=== PATIENT | male | born 1945 | race Caucasian/White ===

== ENCOUNTER 2020-12-15 06:30 | Outpatient (REF) | payer MEDICARE, SELFPAY ==
[2020-12-15 11:13] LABS: MANUAL DIFF FLAG NO
[2020-12-15 11:34] LABS: Basophils Percent Auto 0.4 % (0-2); Eosinophils Absolute Auto 0.4 X10*3/uL (0.0-0.4); Eosinophils Percent Auto 4.4 % (0-4); Hematocrit 41.6 % (42-52); Imm Gran Abs Auto 0.04 X10*3/uL (0.00-0.03); Imm Gran Pct Auto 0.5 % (0.0-0.4); Lymphocytes Absolute Auto 1.7 X10*3/uL (1.2-4.9); Lymphocytes Percent Auto 20.4 % (20-40); Mean Corpuscular HGB Conc 33.7 g/dl (31.0-36.0); Mean Platelet Volume 10.3 fL (9.4-12.4); Monocytes Absolute Auto 0.7 X10*3/uL (0.1-1.2); Monocytes Percent Auto 8.8 % (2-11); Neutrophils Absolute Auto 5.4 X10*3/uL (2.0-8.3); Neutrophils Percent Auto 65.5 % (45-73); Platelet Count 196 X10*3/uL (160-400); Red Blood Count 4.38 X10*6/uL (4.60-5.80); Red Cell Distribution Width 12.6 % (11.0-16.0); White Blood Count 8.2 X10*3/uL (4.8-10.8)
[2020-12-15 11:59] LABS: Estimated Average Glucose 137 mg/dL; Hemoglobin A1c % 6.4 %
[2020-12-15 12:19] LABS: Alanine Aminotransferase 17 U/L (0-40); Albumin Level 4.3 g/dL (3.5-5.0); Alkaline Phosphatase 100 U/L (39-117); Anion Gap 10 (12-20); Aspartate Amino Transferase 16 U/L (5-37); Bilirubin Direct 0.2 mg/dL (0.0-0.5); Bilirubin Total 0.6 mg/dL (0.0-1.0); Blood Urea Nitrogen 17 mg/dL (9-16); Calcium 8.6 mg/dL (8.4-10.2); Carbon Dioxide 29 mmol/L (22-29); Chloride 106 mmol/L (96-108); Cholesterol 173 mg/dL; Estimated Glomerular Filt Rate > 60; Glucose Fasting 114 mg/dL (60-99); HDL Cholesterol 38 mg/dL; LDL Cholesterol Calculated 97 mg/dl; Potassium 4.2 mmol/L (3.3-5.1); Sodium 141 mmol/L (135-145); Total Protein 7.2 g/dL (6.5-8.0); Triglycerides 193 mg/dL
[2020-12-15 12:21] LABS: Creatinine Urine 39.41 mg/dL; Microalbum/Creatinine Ratio Ur 20.2 ug/mg cr
== END 2020-12-15 06:31 | disposition home or self-care (01) ==
LOC: HO.HMGCLDS 06:30
PROVIDERS: PCP Internal Medicine; Visit Provider Internal Medicine
DX: F33.9 Major depressive disorder, recurrent, unspecified (principal); E11.9 Type 2 diabetes mellitus without complications; I10 Essential (primary) hypertension; E78.9 Disorder of lipoprotein metabolism, unspecified
CPT/HCPCS: 36415; 80048; 80061; 80076; 82043; 83036; 85025

== ENCOUNTER 2021-07-16 08:03 | Outpatient (REF) | payer MEDICARE, SELFPAY ==
[2021-07-16 13:16] LABS: Alanine Aminotransferase 22 U/L (0-40); Albumin Level 4.6 g/dL (3.5-5.0); Alkaline Phosphatase 119 U/L (39-117); Anion Gap 14 (12-20); Aspartate Amino Transferase 23 U/L (5-37); Bilirubin Total 0.7 mg/dL (0.0-1.0); Blood Urea Nitrogen 21 mg/dL (9-16); Calcium 9.8 mg/dL (8.4-10.2); Carbon Dioxide 26 mmol/L (22-29); Chloride 103 mmol/L (96-108); Estimated Glomerular Filt Rate > 60; Glucose Random 129 mg/dL (60-115); Potassium 5.1 mmol/L (3.3-5.1); Sodium 138 mmol/L (135-145); Total Protein 8.2 g/dL (6.5-8.0)
[2021-07-16 13:25] LABS: Microalbumin Urine < 5.0 mg/L
[2021-07-16 14:01] LABS: Estimated Average Glucose 154 mg/dL
== END 2021-07-16 08:04 | disposition home or self-care (01) ==
LOC: HO.HMGCLDS 08:03
PROVIDERS: PCP Internal Medicine; Visit Provider Internal Medicine
DX: I10 Essential (primary) hypertension (principal); E11.9 Type 2 diabetes mellitus without complications; E78.9 Disorder of lipoprotein metabolism, unspecified
CPT/HCPCS: 36415; 80053; 82043; 83036

== ENCOUNTER 2022-01-14 08:01 | Outpatient (REF) | payer MEDICARE, SELFPAY ==
[2022-01-14 11:53] LABS: Alanine Aminotransferase 22 U/L (0-40); Albumin Level 4.2 g/dL (3.5-5.0); Alkaline Phosphatase 111 U/L (39-117); Anion Gap 12 (12-20); Aspartate Amino Transferase 20 U/L (5-37); Bilirubin Total 0.5 mg/dL (0.0-1.0); Blood Urea Nitrogen 28 mg/dL (9-16); Calcium 9.4 mg/dL (8.4-10.2); Carbon Dioxide 27 mmol/L (22-29); Chloride 106 mmol/L (96-108); Estimated Glomerular Filt Rate > 60; Glucose Random 127 mg/dL (60-115); Potassium 4.7 mmol/L (3.3-5.1); Sodium 140 mmol/L (135-145); Total Protein 7.4 g/dL (6.5-8.0)
[2022-01-14 12:02] LABS: Estimated Average Glucose 163 mg/dL; Hemoglobin A1c % 7.3 %
[2022-01-14 12:16] LABS: Creatinine Urine 71.47 mg/dL; Microalbum/Creatinine Ratio Ur 9.7 ug/mg cr
[2022-01-15 09:41] LABS: LDL Cholesterol Direct 96 mg/dL (<100)
== END 2022-01-14 08:02 | disposition home or self-care (01) ==
LOC: HO.HMGCLDS 08:01
PROVIDERS: Visit Provider Internal Medicine
DX: E66.9 Obesity, unspecified (principal); E78.9 Disorder of lipoprotein metabolism, unspecified; F33.9 Major depressive disorder, recurrent, unspecified; H91.90 Unspecified hearing loss, unspecified ear; I10 Essential (primary) hypertension; E11.9 Type 2 diabetes mellitus without complications
CPT/HCPCS: 36415; 80053; 82043; 83036; 83721

== ENCOUNTER 2022-09-12 07:05 | Outpatient (REF) | payer MEDICARE, SELFPAY ==
[2022-09-12 11:14] LABS: MANUAL DIFF FLAG NO
[2022-09-12 11:52] LABS: Basophils Percent Auto 0.5 % (0-2); Eosinophils Absolute Auto 0.3 X10*3/uL (0.0-0.4); Eosinophils Percent Auto 3.4 % (0-4); Hematocrit 44.1 % (42.0-52.0); Hemoglobin 14.7 g/dl (14.0-18.0); Imm Gran Abs Auto 0.05 X10*3/uL (0.00-0.03); Imm Gran Pct Auto 0.6 % (0.0-0.4); Lymphocytes Absolute Auto 1.9 X10*3/uL (1.2-4.9); Lymphocytes Percent Auto 22.2 % (20-40); Mean Corpuscular HGB Conc 33.3 g/dl (31.0-36.0); Mean Corpuscular Hemoglobin 32.1 pg (27.0-33.0); Mean Corpuscular Volume 96.3 fL (80.0-98.0); Mean Platelet Volume 10.7 fL (9.4-12.4); Monocytes Absolute Auto 0.7 X10*3/uL (0.1-1.2); Monocytes Percent Auto 8.5 % (2-11); Neutrophils Absolute Auto 5.5 x10*3/uL (2.0-8.3); Neutrophils Percent Auto 64.8 % (45-73); Platelet Count 202 X10*3/uL (160-400); Red Blood Count 4.58 X10*6/uL (4.60-5.80); Red Cell Distribution Width 12.6 % (11.0-16.0); White Blood Count 8.5 X10*3/uL (4.8-10.8)
[2022-09-12 12:02] LABS: Estimated Average Glucose 163 mg/dL; Hemoglobin A1c % 7.3 %
[2022-09-12 12:13] LABS: Creatinine Urine 36.74 mg/dL; Microalbum/Creatinine Ratio Ur 24.4 ug/mg cr
[2022-09-12 12:29] LABS: Alanine Aminotransferase 20 U/L (0-40); Albumin Level 4.4 g/dL (3.5-5.0); Alkaline Phosphatase 114 U/L (39-117); Anion Gap 13 (12-20); Aspartate Amino Transferase 18 U/L (5-37); Bilirubin Direct 0.2 mg/dL (0.0-0.5); Bilirubin Total 0.5 mg/dL (0.0-1.0); Blood Urea Nitrogen 29 mg/dL (9-16); Calcium 9.9 mg/dL (8.4-10.2); Carbon Dioxide 29 mmol/L (22-29); Chloride 104 mmol/L (96-108); Estimated Glomerular Filt Rate > 60; Glucose Fasting 151 mg/dL (60-99); Potassium 5.3 mmol/L (3.3-5.1); Sodium 141 mmol/L (135-145); Total Protein 7.5 g/dL (6.5-8.0)
== END 2022-09-12 07:06 | disposition home or self-care (01) ==
LOC: HO.HMGCLDS 07:05
PROVIDERS: PCP Internal Medicine; Visit Provider Internal Medicine
DX: E66.9 Obesity, unspecified (principal); E78.9 Disorder of lipoprotein metabolism, unspecified; F33.9 Major depressive disorder, recurrent, unspecified; I10 Essential (primary) hypertension; R09.81 Nasal congestion; E11.9 Type 2 diabetes mellitus without complications
CPT/HCPCS: 36415; 80053; 80076; 82043; 83036; 85025

== ENCOUNTER 2022-09-16 09:18 | Outpatient (REF) | payer MEDICARE, SELFPAY ==
[2022-09-16 11:52] LABS: Anion Gap 14 (12-20); Blood Urea Nitrogen 24 mg/dL (9-16); Calcium 9.6 mg/dL (8.4-10.2); Carbon Dioxide 28 mmol/L (22-29); Chloride 103 mmol/L (96-108); Estimated Glomerular Filt Rate > 60; Glucose Random 132 mg/dL (60-115); Potassium 4.6 mmol/L (3.3-5.1)
[2022-09-16 11:59] LABS: Sodium 140 mmol/L (135-145)
== END 2022-09-16 09:19 | disposition home or self-care (01) ==
LOC: HO.HMGCLDS 09:18
PROVIDERS: PCP Internal Medicine; Visit Provider Internal Medicine
DX: E87.5 Hyperkalemia (principal)
CPT/HCPCS: 36415; 80048

== ENCOUNTER → 2022-11-14 08:05 | Outpatient (BNVA) | payer MEDICARE, SELFPAY | PROVIDERS: PCP Internal Medicine; Referring Provider Internal Medicine; Visit Provider Internal Medicine | DX: R94.31 Abnormal electrocardiogram [ECG] [EKG] (principal); I10 Essential (primary) hypertension; E11.9 Type 2 diabetes mellitus without complications; E78.9 Disorder of lipoprotein metabolism, unspecified; Z82.49 Family history of ischemic heart disease and other diseases of the circulatory system | CPT/HCPCS: 93005; 99202 ==

== ENCOUNTER → 2022-11-30 07:53 | Outpatient (REF) | payer MEDICARE, SELFPAY ==
--- NOTE | ~2022-11-30 | NM_ITS ---
Myocardial perfusion study Indication: Precordial chest pain to evaluate for myocardial ischemia Technique: The patient was brought in for a Lexiscan perfusion study on 11/30/2022. Patient performed low-level exercise and was injected 0.4 mg of Lexiscan intravenously. Within a minute of injection, 35 mCi of sestamibi was given intravenously. Images were obtained using the SPECT gamma camera interlaced with the gating device. Images were obtained in supine position. Resting perfusion study was performed on 12/01/2022. Patient was administered 35 mCi of sestamibi intravenously at rest. Images were then obtained in supine position. Images obtained with and without CT attenuation. Total DLP 107 mGy-cm. Images were processed with the software and compared side to side in short axis, horizontal long axis and vertical long axis views. Findings: Both stress and rest perfusion images suboptimal due to intense subdiaphragmatic uptake interfering with inferior and inferolateral wall uptake The stress perfusion study showed non attenuated images there is mildly to moderately reduced uptake in the inferior wall as well as moderately reduced uptake in the inferolateral wall of the LV myocardium. Attenuation corrected images show mildly reduced uptake in the inferior and lateral wall of the cardiac.. The gated study shows normal LV systolic function with calculated LVEF of 57%. LV cavity is mildly dilated size. The gated study shows reduced wall thickening and contraction of basal inferior and inferolateral segments. Resting study shows both non attenuated attenuated corrected images show uptake in the inferolateral wall of the LV myocardium. This persistently reduced uptake in the basal inferior with there appears to be improved uptake in the mid inferior wall. . Gating at rest reveals basal inferior and inferolateral wall motion abnormality with ejection fraction at 49%. The findings are consistent with fixed basal inferior wall defect may suggest nontransmural infarct with ischemia of the inferolateral and mid inferior wall. NM/NM cardiolite stress test Impression: 1. Myocardial perfusion imaging study shows ischemia of the inferolateral and mid inferior wall with nontransmural VT of the basal inferior wall 2. Gated LVEF is 57% with stress and 49% with rest 3. Transient ischemic dilatation not present but LV cavity is dilated EKG is nondiagnostic for ischemia
--- NOTE | 2022-11-30 07:58 | CA_ITS ---
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 Study Quality: Adequate w contrast ECG Rhythm: Sinus Conclusions: - 1. Low normal LV systolic function with LVEF of 50-55% with grade 2 diastolic dysfunction with underlying regional wall motion abnormality suggestive underlying coronary artery disease 2. Mild aortic stenosis is present 3. Normal RV systolic pressure 4. No gross pericardial effusion Findings Procedure Information Contrast agent, definity, is being given per protocol without apparent complications. The quality of the study was technically difficult. The study quality is limited by patients body habitus. Left Ventricle Normal left ventricular cavity size. There is normal left ventricular wall thickness. The left ventricular systolic function is low normal. The visually estimated ejection fraction is between 50-55%. Spectral Doppler is indicative of a pseudonormal filling pattern. E/E prime ratio is >15, consistent with elevated filling pressures. Evidence suggests grade II (moderate) diastolic dysfunction. There is mild septal asymmetric hypertrophy. Wall Motion Rest Echo Findings The inferolateral wall and mid inferior segment are hypokinetic. The basal inferior and basal inferoseptal segments are akinetic. All other scored wall segments showed normal motion. Right Ventricle Normal right ventricular cavity size and systolic function. Atria The left atrium is likely dilated. There is lipomatous hypertrophy of the interatrial septum. There is no evidence of interatrial shunt. Aortic Valve The aortic valve was not well visualized. There is mild calcification of the aortic valve. There is mild aortic valve stenosis. There is no aortic valve regurgitation. Mitral Valve There is mild anterior and posterior mitral leaflet thickening. There is mild mitral annular calcification. There is trace mitral valve regurgitation. There is no mitral valve stenosis. Pulmonic Valve The pulmonic valve was not well visualized. Tricuspid Valve Likely normal tricuspid valve structure and function. There is mild tricuspid valve regurgitation. The right ventricular systolic pressure is normal. The right ventricular systolic pressure is 30 mmHg. Normal right atrial pressure. Great Vessels All visible segments of the aorta are normal in size. The pulmonary artery was not well visualized. Venous The inferior vena cava is normal in size and collapses greater than 50% with inspiration. Pericardium/Pleural There is no evidence of pericardial effusion. Prior Study Comparison No prior study available for comparison. Measurements 2D Linear Measurements IVSd: 1.32 0.6-0.9/0.6-1.0 cm LVIDd: 5.04 3.9-5.3/4.2-5.9 cm LVIDd Index: 2.25 2.4-3.2/2.2-3.1 cm/m2 LVIDs: 4.26 2.0-3.6 cm LVPWd: 0.68 0.7-1.1 cm LA Diam: 4.40 2.7-3.8/3.0-4.0 cm LAIDs Index: 1.96 1.5-2.3 cm/m2 LV Mass: 229.42 67-162/88-224 g LV Mass Index: 102.42 43-95/49-115 g/m2 LVOT Diam: 2.30 3.0+(-)1.3 cm 2D Systolic Function EF 4C: 54.40 >55% EF 2C: 52.50 >55% EF BiP: 53.80 >55% Mitral Valve MV Pk E: 1.00 MV PK A: 0.97 MV Decel Time: 163.00 E/A: 1.00 E'Lateral: 7.07 E'Medial: 3.15 E/E' Med: 31.70 E/E' Lat: 14.10 PHT: 48.00 MVA PHT: 4.58 Decel Ashley: 6.11 Aortic Valve AoV Pk Stephen: 2.07 AoV Mn Stephen: 1.49 AoV VTI: 0.50 AoV Pk Grad: 17.00 Aov Mn Grad: 10.00 CECILIA Cont.VTI: 1.85 LVOT LVOT Pk Stephen: 0.93 LVOT Mn Stephen: 0.62 LVOT VTI: 0.22 LVOT Pk Grad: 3.00 LVOT Mn Grad: 2.00 LVOT Diam: 2.30 LVOT Area: 4.15 Diastolic Function MV Pk E: 1.00 MV Pk A: 0.97 E/A: 1.00 E'Medial: 3.15 E/E' Med: 31.70 E' Laterial: 7.07 E/E' Lat: 14.10 Right Ventricle TAPSE (mm): 25.40 TVS' Stephen: 14.80 Tricuspid Valve TR Pk Stephen: 2.62 TR Pk Grad: 27.00 RA Press: 3.00 RVSP: 30.00 Great Vessels Aorta Sinus of Valsalva: 3.10 2.0-3.5 cm Ao Asc: 3.50 2.1-3.4 cm Pulmonary Valve PV Pk Stephen: 1.19 Peak PV Grad: 6.00 Updated in Other Vendor System with Status of Final Long Delgado MD electronically signed on 11/30/2022 3:24:02 PM with status of Final
--- NOTE | 2022-11-30 07:58 | CA_ITS ---
Acquisition Time: 2022-11-30 09:48:34 Total Exercise Time: 00:02:00 Test Indications: Abnormal ECG Medications: Protocol: LEXISCAN Max HR: 098 BPM 69% of Pred: 142 BPM Max BP: 144/074 mmHG Max Work Load: 1.0 METS Pharmacological stress test with Lexiscan injection, while sitting and kicking his legs, without anginal symptoms, with isolated PVC, with normotensive response to injection, with nondiagnostic EKG for ischemia. Nuclear images pending. Test reviewed with Dr Rodriguez. Referred By: Boogie Hunter Overread By: SKYLAR GONZÁLES
== END ==
LOC: HO.CARD 07:53
PROVIDERS: PCP Internal Medicine; Visit Provider Internal Medicine
DX: R07.2 Precordial pain (principal); I25.119 Atherosclerotic heart disease of native coronary artery with unspecified angina pectoris; R94.31 Abnormal electrocardiogram [ECG] [EKG]
CPT/HCPCS: 78452; 93017; 93306; A9500; J2785; Q9957

== ENCOUNTER 2023-01-20 09:17 | Outpatient (REF) | payer MEDICARE, SELFPAY ==
[2023-01-20 12:09] LABS: Estimated Average Glucose 183 mg/dL
[2023-01-20 12:19] LABS: Alanine Aminotransferase 24 U/L (0-40); Albumin Level 4.3 g/dL (3.5-5.0); Alkaline Phosphatase 115 U/L (39-117); Anion Gap 12 (12-20); Aspartate Amino Transferase 23 U/L (5-37); Bilirubin Total 0.7 mg/dL (0.0-1.0); Blood Urea Nitrogen 21 mg/dL (9-16); Calcium 9.2 mg/dL (8.4-10.2); Carbon Dioxide 25 mmol/L (22-29); Chloride 107 mmol/L (96-108); Estimated Glomerular Filt Rate > 60; Glucose Random 143 mg/dL (60-115); Potassium 4.6 mmol/L (3.3-5.1); Sodium 139 mmol/L (135-145); Total Protein 7.2 g/dL (6.5-8.0)
[2023-01-21 17:13] LABS: LDL Cholesterol Direct 123 mg/dL (<100)
== END 2023-01-20 09:18 | disposition home or self-care (01) ==
LOC: HO.HMGCLDS 09:17
PROVIDERS: PCP Internal Medicine; Visit Provider Internal Medicine
DX: E11.9 Type 2 diabetes mellitus without complications (principal); E66.9 Obesity, unspecified; E78.9 Disorder of lipoprotein metabolism, unspecified; F33.9 Major depressive disorder, recurrent, unspecified; H91.90 Unspecified hearing loss, unspecified ear; I10 Essential (primary) hypertension; M15.9 Polyosteoarthritis, unspecified
CPT/HCPCS: 36415; 80053; 83036; 83721

== ENCOUNTER → 2023-02-07 08:11 | Outpatient (BNVA) | payer MEDICARE, SELFPAY | PROVIDERS: PCP Internal Medicine; Referring Provider Internal Medicine; Visit Provider Internal Medicine | DX: I25.10 Atherosclerotic heart disease of native coronary artery without angina pectoris (principal); I10 Essential (primary) hypertension; E11.9 Type 2 diabetes mellitus without complications; E78.9 Disorder of lipoprotein metabolism, unspecified; Z82.49 Family history of ischemic heart disease and other diseases of the circulatory system | CPT/HCPCS: 99212 ==

== ENCOUNTER 2023-03-24 07:04 | Outpatient (REF) | payer MEDICARE, SELFPAY ==
[2023-03-24 11:34] LABS: MANUAL DIFF FLAG NO
[2023-03-24 11:39] LABS: Basophils Percent Auto 0.3 % (0-2); Eosinophils Absolute Auto 0.3 X10*3/uL (0.0-0.4); Eosinophils Percent Auto 3.6 % (0-4); Hematocrit 47.3 % (42.0-52.0); Hemoglobin 15.4 g/dl (14.0-18.0); Imm Gran Abs Auto 0.04 X10*3/uL (0.00-0.03); Imm Gran Pct Auto 0.4 % (0.0-0.4); Lymphocytes Percent Auto 20.8 % (20-40); Mean Corpuscular HGB Conc 32.6 g/dl (31.0-36.0); Mean Corpuscular Hemoglobin 31.7 pg (27.0-33.0); Mean Corpuscular Volume 97.3 fL (80.0-98.0); Mean Platelet Volume 10.1 fL (9.4-12.4); Monocytes Absolute Auto 0.8 X10*3/uL (0.1-1.2); Monocytes Percent Auto 8.6 % (2-11); Neutrophils Absolute Auto 6.3 x10*3/uL (2.0-8.3); Neutrophils Percent Auto 66.3 % (45-73); Platelet Count 210 X10*3/uL (160-400); Red Blood Count 4.86 X10*6/uL (4.60-5.80); Red Cell Distribution Width 12.5 % (11.0-16.0); White Blood Count 9.5 X10*3/uL (4.8-10.8)
[2023-03-24 11:45] LABS: INTERNATIONAL NORM RATIO 0.9 (0.9-1.1); Prothrombin Time 10.4 SEC (10.0-13.1)
[2023-03-24 11:49] LABS: Anion Gap 12 (12-20); Blood Urea Nitrogen 25 mg/dL (9-16); Calcium 10.2 mg/dL (8.4-10.2); Carbon Dioxide 30 mmol/L (22-29); Chloride 104 mmol/L (96-108); Estimated Glomerular Filt Rate > 60; Glucose Random 154 mg/dL (60-115); Potassium 5.8 mmol/L (3.3-5.1); Sodium 140 mmol/L (135-145)
== END 2023-03-24 07:05 | disposition home or self-care (01) ==
LOC: HO.HMGCLDS 07:04
PROVIDERS: PCP Internal Medicine; Visit Provider Internal Medicine
DX: I25.10 Atherosclerotic heart disease of native coronary artery without angina pectoris (principal); E78.9 Disorder of lipoprotein metabolism, unspecified; R94.31 Abnormal electrocardiogram [ECG] [EKG]
CPT/HCPCS: 36415; 80048; 85025; 85610

== ENCOUNTER 2023-04-03 08:12 | Outpatient (REF) | payer MEDICARE, SELFPAY ==
[2023-04-03 09:24] LABS: Anion Gap 14 (12-20); Blood Urea Nitrogen 24 mg/dL (9-16); Calcium 10.2 mg/dL (8.4-10.2); Carbon Dioxide 26 mmol/L (22-29); Chloride 102 mmol/L (96-108); Estimated Glomerular Filt Rate > 60; Glucose Random 167 mg/dL (60-115); Sodium 137 mmol/L (135-145)
== END 2023-04-03 08:13 | disposition home or self-care (01) ==
LOC: HO.LAB 08:12
PROVIDERS: Visit Provider Internal Medicine
DX: E87.5 Hyperkalemia (principal); I25.10 Atherosclerotic heart disease of native coronary artery without angina pectoris
CPT/HCPCS: 36415; 80048

== ENCOUNTER 2023-04-13 10:32 | Emergency (ER) | payer MEDICARE, SELFPAY ==
--- NOTE | 2023-04-13 | ECG_ITS ---
Test Reason : CHEST PAIN Blood Pressure : / mmHG Vent. Rate : 085 BPM Atrial Rate : 085 BPM P-R Int : 186 ms QRS Dur : 110 ms QT Int : 360 ms P-R-T Axes : 000 016 071 degrees QTc Int : 428 ms Sinus rhythm with Premature atrial complexes Cannot rule out Anterior infarct , age undetermined Abnormal ECG When compared with ECG of 06-DEC-2010 08:04, No significant change was found Referred By: Generic ED Physician Electronically Signed By:Jarocho Rodriguez
[2023-04-13 10:36] VITALS: BP 151/74; PULSE 62; RESP 18; TEMP 36.6; O2SAT 96; BMI 29.8
[2023-04-13 11:01] LABS: Hematocrit 45.5 % (42.0-52.0); Hemoglobin 15.9 g/dl (14.0-18.0); Mean Corpuscular HGB Conc 34.9 g/dl (31.0-36.0); Mean Corpuscular Hemoglobin 31.9 pg (27.0-33.0); Mean Corpuscular Volume 91.4 fL (80.0-98.0); Mean Platelet Volume 9.1 fL (9.4-12.4); Platelet Count 196 X10*3/uL (160-400); Red Blood Count 4.98 X10*6/uL (4.60-5.80); Red Cell Distribution Width 12.1 % (11.0-16.0); White Blood Count 11.3 X10*3/uL (4.8-10.8)
[2023-04-13 11:22] LABS: Alanine Aminotransferase 31 U/L (0-40); Albumin Level 4.1 g/dL (3.5-5.0); Alkaline Phosphatase 115 U/L (39-117); Anion Gap 13 (12-20); Aspartate Amino Transferase 23 U/L (5-37); Blood Urea Nitrogen 25 mg/dL (9-16); Calcium 9.7 mg/dL (8.4-10.2); Carbon Dioxide 27 mmol/L (22-29); Chloride 98 mmol/L (96-108); Creatinine Clr Calc Pharmacy 89.7; Estimated Glomerular Filt Rate > 60; Glucose Random 150 mg/dL (60-115); Potassium 4.9 mmol/L (3.3-5.1); Sodium 133 mmol/L (135-145); Total Protein 7.9 g/dL (6.5-8.0); Troponin-I High Sensitivity < 2.7 ng/L (<3.5-35.0)
[2023-04-13 11:23] LABS: B Type Natriuretic Peptide 12 pg/mL (<100)
--- OUTSIDE RECORDS SUMMARY | 2023-04-13 11:44 | XMS_ITS | Continuity of Care Document ---
Author Name Unknown Organization [facility] ter Address [address] [place] [id number] Care Team Providers Care Echo Vasc Tech Name Role Phone Perfecto Daniels MD Primary Care Physician Encounter [facility] [place] Date(s): 04/04/23 - 04/04/[address] [id number] Discharge Disposition: A-D/C Home Attending Physician: Jarocho Rodriguez MD Admitting Physician: Jarocho Rodriguez MD Referring Physician: Boogie Hunter MD Allergies, Adverse Reactions, Alerts Substance Reaction Severity Status Other Environmental Allergy sneezing Blocked up Active Medications aspirin 81 mg oral tablet, chewable 81 mg, 1, tablet, By Mouth, Daily, # 90 tablet, Refills 3, Tot. Refills 3, Maintenance, 04/04/23 13:23:00 EDT, Route to Pharmacy Electronically, [facility], Partial fill upon patient request if the prescription is for a schedule II opioi... Start Date: 04/04/23 Status: Ordered Fentanyl 25 mcg/hr Patch See Instructions, 0, 0, 06/05/07 7:54:34, Print EKATERINA Number, Constant Indicator Start Date: 06/05/07 Status: Ordered Fexofenadine By Mouth, 0, 0, 06/05/07 7:52:13, Print EKATERINA Number, Constant Indicator Start Date: 06/05/07 Status: Ordered Ibuprofen 800 mg, By Mouth, 3 times a day, PRN, Refills 0, Tot. Refills 0, Maintenance, as needed for pain, 06/05/07 7:52:24 Start Date: 06/05/07 Status: Ordered Lisinopril 20, mg, By Mouth, Daily, 0, 0, 06/05/07 7:54:02, Print EKATERINA Number, [id number], Constant Indicator Start Date: 06/05/07 Status: Ordered Lopid Tablet 600, mg, By Mouth, 2 times a day, 0, 0, 06/05/07 7:53:47, Print EKATERINA Number, [id number], Constant Indicator Start Date: 06/05/07 Status: Ordered minocycline 50 mg oral capsule 1 capsule = 50 mg, By Mouth, Daily, 0 Refills, Maintenance Start Date: 07/20/10 Status: Ordered Paxil 10 mg oral tablet 10, mg, 1, tablet, By Mouth, Daily, Scheduled / PRN, 0, 0, 09/18/07 9:34:51, as needed, Print EKATERINA Number, [id number] Start Date: 09/18/07 Status: Ordered Vital Signs Most recent to oldest [Reference Range]: 1 2 3 Height 185 cm (04/04/23 9:52 AM) Weight 100.2 kg (04/04/23 9:52 AM) Oxygen Saturation [94-100 %] 94 % (04/04/23 5:30 PM) 95 % (04/04/23 5:00 PM) 96 % (04/04/23 4:30 PM) Pulse Rate [55-90 bpm] 79 bpm (04/04/23 9:52 AM) Body Mass Index [18.5-24.99 kg/m2] 29.28 kg/m2 *H* (04/04/23 9:52 AM) Blood Pressure [90-138/55-84 mm Hg] 158/80mm Hg *H* (04/04/23 5:30 PM) 142/80mm Hg *H* (04/04/23 5:00 PM) 150/77mm Hg *H* (04/04/23 4:30 PM) Respiratory Rate [16-30 br/min] 24 br/min (04/04/23 5:30 PM) 29 br/min (04/04/23 5:00 PM) 20 br/min (04/04/23 4:30 PM) Temperature [96.8-100.4 DegF] 98.7 DegF (04/04/23 9:52 AM) Mode of Delivery (Oxygen) Room air (04/04/23 5:30 PM) Room air (04/04/23 5:00 PM) Room air (04/04/23 4:30 PM) Blood pressure sites Arm, left (04/04/23 2:45 PM) Arm, left (04/04/23 2:30 PM) Arm, left (04/04/23 2:15 PM) Temperature Route Temporal (04/04/23 9:52 AM) Dry Weight 100.2 kg (04/04/23 9:52 AM) Weight Obtained Via Standing scale (04/04/23 9:52 AM) Dry Weight Obtained Via Standing scale (04/04/23 9:52 AM) Cardiac catheterization study * Event Display: [employer] Insurance Report Authored Date: * Event Display: [employer] Insurance Report Authored Date: Cardiac Diagnostic Report Demographics Patient Name HEVER JOHNSON Gender Male [employer] Room Number B210 Height 72.83 inches Date of 1945 Weight 220.9 pounds Age 77 year(s) BSA 2.24 m2 Accession Number [id number] BMI 29.28 kg/m2 Referring Physician Ryan GORDON Asma Date of Study 04/04/2023 Boogie Hunter MD Performing Physician Jarocho Rodriguez MD Fellow Fausto Khan Interventional Physician Procedure Procedure Type Diagnostic procedure:Coronary Angiography with [facility] ACC Diagnostic Catheterization Status:Elective Indications Indications: Abnormal ECG and Abnormal nuclear perfusion study. Clinical History Admission Medications + +------+--------+ + + +---------+ !Medication !Dosage!Times !Last !Last !Administered !Comments ! ! ! !Per Day !Delivery !Delivery ! ! ! ! ! ! !Date !Time ! ! ! + +------+--------+ + + +---------+ !Aspirin (any)! ! ! ! ! ! ! + +------+--------+ + + +---------+ !DULCE Inhibitor! ! ! ! ! ! ! !(any) ! ! ! ! ! ! ! + +------+--------+ + + +---------+ Clinical Evaluation Leading to Procedure - There were no CAD presentation symptoms. - There were no anginal symptoms. ACC Risk Factors The patient risk factors include:obesity, treated hypercholesterolemia, treated hypertension, family history of premature CAD, orally-treated diabetes mellitus, last creatinine: 0.9 mg/dl, creatinine clearance: 95.87 ml/min, dyslipidemia and former tobacco use. Additional Clinical History:77 y/o male with NIDDM, HTN, HLP, FH CAD, OA, obesity presented with abnormal EKG suggestive of anterior infarct. LVEF low normal 50% with WMA suggestive of CAD and MPI suggestive of inferior and inferolateral marco-infarct ischemia. Procedure Data Procedure Date Date: 04/04/2023Start: 12:35End: 13:13 The procedure was explained in detail to the patient. Risks, complications and alternative treatments were reviewed. Written consent was obtained. Entry Locations - Retrograde Percutaneous access was performed through the Right Radial artery (Primary location). A 6 Fr sheath was inserted. Hemostasis was successfully obtained using TR Band. Closure Comments: 13cc's. Procedure Medications - Versed (Midazolam) I.V. 1 mg. - Fentanyl I.V. 50 mcg. - Lidocaine 2% S.C. Right Wrist 3 ml. - Nitroglycerin I.A. 200 mcg. - Heparin I.V. 5000 units. - 0.9NS I.V. bolus 250 ml. Sedation: My intra-service moderate sedation time was: from 1252 to 1315. Refer to procedural log for detailed chronological information. Contrast Material - Omnipaque 35 ml Diagnostic Catheters - A5F JR 4.0 DxTERITY DIAGNOSTIC CATHETERwas used for: Left heart catheterization. - A5F JR 4.0 DxTERITY DIAGNOSTIC CATHETERwas used for: Right coronary angiography. - A5F JL 3.5 DXTERITY DIAGNOSTIC CATHETERwas used for: Left coronary angiography. Fluoroscopy Time: Diagnostic: 2:48 minutes. Total: 2:48 minutes. Fluoroscopy Dose: Diagnostic: 160 mGy. Total: 160 mGy. Dose Area Product:Diagnostic: 86088 mGy/cm2. Total: 00017 mGy/cm2. Dose Area Product:Diagnostic: 1550 ??Gy/m2. Total: 1550 ??Gy/m2. Angiographic Findings Cardiac Arteries and Lesion Findings LMCA: Normal. LAD: Lesion in Mid LAD: 70% stenosis . Lesion in Mid LAD: 80% stenosis . LCx: Lesion in Prox CX: Proximal subsection.40% stenosis . Lesion in 1st Ob Leticia: Ostial.80% stenosis . Lesion in 2nd Ob Leticia: Mid subsection.90% stenosis 18 mm length. RCA: Lesion in Prox RCA: Ostial.75% stenosis 20 mm length. Lesion in Dist RCA: Distal subsection.80% stenosis 20 mm length. Hemodynamics Condition: Rest O2 Consumption: Estimated: 271.51Heart Rate: 88 bpm Pressures (mmHg) +-----+ + !Site !Pressure ! +-----+ + !LV !133/1 ,7 ! +-----+ + !AO !110/73 (90)! +-----+ + !LV !130/4 ,7 ! +-----+ + Valve Gradients and Areas +------+----+----+----+-----+----+------+ !Valve !Peak!Mean!Area!Index!Flow!Source! +------+----+----+----+-----+----+------+ !Aortic!20 !13 ! ! ! ! ! +------+----+----+----+-----+----+------+ !Aortic!20 !13 ! ! ! ! ! +------+----+----+----+-----+----+------+ Shunts Oxygen Values O2 Consumption 271.51 Interventional Procedure Conclusions Diagnostic Summary 77-year-old gentleman who is here for diagnostic angiography for abnormal nuclear perfusion imaging. Hemodynamics: Normal systemic pressures. Normal LVEDP. There is mild gradient across AV 13 mm Hg. Coronary anatomy: Severe multivessel disease as described. Referring the patient to CT surgery for CABG. LVEF by echo 50-55%. Diagnostic Recommendations Continue aspirin 81 mg/day indefinitely. Aggressive secondary risk factor modification according to ATP III guidelines. CT surgery referral - BATEMAN to LAD. graft to diagonal, OM1, OM2 and PDA. ACC Diagnostic Recommendations: CABG. Complications:None. Signatures Note * Beth Gonzalez RN: PERFORM Event Display: Discharge/Transfer Note Hospital Authored Date: [id number] Nursing Discharge Note Entered On: 04/04/2023 18:55 EDT Performed On: 04/04/2023 18:54 EDT by Beth Gonzalez RN Nursing Discharge Note 2 Discharge Time : 04/04/2023 17:55 EDT Discharge Level of Care at Discharge : Home/Halfway/Foster Care Patient Left Unit Via : Wheelchair Patient Accompanied Off Unit with : Responsible adult DC Instructions Provided & Signed by Pt : Yes Patient Understands D/C Instructions : Yes Verbalized Understanding of D/C Plan By : Patient Patient Instructions Discharge Signed : Yes Discharge Comments : iv site d/c'ed catheter intact. d/c education completed. pt verbalize fullunderstanding and pt stable with all belongings at time of d/c home Did Pt have Specialty Bed or Wound Vac : No Beth Gonzalez RN - 04/04/2023 18:54 EDT * Beth Gonzalez RN: PERFORM Event Display: Patient Education/Instruction Authored Date: [id number] Inpatient Adult Discharge Instructions [address] [address] Name: ALEX KATHLEEN : 1945 Visit: 04/04/2023 08:22:00 Current Date: 04/04/2023 16:37 Account: [id number] Inpatient Adult Discharge Instructions We would like to thank you for allowing us to assist you with your healthcare needs. The following includes patient education materials and information regarding your injury/illness. Our entire staffstrives to provide an excellent experience for our patients and their families. PLEASE ENSURE YOU FOLLOW-UP PER THE INSTRUCTIONS BELOW! ?? YOUR OPINION IS IMPORTANT TO US! Please complete the survey you may receive by mail or email. Your feedback will be used to make improvements to the healthcare experiences of our patients and their families. Surveys are administered by [employer] ?? If further treatment with your primary care physician or another doctor is recommended, it is important for you to keep the appointment. Call your primary care physician or return to the Emergency Department immediately if your condition worsens, fails to improve, or new symptoms develop. If you need to find a doctor, you can call [email or web address] for a referral at [phone] or toll free at [phone] or log in to [email or web address].. ?? You can view and manage your care through the patient portal or by using a health care jasper of your choosing. [employer] is a website that allows you to securely view your medical information including your hospital discharge summary, office visit summaries, medications and follow-up visits. You can also request appointments, renew medications, and request access to your medical information using a health care jasper of your choosing, or just ask a question. You can enroll at [email or web address] or register during your next office visit. You have been discharged from [facility], Patient Care Unit: CARE. If you have any questions regarding these instructions after you leave, please call us and we will be happy to assist you. [facility] Your Care Team Attending Physician Michael GORDON, Jarocho Consulting Providers Daniel GORDON, Tamara Gonzalez Discharging Providers Fausto Khan DO Reason for Admission CAD ABN EKG [facility] HV2 [id number] Tests Performed Below is a partial list of the tests performed during your hospitalization. You may have had other tests and procedures not included in this list. Please discuss all test results with your provider. GLUCOSE POC Type and Screen Primary Care Provider Perfecto Daniels MD Advance Directive Health Care Proxy on File No Discharge Vitals Temperature: 98.7 DegF Height: 185 cm Pulse Rate: 79 bpm Weight: 100.2 kg Respiratory Rate: 23 br/min Body Mass Index:??29.28 kg/m2??High Systolic Blood Pressure: 125 mm Hg Body surface area: 2.27 Diastolic Blood Pressure:??101 mm Hg??High ?? Oxygen Saturation: 95 % ?? Studies Pending All tests and labs ordered during this hospital stay have been completed unless listed below. Please discuss all pending results with your provider listed above in these instructions. ?? No incomplete studies found What to do next Instructions From Your Doctor Discharge Orders You Need to Schedule the Following Appointments Follow Up with??Dale GORDON, Boogie Why: call with any questions or concerns. Where: [address] [place] [address] [address] [facility] [place] [address]- Discharge Medications ALEX KATHLEEN :1945 Visit Date:04/04/2023 Medications: Please continue your medications until treatment is completed or stopped by your provider. Medications not listed below should be discontinued. Discuss any questions related to medications with your provider. What How Much When Instructions Next Dose New Aspirin (aspirin 81 mg oral tablet, chewable) 1 tab(s) Oral Daily Refills: 3 Pickup at [facility] 3 Unchanged Fentanyl (Fentanyl 25 mcg/ hr Patch) See Instructions Unchanged Fexofenadine Oral Unchanged Gemfibrozil (Lopid Tablet) 600 Milligram Oral Twice a day Unchanged Ibuprofen 800 Milligram Oral 3 times a day as needed for as needed for pain Unchanged Lisinopril 20 Milligram Oral Daily Unchanged Minocycline (minocycline 50 mg oral capsule) 1 capsule Oral Daily Unchanged Paroxetine (Paxil 10 mg oral tablet) 1 tab(s) Oral Daily as needed for as needed Pharmacy Information [facility] 3: [address] [place], [place] [id number] [phone] Test Results Below is a partial list of the most recent Laboratory test results done prior to this discharge. You may have had other tests and procedures not included in this list. Please discuss all test resultswith your provider. GLUCOSE POC (04/04/2023) ???Glucose, POC - 150 mg/dL Type and Screen (04/04/2023) ???Blood Type - O Positive???Antibody Screen - Negative Allergies (NKA means No Known Allergies) Other Environmental Allergy??( sneezing , Blocked up ) Problems No qualifying data available Education Materials Below is the list of Educational Leaflet Providered with your Discharge Instructions. Surgery Radial Cath Approach Discharge Instructions?? Recovery After Procedural Sedation (Adult)?? Discharge Instructions for Cardiac Catheterization?? Bleeding or Hematoma After Cardiac Catheterization?? Valuables and Belongings I fully understand and agree that [facility] accepts no responsibility for all my personal property including clothing, toilet articles, radios, jewelry, dentures, hearing aids, rings, money, or any other property that is in my possession or is brought to me after admission. I understand certain valuables may be placed in a hospital safe for a short period of time. I understand that the hospital is not liable for loss or damage due to accident, fire, or other natural occurrence while said property is in the safe. I accept full responsibility for any personal property that I keep with me, and will not hold the hospital responsible in case of loss or disappearance. I acknowledge that i have been encouraged to send valuables and belongings home. ?? Review of Valuable and Belonging List: With patient Date for Pt to Sign Valuables/Belongings: 04/04/23 11:25:00 ?? Other Discharge Information ? Pulmonary Rehab Status?? Pulmonary Rehab Discharge Status?? Respiratory Rate: 23 br/min ? Common Emergency Awareness Tips IS IT A STROKE? Act FAST and Check for these signs: FACE Does the face look uneven? ARM Does one arm drift down? SPEECH Does their speech sound strange? TIME Call at any sign of stroke ?? Heart Attack Signs Chest discomfort: Most heart attacks involve discomfort in the center of the chest and lasts more than a few minutes, or goes away and comes back. It can feel like uncomfortable pressure, squeezing, fullness or pain. Discomfort in upper body: Symptoms can include pain or discomfort in one or both arms, back, neck, jaw or stomach. Shortness of breath: With or without discomfort. Other signs: Breaking out in a cold sweat, nausea, or lightheaded. Remember, MINUTES DO MATTER. If you experience any of these heart attack warning signs, call to get immediate medical attention! ?? Smoking can increase your chances of developing chronic health problems and can cause harmful effects to other family members in your house. If you smoke, you are strongly encouraged to quit. Please call [facility] [email or web address] Link at [phone] or [phone]) or log in to [email or web address] for referrals to smoking cessation programs. ?? 988 Suicide & Crisis Lifeline is available 08/05 if you or someone you know needs to find a reason to keep living. By calling 178 you'll be connected to a skilled, trained counselor at a crisis center in your area. INPATIENT DISCHARGE INSTRUCTIONS SIGNATURE PAGE HEVERALEX Location:[facility] Registration Date and Time:04/04/2023 08:22 EDT Primary Care Physician: Jeremiah GORDON , Perfecto, Attending Physician: Michael GORDON, Jarocho, I ALEX KATHLEEN, have received the above patient education materials/instructions and have verbalized understanding. If ambulance or transport services are being used I further acknowledge being given a choice of service. ?? If you need to contact me, please call me at this number: . Patient/Dietary Assistant Name: Patient/Dietary Assistant Signature: Relationship to Patient: Witness Name/Signature: Date: * Beth Gonzalez RN: PERFORM Event Display: Patient Education Leaflets Authored Date: [id number] Surgery Radial Cath Approach Discharge Instructions ?? 278 Radial Cath Approach Discharge Instructions ?? Activity Take it easy the rest of the day. Limit your activity on the affected side.?? Act as if your arm is broken for 24 hours. No lifting with affected arm for 24 hours. No pushing or pulling with the affected arm. Do not reach or lift with the affected arm. Do not place excessive pressure on the wrist. ?? Precautions Due to intravenous sedation: It is recommended that someone stay with you for the first night after your procedure. Do not drive or operate hazardous machinery for 24 hours. Do not make legal decisions for 24 hours. Avoid alcohol for 24 hours. Unless directed otherwise, keep yourself hydrated. ?? Dressing/Incision Care You may remove the dressing 24 hours after your procedure. Replace with band aid for an additional 24 hours. You may shower and cleanse the site with soap & water then pat dry. Avoid submersion of site in water x 5 days. Cover the with a clean band aid daily until site is healed. If the band aid becomes soiled, replacewith a clean new one. Do not apply any ointments, lotions, gels or powders to the puncture site. ?? When to contact your doctor If any of the following signs of infection occur: Fever greater than 100 degrees F Increased pain Drainage, redness or warmth at puncture site Tingling of the fingers and hand that last longer than 3 days Slight bubble of blood or bleeding from site: apply manual pressure and notify your doctor ?? Emergency situations: Bleeding from the site that will not stop: apply manual pressure and notify your doctor Profuse bleeding streaming from the puncture site: Apply manual pressure and notify your doctor immediately If your hand becomes bluish, cold to the touch, or painful, notify your doctor immediately or go toEmergency Department. For these emergent situations: If unable to contact your physician, call 911. ?? * Beth Gonzalez RN: PERFORM Event Display: Patient Education Leaflets Authored Date: [id number] Recovery After Procedural Sedation (Adult) ?? [id number] Recovery After Procedural Sedation (Adult) You have been given medicine by vein to make you sleep during your procedure. This may have included both a pain medicine and sleeping medicine. Most of the effects have worn off. But you may still have some drowsiness for the next 6 to 8 hours. Home care Follow these guidelines when you get home: ??? For the next 8 hours, you should be watched by a responsible adult. This person should make sure your condition is not getting worse. ??? Don't drink any alcohol??for the next 24 hours. ??? Don'tdrive, operate dangerous machinery, or make important business or personal decisions??during the next 24 hours. Note: Your healthcare provider may tell you not to take any medicine by mouth for pain or sleep in the next 4 hours. These medicines may react with the medicines you were given in the hospital. This could cause a much stronger response than usual. ?? Follow-up care Follow up with your healthcare provider as advised. Also follow up with your provider if you are not alert and back to your usual level of activity within 12 hours. ?? When to seek medical advice Have someone call your healthcare provider right away if any of these occur: ??? Drowsiness gets worse ??? Weakness or dizziness gets worse ??? Repeated vomiting ??? Severe or ongoing pain from the procedure that's not eased by the pain medicine (if prescribed) ??? Fever ??? New rash ?? Call 911 Have someone call 911 if you have any of these: ??? Shortness of breath ??? Chest pain ??? Loss of consciousness or you can't be awakened ?? Last Reviewed Date: 2021 ?? [id number] [employer]. All rights reserved. This information is not intended as a substitute for professional medical care. Always follow your healthcare professional's instructions. ?? * Beth Gonzalez RN: PERFORM Event Display: Patient Education Leaflets Authored Date: [id number] Discharge Instructions for Cardiac Catheterization ?? [address] Discharge Instructions for Cardiac Catheterization Cardiac catheterization??is an invasive??procedure??to look for certain heart problems. These problems may affect the heart's chambers, valves, and blood vessels. A thin, flexible tube (catheter) is put in a blood vessel in your groin or arm. The catheter is moved to the heart. The healthcare provider can look at the blood flow, blood pressure, and oxygen. They can inject contrast fluid??into your blood. This flows to your heart.??The provider can then take X-rays pictures?? of your heart. Coronary angiography is often done as part of a cardiac cath. This looks for blocked areas in the arteries that send blood to the heart. If a blockage is found, your provider may try to open up the artery. They may put a stent in place. Your provider will talk with you about the results of your procedure . Ask any questions you have before you leave. This sheet will help you take care of yourselfat home. Home care ??? Have a responsible adult drive you home after your procedure. ??? Don't drive or makeany important decisions for at least 24 hours after getting any type of sedation or anesthesia.? Drink?? 6 to 8??glasses of water over the next 24 hours. This is to help flush the contrast dye out of your body. Call your healthcare team if your urine has any change in color. ??? Take your tempe rature each day for 3 to 5 days. If you feel cold and clammy or start sweating, take your temperature right away. Call your healthcare team. ??? Do only light and easy activities for??the next?? 2 to3??days. Ask for help with chores and errands while you recover. Have someone drive you to your appointments. ??? Don't lift anything heavy??until your healthcare team says it's safe. ??? Ask your healthcare team when you can expect to return to work. Unless your job involves lifting, you may be able to return to your normal activities within 2 days. ??? Take your medicines as directed. Don't skip doses. ??? Check your incisions every day for signs of infection. These include redness, swelling,and fluid leaking. It's normal to have a small bruise or bump where the catheter was put in. A bruise that's getting larger is not normal. Tell your healthcare team about this. Call your healthcare team if you see blood forming in the incision. Go to the emergency room if you have uncontrolled bleeding from the artery site. This is even more important if you take medicines that make it hard for your blood to clot. These include aspirin, clopidogrel, warfarin, apixaban, and rivaroxaban. ??? Eat a healthy diet. Make sure it's low in fat, salt, and cholesterol. Ask your healthcare team for diet information. ??? Stop smoking. Sign up for a quit-smoking program. Or ask your healthcare team for help. ??? Exercise as your healthcare team tells you to. Your healthcare team??may advise you to start a cardiac rehab program. Cardiac rehab is an exercise program where trained healthcare staff watchyour progress and stress on your heart while you exercise. Ask your team how to enroll. ??? Don't swim or take baths until your healthcare team says it???s OK. You can shower the day after the procedure. Keep the site clean and dry. This keeps the incision from getting wet and infected until the skin and artery can heal. ??? Follow all other after-care instructions from your team.? Follow-up care ??? Make a follow-up appointment as advised. It's common to have a follow-up appointment 2 to 4 weeks after an angioplasty or coronary stent procedure. ??? Make a yearly appointment. This is??to make sure you're still doing well and not having any new symptoms. ??? Don't wait for a follow-up appointment if your medicines aren't working or you're having heart-related symptoms. Call your healthcare provider. ?? When to get medical care Call your healthcare provider right away if you have any of these: ??? Severe or increasing pain, numbness, coldness, or a bluish color in the leg or arm that held the catheter ??? Fever of 100.4?? F??( 38??C) or higher, or as advised by your healthcare provider ??? Signs of infection at the incision site. These include redness, swelling, drainage, or warmth. ??? Bleeding, bruising, or a lot of??swelling where the catheter was inserted ??? Blood in your urine ??? Black or tarry stools ??? Any unusual bleeding ??? Irregular, very slow, or fast heartbeat ??? Dizziness ?? Call 911 Call 911 if you have any of these: ??? Chest pain ??? Shortness of breath ??? Sudden numbness or weakness in arms, legs, or face, or trouble speaking ??? The puncture site swells up very fast ??? Bleeding from the puncture site that doesn't slow down with firm pressure ?? Last Reviewed Date: 2021 ?? [id number] [employer]. All rights reserved. This information is not intended as a substitute for professional medical care. Always follow your healthcare professional's instructions. ?? Patient Care team information Care Team Personnel Name: Perfecto Daniels MD Position: Reference Physician Member Role: PCP Address: Address: [address] [place] [address] [address] [place] [address]- Care Team Related Persons Name: HILARIO KATHLEEN Address: [address] [address]
--- NOTE | 2023-04-13 12:51 | ED_ITS ---
HPI - Chest Pain General Chief Complaint: Chest Pain Stated Complaint: chest pain Time Seen by Provider: 04/13/23 11:46 Source: patient Mode of arrival: ambulatory Limitations: no limitations History of Present Illness HPI narrative: 69-year-old male with known coronary artery disease due to have triple bypass presents with left axillary pain. Symptoms started at approximately 6:00 a.m./7:00 a.m. last night. They lasted for about 90 minutes. It was a very sharp vague axillary pain. It occurred at rest. Did not radiate. There is no associated symptoms such as shortness of breath, palpitations, lightheadedness, nausea, vomiting. The pain was worse with certain movements and better with other positions. Patient did not have any additional treatment home. He contacted his primary care provider who referred him for evaluation in the emergency department. Patient has been asymptomatic since at least 10:00 a.m. last night. Related Data Home Medications Medication Instructions Recorded Confirmed latanoprost 0.005 % eye drops, 1 drp ophthalmic (eye) QPM 07/17/20 02/07/23 emulsion brimonidine 0.2 % eye drops 1 drp ophthalmic-Right BID 11/06/20 02/07/23 aspirin 81 mg tablet,delayed 81 mg PO DAILY 02/25/22 02/07/23 release (Adult Low Dose Aspirin) loratadine 10 mg tablet 10 mg PO DAILY 11/14/22 02/07/23 minocycline 50 mg capsule 50 mg PO BID 11/14/22 02/07/23 netarsudil 0.02 % eye drops 1 drp ophthalmic-Right BEDTIME 11/14/22 02/07/23 (Rhopressa) timolol maleate 0.5 % eye drops 1 drp ophthalmic (eye) BID 11/14/22 02/07/23 Previous Rx's Medication Instructions Recorded fluticasone propionate 50 1 spray intranasal DAILY #9.9 mL 11/22/21 mcg/actuation nasal spray,suspension (Flonase Allergy Relief) amlodipine 10 mg tablet 10 mg PO DAILY 90 days #90 tabs 01/25/23 meloxicam 7.5 mg tablet 7.5 mg PO DAILY 90 days #90 tabs 01/25/23 glipizide 5 mg tablet 5 mg PO BID #90 tabs 01/30/23 atorvastatin 80 mg tablet 80 mg PO QPM #90 tabs 02/07/23 chlorthalidone 50 mg tablet 50 mg PO DAILY 90 days #90 tabs 03/22/23 paroxetine HCl 10 mg tablet 10 mg PO DAILY #90 tabs 03/27/23 lisinopril 20 mg tablet 20 mg PO DAILY 30 days #30 tabs 03/29/23 Allergies Allergy/AdvReac Type Severity Reaction Status Date / Time atenolol Allergy Unknown Bradycardia Verified 04/13/23 10:41 ENVIROMENTAL Allergy Unknown ITCHY Uncoded 04/13/23 10:41 EYES/RUNNY NOSE Review of Systems Review of Systems: CONSTITUTIONAL: Denies weight loss, fever and chills. HEENT: Denies changes in vision and hearing. RESPIRATORY: Denies SOB and cough. CV: Denies palpitations + CP. GI: Denies abdominal pain, nausea, vomiting and diarrhea. : Denies dysuria and urinary frequency. MSK: Denies myalgia and joint pain. SKIN: Denies rash and pruritus. NEUROLOGICAL: Denies headache and syncope. PSYCHIATRIC: Denies recent changes in mood. Denies anxiety and depression. All other ROS are negative unless in HPI PMFSH Past Medical History Medical History Atherosclerotic cardiovascular disease Cervical spondylosis Chronic nasal congestion Depression, major, recurrent Diabetes mellitus type II, non insulin dependent Hearing impaired Hypertension, essential Lipid disorder Obesity (BMI 30.0-34.9) Osteoarthritis of hand, left Vertebral artery stenosis Surgical History Hx of cholecystectomy Family History Family History Father HTN (hypertension) Mother No problems noted. Social History Social History Housing: House Alcohol intake: current Alcohol intake frequency: a few times a week Patient Tobacco Use Status: Former Tobacco user Quit Date: 1979 Years Smoked: 20 +/- e-Cigarette/Vaping Use: Never Used Advance Directives: No Advance Directives Information Provided: No service: No Current occupational status: retired Cognitive needs: No Hearing needs: No Vision needs: Yes Physical Exam Vital Signs: Vital Signs: Last Vital Signs Temp 97.8 F 04/13/23 10:36 Pulse 62 04/13/23 10:36 Resp 18 04/13/23 10:36 BP 151/74 H 04/13/23 10:36 Pulse Ox 96 04/13/23 10:36 O2 Del Method Room Air 04/13/23 10:36 BMI result Body Mass Index 29.8 GEN: Well developed, no acute distress, alert, oriented HEENT: Normocephalic, atraumatic, normal external ears, nose appears normal, no oropharyngeal edema or exudates Eyes: Normal to appearance Neck: Supple, no lymphadenopathy Respiratory: Talks in complete sentences, no respiratory distress, clear to auscultation bilaterally Cardiovascular: Regular rate and rhythm, no murmurs rubs or gallops Abdomen: Soft, nontender, nondistended, no guarding, no rebound Back: No CVA tenderness Extremities: No clubbing cyanosis or edema Neurologic: No focal neurologic deficits, cranial nerves 2-12 intact, strength is 5/5 bilaterally Skin: No rash Course Course Course Narrative: 77-year-old male who presents with an atypical type of axillary pain that was worse with certain positions and better with other positions. His examination was benign. EKG is nonischemic. Cardiac enzyme is negative. His last known chest pain/axillary pain was at approximately 10:00 a.m. last night. His troponin which is negative his therefore diagnostic of min not being acute tender coronary syndrome. The atypical story additionally supports a diagnosis of an alternative to coronary artery disease and unstable plaque. I am aware t he patient has triple bypass pending. However, at this point, I believe his workup is complete he may be discharged at this time. He was instructed at length that should the symptoms come back or any new or concerning symptoms, he should seek immediate attention the emergency department for re-evaluation. Medical Decision Making Medical Decision Making MDM Narrative: 77-year-old male presents with left axillary pain that is positional nature. He has been pain-free since 10:00 a.m. last night. It is nonexertional in nature. He does have a known history of coronary artery disease reports being due for triple bypass surgery at [facility]. On exam, there are no abnormal findings. His pain is not reproducible. Lungs clear to auscultation bilaterally. There is no lower extremity edema. Cardiac exam was also noted to be normal. An EKG done in triage showed normal sinus rhythm heart rate 85 with a sinus arrhythmia. There is evidence of an old anterior wall CA due to poor precordial progression but there are no acute ST elevations or depressions. Differential diagnosis includes atypical chest pain, angina, cardiac pain, radiculopathy, musculoskeletal pain, strain, sneeze drain, spasm. I will obtain a troponin. We will re-evaluate the patient. He has been instructed should he have recurrent symptoms while he is in the emergency department we would like to repeat an EKG. At this time, I am most likely going to diagnose the patient with an atypical pain. However, should there be any abnormalities noted on his evaluation, patient may warrant hospitalization. Differential Diagnosis Differential Diagnoses: The differential diagnosis associated with the presentation includes Lab Data MDM Lab Attestation statement: I reviewed the patient's lab results. (Troponin is negative. No evidence of cardiac ischemia on laboratory analysis.) 04/13/23 10:54 04/13/23 10:54 Labs: Lab Results 04/13/23 04/13/23 04/13/23 Range/Units 10:54 10:54 10:54 WBC 11.3 H (4.8-10.8) X10*3/uL RBC 4.98 (4.60-5.80) X10*6/uL Hgb 15.9 (14.0-18.0) g/dl Hct 45.5 (42.0-52.0) % MCV 91.4 (80.0-98.0) fL MCH 31.9 (27.0-33.0) pg MCHC 34.9 (31.0-36.0) g/dl RDW 12.1 (11.0-16.0) % Plt Count 196 (160-400) X10*3/uL MPV 9.1 L (9.4-12.4) fL Absolute Nucleated RBC 0.000 (0.0-0.012) X10*3/uL Nucleated RBC % (auto) 0.0 (0.0-0.2) /100WBC Sodium 133 L (135-145) mmol/L Potassium 4.9 (3.3-5.1) mmol/L Chloride 98 (96-108) mmol/L Carbon Dioxide 27 (22-29) mmol/L Anion Gap 13 (12-20) BUN 25 H (9-16) mg/dL Creatinine 0.83 (0.5-1.4) mg/dL Estim Creat Clear Calc 89.7 Estimated GFR > 60 Random Glucose 150 H (60-115) mg/dL Calcium 9.7 (8.4-10.2) mg/dL Total Bilirubin 1.0 (0.0-1.0) mg/dL AST 23 (5-37) U/L ALT 31 (0-40) U/L Alkaline Phosphatase 115 (39-117) U/L Troponin I High Sens < 2.7 (<3.5-35.0) ng/L B-Natriuretic Peptide (<100) pg/mL Total Protein 7.9 (6.5-8.0) g/dL Albumin 4.1 (3.5-5.0) g/dL 04/13/23 Range/Units 10:54 WBC (4.8-10.8) X10*3/uL RBC (4.60-5.80) X10*6/uL Hgb (14.0-18.0) g/dl Hct (42.0-52.0) % MCV (80.0-98.0) fL MCH (27.0-33.0) pg MCHC (31.0-36.0) g/dl RDW (11.0-16.0) % Plt Count (160-400) X10*3/uL MPV (9.4-12.4) fL Absolute Nucleated RBC (0.0-0.012) X10*3/uL Nucleated RBC % (auto) (0.0-0.2) /100WBC Sodium (135-145) mmol/L Potassium (3.3-5.1) mmol/L Chloride (96-108) mmol/L Carbon Dioxide (22-29) mmol/L Anion Gap (12-20) BUN (9-16) mg/dL Creatinine (0.5-1.4) mg/dL Estim Creat Clear Calc Estimated GFR Random Glucose (60-115) mg/dL Calcium (8.4-10.2) mg/dL Total Bilirubin (0.0-1.0) mg/dL AST (5-37) U/L ALT (0-40) U/L Alkaline Phosphatase (39-117) U/L Troponin I High Sens (<3.5-35.0) ng/L B-Natriuretic Peptide 12 (<100) pg/mL Total Protein (6.5-8.0) g/dL Albumin (3.5-5.0) g/dL Independent Interpretation I performed an independent interpretation of an: EKG (Normal sinus rhythm heart rate 85, sinus arrhythmia,, no acute ST elevations depressions, poor precordial progression suggestive of an old anterior wall CA) External Record Review External record reviewed: Office record (Cardiology) Tests considered The following testing was considered but not selected: Chest x-ray: Not indicated, lungs and cardiac exam were normal. His exam is atypical. Doubt x-ray would be helpful in the diagnosis of the patient's pain symptoms. Prescription Management I considered prescription management with: Pain Medication Chronic Conditions Patient?s care impacted by: Other (Coronary artery disease) Discharge Plan Discharge Clinical Impression: Atypical chest pain Patient Disposition: Home, Self-Care Instructions: Chest Pain (ED) Additional Instructions: You were evaluated today for chest pain. He will be discharged. Your cardiac enzymes are negative. Your EKG did not demonstrate any evidence of an acute heart attack. However, should he develop recurrent symptoms, please return for re-evaluation immediately. Prescriptions: No Action amlodipine 10 mg tablet 10 mg PO DAILY 90 Days Qty: 90 0RF meloxicam 7.5 mg tablet 7.5 mg PO DAILY 90 Days Qty: 90 0RF glipizide 5 mg tablet 5 mg PO BID Qty: 90 0RF chlorthalidone 50 mg tablet 50 mg PO DAILY 90 Days Qty: 90 0RF paroxetine HCl 10 mg tablet 10 mg PO DAILY Qty: 90 1RF lisinopril 20 mg tablet 20 mg PO DAILY 30 Days Qty: 30 1RF Rx Instructions: Replaces 30mg tabs. Start 04/02/23. Lab Work 04/03/23 in the morning. latanoprost 0.005 % drops, emulsion 1 drp ophthalmic (eye) QPM timolol maleate 0.5 % drops 1 drp ophthalmic (eye) BID brimonidine 0.2 % drops 1 drp ophthalmic-Right BID aspirin [Adult Low Dose Aspirin] 81 mg tablet,delayed release (DR/EC) 81 mg PO DAILY fluticasone propionate [Flonase Allergy Relief] 50 mcg/actuation sp ray,suspension 1 spray intranasal DAILY Qty: 9.9 1RF Rx Instructions: administer into each nostril Rhopressa 0.02 % drops 1 drp ophthalmic-Right BEDTIME loratadine 10 mg tablet 10 mg PO DAILY minocycline 50 mg capsule 50 mg PO BID atorvastatin 80 mg tablet 80 mg PO QPM Qty: 90 3RF Referrals: Boogie Hunter MD [Physician] - 1 day
[2023-04-13 12:59] VITALS: BP 146/76; PULSE 78; RESP 16; O2SAT 97
== END 2023-04-13 13:06 | disposition home or self-care (01) ==
PROVIDERS: Emergency Provider Emergency Medicine; PCP Internal Medicine
DX: R07.89 Other chest pain (principal); R06.02 Shortness of breath; Z79.899 Other long term (current) drug therapy
CPT/HCPCS: 36415; 80053; 83880; 84484; 85027; 93005; 99283; 99284

== ENCOUNTER 2023-04-19 12:29 | Outpatient (REF) | payer MEDICARE, SELFPAY ==
--- NOTE | ~2023-04-19 | US_ITS ---
EXAMINATION: US LOWER EXTREMITY VENOUS (REFLUX EXAM), BILATERAL CLINICAL INDICATION: Chronic venous insufficiency COMPARISON: None. TECHNIQUE: Color flow triplex imaging and compression Doppler was performed to evaluate both the deep and the superficial systems bilaterally. To evaluate the superficial system, the examination was performed in the upright position. Color-flow Doppler ultrasound and compression ultrasound were utilized. In addition, maneuvers were utilized to demonstrate reflux. FINDINGS: 1. DEEP VENOUS ULTRASOUND OF THE RIGHT LOWER EXTREMITY: Common Femoral Vein: Compressible, normal respiratory variation and augmented flow. Femoral Vein: Compressible, normal color flow and augmentation. Popliteal Vein: Compressible, normal augmentation. Deep Reflux: There is no evidence of reflux in the deep system in either the common femoral vein or the popliteal vein. There is no evidence of a Mojica's cyst. 2. SUPERFICIAL ULTRASOUND WITH DOPPLER OF RIGHT LOWER EXTREMITY: GREAT SAPHENOUS VEIN: Saphenofemoral Junction: 0.6 cm; Reflux: 0 ms Proximal Thigh: 0.5 cm; Reflux: 0 ms Mid Thigh: 0.3 cm; Reflux: 0 ms Above Knee: 0.2 cm; Reflux: 0 ms At Knee: 0.3 cm; Reflux: 0 ms Below Knee: 0.1 cm; Reflux: 0 ms Mid Calf: 0.2 cm; Reflux: 0 ms Ankle: 0.2 cm; Reflux: 0 ms DUPLICATED MEDIAL GREAT SAPHENOUS VEIN: Diameter: None imaged Reflux: NA DUPLICATED LATERAL GREAT SAPHENOUS VEIN: Diameter: None imaged Reflux: NA SMALL SAPHENOUS VEIN: Proximal: 0.2 cm; Reflux: 0 ms Distal: 0.2 cm; Reflux: 0 ms VEIN OF GIACOMINI: Size: NA Reflux: NA PERFORATORS: Location: Distal calf Size: 0.3 cm Reflux: None VARICOSITIES: Location: Proximal thigh Size: 0.3 cm Reflux: None 3. DEEP VENOUS ULTRASOUND OF THE LEFT LOWER EXTREMITY: Common Femoral Vein: Compressible, normal respiratory variation and augmented flow. Femoral Vein: Compressible, normal color flow and augmentation. Popliteal Vein: Compressible, normal augmentation. Deep Reflux: There is no evidence of reflux in the deep system in either the common femoral vein or the popliteal vein. There is no evidence of a Mojica's cyst. 4. SUPERFICIAL ULTRASOUND WITH DOPPLER OF LEFT LOWER EXTREMITY: GREAT SAPHENOUS VEIN: Saphenofemoral Junction: 0.6 cm; Reflux: 0 ms Proximal Thigh: 0.3 cm; Reflux: 0 ms Mid Thigh: 0.2 cm; Reflux: 0 ms Above Knee: 0.2 cm; Reflux: 0 ms At Knee: 0.1 cm; Reflux: 0 ms Below Knee: 0.1 cm; Reflux: 0 ms Mid Calf: 0.1 cm; Reflux: 0 ms Ankle: 0.2 cm; Reflux: 0 ms DUPLICATED MEDIAL GREAT SAPHENOUS VEIN: Diameter: None imaged Reflux: NA DUPLICATED LATERAL GREAT SAPHENOUS VEIN: Diameter: None imaged Reflux: NA SMALL SAPHENOUS VEIN: Proximal: 0.2 cm; Reflux: 2372 ms Distal: 0.2 cm; Reflux: 0 ms VEIN OF GIACOMINI: Size: NA Reflux: NA PERFORATORS: Location: Distal calf Size: 0.3 cm Reflux: None VARICOSITIES: Location: None significant Size: NA Reflux: NA US/US venous duplex LE BI IMPRESSION: Right: No significant reflux in great saphenous or small saphenous vein. Small varicosity in the proximal thigh without significant reflux Left: Reflux seen in the proximal small saphenous vein. No significant reflux in the great saphenous vein.
== END 2023-04-19 12:30 | disposition home or self-care (01) ==
LOC: HO.US 12:29
PROVIDERS: Visit Provider Thoracic Surgery (Cardiothoracic Vascular Surgery)
DX: I87.2 Venous insufficiency (chronic) (peripheral) (principal); R09.89 Other specified symptoms and signs involving the circulatory and respiratory systems
CPT/HCPCS: 93880; 93970

== ENCOUNTER → 2023-04-26 13:45 | Outpatient (REF) | payer MEDICARE, SELFPAY ==
--- NOTE | ~2023-04-26 | XR_ITS ---
EXAMINATION: XR CHEST CLINICAL INFORMATION: Preoperative evaluation. COMPARISON: None available. TECHNIQUE: 2 views of the chest were obtained. FINDINGS: There is mild elevation and eventration of the right hemidiaphragm. The lungs are clear. The heart and mediastinal structures are unremarkable. XR/XR chest 2V IMPRESSION: No acute cardiopulmonary process.
--- NOTE | 2023-04-26 14:04 | CA_ITS ---
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 Low normal LV ejection fraction with LVEF of 50-55% with mild LVH with impaired relaxation filling pattern with underlying regional wall motion abnormality suggestive of coronary artery disease 2. Calcific aortic valve changes noted without significant evidence of aortic stenosis on this study 3. Normal RV systolic pressure 4. No gross pericardial effusion Findings Left Ventricle Normal left ventricular cavity size. There is mildly increased left ventricular wall thickness. The left ventricular systolic function is low normal. The visually estimated ejection fraction is between 50-55%. Spectral Doppler is indicative of an impaired relaxation filling pattern. E/E prime ratio is between 8 and 15 consistent with indeterminate filling pressures. Wall Motion Rest Echo Findings The inferoseptal wall is hypokinetic. The basal inferior and basal inferolateral segments are akinetic. All other scored wall segments showed normal motion. Right Ventricle Normal right ventricular cavity size and systolic function. Atria The left atrium is normal in size. There is lipomatous hypertrophy of the interatrial septum. There is no evidence of interatrial shunt. The right atrium is normal in size. Aortic Valve There is mild calcification of the aortic valve. There is mild thickening of the aortic valve. There is no aortic valve stenosis. There is no aortic valve regurgitation. Mitral Valve Normal mitral valve structure and function. There is trace mitral valve regurgitation. There is no mitral valve stenosis. Pulmonic Valve The pulmonic valve was not well visualized. Tricuspid Valve Likely normal tricuspid valve structure and function. There is trace tricuspid valve regurgitation. The right ventricular systolic pressure is normal. The right ventricular systolic pressure is 24 mmHg. Normal right atrial pressure. There is no evidence of pulmonary hypertension. Great Vessels All visible segments of the aorta are normal in size. The pulmonary artery was not well visualized. Venous The inferior vena cava is normal in size and collapses greater than 50% with inspiration. Pericardium/Pleural There is no evidence of pericardial effusion. Prior Study Comparison Changes noted compared to prior study dated: 11/30/2022. Aortic stenosis not appreciated on this study, could be underestimated although there is no more than mild aortic stenosis Measurements 2D Linear Measurements IVSd: 1.26 0.6-0.9/0.6-1.0 cm LVIDd: 4.45 3.9-5.3/4.2-5.9 cm LVIDd Index: 2.02 2.4-3.2/2.2-3.1 cm/m2 LVIDs: 3.25 2.0-3.6 cm LVPWd: 1.25 0.7-1.1 cm Ao Root: 3.10 2.1-3.5 cm LA Diam: 3.80 2.7-3.8/3.0-4.0 cm LAIDs Index: 1.73 1.5-2.3 cm/m2 LV Mass: 258.99 67-162/88-224 g LV Mass Index: 117.72 43-95/49-115 g/m2 LVOT Diam: 2.10 3.0+(-)1.3 cm 2D Systolic Function EF 4C: 55.50 >55% EF 2C: 49.80 >55% EF BiP: 51.80 >55% Mitral Valve MV Pk E: 0.71 MV PK A: 0.98 MV Decel Time: 202.00 E/A: 0.70 E'Lateral: 5.44 E'Medial: 4.03 E/E' Med: 17.50 E/E' Lat: 13.00 PHT: 59.00 MVA PHT: 3.73 Decel [place]: 3.50 Aortic Valve AoV Pk Stephen: 1.72 AoV Mn Stephen: 1.16 AoV VTI: 0.35 AoV Pk Grad: 12.00 Aov Mn Grad: 7.00 CECILIA Cont.VTI: 2.22 LVOT LVOT Pk Stephen: 0.81 LVOT Mn Stephen: 0.54 LVOT VTI: 0.22 LVOT Pk Grad: 3.00 LVOT Mn Grad: 2.00 LVOT Diam: 2.10 LVOT Area: 3.46 Diastolic Function MV Pk E: 0.71 MV Pk A: 0.98 E/A: 0.70 E'Medial: 4.03 E/E' Med: 17.50 E' Laterial: 5.44 E/E' Lat: 13.00 Right Ventricle TAPSE (mm): 26.00 TVS' Stephen: 14.00 Tricuspid Valve TR Pk Stephen: 2.27 TR Pk Grad: 21.00 RA Press: 3.00 RVSP: 24.00 Great Vessels Aorta Ao Root-2D: 3.10 2.0-3.7 cm Ao Asc: 2.90 2.1-3.4 cm Pulmonary Valve PV Pk Stephen: 1.29 Peak PV Grad: 7.00 Updated in Other Vendor System with Status of Final Long Delgado MD electronically signed on 04/27/2023 4:09:21 PM with status of Final
[2023-04-26 14:51] LABS: Estimated Average Glucose 166 mg/dL; Hemoglobin A1c % 7.4 %
[2023-04-26 16:10] LABS: Alanine Aminotransferase 25 U/L (0-40); Albumin Level 4.2 g/dL (3.5-5.0); Alkaline Phosphatase 122 U/L (39-117); Anion Gap 14 (12-20); Aspartate Amino Transferase 19 U/L (5-37); Bilirubin Total 0.7 mg/dL (0.0-1.0); Blood Urea Nitrogen 23 mg/dL (9-16); Carbon Dioxide 24 mmol/L (22-29); Chloride 102 mmol/L (96-108); Estimated Glomerular Filt Rate > 60; Glucose Random 173 mg/dL (60-115); Potassium 4.4 mmol/L (3.3-5.1); Sodium 136 mmol/L (135-145); Total Protein 7.4 g/dL (6.5-8.0)
== END ==
LOC: HO.CARD 13:45
PROVIDERS: PCP Internal Medicine; Visit Provider Thoracic Surgery (Cardiothoracic Vascular Surgery)
DX: Z01.818 Encounter for other preprocedural examination (principal); I25.10 Atherosclerotic heart disease of native coronary artery without angina pectoris; I10 Essential (primary) hypertension; E66.9 Obesity, unspecified; E11.9 Type 2 diabetes mellitus without complications
CPT/HCPCS: 36415; 71046; 80053; 83036; 93306

== ENCOUNTER → 2023-04-26 14:04 | Outpatient (BNV) | payer MEDICARE, SELFPAY | PROVIDERS: PCP Internal Medicine; Visit Provider Internal Medicine Cardiovascular Disease | DX: I35.8 Other nonrheumatic aortic valve disorders (principal) | CPT/HCPCS: 93306 ==

== ENCOUNTER 2023-06-05 12:58 | Outpatient (AMB) | payer MEDICARE, SELFPAY ==
[2023-06-05 13:46] VITALS: BP 148/78; PULSE 68; O2SAT 98; BMI 26.8
--- NOTE | 2023-06-05 13:46 | MHC.OFFVIS ---
Intake Vital Signs 06/05/23 13:46 Height 6 ft Weight 197 lb 15.602 oz BMI 26.8 BP 148/78 H Blood Pressure Location Lt brachial Position Sitting Pulse 68 Pulse Source Pulse Oximeter Pulse Oximetry (%) 98 Oxygen Delivery Method Room Air Intake Visit Reasons: Follow up post cardiac cath Allergies atenolol Allergy (Unknown, Verified 06/05/23 13:48) Bradycardia ENVIROMENTAL Allergy (Unknown, Uncoded 06/05/23 13:48) ITCHY EYES/RUNNY NOSE Medication List - Last Reconciled 06/05/23 by Nichole Abraham NP-C amiodarone 200 mg PO BID amlodipine 10 mg PO DAILY 90 days apixaban (Eliquis) 5 mg PO BID aspirin (Adult Low Dose Aspirin) 81 mg PO DAILY atorvastatin 80 mg PO QPM brimonidine 0.2% 1 drp ophthalmic-Right BID chlorthalidone 50 mg PO DAILY 90 days fluticasone propionate 50 mcg/actuation (Flonase Allergy Relief) 1 spray intranasal DAILY glipizide 5 mg PO BID latanoprost 0.005% 1 drp ophthalmic (eye) QPM lisinopril 30 mg (1.5 x 20 mg) PO DAILY loratadine 10 mg PO DAILY lorazepam 0.5 mg PO BEDTIME PRN meloxicam 7.5 mg PO DAILY 90 days metoprolol tartrate 25 mg PO DAILY minocycline 50 mg PO BID netarsudil 0.02% (Rhopressa) 1 drp ophthalmic-Right BEDTIME paroxetine HCl 10 mg PO DAILY timolol maleate 0.5% 1 drp ophthalmic (eye) BID HPI Follow up post cardiac cath HPI Details Sergio is a 77-year-old male with past medical history of hypertension, hyperlipidemia, diabetes who was referred to Cardiology for abnormal EKG leading to abnormal stress test followed by cardiac catheterization and recent coronary artery bypass grafting. He now presents for office follow-up. Today he reports he has been doing well since his hospital discharge. His primary complaint is of fatigue. He denies having chest wall discomfort. He reports his breathing as being normal. No heart palpitations, dizziness, presyncope, syncope, falls. No PND, orthopnea or edema. He has a visiting nurse coming twice a week to do dressings on his legs. He described a small open area from 1 graft site, right lower leg and an abrasion which occurred prior to his admission on the left lower leg. He has not yet started cardiac rehab. He tells me he had been doing allergy shots but plans to stop them. He brought his medications for our review. [facility] Medical History (Updated 06/05/23 @ 16:08 by Nichole Abraham NP-C) Atherosclerotic cardiovascular disease Cervical spondylosis Chronic nasal congestion Depression, major, recurrent Diabetes mellitus type II, non insulin dependent Hearing impaired Hypertension, essential Lipid disorder Obesity (BMI 30.0-34.9) Osteoarthritis of hand, left Vertebral artery stenosis Surgical History (Updated 06/05/23 @ 16:14 by Nichole Abraham NP-C) Hx of cholecystectomy S/P CABG x 3 Family History Father HTN (hypertension) Mother No problems noted. Social History Housing: House Alcohol intake: current Alcohol intake frequency: a few times a week Patient Tobacco Use Status: Former Tobacco user Quit Date: 1979 Smoked: 20 +/- e-Cigarette/Vaping Use: Never Used service: No Current occupational status: retired Cognitive needs: No Hearing needs: No Vision needs: Yes Review of Systems Const All systems reviewed & are unremarkable except as noted in HPI and below Musc Details: Dressings to wounds on each lower leg being cared for by visiting nurse Physical Exam Vital Signs: Last Vital Signs Pulse 68 06/05/23 13:46 BP 148/78 H 06/05/23 13:46 Pulse Ox 98 06/05/23 13:46 Oxygen Delivery Method Room Air 06/05/23 13:46 BMI result Body Mass Index 26.8 Const General: cooperative, comfortable and no acute distress Orientation/consciousness: patient oriented x3 Neck Neck: Yes normal visual inspection Chest Other: Sternal incision and drain sites fully intact and healing well without any signs of infection. He does have dressings on each lower extremity without drainage noted. Resp Effort & Inspection: normal respiratory effort Auscultation: clear to auscultation bilaterally, no crackles, no rales, no rhonchi and no wheezes Cardio Jugular venous distension: no JVD Rate: regular rate Rhythm: regular rhythm Heart sounds: S1 normal heart sound present, S2 normal heart sound present, no murmurs and no rubs Neuro General: patient oriented x3 Extrem General: Yes normal to inspection, No no pedal edema and No calf tenderness Psych Appearance: grossly normal Mental Status: mental status grossly normal Speech and movement: Normal speech and movement present Office Procedures EKG Details: Today, read by me, sinus rhythm with first-degree AV block, old anterior infarct, unchanged from prior EKG, rate 60, QTC 450 millisecond [id number], Complete Assessment & Plan Assessment & Plan (1) Atherosclerotic cardiovascular disease: Code(s): I25.10 - Atherosclerotic heart disease of [place] coronary artery without angina pectoris Plan: Prior EKG showed findings of possible anterior infarct. He underwent cardiac evaluation including echocardiogram on 11/30/2022 showing EF 50-55%, mild aortic stenosis, inferior wall motion abnormality. A nuclear stress test done on 11/21/2022 showed ischemia of the inferior lateral and mid inferior wall with nontransmural MO of the basal inferior wall, EF 57% with stress and 49% with rest. He then underwent a cardiac catheterization on 04/04/2023 showing significant obstructive coronary artery disease. He underwent a 3 vessel coronary artery bypass grafting mid April 2023 with BATEMAN to LAD, left radial graft to OM and SVG to right PDA. Notes indicate atrial fibrillation in his postoperative period. Today he reports he has been doing well since since his hospital discharge. He has some fatigue but no discomfort. No shortness of breath or heart palpitations. EKG done today showing sinus rhythm, first-degree AV block, old anterior infarct, rate 60. He is scheduled to start cardiac rehab on 06/26/2023. Will check an echocardiogram to assess EF and wall motion. Will check Holter monitor to assess for any atrial fibrillation. Continue aspirin and Eliquis. Continue high-dose atorvastatin. LDL goal will be less than 70. He may stop amiodarone once his bottle is completed. Continue metoprolol. [facility] notes indicate his lisinopril had been held at discharge due to blood pressures on the lower side. Will have him restart lisinopril at 20 mg daily. Had been at 30 mg daily prior to surgery. Blood pressure today 148/78. Cardiology follow-up in 6-8 weeks, sooner if needed, plan to go over test results and assess for any symptoms and any recurrent AFib. (2) S/P cardiac catheterization: Comment: 04/04/2023 80% mid LAD stenosis, 40% left circumflex stenosis, 80% OM1, 90% OM 2 stenosis, 80% distal RCA stenosis Code(s): Z98.890 - Other specified postprocedural states (3) S/P CABG x 3: Comment: 04/2023. Bateman to LAD, left radial graft to OM, SVG graft to PDA Code(s): Z95.1 - Presence of aortocoronary bypass graft (4) Paroxysmal A-fib: Code(s): I48.0 - Paroxysmal atrial fibrillation Plan: Postoperative. Has been on amiodarone for over 1 month now. He will stop once his bottle is empty. He continues on Eliquis for anticoagulation. EKG today shows sinus rhythm. Holter pending as above (5) Lipid disorder: Code(s): E78.9 - Disorder of lipoprotein metabolism, unspecified Plan: [place] LDL goal less than 70. Will have him update labs prior to next visit including CMP and lipids. Continue atorvastatin. (6) Hypertension, essential: Code(s): I10 - Essential (primary) hypertension Plan: As above. Restarting lisinopril. Orders: Orders CA echo transthoracic complete Today Z95.1 - Presence of aortocoronary bypass graft ECG 3 day holter monitor Today I48.0 - Paroxysmal atrial fibrillation Medications: New apixaban (Eliquis) 5 mg PO BID 90 days 180 tabs 1RF aspirin (Adult Low Dose Aspirin) 81 mg PO DAILY 90 tabs 1RF metoprolol tartrate 25 mg PO BID 90 days 180 tabs 1RF Changed From lisinopril 30 mg (1.5 x 20 mg) PO DAILY 90 tabs 3RF To lisinopril 20 mg PO DAILY 90 tabs 1RF Refilled atorvastatin 80 mg PO QPM 90 tabs 3RF Coding Level of Care Code Est Pt Level 4 (73866) Diagnoses Atherosclerotic cardiovascular disease I25.10 S/P cardiac catheterization Z98.890 S/P CABG x 3 Z95.1 Paroxysmal A-fib I48.0 Lipid disorder E78.9 Hypertension, essential I10 CPT Codes EKG - CPT: [id number], Complete ([id number]) Time Spent (min) 28 Comment Chart review, documentation, interview, assessment
== END 2023-06-05 14:27 | disposition home or self-care (01) ==
PROVIDERS: PCP Internal Medicine; Referring Provider Internal Medicine; Visit Provider Nurse Practitioner Family
DX: I25.10 Atherosclerotic heart disease of native coronary artery without angina pectoris (principal); Z98.890 Other specified postprocedural states; Z95.1 Presence of aortocoronary bypass graft; I48.0 Paroxysmal atrial fibrillation; E78.9 Disorder of lipoprotein metabolism, unspecified; I10 Essential (primary) hypertension
CPT/HCPCS: 93010; 99214

== ENCOUNTER → 2023-06-05 12:58 | Outpatient (BNVA) | payer MEDICARE, SELFPAY | PROVIDERS: PCP Internal Medicine; Referring Provider Internal Medicine; Visit Provider Nurse Practitioner Family | DX: I48.0 Paroxysmal atrial fibrillation (principal); I44.0 Atrioventricular block, first degree; I25.10 Atherosclerotic heart disease of native coronary artery without angina pectoris; I10 Essential (primary) hypertension; E78.9 Disorder of lipoprotein metabolism, unspecified; Z95.1 Presence of aortocoronary bypass graft; Z98.890 Other specified postprocedural states | CPT/HCPCS: 93005; 99212 ==

== ENCOUNTER 2023-06-06 14:04 | Outpatient (AMB) | payer MEDICARE, SELFPAY ==
[2023-06-06 14:15] VITALS: BP 130/82; PULSE 63; O2SAT 96; BMI 27.4
--- NOTE | 2023-06-06 14:15 | MHC.PC.OV ---
Vital Signs 06/06/23 14:15 Height 6 ft Weight 202 lb 2 oz BMI 27.4 BP 130/82 Blood Pressure Location Lt brachial Position Sitting Pulse 63 Pulse Source Pulse Oximeter Pulse Oximetry (%) 96 Oxygen Delivery Method Room Air Intake Visit Reasons: HDF ~ Post hospital discharge FU Allergies atenolol Allergy (Unknown, Verified 06/06/23 14:17) Bradycardia ENVIROMENTAL Allergy (Unknown, Uncoded 06/05/23 13:48) ITCHY EYES/RUNNY NOSE Medication List - Last Reconciled 06/06/23 by Shirin Davis MD amlodipine 10 mg PO DAILY 90 days apixaban (Eliquis) 5 mg PO BID 90 days aspirin (Adult Low Dose Aspirin) 81 mg PO DAILY atorvastatin 80 mg PO QPM brimonidine 0.2% 1 drp ophthalmic-Right BID chlorthalidone 50 mg PO DAILY 90 days fluticasone propionate 50 mcg/actuation (Flonase Allergy Relief) 1 spray intranasal DAILY glipizide 5 mg PO BID latanoprost 0.005% 1 drp ophthalmic (eye) QPM lisinopril 20 mg PO DAILY loratadine 10 mg PO DAILY lorazepam 0.5 mg PO BEDTIME PRN meloxicam 7.5 mg PO DAILY 90 days metoprolol tartrate 25 mg PO BID 90 days minocycline 50 mg PO BID netarsudil 0.02% (Rhopressa) 1 drp ophthalmic-Right BEDTIME paroxetine HCl 10 mg PO DAILY timolol maleate 0.5% 1 drp ophthalmic (eye) BID Tobacco use date assessed: 06/06/23 Fall risk assessment: No Falls in past year Last assessed Fall Risk: 06/06/23 Dental Screening Dental Screen Date: 06/06/23 Did you have a dental visit in the last 12 months?: No Did you have a dental problem in the last 6 months where you did not have access to dental care?: No Was dental information given to patient?: No HPI HDF ~ Post hospital discharge FU HPI Details Patient is 77-year-old gentleman came in today for hospital discharge follow-up dated 05/02/2023 [facility]. 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 Patient underwent cardiac workup which showed 80% stenosis of LAD and 40% left circ compresses, 80% OM I, 90% OM2 and 80% distal RCA stenosis Patient was referred for CABG Patient has already seen customer sales representative on 05 of June that was yesterday. Note reviewed Patient have visiting nurse come in twice a week to change dressings on his legs He will be starting cardiac rehab soon, date is 06/26/2023 Patient did develop atrial fibrillation in his postoperative. EKG done in cardiology office showed is sinus rhythm, first-degree AV block, old anterior infarct Patient is to continue high-dose atorvastatin LDL goal is less than 70 His amiodarone was stopped he is to continue metoprolol He lisinopril 20 mg was restarted Patient will have another cardiology follow-up in 6-8 weeks On exam today his wounds are healing well no signs of infection or inflammation in legs He is complaining of constipation for that I have sent senna S tablet he may take 1 at night as needed PFSH Medical History Atherosclerotic cardiovascular disease Cervical spondylosis Chronic nasal congestion Depression, major, recurrent Diabetes mellitus type II, non insulin dependent Hearing impaired Hypertension, essential Lipid disorder Obesity (BMI 30.0-34.9) Osteoarthritis of hand, left Vertebral artery stenosis Surgical History Hx of cholecystectomy S/P CABG x 3 Family History Father HTN (hypertension) Mother No problems noted. Social History Housing: House Alcohol intake: current Alcohol intake frequency: a few times a week Patient Tobacco Use Status: Former Tobacco user Quit Date: 1979 Smoked: 20 +/- e-Cigarette/Vaping Use: Never Used service: No Current occupational status: retired Cognitive needs: No Hearing needs: No Vision needs: Yes Questionnaire PHQ-9 Over the last 2 weeks, how often have you been bothered by any of the following problems? 1. Little interest or pleasure in doing things: not at all 2. Feeling down, depressed, or hopeless: not at all 3. Trouble falling or staying asleep, or sleeping too much: several days 4. Feeling tired or having little energy: not at all 5. Poor appetite or overeating: not at all 6. Feeling bad about yourself - or that you are a failure or have let yourself or your family down: not at all 7. Trouble concentrating on things, such as reading the newspaper or watching television: not at all 8. Moving or speaking so slowly that other people could have noticed. Or the opposite - being so fidgety or restless that you have been moving around a lot more than usual: not at all 9. Thoughts that you would be better off or of hurting yourself in some way: not at all Total score: 1 Depression Screening Interpretation: Negative 32433 - PHQ-9 Billing: Yes Source: Developed by Drs. Manolo Ma, Angle Chen, Loco Estrella and colleagues, with an educational donovan from [employer]. AUDIT C Alcohol Use Questionnaire (AUDIT-C) 1. How often do you have a drink containing alcohol?: Never 3. How often do you have six or more drinks on one occasion?: Never Total Score: 0 Score Reviewed/Action Taken: Yes Review of Systems Const Denies chills and Denies fever(s) ENT Denies epistaxis and Denies nasal discharge Card Denies chest pain Resp Denies chest congestion, Denies cough and Denies hemoptysis GI Denies diarrhea and Denies nausea Skin/Breast Denies rash Neuro Reports no additional complaints Psych Reports no additional complaints Endo Reports no additional complaints Physical exam (Primary Care) Vital Signs: Last Vital Signs Pulse 63 06/06/23 14:15 BP 130/82 06/06/23 14:15 Pulse Ox 96 06/06/23 14:15 Oxygen Delivery Method Room Air 06/06/23 14:15 BMI result Body Mass Index 27.4 Tobacco/Smoking Status: Tobacco use Status Tobacco use date assessed 06/06/23 06/06/23 14:20 Patient Tobacco Use Status Former Tobacco user 06/06/23 14:20 e-Cigarette/Vaping Use Never Used 06/06/23 14:20 Depression Screening Interpretation: Negative Const General: cooperative, comfortable and no acute distress Orientation/consciousness: patient oriented x3 HENMT Head: Yes normocephalic Eyes General: appearance normal, both eyes and all related structures Neck Neck: Yes supple Resp Effort & Inspection: normal respiratory effort, no cough and no stridor Cardio Rhythm: regular rhythm Heart sounds: S1 normal heart sound present and S2 normal heart sound present Skin General skin exam: turgor normal Neuro General: patient oriented x3, tone normal and moves all extremities Extrem Other: All leg wound healing well no signs of infection or inflammation Right lower extremity: no edema Left lower extremity: no edema Assessment and Plan Assessment & Plan (1) Hospital discharge follow-up: Code(s): Z09 - Encounter for follow-up examination after completed treatment for conditions other than malignant neoplasm (2) S/P CABG x 3: Comment: 04/2023. Contreras to LAD, left radial graft to OM, SVG graft to PDA Code(s): Z95.1 - Presence of aortocoronary bypass graft (3) Hypertension, essential: Code(s): I10 - Essential (primary) hypertension (4) Diabetes mellitus type II, non insulin dependent: Code(s): E11.9 - Type 2 diabetes mellitus without complications (5) Depression, major, recurrent: Code(s): F33.9 - Major depressive disorder, recurrent, unspecified (6) Osteoarthritis of multiple joints: Code(s): M15.9 - Polyosteoarthritis, unspecified (7) Lipid disorder: Code(s): E78.9 - Disorder of lipoprotein metabolism, unspecified (8) Rosacea: Code(s): L71.9 - Rosacea, unspecified (9) Hearing impaired: Code(s): H91.90 - Unspecified hearing loss, unspecified ear Plan Patient is 77-year-old gentleman came in today for hospital discharge follow-up dated 05/02/2023 [facility]. 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 Patient underwent cardiac workup which showed 80% stenosis of LAD and 40% left circ compresses, 80% OM I, 90% OM2 and 80% distal RCA stenosis Patient was referred for CABG Patient has already seen customer sales representative on 05 of June that was yesterday. Note reviewed Patient have visiting nurse come in twice a week to change dressings on his legs He will be starting cardiac rehab soon, date is 06/26/2023 Patient did develop atrial fibrillation in his postoperative. EKG done in cardiology office showed is sinus rhythm, first-degree AV block, old anterior infarct Patient is to continue high-dose atorvastatin LDL goal is less than 70 His amiodarone was stopped he is to continue metoprolol He lisinopril 20 mg was restarted Patient will have another cardiology follow-up in 6-8 weeks On exam today his wounds are healing well no signs of infection or inflammation in legs He is complaining of constipation for that I have sent senna S tablet he may take 1 at night as needed Sugar is well controlled and so is his blood pressure Patient is hard of hearing but able to communicate Depression is stable Patient have a follow-up appointment in October Medications: New sennosides-docusate sodium 8.6-50 mg (Senna with Docusate Sodium) 1 tab-cap PO BEDTIME 90 tabs 0RF Constipation Coding Level of Care Code Est Pt Level 4 (27356) Diagnoses Hospital discharge follow-up Z09 S/P CABG x 3 Z95.1 Hypertension, essential I10 Diabetes mellitus type II, non insulin dependent E11.9 Depression, major, recurrent F33.9 Osteoarthritis of multiple joints M15.9 Lipid disorder E78.9 Rosacea L71.9 Hearing impaired H91.90
== END 2023-06-06 16:01 | disposition home or self-care (01) ==
PROVIDERS: PCP Internal Medicine; Visit Provider Internal Medicine
DX: I10 Essential (primary) hypertension (principal); Z95.1 Presence of aortocoronary bypass graft; F33.9 Major depressive disorder, recurrent, unspecified; E11.9 Type 2 diabetes mellitus without complications; Z09 Encounter for follow-up examination after completed treatment for conditions other than malignant neoplasm; M15.9 Polyosteoarthritis, unspecified; E78.9 Disorder of lipoprotein metabolism, unspecified; L71.9 Rosacea, unspecified
CPT/HCPCS: 99214

== ENCOUNTER → 2023-07-03 09:20 | Outpatient (REF) | payer MEDICARE, SELFPAY ==
--- NOTE | 2023-07-03 09:28 | CA_ITS ---
Transthoracic Echocardiogram Patient (Last, First, Middle): Sergio Wu M Gender: Male Date of : 1945 Age: 77 Procedure Date: 07/03/2023 Procedure Type: Transthoracic Echocardiogram Location: OP Height: 185.42 cm Weight: 94.35 kg BSA: 2.19 m2 Heart Rate: 65 bpm BP: 135 / 75 mmHg Flake Drier: NAVYA Referring MD: Nichole Abraham PLANER OFFBEARER-Anna Symptoms: Z95.1 - Presence of aortocoronary bypass graft Study Quality: Fair ECG Rhythm: Sinus Conclusions: - The left ventricular systolic function is low normal. The visually estimated ejection fraction is between 50-55%. - The basal inferior and basal inferolateral segments are akinetic. - Aortic valve sclerosis without any significant stenosis. Findings Left Ventricle Normal left ventricular cavity size. There is mildly increased left ventricular wall thickness. The left ventricular systolic function is low normal. The visually estimated ejection fraction is between 50-55%. There is paradoxical septal motion consistent with post-operative status. Evidence suggests grade I (mild) diastolic dysfunction. Wall Motion Rest Echo Findings The basal inferior and basal inferolateral segments are akinetic. Right Ventricle Mildly increased right ventricular cavity size. There is mildly decreased right ventricular systolic function. Atria Both atria are normal in size. Aortic Valve There is moderate calcification of the aortic valve. There is no aortic valve regurgitation. No significant stenosis. Mitral Valve The mitral valve appears normal. There is trace mitral valve regurgitation. There is no mitral valve stenosis. Pulmonic Valve The pulmonic valve is likely normal. Tricuspid Valve Normal tricuspid valve structure. There is trace tricuspid valve regurgitation. There is no evidence of pulmonary hypertension. Great Vessels The asc aorta is normal in size. Venous The inferior vena cava is normal in size and collapses greater than 50% with inspiration. Pericardium/Pleural There is no evidence of pericardial effusion. Prior Study Comparison No significant change compared to prior study dated: 04/26/2023. Measurements 2D Linear Measurements IVSd: 1.31 0.6-0.9/0.6-1.0 cm LVIDd: 4.90 3.9-5.3/4.2-5.9 cm LVIDd Index: 2.24 2.4-3.2/2.2-3.1 cm/m2 LVIDs: 3.81 2.0-3.6 cm LVPWd: 1.15 0.7-1.1 cm LA Diam: 4.50 2.7-3.8/3.0-4.0 cm LAIDs Index: 2.05 1.5-2.3 cm/m2 LV Mass: 292.28 67-162/88-224 g LV Mass Index: 133.46 43-95/49-115 g/m2 LVOT Diam: 2.00 3.0+(-)1.3 cm 2D Systolic Function EF 4C: 51.60 >55% EF 2C: 56.70 >55% EF BiP: 54.50 >55% Mitral Valve MV Pk E: 0.74 MV PK A: 0.90 MV Decel Time: 228.00 E/A: 0.80 E'Lateral: 7.29 E'Medial: 4.90 E/E' Med: 15.00 E/E' Lat: 10.10 PHT: 67.00 MVA PHT: 3.28 Decel Griggs: 3.24 Aortic Valve AoV Pk Stephen: 1.62 AoV Mn Stephen: 1.18 AoV VTI: 0.36 AoV Pk Grad: 10.00 Aov Mn Grad: 6.00 CECILIA Cont.VTI: 1.82 LVOT LVOT Pk Stephen: 0.92 LVOT Mn Stephen: 0.65 LVOT VTI: 0.21 LVOT Pk Grad: 3.00 LVOT Mn Grad: 2.00 LVOT Diam: 2.00 LVOT Area: 3.14 Diastolic Function MV Pk E: 0.74 MV Pk A: 0.90 E/A: 0.80 E'Medial: 4.90 E/E' Med: 15.00 E' Laterial: 7.29 E/E' Lat: 10.10 Right Ventricle TAPSE (mm): 16.60 TVS' Stephen: 8.16 Tricuspid Valve TR Pk Stephen: 1.64 TR Pk Grad: 11.00 RA Press: 3.00 RVSP: 14.00 Great Vessels Aorta Sinus of Valsalva: 3.20 2.0-3.5 cm Ao Asc: 3.50 2.1-3.4 cm Pulmonary Valve PV Pk Stephen: 0.91 Peak PV Grad: 3.00 Updated in Other Vendor System with Status of Final Boogie Hunter MD electronically signed on 07/03/2023 12:29:18 PM with status of Final
--- NOTE | 2023-07-03 09:28 | HM_ITS ---
Conclusion: 1. Patient was monitored for total period of 2 days and 22 hours 2. Baseline was normal sinus with average heart of 71 beats per minute 3. No significant pauses noted 4. Occasional PACs and PVCs noted 5. No patient reported events MTDD
== END ==
LOC: HO.CARD 09:20
PROVIDERS: PCP Internal Medicine; Visit Provider Nurse Practitioner Family
DX: I48.0 Paroxysmal atrial fibrillation (principal); Z95.1 Presence of aortocoronary bypass graft
CPT/HCPCS: 93242; 93306

== ENCOUNTER → 2023-07-03 09:28 | Outpatient (BNV) | payer MEDICARE, SELFPAY ==
[2023-06-28 09:56] VITALS: BP 142/54; BP 152/84; BMI 27.6
== END ==
PROVIDERS: PCP Internal Medicine; Visit Provider Internal Medicine
DX: I49.1 Atrial premature depolarization (principal)
CPT/HCPCS: 93244; 93306

== ENCOUNTER 2023-07-18 08:17 | Outpatient (AMB) | payer MEDICARE, SELFPAY ==
[2023-06-28 09:56] VITALS: BP 142/54; BP 152/84; BMI 27.6
[2023-07-18 08:27] VITALS: BP 140/82; PULSE 62; BMI 28.3
--- NOTE | 2023-07-18 08:27 | A.OFFVIS_ITS ---
Intake Vital Signs 07/18/23 08:27 07/18/23 08:54 Height 6 ft Weight 208 lb 8.917 oz BMI 28.3 BP 140/82 H 130/68 Blood Pressure Location Lt brachial Lt brachial Position Sitting Pulse 62 Pulse Source Pulse Oximeter Intake Visit Reasons: 8 week f/u s/b cabg Intake Note: 8 week f/u s/b cabg Car Customizer Required: No Allergies atenolol Allergy (Unknown, Verified 07/18/23 08:34) Bradycardia ENVIROMENTAL Allergy (Unknown, Uncoded 06/05/23 13:48) ITCHY EYES/RUNNY NOSE Medication List - Last Reconciled 07/18/23 by Nichole Abraham NP-C amlodipine 10 mg PO DAILY 90 days apixaban (Eliquis) 5 mg PO BID 90 days aspirin (Adult Low Dose Aspirin) 81 mg PO DAILY atorvastatin 80 mg PO QPM brimonidine 0.2% 1 drp ophthalmic-Right BID chlorthalidone 50 mg PO DAILY 90 days fluticasone propionate 50 mcg/actuation (Flonase Allergy Relief) 1 spray intranasal DAILY glipizide 5 mg PO BID latanoprost 0.005% 1 drp ophthalmic (eye) QPM lisinopril 20 mg PO DAILY loratadine 10 mg PO DAILY lorazepam 0.5 mg PO BEDTIME PRN meloxicam 7.5 mg PO DAILY 90 days metoprolol tartrate 25 mg PO BID 90 days minocycline 50 mg PO BID netarsudil 0.02% (Rhopressa) 1 drp ophthalmic-Right BEDTIME paroxetine HCl 10 mg PO DAILY sennosides-docusate sodium 8.6-50 mg (Senna with Docusate Sodium) 1 tab-cap PO BEDTIME timolol maleate 0.5% 1 drp ophthalmic (eye) BID HPI 8 week f/u s/b cabg HPI Details Sergio is a 77-year-old male with past medical history of hypertension, hyperlipidemia, diabetes who was referred to Cardiology for abnormal EKG. He had an abnormal stress test followed by cardiac catheterization and recent coronary artery bypass grafting, 04/2023. On last visit Holter monitor and limited echocardiogram were ordered. Today he reports he has been doing very well since his last visit. He is attending cardiac rehab in tells me that he feels himself getting stronger. He has some minor chest wall discomfort if he lays on his left side. No exertional chest discomfort. No shortness of breath, palpitations, presyncope, syncope, falls. No PND, orthopnea or edema. He is taking his meds as directed. He uses a cane for steady ambulation. [facility] Medical History Atherosclerotic cardiovascular disease Depression, major, recurrent Chronic nasal congestion Diabetes mellitus type II, non insulin dependent Osteoarthritis of hand, left Obesity (BMI 30.0-34.9) Vertebral artery stenosis Cervical spondylosis Hypertension, essential Lipid disorder Hearing impaired Surgical History S/P CABG x 3 Hx of cholecystectomy Family History Father HTN (hypertension) Mother No problems noted. Social History Housing: House Alcohol intake: current Alcohol intake frequency: a few times a week Patient Tobacco Use Status: Former Tobacco user Quit Date: 1979 Smoked: 20 +/- e-Cigarette/Vaping Use: Never Used service: No Current occupational status: retired Cognitive needs: No Hearing needs: No Vision needs: Yes Review of Systems Const All systems reviewed & are unremarkable except as noted in HPI and below ENT Denies dizziness Card Denies chest pain, Denies chest pain at rest, Denies chest pain with activity, Denies rapid heart rate, Denies pedal edema, Denies edema, Denies leg edema, Denies lightheadedness, Denies palpitations, Denies dyspnea, Denies dyspnea on exertion and Denies orthopnea Resp Denies cough, Denies dyspnea and Denies dyspnea on exertion GI Denies hematochezia and Denies change in stool character Musc Denies abnormal gait, Denies limited range of motion, Denies muscle cramps, Denies muscle weakness, Denies numbness, Denies radiating pain into limb, Denies stiffness and Denies tingling Neuro Denies abnormal gait, Denies dizziness, Denies numbness and Denies tingling Endo Denies palpitations Physical Exam Vital Signs: Last Vital Signs Pulse 62 07/18/23 08:27 BP 140/82 H 07/18/23 08:27 BMI result Body Mass Index 28.3 Const General: cooperative, healthy appearing, comfortable and no acute distress Orientation/consciousness: patient oriented x3 Neck Neck: Yes normal visual inspection Chest Other: sternal incision well healed Chest palpation & inspection: normal inspection of the chest Resp Effort & Inspection: normal respiratory effort Auscultation: clear to auscultation bilaterally, no crackles, no rales, no rhonchi and no wheezes Cardio Jugular venous distension: no JVD Rate: regular rate Rhythm: regular rhythm Heart sounds: S1 normal heart sound present, S2 normal heart sound present, no murmurs and no rubs Neuro General: patient oriented x3 Extrem General: Yes normal to inspection Psych Appearance: grossly normal Mental Status: mental status grossly normal Speech and movement: Normal speech and movement present Assessment & Plan Assessment & Plan (1) Atherosclerotic cardiovascular disease: Code(s): I25.10 - Atherosclerotic heart disease of [place] coronary artery without angina pectoris Plan: Prior EKG showed findings of possible anterior infarct. He underwent cardiac evaluation including echocardiogram on 11/30/2022 showing EF 50-55%, mild aortic stenosis, inferior wall motion abnormality. A nuclear stress test done on 11/21/2022 showed ischemia of the inferior lateral and mid inferior wall with nontransmural MN of the basal inferior wall, EF 57% with stress and 49% with rest. He then underwent a cardiac catheterization on 04/04/2023 showing significant obstructive coronary artery disease. He underwent a 3 vessel cor onary artery bypass grafting mid April 2023 with BATEMAN to LAD, left radial graft to OM and SVG to right PDA. Notes indicate atrial fibrillation in his postoperative period. He was on amiodarone for 1 month. He has been attending cardiac rehab and reports he is tolerating it well. Echocardiogram done 07/03/2023 showed EF 50-55%, basal inferior and basal inferior lateral akinetic, no significant change from prior echo. Holter monitor done 07/03/2023 for 3 days showed sinus rhythm with average heart rate 71, occasional PACs and PVCs. Test results reviewed with him. Today he reports feeling well with no anginal symptoms. Continue aspirin and Eliquis. Continue high-dose atorvastatin. LDL goal will be less than 70. Plan to check fasting lipids at next visit. Continue metoprolol and lisinopril. Continue cardiac rehab Cardiology follow-up in 3 months, sooner if needed. (2) S/P cardiac catheterization: Comment: 04/04/2023 80% mid LAD stenosis, 40% left circumflex stenosis, 80% OM1, 90% OM 2 stenosis, 80% distal RCA stenosis Code(s): Z98.890 - Other specified postprocedural states (3) S/P CABG x 3: Comment: 04/2023. Bateman to LAD, left radial graft to OM, SVG graft to PDA Code(s): Z95.1 - Presence of aortocoronary bypass graft (4) Paroxysmal A-fib: Code(s): I48.0 - Paroxysmal atrial fibrillation Plan: Postoperative. He was on amiodarone for 1 month post discharge. Holter shows no recurrent AFib. Pulse regular on examination today. He continues on Eliquis for anticoagulation. No bleeding issues reported. (5) Lipid disorder: Code(s): E78.9 - Disorder of lipoprotein metabolism, unspecified Plan: [place] LDL goal less than 70. Will have him update labs prior to next visit including CMP and lipids. Continue atorvastatin. (6) Hypertension, essential: Code(s): I10 - Essential (primary) hypertension Plan: Mild elevation initially this visit however normal range on recheck. No med changes made Coding Level of Care Code Est Pt Level 4 (31812) Diagnoses Atherosclerotic cardiovascular disease I25.10 S/P cardiac catheterization Z98.890 S/P CABG x 3 Z95.1 Paroxysmal A-fib I48.0 Lipid disorder E78.9 Hypertension, essential I10 Time Spent (min) 28
[2023-07-18 08:54] VITALS: BP 130/68
== END 2023-07-18 08:57 | disposition home or self-care (01) ==
PROVIDERS: PCP Internal Medicine; Visit Provider Nurse Practitioner Family
DX: I25.10 Atherosclerotic heart disease of native coronary artery without angina pectoris (principal); Z98.890 Other specified postprocedural states; Z95.1 Presence of aortocoronary bypass graft; I48.0 Paroxysmal atrial fibrillation; E78.9 Disorder of lipoprotein metabolism, unspecified; I10 Essential (primary) hypertension
CPT/HCPCS: 99214

== ENCOUNTER → 2023-07-18 08:17 | Outpatient (BNVA) | payer MEDICARE, SELFPAY ==
[2023-06-28 09:56] VITALS: BP 142/54; BP 152/84; BMI 27.6
== END ==
PROVIDERS: PCP Internal Medicine; Visit Provider Nurse Practitioner Family
DX: I25.10 Atherosclerotic heart disease of native coronary artery without angina pectoris (principal); I48.0 Paroxysmal atrial fibrillation; I10 Essential (primary) hypertension; E78.9 Disorder of lipoprotein metabolism, unspecified; I25.2 Old myocardial infarction; Z79.01 Long term (current) use of anticoagulants; Z79.899 Other long term (current) drug therapy; Z95.1 Presence of aortocoronary bypass graft
CPT/HCPCS: 99212

== ENCOUNTER 2023-07-26 09:53 | Outpatient (AMB) | payer MEDICARE, SELFPAY ==
[2023-06-28 09:56] VITALS: BP 142/54; BP 152/84; BMI 27.6
[2023-07-26 09:54] VITALS: BP 130/76; PULSE 74; O2SAT 100; BMI 28.5
--- NOTE | 2023-07-26 09:54 | MHC.PC.OV ---
Vital Signs 07/26/23 09:54 Height 6 ft Weight 210 lb 4 oz BMI 28.5 BP 130/76 Blood Pressure Location Lt brachial Position Sitting Pulse 74 Pulse Source Pulse Oximeter Pulse Oximetry (%) 100 Oxygen Delivery Method Room Air Intake Visit Reasons: Wound check Allergies atenolol Allergy (Unknown, Verified 07/26/23 09:56) Bradycardia ENVIROMENTAL Allergy (Unknown, Uncoded 06/05/23 13:48) ITCHY EYES/RUNNY NOSE Medication List - Last Reconciled 07/26/23 by Shirin Davis MD amlodipine 10 mg PO DAILY 90 days apixaban (Eliquis) 5 mg PO BID 90 days aspirin (Adult Low Dose Aspirin) 81 mg PO DAILY atorvastatin 80 mg PO QPM brimonidine 0.2% 1 drp ophthalmic-Right BID chlorthalidone 50 mg PO DAILY 90 days fluticasone propionate 50 mcg/actuation (Flonase Allergy Relief) 1 spray intranasal DAILY glipizide 5 mg PO BID latanoprost 0.005% 1 drp ophthalmic (eye) QPM lisinopril 20 mg PO DAILY loratadine 10 mg PO DAILY lorazepam 0.5 mg PO BEDTIME PRN meloxicam 7.5 mg PO DAILY 90 days metoprolol tartrate 25 mg PO BID 90 days minocycline 50 mg PO BID netarsudil 0.02% (Rhopressa) 1 drp ophthalmic-Right BEDTIME paroxetine HCl 10 mg PO DAILY sennosides-docusate sodium 8.6-50 mg (Senna with Docusate Sodium) 1 tab-cap PO BEDTIME timolol maleate 0.5% 1 drp ophthalmic (eye) BID Tobacco use date assessed: 07/26/23 Fall risk assessment: No Falls in past year Last assessed Fall Risk: 07/26/23 Dental Screening Dental Screen Date: 07/26/23 Did you have a dental visit in the last 12 months?: No Did you have a dental problem in the last 6 months where you did not have access to dental care?: No Was dental information given to patient?: No HPI Wound check HPI Details Patient is a 77-year-old gentleman keep bumping into different stuff and having superficial skin injuries Currently he has about 2 in x 3 in superficial skin wound left lower leg. Patient has been doing his own dressings with Xeroform dressing and is requesting a script for it. Script sent Me he change the dressing in the clinic with the patient as well. Patient says that he has no problem keeping an eye on the wound and changing dressing by himself. Currently he is going through cardiac rehab after have coronary artery grafting in April of this year The vein was taken from his left leg where he keep having skin problem. [facility] Medical History Atherosclerotic cardiovascular disease Depression, major, recurrent Chronic nasal congestion Diabetes mellitus type II, non insulin dependent Osteoarthritis of hand, left Obesity (BMI 30.0-34.9) Vertebral artery stenosis Cervical spondylosis Hypertension, essential Lipid disorder Hearing impaired Surgical History S/P CABG x 3 Hx of cholecystectomy Family History Father HTN (hypertension) Mother No problems noted. Social History Housing: House Alcohol intake: current Alcohol intake frequency: a few times a week Patient Tobacco Use Status: Former Tobacco user Quit Date: 1979 Smoked: 20 +/- e-Cigarette/Vaping Use: Never Used service: No Current occupational status: retired Cognitive needs: No Hearing needs: No Vision needs: Yes Questionnaire AUDIT C Alcohol Use Questionnaire (AUDIT-C) 1. How often do you have a drink containing alcohol?: Never 3. How often do you have six or more drinks on one occasion?: Never Total Score: 0 Score Reviewed/Action Taken: Yes Review of Systems Const Denies chills and Denies fever(s) ENT Denies epistaxis and Denies nasal discharge Card Denies chest pain Resp Denies chest congestion, Denies cough and Denies hemoptysis GI Denies diarrhea and Denies nausea Skin/Breast Denies rash Neuro Reports no additional complaints Psych Reports no additional complaints Endo Reports no additional complaints Physical exam (Primary Care) Vital Signs: Last Vital Signs Pulse 74 07/26/23 09:54 BP 130/76 07/26/23 09:54 Pulse Ox 100 07/26/23 09:54 Oxygen Delivery Method Room Air 07/26/23 09:54 BMI result Body Mass Index 28.5 Tobacco/Smoking Status: Tobacco use Status Tobacco use date assessed 07/26/23 07/26/23 09:57 Patient Tobacco Use Status Former Tobacco user 07/26/23 09:57 e-Cigarette/Vaping Use Never Used 07/26/23 09:57 Const General: cooperative, comfortable and no acute distress Orientation/consciousness: patient oriented x3 HENMT Head: Yes normocephalic Eyes General: appearance normal, both eyes and all related structures Neck Neck: Yes supple Resp Effort & Inspection: normal respiratory effort, no cough and no stridor Cardio Rhythm: regular rhythm Heart sounds: S1 normal heart sound present and S2 normal heart sound present Skin General skin exam: turgor normal Full body images: 1. Left leg superficial wound without any signs of inflammation and infection Neuro General: patient oriented x3, tone normal and moves all extremities Extrem Right lower extremity: no edema Left lower extremity: no edema Assessment and Plan Assessment & Plan (1) Leg wound, left: Code(s): S81.802A - Unspecified open wound, left lower leg, initial encounter Qualifiers: Encounter type: initial encounter Qualified Code(s): S81.802A - Unspecified open wound, left lower leg, initial encounter Plan Patient is a 77-year-old gentleman keep bumping into different stuff and having superficial skin injuries Currently he has about 2 in x 3 in superficial skin wound left lower leg. Patient has been doing his own dressings with Xeroform dressing and is requesting a script for it. Script sent Me he change the dressing in the clinic with the patient as well. Patient says that he has no problem keeping an eye on the wound and changing dressing by himself. Currently he is going through cardiac rehab after have coronary artery grafting in April of this year The vein was taken from his left leg where he keep having skin problem. Medications: New [Xeroform gauze dressing 3 % bismuth] As directed 5 ea 5RF S81.802A - Unspecified open wound, left lower leg, initial encounter [Xeroform gauze dressing 3 % bismuth] As directed 5 ea 5RF S81.802A - Unspecified open wound, left lower leg, initial encounter [Xeroform gauze dressing 3 % bismuth] As directed 5 ea 5RF S81.802A - Unspecified open wound, left lower leg, initial encounter [Xeroform gauze dressing 3 % bismuth] As directed 5 ea 5RF S81.802A - Unspecified open wound, left lower leg, initial encounter Coding Level of Care Code Est Pt Level 3 (87643) Diagnoses Wound of left lower extremity, initial encounter S81.501V Encounter type: initial encounter
== END 2023-07-26 10:45 | disposition home or self-care (01) ==
PROVIDERS: PCP Internal Medicine; Visit Provider Internal Medicine
DX: S81.802A Unspecified open wound, left lower leg, initial encounter (principal)
CPT/HCPCS: 99213

== ENCOUNTER 2023-09-04 09:29 | Outpatient (REF) | payer MEDICARE, SELFPAY ==
[2023-06-28 09:56] VITALS: BP 142/54; BP 152/84; BMI 27.6
[2023-09-04 11:51] LABS: Estimated Average Glucose 169 mg/dL; Hemoglobin A1c % 7.5 % (<6.0)
== END 2023-09-04 09:30 | disposition home or self-care (01) ==
LOC: HO.HMGCLDS 09:29
PROVIDERS: PCP Internal Medicine; Visit Provider Internal Medicine
DX: E11.9 Type 2 diabetes mellitus without complications (principal)
CPT/HCPCS: 36415; 83036

== ENCOUNTER 2023-09-14 11:08 | Outpatient (AMB) | payer MEDICARE, SELFPAY ==
[2023-06-28 09:56] VITALS: BP 142/54; BP 152/84; BMI 27.6
--- NOTE | 2023-09-14 11:09 | MHC.OFFWIV ---
Intake Vital Signs 09/14/23 11:10 Height 6 ft Weight 210 lb BMI 28.5 BP 146/80 H Blood Pressure Location Rt brachial Position Sitting Pulse 76 Pulse Source Pulse Oximeter Temp 97.7 F Temp Source Temporal Artery Scan Pulse Oximetry (%) 97 Intake Visit Reasons: EST leg issues (per raphael) Intake Note: pt is here for c/o leg wound Patient Tobacco Use Status: Former Tobacco user Quit Date: 1979 Allergies atenolol Allergy (Unknown, Verified 09/14/23 11:10) Bradycardia ENVIROMENTAL Allergy (Unknown, Uncoded 06/05/23 13:48) ITCHY EYES/RUNNY NOSE Do you need a note to return to daycare/school/sports/work: Yes HPI HPI Comments History of Present Illness Details This is a 78-year-old male with a past medical history depression, hypertension, hyperlipidemia, diabetes and coronary artery disease currently anticoagulated on Eliquis presenting for evaluation of a wound on his right lower extremity. Patient states the was placed on Eliquis in April 2003 after open-heart surgery and has had recurrent wounds on his legs. Patient states that he hits his leg with his cane and a garbage bag scraped the bottom of his right leg last week. The patient states that he has kept the lesion covered with gauze but now notices increased pain and redness. He denies having any fevers or chills. [facility] Medical History Atherosclerotic cardiovascular disease Depression, major, recurrent Chronic nasal congestion Diabetes mellitus type II, non insulin dependent Osteoarthritis of hand, left Obesity (BMI 30.0-34.9) Vertebral artery stenosis Cervical spondylosis Hypertension, essential Lipid disorder Hearing impaired Surgical History S/P CABG x 3 Hx of cholecystectomy Family History Father HTN (hypertension) Mother No problems noted. Social History Housing: House Alcohol intake: current Alcohol intake frequency: a few times a week Patient Tobacco Use Status: Former Tobacco user Quit Date: 1979 Years Smoked: 20 +/- e-Cigarette/Vaping Use: Never Used service: No Current occupational status: retired Cognitive needs: No Hearing needs: No Vision needs: Yes Review of Systems Const All systems reviewed & are unremarkable except as noted in HPI and below Denies chills and Denies fever(s) Skin/Breast Reports system reviewed and no additional complaints, except as documented, Reports non-healing lesions (right lower leg), Reports skin swelling and Reports wounds Psych Reports no additional complaints Physical Exam Vital Signs: Last Vital Signs Temp 97.7 F 09/14/23 11:10 Pulse 76 09/14/23 11:10 BP 146/80 H 09/14/23 11:10 Pulse Ox 97 09/14/23 11:10 BMI result Body Mass Index 28.5 Const General: cooperative, healthy appearing, comfortable and no acute distress Nutritional Appearance: average body habitus Orientation/consciousness: patient oriented x3 Limitations: no limitations Skin Other: Surface abrasion right lateral distal lower leg with surrounding erythema, tenderness and warmth to touch. Wounds: wounds noted (distal right lateral lower leg; surface abrasions 9cm x 8cm ) Neuro General: patient oriented x3 Extrem Other: Patient ambulating independently with a cane. Psych Appearance: grossly normal Mental Status: mental status grossly normal Insight: Good insight present (Psych) Judgement: Good judgement present (Psych) Assessment & Plan Assessment & Plan (1) Cellulitis of right leg without foot: Code(s): L03.115 - Cellulitis of right lower limb Plan: Doxycycline 100mg BID x 7 days; patient to keep clean with soap and water twice daily and elevate right leg when at rest. Medications: New doxycycline hyclate 100 mg PO BID 14 tabs 0RF Coding Level of Care Code Est Pt Level 3 (86412) Diagnoses Cellulitis of right leg without foot L03.115 Time Spent (min) 20
[2023-09-14 11:10] VITALS: BP 146/80; PULSE 76; TEMP 36.5; O2SAT 97; BMI 28.5
--- OUTSIDE RECORDS SUMMARY | 2023-09-14 11:10 | XMS_ITS | Continuity of Care Document ---
Author Name Unknown Organization [facility] Leodan jaclyn Address [address] [place], [place] [address]jace [place] [address]- Care Team Providers Care Smt Technician Name Role Phone Ryan GORDON, Asma Primary Care Physician [phone] [place] [facility] [place] 05/22/23 - 06/21/23 [facility] [address] [place] [address]- Allergies, Adverse Reactions, Alerts Substance Reaction Severity Status Other Environmental Allergy sneezing Blocked up Active Medications acetaminophen 325 mg oral tablet 975 mg, By Mouth, Every 6 hours, Refills 0, Maintenance, 05/07/23 13:18:00 EDT, Partial fill upon patient request if the prescription is for a schedule II opioid drug. Start Date: 05/07/23 Status: Ordered amiodarone 200 mg oral tablet See Instructions, Take 2 tablets twice a day for 4 days then 1 tablet twice a day for 30 days, # 76tablet, Refills 0, Tot. Refills 0, Maintenance, 05/07/23 13:19:00 EDT, Instructions Replace Required Details, Route to Pharmacy Electronically, [facility] Start Date: 05/07/23 Status: Ordered apixaban 5 mg oral tablet 1 tablet = 5 mg, By Mouth, 2 times a day, # 60 tablet, 0 Refills, Maintenance, 05/17/23 15:17:00 EDT, Tablet, [facility]/pharmacy #[id number], Partial fill upon patient request if the prescription is for a schedule II opioid drug., 183, cm, 05/17/23 13:45:00 EDT,... Start Date: 05/17/23 Status: Ordered aspirin 81 mg oral tablet, chewable 81 mg, 1, tablet, By Mouth, Daily, # 90 tablet, Refills 3, Tot. Refills 3, Maintenance, 04/04/23 13:23:00 EDT, Route to Pharmacy Electronically, [facility], Partial fill upon patient request if the prescription is for a schedule II opioi... Start Date: 04/04/23 Status: Ordered atorvastatin 80 mg oral tablet 1 tablet = 80 mg, By Mouth, Daily at bedtime, # 30 tablet, 5 Refills, Maintenance, 04/26/23 10:42:00 EDT, Tablet, Partial fill upon patient request if the prescription is for a schedule II opioid drug. Start Date: 04/26/23 Status: Ordered brimonidine 0.2% ophthalmic solution 1 drops, Eye, Right, 2 times a day, 0 Refills, Maintenance, 04/26/23 10:43:00 EDT, Partial fill upon patient request if the prescription is for a schedule II opioid drug. Start Date: 04/26/23 Stop Date: 05/26/23 Status: Ordered chlorthalidone 50 mg oral tablet 1 tablet = 50 mg, By Mouth, Daily, # 90 tablet, 0 Refills, Maintenance, 04/26/23 10:42:00 EDT, Tablet, Partial fill upon patient request if the prescription is for a schedule II opioid drug. Start Date: 04/26/23 Status: Ordered Eliquis 5 mg oral tablet 1 tablet = 5 mg, By Mouth, 2 times a day, # 60 tablet, 5 Refills, Maintenance, 05/18/23 7:47:00 EDT, Tablet, [facility]/pharmacy #[id number], Partial fill upon patient request if the prescription is for a schedule II opioid drug., 183, cm, 05/17/23 13:45:00 EDT, H... Start Date: 05/18/23 Status: Ordered glipiZIDE 5 mg oral tablet 5 mg, 1, tablet, By Mouth, Daily, # 30 tablet, Refills 0, Maintenance, 04/26/23 10:41:00 EDT, Partial fill upon patient request if the prescription is for a schedule II opioid drug. Start Date: 04/26/23 Status: Ordered latanoprost 0.005% ophthalmic solution 2 drops, Eyes, Both, Daily at bedtime, # 2.5 mL, 0 Refills, Maintenance, 04/26/23 10:42:00 EDT, Partial fill upon patient request if the prescription is for a schedule II opioid drug. Start Date: 04/26/23 Stop Date: 05/26/23 Status: Ordered metoprolol 25 mg oral tablet 25 mg, 1, tablet, By Mouth, 2 times a day, # 60 tablet, Refills 0, Tot. Refills 0, Maintenance, 05/18/23 7:47:00 EDT, Route to Pharmacy Electronically, [facility]/pharmacy #[id number], Partial fill upon patient request if the prescription is for a schedule II opio... Start Date: 05/18/23 Status: Ordered metoprolol 25 mg oral tablet 25 mg, 1, tablet, By Mouth, 2 times a day, # 60 tablet, Refills 0, Tot. Refills 0, Maintenance, 05/17/23 15:16:00 EDT, Route to Pharmacy Electronically, [facility]/pharmacy #[id number], Partial fill upon patient request if the prescription is for a schedule II opi... Start Date: 05/17/23 Status: Ordered Paxil 10 mg oral tablet 10, mg, 1, tablet, By Mouth, Daily, Scheduled / PRN, 0, 0, 09/18/07 9:34:51, as needed, Print EKATERINA Number, [id number] Start Date: 09/18/07 Status: Ordered Rhopressa 0.02% ophthalmic solution 1 drops, Eye, Right, Daily at bedtime, # 2.5 mL, 0 Refills, Maintenance, 04/26/23 10:43:00 EDT, Partial fill upon patient request if the prescription is for a schedule II opioid drug. Start Date: 04/26/23 Stop Date: 05/26/23 Status: Ordered timolol maleate 0.5% ophthalmic solution 2 drops, Eyes, Both, 2 times a day, # 2.5 mL, 0 Refills, Maintenance, 04/26/23 10:43:00 EDT, Partial fill upon patient request if the prescription is for a schedule II opioid drug. Start Date: 04/26/23 Stop Date: 05/26/23 Status: Ordered Vashe Topical Solution 475 mL, Topically, Every 12 hours, 0 Refills, Maintenance, Solution Start Date: 05/07/23 Status: Ordered Patient Care team information Care Team Personnel Name: Maria Del Carmen Bennett RN Position: [facility] RN Supv Member Role: Primary Care Nurse Name: Ryan GORDON, Asma Position: [facility] Physician - Primary Care Member Role: PCP Address: Address: [address] [place] [address]- Name: Angela Torres Position: [facility] RN Member Role: Primary Care Nurse Name: Dai Proctor RN Position: [facility] RN Member Role: Primary Care Nurse Care Team Related Persons Name: OSMANY KATHLEEN Name: HILARIO KATHLEEN Address: [address] [address]
--- OUTSIDE RECORDS SUMMARY | 2023-09-14 11:10 | XMS_ITS | Continuity of Care Document ---
Author Name Unknown Organization [facility] Leodan jaclyn Address [address] [place] [address]- Care Team Providers Care Platform Man Name Role Phone Perfecto Daniels MD Primary Care Physician Encounter [facility] Date(s): 04/05/23 - 05/05/23 [facility] Surgery [address] [place] [address]- Allergies, Adverse Reactions, Alerts Substance Reaction Severity Status Other Environmental Allergy sneezing Blocked up Active Medications amLODIPine 10 mg oral tablet 1 tablet = 10 mg, By Mouth, Daily, # 30 tablet, 0 Refills, Maintenance, 04/26/23 10:41:00 EDT, Tablet, Partial fill upon patient request if the prescription is for a schedule II opioid drug. Start Date: 04/26/23 Status: Ordered aspirin 81 mg oral tablet, chewable 81 mg, 1, tablet, By Mouth, Daily, # 90 tablet, Refills 3, Tot. Refills 3, Maintenance, 04/04/23 13:23:00 EDT, Route to Pharmacy Electronically, [facility], Partial fill upon [...] opioid drug. Start Date: 04/26/23 Status: Ordered glipiZIDE 5 mg oral tablet [...] Date: 04/26/23 Stop Date: 05/26/23 Status: Ordered Lisinopril 20, mg, By Mouth, Daily, 0, 0, 06/05/07 7:54:02, Print EKATERINA Number, [id number], Constant Indicator Start Date: 06/05/07 Status: Ordered minocycline 50 mg oral capsule 1 capsule = 50 mg, By Mouth, Daily, 0 Refills, Maintenance Start Date: 07/20/10 Status: Ordered Paxil 10 mg oral tablet 10, mg, 1, tablet, By Mouth, Daily, Scheduled / PRN, 0, 0, 09/18/07 9:34:51, as needed, Print EKATERINA Number, [id number] Start Date: 09/18/07 Status: Ordered Rhopressa 0.02% [...] Date: 04/26/23 Stop Date: 05/26/23 Status: Ordered Vital Signs Most recent to oldest [Reference Range]: 1 Height 185 cm (04/27/23 1:03 PM) Weight 100.2 kg (04/27/23 1:03 PM) Patient Care team information Care Team Personnel Name: Maria Del Carmen Bennett RN Position: S RN Supv Member Role: Primary Care Nurse Name: Perfecto Daniels MD Position: Reference Physician Member Role: PCP Address: Address: [address] [place] [address] [address] [place] [address]- Name: Angela Torres Position: S RN Member Role: Primary Care Nurse Care Team Related Persons Name: HILARIO KATHLEEN Address: [address] [address]
--- OUTSIDE RECORDS SUMMARY | 2023-09-14 11:10 | XMS_ITS | Continuity of Care Document ---
Author Name Unknown Organization [facility] Leodan jaclyn Address [address] [place] [address]- Care Team Providers Care Rag Baler Name Role Phone Perfecto Daniels MD Primary Care Physician [phone] [place] [facility] [place]23 [place] 05/13/23 [facility]iac Surgery [address] [place] [id number] Allergies, Adverse Reactions, Alerts Substance Reaction Severity [...] Replace Required Details, Route to Pharmacy Electronically, [facility]... Start Date: 05/07/23 Status: Ordered apixaban 5 mg oral tablet 1 tablet = 5 mg, By Mouth, 2 times a day, # 60 tablet, 0 Refills, Maintenance, 05/07/23 13:41:00 EDT, Tablet, [facility], Partial fill upon patient request if the prescription is for a schedule II opioid drug., 183, cm, 05/07/23 7:36:00... Start Date: 05/07/23 Status: Ordered aspirin 81 mg oral tablet, chewable 81 mg, 1, tablet, By Mouth, Daily, # 90 tablet, Refills 3, Tot. Refills 3, Maintenance, 04/04/23 13:23:00 EDT, Route to Pharmacy Electronically, [facility], Partial fill upon patient [...] opioid drug. Start Date: 04/26/23 Status: Ordered Lasix 20 mg oral tablet 20 mg, 1, tablet, By Mouth, Daily, # 7 tablet, Refills 0, Tot. Refills 0, Maintenance, 05/07/23 13:20:00 EDT, Route to Pharmacy Electronically, [facility], Partial fill upon patient request if the prescription is for a schedule II opioid... Start Date: 05/07/23 Stop Date: 05/14/23 Status: Ordered latanoprost 0.005% ophthalmic solution 2 [...] tablet, Refills 0, Tot. Refills 0, Maintenance, 05/07/23 13:21:00 EDT, Route to Pharmacy Electronically, [facility], Partial fill upon patient request if the prescription is for a schedule... Start Date: 05/07/23 Status: Ordered Paxil 10 mg oral tablet 10, mg, 1, tablet, By Mouth, Daily, Scheduled / PRN, 0, 0, 09/18/07 9:34:51, as needed, Print EKATERINA Number, [id number] Start Date: 09/18/07 Status: Ordered Potassium Chloride (Eqv-K-Tab) 10 mEq oral tablet, extended release 1 tablet = 10 mEq, By Mouth, Daily, Only take when on lasix, # 7 tablet, 0 Refills, Maintenance, 05/07/23 13:22:00 EDT, [facility] 3, Partial fill upon patient request if the prescriptionis for a schedule II opioid drug., 183, cm, ... Start Date: 05/07/23 Stop Date: 05/14/23 Status: Ordered Rhopressa 0.02% ophthalmic solution 1 [...] Care team information Care Team Personnel Name: Sabrina BEAL, Maria Del Carmen Position: [facility] RN Supv Member Role: Primary Care Nurse Name: Perfecto Daniels MD Position: Reference Physician Member Role: PCP Address: Address: [address] [place] [address] [address] [place] [address]- Name: Angela Torres Position: S RN Member Role: Primary Care Nurse Name: Dai Proctor RN Position: S RN Member Role: Primary Care Nurse Care Team Related Persons Name: HILARIO KATHLEEN Address: [address] [address]
--- OUTSIDE RECORDS SUMMARY | 2023-09-14 11:10 | XMS_ITS | Continuity of Care Document ---
Author Name Unknown Organization [facility] Leodan jaclyn Address [address] [place] [address]- Care Team Providers Care Housekeeper Caregiver Name Role Phone Ryan GORDON, [facility] [place] Date(s): 05/08/23 - 06/07/23 [facility] Cardiac Surgery [address] [place] [id number] Allergies, Adverse Reactions, Alerts Substance Reaction Severity [...] Replace Required Details, Route to Pharmacy Electronically, [facility]... Start Date: 05/07/23 Status: Ordered apixaban 5 mg oral tablet 1 tablet = 5 mg, By Mouth, 2 times a day, # 60 tablet, 0 Refills, Maintenance, 05/17/23 15:17:00 EDT, Tablet, [facility]/pharmacy #[id number], Partial fill upon patient request if the prescription is for a schedule II opioid drug., 183, cm, 05/17/23 13:45:00 EDT,... Start Date: 05/17/23 Status: Ordered aspirin 81 mg oral tablet, chewable 81 mg, 1, tablet, By Mouth, Daily, # 90 tablet, Refills 3, Tot. Refills 3, Maintenance, 04/04/23 13:23:00 EDT, Route to Pharmacy Electronically, [facility], Partial fill upon patient request [...] 5 Refills, Maintenance, 05/18/23 7:47:00 EDT, Tablet, [facility]/pharmacy #[id number], Partial fill upon patient request if [...] 05/18/23 7:47:00 EDT, Route to Pharmacy Electronically, [facility]/pharmacy #[id number], Partial fill upon patient request if the prescription is for a schedule II opio... Start Date: 05/18/23 Status: Ordered metoprolol 25 mg oral tablet 25 mg, 1, tablet, By Mouth, 2 times a day, # 60 tablet, Refills 0, Tot. Refills 0, Maintenance, 05/17/23 15:16:00 EDT, Route to Pharmacy Electronically, [facility]/pharmacy #[id number], Partial fill upon patient request if the prescription is for a schedule II opi... Start Date: 05/17/23 Status: Ordered Paxil 10 mg oral tablet 10, mg, 1, tablet, By Mouth, Daily, Scheduled / PRN, 0, 0, 09/18/07 9:34:51, as needed, Print EKATERINA Number, [id number] Start Date: 09/18/07 Status: Ordered Rhopressa 0.02% [...] Name: Maria Del Carmen Bennett RN Position: [facility] RN Supv Member Role: Primary Care Nurse Name: Ryan GORDON, Asma Position: [facility] Physician - Primary Care Member Role: PCP Address: Address: [address] [place] [address]- Name: Angela Torres Position: [facility] RN Member Role: Primary Care Nurse Name: Dai Proctor RN Position: [facility] RN Member Role: Primary Care Nurse Care Team Related Persons Name: OSMANY KATHLEEN Name: HILARIO KATHLEEN Address: [address] [address]
--- OUTSIDE RECORDS SUMMARY | 2023-09-14 11:10 | XMS_ITS | Continuity of Care Document ---
Author Name Unknown Organization [facility] Card[facility] Leodan jaclyn Address [address] [place] [id number]- Care Team Providers Care Pet Handler Name Role Phone Perfecto Daniels MD Primary Care Physician [phone] Encounter [facility] [place] Date(s): 04/14/23 - 05/14/23 [facility] Cardiac Surgery [address] [place] [id number] Allergies, Adverse Reactions, Alerts Substance Reaction [...] Replace Required Details, Route to Pharmacy Electronically, [facility]... Start Date: 05/07/23 Status: Ordered apixaban 5 mg oral tablet 1 tablet = 5 mg, By Mouth, 2 times a day, # 60 tablet, 0 Refills, Maintenance, 05/07/23 13:41:00 EDT, Tablet, [facility], Partial fill upon patient request if the prescription is for a schedule II opioid drug., 183, cm, 05/07/23 7:36:00... Start Date: 05/07/23 Status: Ordered aspirin 81 mg oral tablet, chewable 81 mg, 1, tablet, By Mouth, Daily, # 90 tablet, Refills 3, Tot. Refills 3, Maintenance, 04/04/23 13:23:00 EDT, Route to Pharmacy Electronically, [facility], Partial fill upon patient [...] 05/07/23 13:20:00 EDT, Route to Pharmacy Electronically, [facility], Partial fill upon patient [...] 05/07/23 13:21:00 EDT, Route to Pharmacy Electronically, [facility], Partial fill upon patient request if the prescription is for a schedule... Start Date: 05/07/23 Status: Ordered Paxil 10 mg oral tablet 10, mg, 1, tablet, By Mouth, Daily, Scheduled / PRN, 0, 0, 09/18/07 9:34:51, as needed, Print EKATERINA Number, [id number] Start Date: 09/18/07 Status: Ordered Potassium Chloride (Eqv-K-Tab) 10 mEq oral tablet, extended release 1 tablet = 10 mEq, By Mouth, Daily, Only take when on lasix, # 7 tablet, 0 Refills, Maintenance, 05/07/23 13:22:00 EDT, [facility] 3, Partial fill upon patient request if [...] Reference Physician Member Role: PCP Address: Address: [address] [place] [address] [address] [place] [address]- Name: Angela Torres Position: S RN Member Role: Primary Care Nurse Name: Dai Proctor RN Position: S RN Member Role: Primary Care Nurse Care Team Related Persons Name: HILARIO KATHLEEN Address: [address] [address]
--- OUTSIDE RECORDS SUMMARY | 2023-09-14 11:10 | XMS_ITS | Continuity of Care Document ---
Author Name Unknown Organization [facility] Cardiac Leodan jaclyn Address [address] [place] [id number]- Care Team Providers Care Barrel Tester And Drainer Name Role Phone [facility] En[facility] [place] Date(s): 05/17/23 - 05/24/23 [facility] Cardiac Surgery [address] [place] [id number] Attending Physician: Daniel GORDON, Tamara Gonzalez Referring Physician: Janette Hunter MD Allergies, Adverse Reactions, Alerts Substance [...] Replace Required Details, Route to Pharmacy Electronically, [facility]... Start Date: 05/07/23 Status: Ordered apixaban 5 mg oral tablet 1 tablet = 5 mg, By Mouth, 2 times a day, # 60 tablet, 0 Refills, Maintenance, 05/17/23 15:17:00 EDT, Tablet, [facility]/pharmacy #[id number], Partial fill upon patient request if the prescription is for a schedule II opioid drug., 183, cm, 05/17/23 13:45:00 EDT,... Start Date: 05/17/23 Status: Ordered aspirin 81 mg oral tablet, chewable 81 mg, 1, tablet, By Mouth, Daily, # 90 tablet, Refills 3, Tot. Refills 3, Maintenance, 04/04/23 13:23:00 EDT, Route to Pharmacy Electronically, [facility], Partial fill upon patient request [...] 5 Refills, Maintenance, 05/18/23 7:47:00 EDT, Tablet, [facility]/pharmacy #[id number], Partial fill upon patient request if [...] 05/18/23 7:47:00 EDT, Route to Pharmacy Electronically, [facility]/pharmacy #[id number], Partial fill upon patient request if the prescription is for a schedule II opio... Start Date: 05/18/23 Status: Ordered metoprolol 25 mg oral tablet 25 mg, 1, tablet, By Mouth, 2 times a day, # 60 tablet, Refills 0, Tot. Refills 0, Maintenance, 05/17/23 15:16:00 EDT, Route to Pharmacy Electronically, [facility]/pharmacy #[id number], Partial fill upon patient request if the prescription is for a schedule II opi... Start Date: 05/17/23 Status: Ordered Paxil 10 mg oral tablet 10, mg, 1, tablet, By Mouth, Daily, Scheduled / PRN, 0, 0, 09/18/07 9:34:51, as needed, Print EKATERINA Number, [id number] Start Date: 09/18/07 Status: Ordered Rhopressa 0.02% [...] Maintenance, Solution Start Date: 05/07/23 Status: Ordered Vital Signs Most recent to oldest [Reference Range]: 1 Height 183.0 cm (05/17/23 1:45 PM) Weight 100.2 kg (05/17/23 1:45 PM) Oxygen Saturation [94-100 %] 97 % (05/17/23 1:45 PM) Pulse Rate [55-90 bpm] 86 bpm (05/17/23 1:45 PM) Body Mass Index [18.5-24.99 kg/m2] 29.92 kg/m2 *H* (05/17/23 1:45 PM) Blood Pressure [90-138/55-84 mm Hg] 120/ 70mm Hg (05/17/23 1:45 PM) Respiratory Rate [16-30 br/min] 20 br/mi n (05/17/23 1:45 PM) Temperature [96.8-100.4 DegF] 98.1 DegF (05/17/23 1:45 PM) Mode of Delivery (Oxygen) Room air (05/17/23 1:45 PM) Blood pressure sites Arm, right (05/17/23 1:45 PM) Temperature Route Oral (05/17/23 1:45 PM) Weight Obtained Via Patient/family state d (05/17/23 1:45 PM) Cardiac surgery Outpatient Note * Daniel GORDON, Tamara Gonzalez: PERFORM Event Display: Cardiac Surgery Note Office Authored Date: Patient: ??ALEX WU ? Age:??77 Years?Sex:??Male?:??1945?? Indication for Consult CABGx3 05/02/2023 ?? PCP: Shirin Davis MD PCC: Dale ?? Pre-operative Diagnosis:?1. CAD ?2. 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 DM ?5. HTN ?6. HLD ?7. Bilateral venous stasis ?? History of Present Illness/Interval History Mr. Wu is a 77 year old man who had CABG x 3 ??(BATEMAN-mid LAD, Left radial artery-OM, SVG-PDA) onJuly 2022.?? He did well and was discharged POD 5. ?? Here with right thigh swelling and pain with ecchymosis.?? No open wounds. ?? Walks with a cane. ?? 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 Review of Systems Cardiac: Symptoms of congestion: No Symptomatic hypotension: No Symptoms of ischemia: no Constitutional:?? Recent infection: No; no fever, no chills Unintentional weight loss/cachexia: No Respiratory: Symptomatic primary lung disease: No; No cough, No shortness of breath? All other systems are negative unless noted above. Physical Exam Vitals & Measurements T:??98.1?F?? HR:??86??(Peripheral)?? RR:??20?? BP:??120/70?? SpO2:??97%?? HT:??183.0??cm?? WT:??100.2??kg?? BMI:??29.92?? Weight lb/oz: 220 lb 14 oz sternum stable with wires and plates Incision clean and dry right thigh with ecchymosis, no open wounds left thumb numbness, incision clean and dry Assessment/Plan Doing well postop CABG ?? The following salient points were discussed during our visit: They understand that after open chest surgery, it is common to start new medications and stop or adjust the doses of previous medications. Lipid therapies are recommended even for patients who have values that are in the normal range.?? Wound care?They understand that the sternum is reapproximated with stainless steel wires and can still shift until fully healed. ??After discharge from the hospital, the patient is usually given instructions about how to care for their chest and/or leg wounds. Specifically, we discussed: Avoid heavy lifting and extremes of shoulder movement (eg, as in tennis, baseball, and golf) for six to eight weeks after surgery to allow for complete healing of the sternum. ??Prefer not to have patientlaying completely on the side for 2 months. ?? Keep dermabond skin glue on for 14 days.?? I have removed this. ?? It is not unusual to have a poor appetite after undergoing surgery. They understand proper nutrition is important in promoting healing and getting strength back. Follow up with cardiology and PCP as planned ?? For CABG patients: we recommend DAPT for 1 year, BB and statin; we start amiodarone postop as atrial fibrillation prophylaxis. ?? 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 ?? PLAN: start cardiac rehab refill Eliquis and BB today (future refills??by PCP or PCC) f/u with cardiology f/u PCPRyan ?Tamara Sanchez MD ?[facility] Cardiac Surgery?[address], [address] ?[place] [address] ?Pager: [phone] ?Office: [phone] ? Allergies Other Environmental Allergy??( sneezing , Blocked up ) Home Medications acetaminophen 325 mg oral tablet, 975 mg, By Mouth, Every 6 hours amiodarone 200 mg oral tablet, See Instructions apixaban 5 mg oral tablet, 5 mg= 1 tablet, By Mouth, 2 times a day aspirin 81 mg oral tablet, chewable, 81 mg= 1 tablet, By Mouth, Daily, 3 refills atorvastatin 80 mg oral tablet, 80 mg= 1 tablet, By Mouth, Daily at bedtime brimonidine 0.2% ophthalmic solution, 1 drops, Eye, Right, 2 times a day chlorthalidone 50 mg oral tablet, 50 mg= 1 tablet, By Mouth, Daily glipiZIDE 5 mg oral tablet, 5 mg= 1 tablet, By Mouth, Daily latanoprost 0.005% ophthalmic solution, 2 drops, Eyes, Both, Daily at bedtime metoprolol 25 mg oral tablet, 25 mg= 1 tablet, By Mouth, 2 times a day Paxil 10 mg oral tablet, 10 mg= 1 tablet, By Mouth, Daily, PRN Rhopressa 0.02% ophthalmic solution, 1 drops, Eye, Right, Daily at bedtime timolol maleate 0.5% ophthalmic solution, 2 drops, Eyes, Both, 2 times a day Vashe Topical Solution, 475 mL, Topically, Every 12 hours Lab Results Cardiology Labs WBC:??14.3 k/mm3??High (05/07/23) RBC:??3.53 m/mm3??Low (05/07/23) Hgb:??11.1 Gm/dL??Low (05/07/23) Hct:??32.2 %??Low (05/07/23) MCV: 91.2 femtoliters (05/07/23) MCH: 31.4 pg (05/07/23) MCHC: 34.5 g/dL (05/07/23) Platelet Count: 195 k/mm3 (05/07/23) RDW-SD: 39.8 femtoliters (05/07/23) Nucleated RBC (Automated): 0 #/100 WBC'S (05/07/23) Abs. Neut:??12.2 k/mm3??High (05/04/23) Abs. Lymph: 1.5 k/mm3 (05/04/23) Abs. Flathead:??2.2 k/mm3??High (05/04/23) Abs. Eo: 0 k/mm3 (05/04/23) Abs. Baso: 0 k/mm3 (05/04/23) Neut %:??76.2 %??High (05/04/23) Flathead %:??13.5 %??High (05/04/23) Eos %: 0 % (05/04/23) Baso %: 0.1 % (05/04/23) Imm Gran: 1.1 % (05/04/23) Abs. Imm Gran: 0.2 k/mm3 (05/04/23) INR:??1.2??High (05/02/23) Protime (PT):??12.4 seconds??High (05/02/23) APTT: 27.1 seconds (05/02/23) Sodium:??130 mmol/L??Low (05/07/23) Potassium:??3.5 mmol/L??Low (05/07/23) Chloride:??88 mmol/L??Low (05/07/23) Bicarbonate Level: 27 mmol/L (05/07/23) Glucose Level:??118 mg/dL??High (05/04/23) Hemoglobin A1C (Monitoring):??7.8 %??High (05/02/23) BUN:??34 mg/dL??High (05/07/23) Creatinine-Blood: 1 mg/dL (05/07/23) Calcium:??7.8 mg/dL??Low (05/02/23) Protein, Total:??4.8 Gm/dL??Low (05/02/23) Albumin:??3.1 Gm/dL??Low (05/02/23) Alkaline Phosphatase: 85 units/L (05/02/23) AST (SGOT):??82 units/L??High (05/02/23) ALT (SGPT):??57 units/L??High (05/02/23) Bilirubin, Total: 0.6 mg/dL (05/02/23) Diagnostic Impression ECG ECG 12-Lead ?? 12:01:07 Please click on pdf link to open report ?? Signed By: Faheem Wise MD ?? ECG 12-Lead ?? 12:01:07 Ventricular Rate: 65 BPM Atrial Rate: 65 BPM P-R Interval: 194 ms QRS Duration: 100 ms Q-T Interval: 406 ms QTC Calculation(Bazett): 422 ms P Dawson: 71 degrees R Dawson: -1 degrees T Dawson: -5 degrees Sinus rhythm with Premature supraventricular complexes and with occasional Premature ventricular complexes Otherwise normal ECG When compared with ECG of 03-MAY-2023 07:12, Premature ventricular complexes are now Present Premature supraventricular complexes are now Present Nonspecific T wave abnormality, improved in Lateral leads Confirmed by FAHEEM WISE ([id number]) on 05/08/2023 11:36:12 AM ?? Mcbrides: FAHEEM WISE ?? Signed By: Faheem Wise MD Problem List/Past Medical History Ongoing No qualifying data Procedure/Surgical History No qualifying data available. Family History No family history recorded. Patient Care team information Care Team Personnel Name: Maria Del Carmen Bennett RN Position: [facility] RN Supv Member Role: Primary Care Nurse Name: Ryan GORDON, Shirin Position: [facility] Physician - Primary Care Member Role: PCP Address: Address: [address] [place] [address]- Name: Angela Torres Position: S RN Member Role: Primary Care Nurse Name: Dai Proctor RN Position: S RN Member Role: Primary Care Nurse Care Team Related Persons Name: OSMANY WU Name: HILARIO WU Address: [address] [address]
--- OUTSIDE RECORDS SUMMARY | 2023-09-14 11:10 | XMS_ITS | Continuity of Care Document ---
Author Name Unknown Organization [facility] Address [address] [place] [address]- Care Team Providers Care Twist Packer Name Role Phone Ryan GORDON, Asma Primary Care Physician Encounter 05/08/23 - 06/21/23 [facility] [address] [place] [address]- Discharge Disposition: [facility] Allergies, Adverse Reactions, Alerts Substance Reaction Severity [...] 0 Refills, Maintenance, 05/17/23 15:17:00 EDT, Tablet, [facility]/pharmacy #[id number], Partial fill upon patient request if the prescription is for a schedule II opioid drug., 183, cm, 05/17/23 13:45:00 EDT,... Start Date: 05/17/23 Status: Ordered aspirin 81 mg oral tablet, chewable 81 mg, 1, tablet, By Mouth, Daily, # 90 tablet, Refills 3, Tot. Refills 3, Maintenance, 04/04/23 13:23:00 EDT, Route to Pharmacy Electronically, [facility], Partial fill upon patient request [...] 5 Refills, Maintenance, 05/18/23 7:47:00 EDT, Tablet, [facility]/pharmacy #[id number], Partial fill upon patient request if [...] 05/18/23 7:47:00 EDT, [id number] Partial fill upon patient request if the prescription is for a schedule II opio... Start Date: 05/18/23 Status: Ordered metoprolol 25 mg oral tablet 25 mg, 1, tablet, By Mouth, 2 times a day, # 60 tablet, Refills 0, Tot. Refills 0, Maintenance, 05/17/23 15:16:00 EDT, Route to Pharmacy Electronically, [facility]/pharmacy #[id number], Partial fill upon patient request if the prescription is for a schedule II opi... Start Date: 05/17/23 Status: Ordered Paxil 10 mg oral tablet 10, mg, 1, tablet, By Mouth, Daily, Scheduled / PRN, 0, 0, 09/18/07 9:34:51, as needed, Print EKATERINA Number, [id number] Start Date: 09/18/07 Status: Ordered Rhopressa 0.02% [...] Name: Maria Del Carmen Bennett RN Position: [facility] RN Supv Member Role: Primary Care Nurse Name: Shirin Davis MD Position: [facility] Physician - Primary Care Member Role: PCP Address: Address: [address] [place] [address]- Name: Angela Torres Position: S RN Member Role: Primary Care Nurse Name: Dai Proctor RN Position: [facility] RN Member Role: Primary Care Nurse Care Team Related Persons Name: OSMANY KATHLEEN Name: HILARIO KATHLEEN Address: [address] [address]
--- OUTSIDE RECORDS SUMMARY | 2023-09-14 11:10 | XMS_ITS | Continuity of Care Document ---
Author Name Unknown Organization [facility] Address [address] [place] [id number]- Care Team Providers Care Furniture Installer Name Role Phone Ryan [facility], [facility] [place] Date(s): 05/07/23 - 06/06/[address] [address] Attending Physician: Not on Staff, Attending MD Admitting Physician: Not on Staff, Admitting MD Referring Physician: Not on Staff, Referring MD Allergies, Adverse Reactions, Alerts Substance Reaction [...] Replace Required Details, Route to Pharmacy Electronically, [facility]... Start Date: 05/07/23 Status: Ordered apixaban 5 mg oral tablet 1 tablet = 5 mg, By Mouth, 2 times a day, # 60 tablet, 0 Refills, Maintenance, 05/17/23 15:17:00 EDT, Tablet, [facility]/pharmacy #[id number], Partial fill upon patient request if the prescription is for a schedule II opioid drug., 183, cm, 05/17/23 13:45:00 EDT,... Start Date: 05/17/23 Status: Ordered aspirin 81 mg oral tablet, chewable 81 mg, 1, tablet, By Mouth, Daily, # 90 tablet, Refills 3, Tot. Refills 3, Maintenance, 04/04/23 13:23:00 EDT, Route to Pharmacy Electronically, [facility], Partial fill upon patient [...] Maintenance, 05/18/23 7:47:00 EDT, Tablet, [facility]/pharmacy #[id number], Partial fill upon patient request [...] EDT, Route to Pharmacy Electronically, [facility]/pharmacy #[id number], Partial fill upon patient request if the prescription is for a schedule II opio... Start Date: 05/18/23 Status: Ordered metoprolol 25 mg oral tablet 25 mg, 1, tablet, By Mouth, 2 times a day, # 60 tablet, Refills 0, Tot. Refills 0, Maintenance, 05/17/23 15:16:00 EDT, Route to Pharmacy Electronically, [facility]/pharmacy #[id number], Partial fill upon patient request if the prescription is for a schedule II opi... Start Date: 05/17/23 Status: Ordered Paxil 10 mg oral tablet 10, mg, 1, tablet, By Mouth, Daily, Scheduled / PRN, 0, 0, 09/18/07 9:34:51, as needed, Print EKATERINA Number, [id number] Start Date: 09/18/07 Status: Ordered Rhopressa 0.02% [...] Name: Sabrina BEAL, Maria Del Carmen Position: [facility] RN Supv Member Role: Primary Care Nurse Name: Shirin Davis MD Position: S Physician - Primary Care Member Role: PCP Address: Address: [address] [place] [address]- Name: Angela Torres Position: S RN Member Role: Primary Care Nurse Name: Dai Proctor RN Position: [facility] RN Member Role: Primary Care Nurse Care Team Related Persons Name: OSMANY KATHLEEN Name: HILARIO KATHLEEN Address: [address] [address]
--- OUTSIDE RECORDS SUMMARY | 2023-09-14 11:10 | XMS_ITS | Continuity of Care Document ---
Author Name Unknown Organization [facility] Leodan jaclyn Address [address] [place] [address] [place] [address]- Care Team Providers Care Professional Volleyball Player Name Role Phone Ryan GORDON, Asma Primary Care Physician Encounter [facility] [place] Date(s): 07/24/23 - 08/23/23 [facility] Cardiac Surgery [address] [place] [address]- Allergies, Adverse Reactions, Alerts Substance Reaction Severity [...] Replace Required Details, Route to Pharmacy Electronically, [facility]... Start Date: 05/07/23 Status: Ordered apixaban 5 mg oral tablet 1 tablet = 5 mg, By Mouth, 2 times a day, # 60 tablet, 0 Refills, Maintenance, 05/17/23 15:17:00 EDT, Tablet, [facility]/pharmacy #[id number], Partial fill upon patient request if the prescription is for a schedule II opioid drug., 183, cm, 05/17/23 13:45:00 EDT,... Start Date: 05/17/23 Status: Ordered aspirin 81 mg oral tablet, chewable 81 mg, 1, tablet, By Mouth, Daily, # 90 tablet, Refills 3, Tot. Refills 3, Maintenance, 04/04/23 13:23:00 EDT, Route to Pharmacy Electronically, [facility], Partial fill upon patient request [...] 5 Refills, Maintenance, 05/18/23 7:47:00 EDT, Tablet, [facility]/pharmacy #[id number], Partial fill upon patient request [...] 05/18/23 7:47:00 EDT, Route to Pharmacy Electronically, [facility]/pharmacy #[id number], Partial fill upon patient request if the prescription is for a schedule II opio... Start Date: 05/18/23 Status: Ordered metoprolol 25 mg oral tablet 25 mg, 1, tablet, By Mouth, 2 times a day, # 60 tablet, Refills 0, Tot. Refills 0, Maintenance, 05/17/23 15:16:00 EDT, Route to Pharmacy Electronically, [facility]/pharmacy #[id number], Partial fill upon patient request if the prescription is for a schedule II opi... Start Date: 05/17/23 Status: Ordered Paxil 10 mg oral tablet 10, mg, 1, tablet, By Mouth, Daily, Scheduled / PRN, 0, 0, 09/18/07 9:34:51, as needed, Print EKATERINA Number, [id number] Start Date: 09/18/07 Status: Ordered Rhopressa 0.02% [...] Name: Maria Del Carmen Bennett RN Position: [facility] RN Supv Member Role: Primary Care Nurse Name: Ryan GORDON, Asma Position: [facility] Physician - Primary Care Member Role: PCP Address: Address: [address] [place] [address]- Name: Angela Torres Position: [facility] RN Member Role: Primary Care Nurse Name: Dai Proctor RN Position: [facility] RN Member Role: Primary Care Nurse Care Team Related Persons Name: OSMANY KATHLEEN Name: HILARIO KATHLEEN Address: [address] [address]
--- OUTSIDE RECORDS SUMMARY | 2023-09-14 11:10 | XMS_ITS | Continuity of Care Document ---
Author Name Unknown Organization [facility] Cardiac Leodan jaclyn Address [address] [place], [place] [address]jace [place] [address]- Care Team Providers Care Patternmaker Hand Name Role Phone Ryan GORDON, [facility] [place] [facility] [place]): [place]/23 [facility] Cardiac Surgery [address] [place] [id number] Attending Physician: Reina Bella Admitting Physician: AdmReina pryor Referring Physician: Admtr [id number] Allergies, Adverse Reactions, Alerts Substance Reaction Severity [...] Replace Required Details, Route to Pharmacy Electronically, [facility]... Start Date: 05/07/23 Status: Ordered apixaban 5 mg oral tablet 1 tablet = 5 mg, By Mouth, 2 times a day, # 60 tablet, 0 Refills, Maintenance, 05/17/23 15:17:00 EDT, Tablet, [facility]/pharmacy #[id number], Partial fill upon patient request if the prescription is for a schedule II opioid drug., 183, cm, 05/17/23 13:45:00 EDT,... Start Date: 05/17/23 Status: Ordered aspirin 81 mg oral tablet, chewable 81 mg, 1, tablet, By Mouth, Daily, # 90 tablet, Refills 3, Tot. Refills 3, Maintenance, 04/04/23 13:23:00 EDT, Route to Pharmacy Electronically, [facility], Partial fill upon patient request [...] 5 Refills, Maintenance, 05/18/23 7:47:00 EDT, Tablet, [facility]/pharmacy #[id number], Partial fill upon patient request [...] 05/18/23 7:47:00 EDT, Route to Pharmacy Electronically, [facility]/pharmacy #[id number], Partial fill upon patient request if the prescription is for a schedule II opio... Start Date: 05/18/23 Status: Ordered metoprolol 25 mg oral tablet 25 mg, 1, tablet, By Mouth, 2 times a day, # 60 tablet, Refills 0, Tot. Refills 0, Maintenance, 05/17/23 15:16:00 EDT, Route to Pharmacy Electronically, [facility]/pharmacy #[id number], Partial fill upon patient request if the prescription is for a schedule II opi... Start Date: 05/17/23 Status: Ordered Paxil 10 mg oral tablet 10, mg, 1, tablet, By Mouth, Daily, Scheduled / PRN, 0, 0, 09/18/07 9:34:51, as needed, Print EKATERINA Number, [id number] Start Date: 09/18/07 Status: Ordered Rhopressa 0.02% [...] Name: Maria Del Carmen Bennett RN Position: [facility] RN Supv Member Role: Primary Care Nurse Name: Shirin aDvis MD Position: [facility] Physician - Primary Care Member Role: PCP Address: Address: [address] [place] [address]- Name: Angela Torres Position: [facility] RN Member Role: Primary Care Nurse Name: Dai Proctor RN Position: [facility] RN Member Role: Primary Care Nurse Care Team Related Persons Name: OSMANY KATHLEEN Name: HILARIO KATHLEEN Address: [address] [place] [address]
--- OUTSIDE RECORDS SUMMARY | 2023-09-14 11:10 | XMS_ITS | Continuity of Care Document ---
Author Name Unknown Organization [facility] Cardiac Leodan jaclyn Address [address] [place] [id number]- Care Team Providers Care Sack Filler Name Role Phone Perfecto Daniels MD Primary Care Physician Encounter [facility] [place] Date(s): 04/10/23 - 05/10/23 [facility] Cardiac Surgery [address] [place] [id number] Allergies, Adverse Reactions, Alerts Substance Reaction Severity [...] Replace Required Details, Route to Pharmacy Electronically, [facility]... Start Date: 05/07/23 Status: Ordered apixaban 5 mg oral tablet 1 tablet = 5 mg, By Mouth, 2 times a day, # 60 tablet, 0 Refills, Maintenance, 05/07/23 13:41:00 EDT, Tablet, [facility], Partial fill upon patient request if the prescription is for a schedule II opioid drug., 183, cm, 05/07/23 7:36:00... Start Date: 05/07/23 Status: Ordered aspirin 81 mg oral tablet, chewable 81 mg, 1, tablet, By Mouth, Daily, # 90 tablet, Refills 3, Tot. Refills 3, Maintenance, 04/04/23 13:23:00 EDT, Route to Pharmacy Electronically, [facility], Partial fill upon patient request [...] 05/07/23 13:20:00 EDT, Route to Pharmacy Electronically, [facility], Partial fill upon patient request [...] 05/07/23 13:21:00 EDT, Route to Pharmacy Electronically, [facility], Partial fill upon patient request if the prescription is for a schedule... Start Date: 05/07/23 Status: Ordered Paxil 10 mg oral tablet 10, mg, 1, tablet, By Mouth, Daily, Scheduled / PRN, 0, 0, 09/18/07 9:34:51, as needed, Print EKATERINA Number, [id number] Start Date: 09/18/07 Status: Ordered Potassium Chloride (Eqv-K-Tab) 10 mEq oral tablet, extended release 1 tablet = 10 mEq, By Mouth, Daily, Only take when on lasix, # 7 tablet, 0 Refills, Maintenance, 05/07/23 13:22:00 EDT, [facility] 3, Partial fill upon patient request [...] Reference Physician Member Role: PCP Address: Address: [address] [place] [address] [address] [place] [address]- Name: Angela Torres Position: S RN Member Role: Primary Care Nurse Name: Dai Proctor RN Position: S RN Member Role: Primary Care Nurse Care Team Related Persons Name: HILARIO KATHLEEN Address: [address] [address]
--- OUTSIDE RECORDS SUMMARY | 2023-09-14 11:10 | XMS_ITS | Continuity of Care Document ---
Author Name Unknown Organization [facility] ter Address [address] [place] [id number]- Care Team Providers Care Appliance Mechanic Name Role Phone Jeremiah GORDON, Perfecto Primary Care Physician [place] [facility] [place]02[place]23 - 05/07/[address] [address] Discharge Disposition: A-D/C Home Attending Physician: Tamara Sanchez MD Admitting Physician: Tamara Sanchez MD Referring Physician: Boogie Hunter MD Allergies, Adverse Reactions, Alerts Substance Reaction Severity Status Other Environmental Allergy sneezing Blocked up Active Medications acetaminophen 325 mg oral tablet 975 mg, By Mouth, Every 6 hours, Refills 0, Maintenance, 05/07/23 13:18:00 EDT, Partial fill upon patient request if the prescription is for a schedule II opioid drug. Start Date: 05/07/23 Status: Ordered Acetaminophen Tablet 975 mg, Tablet, By Mouth, (scheduled) for mild pain, (May give via NG tube), 05/07/23 8:00:00 EDT Start Date: 05/07/23 Stop Date: 05/07/23 Status: Completed amiodarone 200 mg oral tablet See Instructions, Take 2 tablets twice a day for 4 days then 1 tablet twice a day for 30 days, # 76tablet, Refills 0, Tot. Refills 0, Maintenance, 05/07/23 13:19:00 EDT, Instructions Replace Required Details, Route to Pharmacy Electronically, [facility]... Start Date: 05/07/23 Status: Ordered apixaban 5 mg oral tablet 1 tablet = 5 mg, By Mouth, 2 times a day, # 60 tablet, 0 Refills, Maintenance, 05/07/23 13:41:00 EDT, Tablet, [facility], Partial fill upon patient request if the prescription is for a schedule II opioid drug., 183, cm, 05/07/23 7:36:00... Start Date: 05/07/23 Status: Ordered aspirin 81 mg oral tablet, chewable 81 mg, 1, tablet, By Mouth, Daily, # 90 tablet, Refills 3, Tot. Refills 3, Maintenance, 04/04/23 13:23:00 EDT, Route to Pharmacy Electronically, [facility], Partial fill upon patient request [...] opioid drug. Start Date: 04/26/23 Status: Ordered gabapentin 100 mg oral capsule 100 mg, Capsule, By Mouth, 05/07/23 9:00:00 EDT Start Date: 05/07/23 Stop Date: 05/07/23 Status: Completed glipiZIDE 5 mg oral tablet 5 mg, [...] 05/07/23 13:20:00 EDT, Route to Pharmacy Electronically, [facility], Partial fill upon patient [...] 05/07/23 13:21:00 EDT, Route to Pharmacy Electronically, [facility], Partial fill upon patient request if the prescription is for a schedule... Start Date: 05/07/23 Status: Ordered Metoprolol IR Tablet 25 mg, Tablet, By Mouth, When extubated, HOLD for HR less than 60 or SBP less than 100 or if on Vasopressors or Inotropes (May give via NG tube), 05/07/23 9:00:00 EDT Start Date: 05/07/23 Stop Date: 05/07/23 Status: Completed Paxil 10 mg oral tablet 10, mg, 1, tablet, By Mouth, Daily, Scheduled / PRN, 0, 0, 09/18/07 9:34:51, as needed, Print EKATERINA Number, [id number] Start Date: 09/18/07 Status: Ordered Potassium Chloride (Eqv-K-Tab) 10 mEq oral tablet, extended release 1 tablet = 10 mEq, By Mouth, Daily, Only take when on lasix, # 7 tablet, 0 Refills, Maintenance, 05/07/23 13:22:00 EDT, [facility], Partial fill upon patient [...] Maintenance, Solution Start Date: 05/07/23 Status: Ordered Results Radiology Reports * Exam Date Time Procedure Performing Provider Status 05/06/23 8:36 AM Chest Portable Jackie Napier; Auth ( Verified) Notes: (Chest Portable) Reason For Exam: Follow-Up Pleural Effusion RESULT: Chest Portable Chest Portable Reason: Follow-Up Pleural Effusion; Clinical Question(s): Pleural Effusion COMPARISON: 05/05/2023. FINDINGS: The patient is rotated toward the left. LINES AND TUBES: None. LUNGS AND PLEURA: Moderate basilar opacity and bilateral lateral costophrenic angle blunting probably due to small pleural effusions and atelectasis. The pulmonary vascularity appears normal and there is no evidence of edema. No pneumothorax. HEART, MEDIASTINUM AND ZAHIRA: Heart is normal in size. Anterior chest surgery. Normal mediastinal and hilar contour. BONES AND SOFT TISSUES: No acute abnormality. Median sternotomy. IMPRESSION: Mild bibasilar opacity probably due to atelectasis and minimal pleural effusions. No evidence of pulmonary edema. WSN: [id number] Ordering Physician: Stew Forrester Dictated By: Ga Napier MD Dictated Date/Time: 05/06/23 9:15 am Reviewed By: Ga Napier MD Signed By: Ga Napier MD Signed Date/Time: 05/06/23 9:15 am Transcribed By: JIMENA Transcribed Date/Time: 05/06/23 9:13 am * Exam Date Time Procedure Performing Provider Status 05/05/23 8:48 AM Chest Portable Isaac Cheung; Jhonny (V erified) Notes: (Chest Portable) Reason For Exam: persistent O2 requirement, ? effusion;Other: RESULT: Chest Portable Chest Portable Reason: Other:; persistent O2 requirement, ? effusion; Clinical Question(s): Pleural Effusion COMPARISON: 05/03/2023 FINDINGS: LINES AND TUBES: Right IJ vascular sheath has been removed. Removal of mediastinal drains and left chest tube. LUNGS AND PLEURA: Low lung volumes. Mild scattered atelectasis. Unchanged small left pleural effusion. No pneumothorax. HEART, MEDIASTINUM AND ZAHIRA: Heart is normal in size. Normal mediastinal and hilar contour. BONES AND SOFT TISSUES: No acute abnormality. Median sternotomy. IMPRESSION: Status post removal of mediastinal drains and left chest tube. Removal of right IJ catheter. Scattered atelectasis. Small left pleural effusion. WSN: [id number] Ordering Physician: Stew Forrester Dictated By: Ga Arevalo MD Dictated Date/Time: 05/05/23 9:15 am Reviewed By: Ga Arevalo MD Signed By: Ga Arevalo MD Signed Date/Time: 05/05/23 9:15 am Transcribed By: JIMENA Transcribed Date/Time: 05/05/23 9:13 am * Exam Date Time Procedure Performing Provider Status 05/03/23 5:43 AM Chest Portable Emely Kebede; Jhonny (Verified) Notes: (Chest Portable) Reason For Exam: S/P Cardiac Surgery RESULT: Chest Portable Chest Portable Reason: S P Cardiac Surgery; Clinical Question(s): Other:; Cardiac Tamponade; Special Instructions:Post Op Day 1 COMPARISON: 05/02/2023 at 1:40 PM. FINDINGS: LINES AND TUBES: Right IJ central venous catheter and vascular sheath in place unchanged. 2 mediastinal drains and alarge bore left chest tube unchanged. LUNGS AND PLEURA: Low lung volumes with persistent bibasilar atelectasis. Decreasing pulmonary vascular congestion. Decreasing haziness. The lobe. Probable small bilateral pleural effusions. No pneumothorax. HEART, MEDIASTINUM AND ZAHIRA: Decreasing cardiomediastinal silhouette with improvement of the mediastinal widening. Normal mediastinal and hilar contour. BONES AND SOFT TISSUES: No acute abnormality. Mild degenerative change both shoulders. IMPRESSION: Decreasing pulmonary vascular congestion. Decreasing haziness left upper lobe. Decreasing prominence cardiomediastinal silhouette. WSN: [id number] Ordering Physician: Gunner Rainey Dictated By: Julian Loya MD, V Dictated Date/Time: 05/03/23 8:50 am Reviewed By: Julian Loya MD, V Signed By: Julian Loya MD, V Signed Date/Time: 05/03/23 8:50 am Transcribed By: JIMENA Transcribed Date/Time: 05/03/23 8:47 am * Exam Date Time Procedure Performing Provider Status 05/02/23 2:19 PM Chest Portable Fely Carlos; Aut h (Verified) Notes: (Chest Portable) Reason For Exam: S/P Cardiac Surgery RESULT: Chest Portable Chest Portable Reason: S P Cardiac Surgery; Clinical Question(s): Cardiac Tamponade; Special Instructions: On Admission to [facility] COMPARISON: None. FINDINGS: LINES AND TUBES: Right IJ central venous sheath end catheter terminates in the upper SVC. Mediastinal drains and left thoracostomy tube in place. LUNGS AND PLEURA: Low lung volumes. Hazy opacity in the left upper lobe, most likely atelectasis. Central vascular congestion. No pleural effusion. No pneumothorax. HEART, MEDIASTINUM AND ZAHIRA: Heart is normal in size. Widened mediastinum most likely due to prominent central vasculature. BONES AND SOFT TISSUES: No acute abnormality. Status post median sternotomy. IMPRESSION: Central vascular congestion, as expected in the early postoperative change setting. Focal density left upper lobe laterally. Atelectasis versus focal infiltrate. I have personally reviewed the images and I agree with this report. WSN: [id number] Ordering Physician: Gunner Rainey Dictated By: Matthew Hawkins MD Dictated Date/Time: 05/02/23 2:39 pm Reviewed By: Julian Loya MD, V Signed By: Julian Loya MD, V Signed Date/Time: 05/02/23 2:44 pm Transcribed By: JIMENA Transcribed Date/Time: 05/02/23 2:32 pm Vital Signs Most recent to oldest [Reference Range]: 1 2 3 Height 183.0 cm (05/07/23 7:36 AM) 183.0 cm (05/07/23 3:35 AM) 183.0 cm (05/06/23 11:03 PM) Weight 99.8 kg (05/05/23 4:55 AM) 99.8 kg (05/05/23 4:00 AM) 102 kg (05/04/23 5:00 AM) Oxygen Saturation [94-100 %] 95 % (05/07/23 7:36 AM) 94 % (05/07/23 3:35 AM) 96 % (05/06/23 11:03 PM) Pulse Rate [55-90 bpm] 75 bpm (05/07/23 9:18 AM) 75 bpm (05/07/23 7:36 AM) 73 bpm (05/07/23 3:35 AM) Body Mass Index [18.5-24.99 kg/m2] 28.52 kg/m2 *H* (05/02/23 6:44 AM) Blood Pressure [90-138/55-84 mm Hg] 142/80mm Hg *H* (05/07/23 9:18 AM) 142/80mm Hg *H* (05/07/23 7:36 AM) 118/71mm Hg (05/07/23 3:35 AM) Respiratory Rate [16-30 br/min] 18 br/min (05/07/23 10:17 AM) 18 br/min (05/07/23 10:17 AM) 18 br/min (05/07/23 9:17 AM) Temperature [96.8-100.4 DegF] 97.2 DegF (05/07/23 7:36 AM) 97.1 DegF (05/07/23 3:35 AM) 97.5 DegF (05/06/23 11:03 PM) Liters per Minute 3 L/min (05/05/23 7:00 AM) 3 L/min (05/05/23 4:00 AM) 3 L/min (05/04/23 11:00 PM) Mode of Delivery (Oxygen) Room air (05/07/23 7:36 AM) Room air (05/07/23 3:35 AM) Room air (05/06/23 11:03 PM) Blood pressure sites Arm, left (05/07/23 7:36 AM) Arm, left (05/07/23 3:35 AM) Arm, left (05/06/23 11:03 PM) Temperature Route Oral (05/07/23 7:36 AM) Oral (05/07/23 3:35 AM) Oral (05/06/23 11:03 PM) Dry Weight 99.0 kg (04/27/23 9:30 AM) Weight Obtained Via Bed scale (05/05/23 4:55 AM) Bed scale (05/05/23 4:00 AM) Bed scale (05/03/23 6:46 AM) History and physical note * Event Display: History and Physical Hospital Authored Date: * Daniel GORDON, Tamara Gonzalez: PERFORM Event Display: History and Physical Hospital Authored Date: [id number] Patient: ??ALEX KATHLEEN ? Age:??77 Years?Sex:??Male?:??1945? SURGICAL HISTORY AND PHYSICAL ?? DATE:?? 05/02/2023 ? Reason for Consultation Consult Requesting Practitioner: MD Michael Primary Platform Inspector: Dale Hyman MD Consult Reason: fatigue, CAD IC: Michael GORDON, [facility] on April 04, 2023 History of Present Illness Mr. 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 He's had symptoms of fatigue and asked for work up.?? Coronary angiogram showed multivessel CAD and he was referred for CABG. ?? Granddaughter, Heather who is a nurse was on his flip phone during the consultation, although he is an excellent historian. Review of Systems Cardiac: Symptoms of congestion: No Symptomatic hypotension: No Symptoms of ischemia: no Constitutional:?? Recent infection: No; no fever, no chills Unintentional weight loss/cachexia: No Respiratory: Symptomatic primary lung disease: No; No cough, No shortness of breath? All other systems are negative unless noted above. Physical Exam ?Vitals & Measurements ?T:??98.7?F?? HR:??88??(Monitored)?? RR:??23?? BP:??125/101?? SpO2:??95%?? WT:??100.2??kg? BSA: 2.24 Cardiac: No jugular venous distension No peripheral edema?? Regular heart rhythm He??has equal carotid pulses with no carotid bruits.??He has no varicose veins or leg edema. General Appearance:??Normal body habitus Eyes:??Non-icteric Pulmonary:??Normal respiratory effort. Clear to auscultation. 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 CABG CONSULT ?? I personally interviewed, examined, Mr. Kathleen. I have reviewed the recent and past medical history,physical exam, social/family history, review of systems, assessment, and plan as documented.?I have also reviewed relevant lab data, ECG's, and coronary angiogram.? As a team, we formulated a comprehensive plan and communicated that plan to the patient or patient's family.? I reviewed??his most recent cardiac catheterization that shows an 80% stenosis of the??mid LAD, a??40% left circumflex, 80% OM1, 90% OM2,??and a 80% distal RCA stenosis.??He does??not have an echocardiogram at this time. ?? I think??Mr. Kathleen??would benefit from a??coronary bypass (potential targets to the LAD-- although??looks diffusely diseased and??small, OM??and the right coronary systems). This would be done through a midline sternotomy approach with the use of cardiopulmonary bypass. The operative mortality and morbidity should be under 2% each. The STS risk algorithm was used to calculate this and advised thepatient.? We will arrange for the required preoperative testing leading up to surgery that we will organize.? -Would continue ASA, BB, statin as tolerated. -Avoid hydralazine for lowering blood pressure as it will decrease coronary perfusion more than lowering oxygen demand. -Avoid ACEI as these can contribute to postoperative vasoplegia syndrome. -preop studies needed: TTE, CXR, carotid duplex (prior stroke at [place]), venous studies (legs of venous stasis; would want to avoid below the knee harvest if possible: wound healing concerns there) -conduit plan: BATEMAN, SVG, L radial artery for OM1 (OM2 is too small to bypass)? I have spent more than 50% of the visit devoted to discussion, counseling and coordination of care.? Tamara Sanchez M.D. Problem List/Past Medical History ?? DM HTN HLD STROKE walks with a cane for long distances Procedure/Surgical History ?? cholecystectomy 2015: Pars plana vitrectomy, pars plana lensectomy, and laser retinopexy right eye. ?? Medications Inpatient ?Acetaminophen Tablet, 650 mg, By Mouth, Every 4 hours, PRN ?NaCL 0.9% 1,000 mL, 1000 mL, IV Infusion ?NaCL 0.9% 500 mL, 500 mL, IV Infusion Home ?aspirin 81 mg oral tablet, chewable, 81 mg= 1 tablet, By Mouth, Daily, 3 refills ?Fentanyl 25 mcg/hr Patch, See Instructions ?Fexofenadine, By Mouth ?Ibuprofen, 800 mg, By Mouth, 3 times a day, PRN ?Lisinopril, 20 mg, By Mouth, Daily ?Lopid Tablet, 600 mg, By Mouth, 2 times a day ?minocycline 50 mg oral capsule, 50 mg= 1 capsule, By Mouth, Daily ?Paxil 10 mg oral tablet, 10 mg= 1 tablet, By Mouth, Daily, PRN Allergies Other Environmental Allergy??( sneezing , Blocked up ) Social History ?? retired 2 children lives with daughter who has MS likes flora moseley's on occasion no smoking Family History ?? MOTHER father- age 47, [place] brother had CABG Note * Lindsay Ross RN: PERFORM Event Display: Discharge/Transfer Note Hospital Authored Date: [id number] Nursing Discharge Note Entered On: 05/07/2023 15:47 EDT Performed On: 05/07/2023 15:45 EDT by Lindsay Ross RN Nursing Discharge Note 2 Discharge Time : 05/07/2023 15:45 EDT Discharge Level of Care at Discharge : Homehealth/VNA Discharge VNA/Hospice/Home Care(v001) : [facility] [phone] Patient Left Unit Via : Wheelchair Patient Accompanied Off Unit with : Responsible adult DC Instructions Provided & Signed by Pt : Yes Patient Understands D/C Instructions : Yes Verbalized Understanding of D/C Plan By : Patient Patient Instructions Discharge Signed : Yes Did Pt have Specialty Bed or Wound Vac : No Lindsay Ross RN - 05/07/2023 15:47 EDT * Nixon HUIZAR, Gabriella Aldana: MODIFY, PERFORM Event Display: Discharge/Transfer Note Hospital Authored Date: [id number] Patient: ??ALEX KATHLEEN ? Age:??77 Years?Sex:??Male?:??1945?? Patient Information Discharge Location: Primary Care Physician: Perfecto Daniels MD Admit Date/Time: 05/02/23 05:11 Discharge Disposition Discharge Disposition: Home with Home Health Discharge Diagnosis Coronary artery disease (I25.10) ?? _ Discharge Medications Acetaminophen (acetaminophen 325 mg oral tablet)?975?Milligram?By Mouth?Every 6 hours amiODARONE (amiodarone 200 mg oral tablet)?See Instructions?Take 2 tablets twice a day for 4 days then 1 tablet twice a day for 30 days Apixaban (apixaban 5 mg oral tablet) Take 1 tablet twice a day Aspirin (aspirin 81 mg oral tablet, chewable)?81?Milligram?1?tablet?By Mouth?Daily Atorvastatin (atorvastatin 80 mg oral tablet)?1?tab(s)?80?Milligram?By Mouth?Daily at bedtime Brimonidine Ophthalmic (brimonidine 0.2% ophthalmic solution)?1?Drops?Eye, Right?2 times a day?for 30?Days Chlorthalidone (chlorthalidone 50 mg oral tablet)?1?tab(s)?50?Milligram?By Mouth?Daily Emollients, Topical (Vashe Topical Solution)?475?Milliliter?Topically?Every 12 hours Furosemide (Lasix 20 mg oral tablet)?20?Milligram?1?tablet?By Mouth?Daily?for 7?Days GlipiZIDE (glipiZIDE 5 mg oral tablet)?5?Milligram?1?tablet?By Mouth?Daily Latanoprost Ophthalmic (latanoprost 0.005% ophthalmic solution)?2?Drops?Eyes, Both?Daily at bedtime?for 30?Days Metoprolol (metoprolol 25 mg oral tablet)?25?Milligram?1?tablet?By Mouth?2 times a day netarsudil ophthalmic (Rhopressa 0.02% ophthalmic solution)?1?Drops?Eye, Right?Daily atbedtime?for 30?Days Paroxetine (Paxil 10 mg oral tablet)?10?Milligram?1?tab(s)?By Mouth?Daily?as needed?as needed Potassium Chloride (Potassium Chloride (Eqv-K-Tab) 10 mEq oral tablet, extended release)?1?tab(s)?10?Milliequivalent?By Mouth?Daily?for 7?Days?Only take when on lasix Timolol Ophthalmic (timolol maleate 0.5% ophthalmic solution)?2?Drops?Eyes, Both?2 times a day?for 30?Days ? Allergies Allergies ?(Active and Proposed Allergies Only) Other Environmental Allergy? (Severity: Unknown severity, Onset: Unknown) ?Reactions: Blocked up , sneezing ? 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 Cardiac catheterization showed an 80% stenosis ofthe mid LAD, a 40% left circumflex, 80% OM1, 90% OM2, and a 80% distal RCA stenosis. Coronary angiogram showed multivessel CAD and he was referred for CABG. ? SURGEON: Dr. Sanchez ?MASTER RIGGER: Dr. Reyes ?? POD??5 ? EF 50-55 % ? 05/02/2023- 1. CABG x 3 (BATEMAN-mid LAD, Left radial artery-OM, SVG-PDA) 2. Right Endovein and left endoradial artery [place] ? Issues addressed during hospitalization: ? NEUROLOGIC: ?-- Pain management PRN per protocol ?-- Restarted home Paroxetine ?CARDIOVASCULAR: ?-- Core Measures ?- ASA 81 mg ?- Beta-beata Metoprolol 25mg BID ?- Statin: >75 years old 40 mg Atorvastatin at bedtime. . ?-- NSTEMI/CABG- Plavix 75 mg PO ?-- Holding home Lisinopril for controlled blood pressures, restart as appropriate ?-- AF/Aflutter rate controlled beginning 05/05 but NSR since 05/06 am ?-- Amio bolus IV given, PO increased to 400mg BID ?-- Epicardial wires removed 05/05 with patient supine in bed, vitals signs stable pre and post --Holding amlodipine d/t controlled blood pressures ?RESPIRATORY: ?-- Tolerating room air well ?-- Encourage pulm hygiene ?-- Small left pleural effusion on CXR- asymptomatic ? GI: ?--Cardiac Diet ?-- GI Prophylaxis: PPI- Protonix 40 mg Po daily- will d/c at discharge ? RENAL ?-- Cr 0.8 today ?-- Nephrocheck 0.17 ?-- Lasix 40mg IV BID-Home with 20 PO Lasix for 7 days and KCL ?-- Home chlorthalidone ?-- Nearing dry weight, consider reduction in diuretics 05/06 ? INFECTIOUS DISEASE: ?-- SCIP prophylactic abx ?-- Monitor for leukocytosis ? HEMATOLOGY ?-- Acute blood loss anemia secondary to cardiothoracic surgery- resolved ?-- Accept H/H > 05/05: Trend CBC ? ENDOCRINE: ?-- As per post operative cardiac surgery insulin protocol ?-- Stress hyperglycemia; DM 2 ?-- Hgb A1C 7.8 ?--Bids following-??Rec: to restart home Glipizide ? DVT Prophylaxis: ?--??Continue teds until resumes previous level of activity ? SKIN ?-- Graft harvest sites HARRIS ?-- Radial graft harvest site SUPERVISOR LOCOMOTIVE ?--Left preston abrasion pt reports he had pre-op. Will put xeroform on it with dsd and reassess atdischarge. Will send home with xeroform dsg ? DISPOSITION:??Discharge home with VNA services ?Plan discussed with dr Gillette ?? Objective Assessment and Plan Discharge Planning:? Vital Signs?? Temperature: 97.2 DegF (05/07/23 07:36:00) Temperature Route: Oral (05/07/23 07:36:00) Pulse Rate: 75 bpm (05/07/23 09:18:00) Respiratory Rate: 18 br/min (05/07/23 10:17:00) Respiratory Rate: 18 br/min (05/07/23 10:17:00) Systolic Blood Pressure:??142 mm Hg??High (05/07/23 09:18:00) Diastolic Blood Pressure: 80 mm Hg (05/07/23 09:18:00) Blood pressure sites: Arm, left (05/07/23 07:36:00) Mean Arterial Pressure: 101 mm Hg (05/07/23 07:36:00) Pulse Pressure: 62 mm Hg (05/07/23 07:36:00) Oxygen Saturation: 95 % (05/07/23 07:36:00) Mode of Delivery (Oxygen): Room air (05/07/23 07:36:00) Early Warning Score: 4 (05/07/23 13:28:01) ? . Physical Exam Physical Exam General:??Alert, in no acute cardiopulmonary distress. Mental Status:??Oriented to person, place and time. Normal affect. Respiratory:??Clear to auscultation. No wheezing, rales or rhonchi. Cardiovascular:?NSR ??S1, S2 ??Regular rate and rhythm, no murmurs, rubs or gallops. Gastrointestinal:??Abdomen soft, non-tender, non-distended. Normal bowel sounds.?BM yesterday Genitourinary:??No polk cath??--voiding without issue Neurologic:?. Moves all extremities spontaneously. Sensation intact bilaterally. Skin:??incision lines clean and dry-well approximated?? Surgical Procedures CABG [place] Endovein and Endoradial 05/02/2023 08:26 Pending Results BUN ordered on 05/05/2023 CBC ordered on 05/05/2023 COVID-19 (2019 Novel Coronavirus) PCR ordered on 05/02/2023 Creatinine ordered on 05/05/2023 Electrolytes ordered on 05/05/2023 Magnesium Level ordered on 05/05/2023 Type and Screen ordered on 05/03/2023 Patient Education Titles Surgery ??Cardiac Surgery Discharge Instructions?? Follow-Up Appointments Added Follow Up ?Time Frame ?Comments Perfecto Daniels MD?2 to 5 weeks?call for an appointment Boogie Hunter MD?2 to 3 weeks?Call your doctor fora f/u appointment Tamara Sanchez MD?1 to 2 weeks?The office will call youwith an appointment Nichole Abraham?06/05/2023 13:45?Josephine,This is a postoperative follow up with your mechanical repair worker. If you have any questions or need to reschedule this appointment, please contact their office.Thank you Perfecto Daniels MD Home Health Face to Face *Denotes mandatory benson ?? *I certify that this patient is under my care and that I or an allowed non- physician working with me had a face to face encounter with the patient on this date:??05/07/2023 13:34 ?? *The encounter with the patient was in whole, or in part, for the following medical condition, which is the primary diagnosis(es) for home health care:??Coronary artery disease (I25.10) ? *Select the indications for the discipline/s that are being arranged for this patient. Nursing (select all that apply): [_] None [X_] Medication management (reconciliation, teaching)?? [X_] Chronic disease management?? [X_] Wound care and treatment?? [X_] Home safety evaluation [_] Administer SQ/IM/IV medications?? [_] Cath care?? [_] Drain care?? [_] Trach or GT care?? Other _ Occupation Therapy (select all that apply): [_X] None [_] ADL Management [_] Fall prevention training [_] Energy conservation [_] Cognitive training Other _ Physical Therapy (select all that apply): [_XX] None [_] Functional mobility training [_] Home exercise program to strengthen [_] Increase ROM?? [_] Falls prevention training [_] Home maintenance program for chronic disease Other _ Speech Therapy (select all that apply): [X_] None [_] Swallow evaluation and training [_] Speech and language training [_] Cognitive training to process, organize, and/or recall information Other _ ? *Homebound due to (select all that apply): [_X] Inability to leave home without assistance/supervision [_] Inability to ambulate without assistance [_] Pain [_] Decreased strength and endurance [_] Unsteady gait [_] Severe SOB and fatigue [_] Impaired transfers [_] Inability to negotiate stairs [_] Limited weight bearing [_] Mental status change? *Physician Signature: _Dr. Sanchez ?? *By signing this, I certify that I have personally evaluated the patient and agree with the findings and recommendations as documented above. ? Results Discharge Labs BLOOD BANK Blood Type O Positive ()?? 05/05/2023 19:10 Antibody Screen Negative ()?? 05/05/2023 19:10 RBC Unit ID [id number] ()?? 05/02/2023 07:59 RBC Available RE ()?? 05/02/2023 07:59 ?? BLOOD COUNT & DIFF WBC 14.3 k/mm3 (High)?? 05/07/2023 00:18 RBC 3.53 m/mm3 (Low)?? 05/07/2023 00:18 Hgb 11.1 Gm/dL (Low)?? 05/07/2023 00:18 Hct 32.2 % (Low)?? 05/07/2023 00:18 MCV 91.2 femtoliters ()?? 05/07/2023 00:18 MCH 31.4 pg ()?? 05/07/2023 00:18 MCHC 34.5 g/dL ()?? 05/07/2023 00:18 Platelet Count 195 k/mm3 ()?? 05/07/2023 00:18 RDW-SD 39.8 femtoliters ()?? 05/07/2023 00:18 MPV 9.4 femtoliters ()?? 05/07/2023 00:18 Nucleated RBC (Automated) 0.0 #/100 WBC'S ()?? 05/07/2023 00:18 Abs. NRBC 0.0 k/mm3 ()?? 05/07/2023 00:18 Abs. Neut 12.2 k/mm3 (High)?? 05/04/2023 02:21 Abs. Lymph 1.5 k/mm3 ()?? 05/04/2023 02:21 Abs. Lamb 2.2 k/mm3 (High)?? 05/04/2023 02:21 Abs. Eo 0.0 k/mm3 ()?? 05/04/2023 02:21 Abs. Baso 0.0 k/mm3 ()?? 05/04/2023 02:21 Neut % 76.2 % (High)?? 05/04/2023 02:21 Lymph % 9.1 % (Low)?? 05/04/2023 02:21 Lamb % 13.5 % (High)?? 05/04/2023 02:21 Eos % 0.0 % ()?? 05/04/2023 02:21 Baso % 0.1 % ()?? 05/04/2023 02:21 Hemoglobin (POC) POC Cartridge 11.9 Gm/dL (Low)?? 05/02/2023 17:14 Hematocrit (POC) POC Cartridge 35 % (Low)?? 05/02/2023 17:14 Imm Gran 1.1 % ()?? 05/04/2023 02:21 Abs. Imm Gran 0.2 k/mm3 ()?? 05/04/2023 02:21 ?? BLOOD GAS pH (POC) POC Cartridge 7.34 (Low)?? 05/02/2023 17:14 pCO2 (POC) POC Cartridge 45.7 mm Hg ()?? 05/02/2023 17:14 pO2 (POC) POC Cartridge 74 mm Hg ()?? 05/02/2023 17:14 Estimated Bicarbonate (POC) POC Cart 24.4 mmol/L ()?? 05/02/2023 17:14 % O2 Sat Arterial (POC) POC Cartridge 94 % (Low)?? 05/02/2023 17:14 Base Excess (POC) POC Cartridge NEGATIVE 1 ()?? 05/02/2023 17:14 Specimen Type - Blood Gas ARTERIAL ()?? 05/02/2023 17:14 ? CHEM GENERAL Sodium 130 mmol/L (Low)?? 05/07/2023 00:18 Potassium 3.5 mmol/L (Low)?? 05/07/2023 00:18 Chloride 88 mmol/L (Low)?? 05/07/2023 00:18 Bicarbonate Level 27 mmol/L ()?? 05/07/2023 00:18 Anion Gap 15 ()?? 05/07/2023 00:18 Sodium (POC) POC Cartridge 136 mmol/L ()?? 05/02/2023 17:14 Potassium (POC) POC Cartridge 3.7 mmol/L ()?? 05/02/2023 17:14 Glucose Level 118 mg/dL (High)?? 05/04/2023 02:21 Glucose (POC) POC Cartridge 109 (High)?? 05/02/2023 17:14 Glucose, POC 240 mg/dL (High)?? 05/07/2023 07:40 Hemoglobin A1C (Monitoring) 7.8 % (High)?? 05/02/2023 15:10 BUN 34 mg/dL (High)?? 05/07/2023 00:18 Creatinine-Blood 1.0 mg/dL ()?? 05/07/2023 00:18 Estimated GFR Creatinine 78 ML/MIN/1.73 M2 ()?? 05/07/2023 00:18 Calcium 7.8 mg/dL (Low)?? 05/02/2023 17:13 Calcium, Ionized pH Corrected 1.15 mmol/L ()?? 05/02/2023 13:01 Ionized Calcium (POC) POC Cartridge 1.21 mmol/L ()?? 05/02/2023 17:14 Magnesium 1.9 mg/dL ()?? 05/07/2023 00:18 Protein, Total 4.8 Gm/dL (Low)?? 05/02/2023 17:13 Albumin 3.1 Gm/dL (Low)?? 05/02/2023 17:13 AG Ratio 1.8 ()?? 05/02/2023 17:13 Alkaline Phosphatase 85 units/L ()?? 05/02/2023 17:13 AST (SGOT) 82 units/L (High)?? 05/02/2023 17:13 ALT (SGPT) 57 units/L (High)?? 05/02/2023 17:13 Bilirubin, Total 0.6 mg/dL ()?? 05/02/2023 17:13 ? COAG INR 1.2 (High)?? 05/02/2023 13:01 Protime (PT) 12.4 seconds (High)?? 05/02/2023 13:01 APTT 27.1 seconds ()?? 05/02/2023 13:01 POC ACT-Plus 90.0 seconds ()?? 05/02/2023 11:49 ?? MISC. CHEMISTRY Acute Kidney Injury Risk Score 0.17 ()?? 05/03/2023 02:00 ? URINE OTHER Est Creatinine Clearance 66.92 mL/min ()?? 05/07/2023 02:05 ? 30_ minutes spent on discharge * Lindsay Ross RN: PERFORM Event Display: Patient Education/Instruction Authored Date: [id number] Inpatient Adult Discharge Instructions [address] [id number] Name: ALEX KATHLEEN : 1945 Visit: 05/02/2023 05:11:00 Current Date: 05/07/2023 13:53 Account: [id number] Inpatient Adult Discharge Instructions We would like [...] and their families. Surveys are administered by [employer] ?? If further treatment with your primary care physician or another doctor is recommended, it is important for you to keep the appointment. Call your primary care physician or return to the Emergency Department immediately if your condition worsens, fails to improve, or new symptoms develop. If you need to find a doctor, you can call [facility] for a referral at [phone] or toll free at [phone] or log in to [email or web address].. ?? You can view and manage your care through the patient portal or by using a health care jasper of your choosing. [employer] is a website that allows you to securely view your medical information including your hospital discharge summary, office visit summaries, medications and follow-up visits. You can also request appointments, renew medications, and request access to your medical information using a health care jasper of your choosing, or just ask a question. You can enroll at [email or web address] or register during your next office visit. You have been discharged from [facility], Patient Care Unit: M6. If you have any questions regarding these instructions after you leave, please call us and we will be happy to assist you. 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 You may have had other tests and procedures not included in this list. Please discuss all test results with your provider. ABG POC CARTRIDGE BASE EXCESS POC CARTRIDGE BUN CALCIUM IONIZED POC CART CBC CBC w/ Differential Comprehensive Metabolic Panel Creatinine Electrolytes Glucose Level GLUCOSE POC GLUCOSE POC CARTRIDGE HEMATOCRIT POC CARTRIDGE HEMOCHRON ACT-PLUS Hemoglobin A1C (Monitoring) HEMOGLOBIN POC CARTRIDGE Hgb + Hct INR Ionized Calcium Magnesium Level Nephro Check Platelet Count Potassium Level POTASSIUM POC CARTRIDGE PTT SODIUM POC CARTRIDGE Type and Screen CXR Portable XR Chest Portable Primary Care Provider Jeremiah GORDON , Perfecto Advance Directive Health Care Proxy on File Yes - Health Care Proxy Discharge Vitals Temperature: 97.2 DegF Height: 183 cm Pulse Rate: 75 bpm Weight: 99.8 kg Respiratory Rate: 18 br/min Body Mass Index:??28.52 kg/m2??High Respiratory Rate: 18 br/min Body surface area: 2.2 Systolic Blood Pressure:??142 mm Hg??High ?? Diastolic Blood Pressure: 80 mm Hg ?? Oxygen Saturation: 95 % ?? Studies Pending All tests and labs ordered during this hospital stay have been completed unless listed below. Please discuss all pending results with your provider listed above in these instructions. ?? BUN CBC COVID-19 (2019 Novel Coronavirus) PCR Creatinine Electrolytes Magnesium Level Type and Screen What to do next Instructions From Your Doctor Discharge Orders You Need to Schedule the Following Appointments Follow Up with??Nichole Abraham When:??06/05/2023 01:45 PM EDT Why: Josephine, This is a postoperative follow up with your mechanical repair worker. If you have any questions or need to reschedule this appointment, please contact their office. Thank you Where: [address] [place] [id number]- [facility] (1) Follow Up with??Perfecto Daniels MD When:??Within 2 to 5 weeks Why: call for an appointment Where: ?? Follow Up with??Boogie Hunter MD When:??Within 2 to 3 weeks Why: Call your doctor for a f/u appointment Follow Up with??Tamara Sanchez MD When:??Within 1 to 2 weeks Why: The office will call you with an appointment Follow Up with??Perfecto Daniels MD When:??In 0 days Discharge Medications ALEX KATHLEEN :1945 Visit Date:05/02/2023 Medications: Please continue your medications until treatment is completed or stopped by your provider. Medications not listed below should be discontinued. Discuss any questions related to medications with your provider. What How Much When Instructions Next Dose New Acetaminophen (acetaminophen 325 mg oral tablet) 975 Milligram Oral Every 6 hours as needed do not exceed 28416 mg in 24 hrs.Last dose at 0917 today. New amiODARONE (amiodarone 200 mg oral tablet) See instructions Take 2 tablets twice a day for 4 days then 1 tablet twice a day for 30 days ?? Pickup at [place] [address] Tonight 8pm New apixaban (apixaban 5 mg oral tablet) 1 tab(s) Oral Twice a day Pickup at [place] [address] Tonight 8pm New Emollients, Topical (Vashe Topical Solution) 475 Milliliter Topically Every 12 hours Tonight 8pm New Furosemide (Lasix 20 mg oral tablet) 1 tab(s) Oral Daily Duration: 7 Days Pickup at [place] [address] Tomorrow 8am New Metoprolol (metoprolol 25 mg oral tablet) 1 tab(s) Oral Twice a day Pickup at [place] [address] Tonight 8pm New Potassium Chloride (Potassium Chloride (Eqv-K-Tab) 10 mEq oral tablet, extended release) 1 tab(s) Oral Daily Duration: 7 Days Only take when on lasix ?? Pickup at [facility] Tomorrow 8am Unchanged Aspirin (aspirin 81 mg oral tablet, chewable) 1 tab(s) Oral Daily Tomorrow 8am Unchanged Atorvastatin (atorvastatin 80 mg oral tablet) 1 tab(s) Oral Daily at Bedtime Tonight 8pm Unchanged Brimonidine Ophthalmic (brimonidine 0.2% ophthalmic solution) 1 Drops Right eye Twice a day Duration: 30 Days Tonight 8pm Unchanged Chlorthalidone (chlorthalidone 50 mg oral tablet) 1 tab(s) Oral Daily Tomorrow 8am Unchanged GlipiZIDE (glipiZIDE 5 mg oral tablet) 1 tab(s) Oral Daily Tomorrow 8am Unchanged Latanoprost Ophthalmic (latanoprost 0.005% ophthalmic solution) 2 Drops Both eyes Daily at Bedtime Duration: 30 Days Tonight 8pm Unchanged netarsudil ophthalmic (Rhopressa 0.02% ophthalmic solution) 1 Drops Right eye Daily at Bedtime Duration: 30 Days Tonight 8pm Unchanged Paroxetine (Paxil 10 mg oral tablet) 1 tab(s) Oral Daily as needed for as needed Tomorrow 8am Unchanged Timolol Ophthalmic (timolol maleate 0.5% ophthalmic solution) 2 Drops Both eyes Twice a day Duration: 30 Days Tonight 8pm Pharmacy Information [facility]: [address], [place] [id number] [phone] ?? What How Much When Comments Stop Taking Amlodipine (amLODIPine 10 mg oral tablet) 1 tab(s) Oral Daily Stop Taking Lisinopril 20 Milligram Oral Daily Stop Taking Minocycline (minocycline 50 mg oral capsule) 1 capsule Oral Daily Test Results Below is a partial list of the most recent Laboratory test results done prior to this discharge. You may have had other tests and procedures not included in this list. Please discuss all test resultswith your provider. Est Creatinine Clearance - 66.92 mL/min (05/07/2023) RBC Available - RE (05/02/2023) RBC Unit ID - [id number] (05/02/2023) ABG POC CARTRIDGE (05/02/2023) ???pH (POC) POC Cartridge - 7.34???pCO2 (POC) POC Cartridge - 45.7 mm Hg???pO2 (POC) POC Cartridge - 74 mm Hg???Estimated Bicarbonate (POC) POC Cart - 24.4 mmol/L???% O2 Sat Arterial (POC) POC Cartridge - 94 %???Specimen Type - Blood Gas - ARTERIAL BASE EXCESS POC CARTRIDGE (05/02/2023) ???Base Excess (POC) POC Cartridge - NEGATIVE 1 BUN (05/07/2023) ???BUN - 34 mg/dL CALCIUM IONIZED POC CART (05/02/2023) ???Ionized Calcium (POC) POC Cartridge - 1.21 mmol/L CBC (05/07/2023) ???WBC - 14.3 k/mm3???RBC - 3.53 m/mm3???Hgb - 11.1 Gm/dL???Hct - 32.2 %???MCV - 91.2 femtoliters???MCH - 31.4 pg???MCHC - 34.5 g/dL???Platelet Count - 195 k/mm3???RDW-SD - 39.8 femtoliters???MPV - 9.4 femtoliters???Nucleated RBC (Automated) - 0.0 #/100 WBC'S???Abs. NRBC - 0.0 k/mm3 CBC w/ Differential (05/04/2023) ???WBC - 16.0 k/mm3???RBC - 3.55 m/mm3???Hgb - 11.5 Gm/dL???Hct - 32.5 %???MCV - 91.5 femtoliters???MCH - 32.4 pg???MCHC - 35.4 g/dL???Platelet Count - 141 k/mm3???RDW-SD - 40.5 femtoliters???MPV - 9.4 femtoliters???Nucleated RBC (Automated) - 0.0 #/100 WBC'S???Abs. NRBC - 0.0 k/mm3???Abs. Neut - 12.2 k/mm3???Abs. Lymph - 1.5 k/mm3???Abs. Lamb - 2.2 k/mm3???Abs. Eo - 0.0 k/mm3???Abs. Baso - 0.0 k/mm3???Neut % - 76.2 %???Lymph % - 9.1 %???Lamb % - 13.5 %???Eos % - 0.0 %???Baso % - 0.1 %???Imm Gran - 1.1 %???Abs. Imm Gran - 0.2 k/mm3 Comprehensive Metabolic Panel (05/02/2023) ???Sodium - 137 mmol/L???Potassium - 3.8 mmol/L???Chloride - 103 mmol/L???Bicarbonate Level - 24 mmol/L???Anion Gap - 10???Glucose Level - 107 mg/dL???BUN - 15 mg/dL???Creatinine-Blood - 0.6 mg/dL???Estimated GFR Creatinine - 101 ML/MIN/1.73 M2???Calcium - 7.8 mg/dL???Protein, Total - 4.8 Gm/dL???Al bumin - 3.1 Gm/dL???AG Ratio - 1.8???Alkaline Phosphatase - 85 units/L???AST (SGOT) - 82 units/L???ALT (SGPT) - 57 units/L???Bilirubin, Total - 0.6 mg/dL Creatinine (05/07/2023) ???Creatinine-Blood - 1.0 mg/dL???Estimated GFR Creatinine - 78 ML/MIN/1.73 M2 Electrolytes (05/07/2023) ???Sodium - 130 mmol/L???Potassium - 3.5 mmol/L???Chloride - 88 mmol/L???Bicarbonate Level - 27 mmol/L???Anion Gap - 15 Glucose Level (05/04/2023) ???Glucose Level - 118 mg/dL GLUCOSE POC (05/07/2023) ???Glucose, POC - 240 mg/dL GLUCOSE POC CARTRIDGE (05/02/2023) ???Glucose (POC) POC Cartridge - 109 HEMATOCRIT POC CARTRIDGE (05/02/2023) ???Hematocrit (POC) POC Cartridge - 35 % HEMOCHRON ACT-PLUS (05/02/2023) ???POC ACT-Plus - 90.0 seconds Hemoglobin A1C (Monitoring) (05/02/2023) ???Hemoglobin A1C (Monitoring) - 7.8 % HEMOGLOBIN POC CARTRIDGE (05/02/2023) ???Hemoglobin (POC) POC Cartridge - 11.9 Gm/dL Hgb + Hct (05/02/2023) ???Hgb - 12.9 Gm/dL???Hct - 36.9 % INR (05/02/2023) ???INR - 1.2???Protime (PT) - 12.4 seconds Ionized Calcium (05/02/2023) ???Calcium, Ionized pH Corrected - 1.15 mmol/L Magnesium Level (05/07/2023) ???Magnesium - 1.9 mg/dL Nephro Check (05/03/2023) ???Acute Kidney Injury Risk Score - 0.17 Platelet Count (05/02/2023) ???Platelet Count - 157 k/mm3 Potassium Level (05/03/2023) ???Potassium - 4.1 mmol/L POTASSIUM POC CARTRIDGE (05/02/2023) ???Potassium (POC) POC Cartridge - 3.7 mmol/L PTT (05/02/2023) ???APTT - 27.1 seconds SODIUM POC CARTRIDGE (05/02/2023) ???Sodium (POC) POC Cartridge - 136 mmol/L Type and Screen (05/05/2023) ???Blood Type - O Positive???Antibody Screen - Negative Allergies (NKA means No Known Allergies) Other Environmental Allergy??( sneezing , Blocked up ) Problems No qualifying data available Education Materials Below is the list of Educational Leaflet Providered with your Discharge Instructions. Surgery ??Cardiac Surgery Discharge Instructions?? Valuables and Belongings I fully understand and agree that [facility] accepts no responsibility for all my personal [...] Review of Valuable and Belonging List: With patient, With family Date for Pt to Sign Valuables/Belongings: 05/04/23 17:01:00 ?? Other Discharge Information ?? Wound Assessment?? Wound Assessment?? Wound Location I: Leg, left lower Wound Type I: Other: abrasion Surgical Incision Type I: Surgical Surgical Incision Location I: Sternum Surgical Incision Assessment I: Clean, dry, intact Surgical Incision I, Drainage Color: Sanguinous Surgical Incision I, Surrounding Skin: Intact, Dry, Ecchymotic Surgical Incision I, Odor: No Surgical Incision Type II: Surgical Surgical Incision Location II: Forearm, left Surgical Incision Assessment II: Clean, dry, intact Surgical Incision II, Surrounding Skin: Intact, Dry Surgical Incision Type III: Surgical Surgical Incision Location III: Leg, left lower Surgical Incision Assessment III: Clean, dry, intact Surgical Incision III, Surrounding Skin: Intact, Dry ? Case Management Discharge Plan?? Discharge Plan?? Discharge Agency Information?? Discharge Rx Program: Discharge Prescription Program Name of Agency #1: [facility] ?? Service Categories #1: Halfway ?? Pulmonary Rehab Status?? Pulmonary Rehab Discharge Status?? Respiratory Rate: 18 br/min Respiratory Rate: 18 br/min ? Cardiac Rehab Assessment?? Cardiac Rehab Inpatient Assessment?? Comments-Education: Risk modification, post op recovery education and home guidelines, move in the tube Comments-Exercise Activity: home exercise, post op home activity Comments-Nutrition: follow a heart healthy diet Comments-Stress Management: healthy coping mechanisms Comments-Lipids: medication and diet compliance Comments-Other plan of care: ref to phase 2 in [place] Common Emergency Awareness Tips IS IT A [...] are strongly encouraged to quit. Please call [facility] [employer] Link at [phone] or [phone] or log in to [email or web address] for referrals to smoking cessation programs. ?? 749 Suicide & Crisis Lifeline is available 08/05 if you or someone you know needs to find a reason to keep living. By calling 423 you'll be connected to a skilled, trained counselor at a crisis center in your area. INPATIENT DISCHARGE INSTRUCTIONS SIGNATURE PAGE ALEX KATHLEEN Location:[facility] Registration Date and Time:05/02/2023 05:11 EDT Primary Care Physician: Perfecto Daniels MD, Attending Physician: Daniel GORDON, Tamara Gonzalez, I ALEX KATHLEEN, have received the above patient education materials/instructions and have verbalized understanding. If ambulance or transport services are being used I further acknowledge being given a choice of service. ?? If you need to contact me, please call me at this number: . Patient/Aids Nurse Name: Patient/Aids Nurse Signature: Relationship to Patient: Witness Name/Signature: Date: * Nixon HUIZAR, Gabriella Aldana: PERFORM Event Display: Patient Education Leaflets Authored Date: [id number] Surgery Cardiac Surgery Discharge Instructions ?? 272 Cardiac Surgery Discharge Instructions ?? Here is information related to your condition to help you when you get home. ?? Call the Cardiac Surgery office if you experience any of the following: ??? Temperature of 101?? or above, chills, and or sweating. ??? Low grade fever of 99?? - 100?? lasting for a week. ??? Changes in breathing, chest pain, abnormal pain, dizziness, change in pulse, pulse rate or palpitations. ??? Worsening shortness of breath. ??? New onset nausea, vomiting or diarrhea. ??? If you experience any new rash, cough, dizziness, leg cramps, or blurred vision. ??? Any bleeding or swelling at the incision site or if a hard lump forms. ??? Any drainage, redness, tenderness or edges pulling apart at your surgical incision site. ??? A weight gain of more than 2-3 pounds in one day or 5 pounds in 1 week. ??? Worsening ankle swelling or leg pain ??? Pain in calf that beco mes worse when pointing toe up to head ??? Sharp pain when taking a deep breath ??? Urinary tract infection: frequent urination, burning with urination, or urgency to urinate. ??? Extreme Fatigue ?? Call 911 if: ??? You develop a new onset of weakness, numbness, loss of vision, slurred speech or any concern for a stroke or mini-stroke. ??? If you develop numbness, tingling, loss of sensation, and or coolnessto your arms or legs. ??? Fainting, confusion or disorientation. ??? Sudden, severe headache. ??? If you develop chest pain or discomfort that is not relieved with rest ??? If profuse bleeding (does not stop in 30 minutes) occurs, hold pressure to the site and call 911, [address] yourself to [facility]. ??? Bright red color in your stool. ??? Coughing or vomiting up bright red blood.??? Heart rate faster than 150 beasts/minute with shortness of breath or new palpitations. ??? Severe abdominal pain ? ? Extreme weakness and/or chills often associated with fever >101??. ?? Follow Up: A follow up appointment should be made with your doctor. If you do not have an appointment scheduled already, make an appointment when you get home. Follow up care is important; it is strongly encouraged for you to keep your appointment. You may have more than one appointment, one with your mechanical repair worker and one with your primary care doctor and one with the cardiac surgeon. 1. Follow up with your Cardiac Surgeon ???s Nurse Practitioner in 7 to 14 days or as directed. 2. Follow up with your Primary Care Provider in 2-5 weeks or as directed. 3. Follow up with your PrimaryCardiologist in 2-5 weeks or as directed. 4. Cardiac Rehabilitation: You will be assisted in makingarrangements at your 1-2 week follow-up appointment with a nurse practitioner in your surgeon???s office if an appointment has not been made for you prior to discharge. If you have any questions, please call the Cardiac Surgery office at [phone]. ?? Bathing: You can take a shower after you are discharged from the hospital. If you are unsteady on your feet use a shower chair. Do not soak in a tub until all scabs are gone from your incisions. You may need assistance with showering the first few days. ?? Incision Care: Look at your incision site (groin and/or chest wall) every day until it is completely healed. You may see bruising, which is common after the procedure. Check your incision daily for drainage, redness, increased tenderness or edges pulling apart. Keep your incision clean and dry. Use only soap and water to cleanse the area around the incision. Once the incision is healed you may wash over the incision with a soft wash cloth and soap and water. Avoid using perfumed soaps or body washes, lotions,creams, oils, or ointments on your incision. This may irritate your incision and put you at risk for infection. ?? Activity ??? Review the written materials given to you by the Cardiac Rehabilitation staff for your specificexercise program. ??? No heavy lifting over 10 pounds (gallon of milk) for 10 weeks following your surgery. ??? Gradually increase your activity. This will promote wound healing. Remember to alternate periods of activity with periods of rest. ??? It is important to continue to do the coughing and deep breathing exercises to help prevent breathing complications. ??? Use incentive spirometer 8 to 10 times hourly while awake for the first two weeks you are home. ??? Take your temperature every day. ??? Weigh yourself at the same time every morning. ??? Wear elastic stockings for four weeks afteryou return home. Put the stocking on in the morning and remove them at bedtime. ??? Female patientsshould wear a soft supportive bra without under wires to prevent breast from pulling on incision. ?? Driving ? You shouldn???t drive for at least 4 weeks from the date of discharge or if you are taking prescription pain medication. ? Always wear a seat belt. ?Diet ??? Use healthy cooking methods: Bake, Boil, Steam, Broil. ??? Eat mostly plant based diet; fruits and vegetables, whole grains and legumes (beans, peas and lentils). Include nuts and seeds in moderation. ??? Choose lean meats: skinless chicken/turkey breast, red meats with minimal marbling, greater than 90% lean ground meats. ??? Enjoy fish and seafood prepared healthfully twice a week or more. ??? Choose low fat dairy products. ??? Enjoy sweets in moderation. ??? Reduce sodium and salt intake. Use herbs and spices to flavor your food. Daily sodium intake should be less than 3000mg. ??? Avoid processed foods, fried foods and foods that contain trans-fat. ??? Daily protein intake goal is 80-110 grams. ?? Smoking If you smoke, you are strongly encouraged to quit. Smoking can increase blood pressure, decrease exercise tolerance and increase the tendency for blood to clot, decrease HDL (good) cholesterol and creates a higher risk for having a heart attack, stroke or other vascular events. If you smoke and areready to quit, please let us know; referrals to smoking cessation programs are available. ?? Lowering your cholesterol Diet and exercise may not lower your cholesterol enough. Cholesterol medicines may help prevent further cholesterol build up in the arteries. Talk to your doctor about taking medicine for high cholesterol. ?? High blood pressure and diabetes If you have high blood pressure or diabetes, continue with your prescribed treatments. These health problems, if not controlled can put you at risk for having a heart attack, stroke, or other vascular events. ?? Stress Learn to manage stress with ways that fit your needs. Some stress relieving activities include meditation, deep breathing techniques and exercise. Stress that isn???t managed can prolong healing and cause other health problems. Talk to your caregiver if you need additional resources to manage stress. ?? Feelings You may also be impatient to return to your regular activities, and may feel frustrated with your recovery. Remember that your body needs time to heal. In fact, healing takes energy and depletes yourstrength. You will have good days and bad days, and you may feel depressed and angry about how longyour recovery seems to take. Talk to your family or friends about your feelings, and try to remember that you will get better. As you get stronger and more rested, you will feel more positive about your progress. One way to avoid feeling depressed is to maintain as normal a routine as possible. Getup at your usual time and bathe or shower. Get dressed; don ???t stay in your nightclothes all day.Take a rest in the morning and afternoon, and when you feel tired. Get a good night???s sleep. If your depression doesn???t improve, talk to your doctor. ?? Valve Surgery Instructions You will receive a booklet and card specific to the valve you received. This card should be carriedwith you at all times. Your doctor may prescribe an anticoagulant medication to prevent blood clotsthat could lead to a stroke. Your doctor may prescribe an antibiotic.?? This helps prevent infection that could scar and destroy your heart valve. Your will be instructed when to take this medication, such as before dental work, surgery, or medical procedures. ?? Please refer to the Understanding & Preparing for Heart Surgery booklet. ?? If you are being discharged on Coumadin ??/warfarin, please refer to the H&V Anticoagulation Patient Education booklet. ? * Annabel Arreola: PERFORM, SIGN, VERIFY Event Display: Cardiac Rehab Note Authored Date: Patient: ALEX KATHLEEN Age: 77 years Sex: Male : 1945 Associated Diagnoses: None Author: Annabel Arreola Diagnosis Cardiac Rehab Diagnosis: S/P CABG x 3. Pre-exercise Vitals Vital Signs: 80 HR, 101/76 BP Sitting, 98% RA SaO2. Vital Signs Comment: Reviewed in CIS. Pre-exercise Physical Examination Neurologic: alert & oriented. Cardiovascular: heart rate regular. Lungs: Normal I:E. Activity Symptoms with Cardiac Rehab Symptoms: No exertional symptoms. Activity Activity tolerance: Change in activity tolerance increased. Transfers: independent. Ambulate: with assist, assist x 1 , assistive device, 100 ft. Activity comment: AROM. Assistive Devices Assistive Device: Wheeled walker. Incentive Spirometry Incentive Spirometry: Good technique - effort. Compliance problems: Compliance problems. . Post-exercise Vitals Vital Signs: 86 HR, 134/72 BP Sitting, 98% RA SaO2. Post-exercise Physical Examination Neurologic: alert & oriented. Cardiovascular: heart rate regular. Lungs: Normal I:E. Patient Education Education: Patient alone, Cardiac surgery booklet reviewed (Move in Tube and Vasche wash reviewed). Education topic Teachback comprehension 75% Topic: Pathophysiology, Medication education, Role of exercise, Home activity guidelines/limits, Post operative recovery guidelines. Reinforcement needed: Role of exercise, Home activity guidelines/limits, Post operative recovery guidelines. Recommendation and Plan Ambulate: 4-6 times/day, with assist of 1 , with assistive device. Encourage: Incentive spirometer, ADLs, Appetite, AROM. Patient may benefit from: Incentive spirometer, ADLs, Appetite, AROM. Outpatient follow up recommended: [facility], Discussed cardiac rehab with patient. Patient reports that he does not like to go in [place] and would preferr to do his cardiac rehab elsewhere. I will email [place] [facility]. . Cardiac Rehab: Will see on 05/08/2023 . * Nhung Mena RN: PERFORM, SIGN, VERIFY Event Display: Cardiac Rehab Note Authored Date: [id number] Patient: ALEX KATHLEEN Age: 77 years Sex: Male : 1945 Associated Diagnoses: None Author: Nhung Mena RN Diagnosis Cardiac Rehab Diagnosis: CABG X3 05/02. Pre-exercise Vitals Vital Signs Comment: Reviewed in CIS. Pre-exercise Physical Examination Neurologic: alert & oriented. Cardiovascular: heart rate (irregular, regular, in and out of afib). Lungs: Normal I:E. Activity Symptoms with Cardiac Rehab Symptoms: Dyspnea on exertion, Mild dizziness. Activity Activity tolerance: Change in activity tolerance decreased. Transfers: with assist, assist x 1 , assistive device. Ambulate: with assist, assist x 1 , assistive device, distance ambulated 75 feet. Stairs: three steps into house. Assistive Devices Assistive Device: Walker. Incentive Spirometry Incentive Spirometry: Proper technique reinforced. Compliance problems: Compliance problems: diet, exercise. . Patient Education Education: Patient alone, Written material included, Cardiac surgery booklet reviewed, move in the tube. Education topic Teachback comprehension 25% Topic: Pathophysiology, Lipid management, Diabetes management, Medication education, Role of exercise, Stress management, Home activity guidelines/limits, Post operative recovery guidelines. Recommendation and Plan Ambulate: 3-5 times/day, with assist of 1 , with assistive device. Encourage: Incentive spirometer. Cardiac Rehab: Daily, page [phone] with questions. * Nhung Mena RN: PERFORM, SIGN, VERIFY Event Display: Cardiac Rehab Note Authored Date: [id number] Patient: ALEX KATHLEEN Age: 77 years Sex: Male : 1945 Associated Diagnoses: None Author: Nhung Mena RN Participated in multidisciplinary cardiac surgery rounds. See CIS for full assessment and plan of care. Please page [phone] with any questions or changes in plan of care. * Event Display: Adult Preadmission Health Questionnaire Authored Date: * Clare Solomone: PERFORM, SIGN, VERIFY Event Display: Patient Education Handout Authored Date: EKG study * Event Display: EKG Authored Date: * Event Display: ECG 12-Lead Authored Date: Please click on pdf link to open report * Event Display: ECG 12-Lead Authored Date: Ventricular Rate: 79 BPM Atrial Rate: 79 BPM P-R Interval: 192 ms QRS Duration: 102 ms Q-T Interval: 378 ms QTC Calculation(Bazett): 433 ms P [place]: 37 degrees R Bisbee: -13 degrees T [place]bee: 21 degrees Normal sinus rhythm Possible Anterior infarct , age undetermined Abnormal ECG When compared with ECG of 02-MAY-2023 13:50, No significant change Confirmed by BHAVIN POOLE ([id number]) on 05/07/2023 4:55:05 PM [place]: BHAVIN POOLE * Event Display: ECG 12-Lead Authored Date: Please click on pdf link to open report * Event Display: ECG 12-Lead Authored Date: Ventricular Rate: 66 BPM QRS Duration: 116 ms Q-T Interval: 426 ms QTC Calculation(Bazett): 446 ms R [place]bee: -18 degrees T [place]bee: 69 degrees Probable Sinus rhythm with 1st degree A-V block Possible Anterior infarct , age undetermined Abnormal ECG Confirmed by BHAVIN POOLE ([id number]) on 05/07/2023 4:39:23 PM [place]: BHAVIN POOLE Cardiology * Event Display: Cardiac Rhythm Strips Authored Date: * Event Display: Cardiac Rhythm Strips Authored Date: Hospital Progress note * Crystal Meyers NP: PERFORM Event Display: Progress Note Hospital Authored Date: Patient: ??HEVER, ALEX ? Age:??77 Years?Sex:??Male?:??1945?? 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 fatigue to his mechanical repair worker and underwent a cardiac work up.?Cardiac catheterization showed an 80% stenosis of the??mid LAD, a??40% left circumflex, 80% OM1, 90% OM2,??and a 80% distal RCA stenosis.??Coronary angiogram showed multivessel CAD and he was referred for CABG. Patient is s/p CABG x3 on 05/02/2023. ? BG review: Over the past 24 hours patient's blood glucose has??trended between 91-240.?? Fasting BGthis a.m. was 240. ?? Home DM regimen: HbA1c on admission 7.8% Patient reports he was diagnosed with type 2 diabetes 15 to 16 years ago, managed by his primary care. Glipizide??5 mg??2 tablet every day. ?? Hospital DM regimen: ?Lantus??28??units daily at bedtime ?Lispro fixed dose??5 units, 3 times daily with meals, hold if n.p.o.?Lispro correctional sliding scale 2 units per 150 mg/dL increasing by 2 units per 50 mg/dL,3 times daily with meals, still give if n.p.o. ?-- Hypoglycemic emergency measures in place? Patient's blood sugars variable, he is requiring??use of the lispro correctional scale??before eachmeal in addition to his fixed dose. ??At this time I will increase his lispro fixed dose to 7 units, 3 times a day before meals. ?? Discharge recommendations: Resume home glipizide dosing.?? Consider addition of??SGLT2??inhibitor such as Farxiga 10 mg daily * Jasso Dyllan BEAL: PERFORM, SIGN, SIGN, VERIFY, MODIFY Event Display: Progress Note Hospital Authored Date: Patient: ALEX KATHLEEN Age: 77 years Sex: Male : 1945 Associated Diagnoses: None Author: Dyllan Jasso RN Findings Narrative/Incidental Pt continues in and out SR / aflutter. Labs. K - 3.5. Ezequiel APPLICATION INTEGRATION SPECIALIST notified. KCL tabs ordered. cont to monitor.. Discharge Information Case Management Discharge Plan : Case Management Discharge Plan Data 05/03/2023 12:10 EDT Name of Agency #1 [facility] Categories #1 [place] * Willy HUIZAR, Julita Lynch: PERFORM, MODIFY Event Display: Progress Note Hospital Authored Date: Patient: ??ALEX KATHLEEN ? Age:??77 Years?Sex:??Male?:??1945?? Subjective POD??3 CABGx3 (BATEMAN-LAD, GSVG-PDA, Left Radial Artery-OM1), endoscopic vessel harvest, sternal plating EF 50-55% ?? Current Events AF/AFlutter rate controlled in the 80s Amio bolus x1 given, PO amio increased to 400 BID x7d Now NSR Lasix 40mg IV BID DW 99kg/99.8 kg yesterday (awaiting morning wt) Na 131, monitor with continued diuresis Review of Systems Constitutional: Denies fevers, chills, weight loss. Not feeling like himself today and he knows his body and doesn't feel ready to leave Eyes: No vision problems or changes CV: No CP, palpitations, dyspnea on exertion or when sleeping/lying flat. Does report surgical sitediscomfort but hasn't been taking tylenol or baclofen when offered Respiratory: No SOB, cough GI: No N/V, abdominal pain, diarrhea : Difficulty with urination, pain or burning MSK: No weakness Neurological: No numbness, tingling in the extremities Integ: tells me he had a right leg wound prior to surgery that was fixed in the OR Allergies Allergies ?(Active and Proposed Allergies Only) Other Environmental Allergy? (Severity: Unknown severity, Onset: Unknown) ?Reactions: Blocked up , sneezing ? Past Medical History No problems documented. ? Past Surgical History No surgery history documented. ? Social History No social history documented. ? Objective Measurements?? Height: 183 cm (05/06/23) Weight: 99.8 kg (05/05/23) Dry Weight: 99 kg (04/27/23) Body Mass Index:??28.52 kg/m2??High (05/02/23) ? Vital Signs?? Temperature: 97.5 DegF (05/06/23 12:05:00) Temperature Route: Oral (05/06/23 12:05:00) Pulse Rate: 77 bpm (05/06/23 12:05:00) Respiratory Rate: 18 br/min (05/06/23 12:05:00) Systolic Blood Pressure:??146 mm Hg??High (05/06/23 12:05:00) Diastolic Blood Pressure: 78 mm Hg (05/06/23 12:05:00) Blood pressure sites: Arm, left (05/06/23 12:05:00) Mean Arterial Pressure: 101 mm Hg (05/06/23 12:05:00) Pulse Pressure: 68 mm Hg (05/06/23 12:05:00) Oxygen Saturation: 100 % (05/06/23 12:05:00) Mode of Delivery (Oxygen): Room air (05/06/23 12:05:00) Early Warning Score: 3 (05/06/23 13:00:03) ? Intake/Output? 05/02 05:11 05/06 07:00 05/05 07:00 05/04 07:00 05/03 07:00 ?? 05/06 13:22 05/06 13:22 05/06 06:59 05/05 06:59 05/04 06:59 Intake ? 7426.2 ?340 ?700 ?532 ? 2100.8 Output ?09955 ?350 ? 2075 ? 2535 ? 2655 Net Total ?-3153.8 ?-10 ?-1375 ?-2003 ? -554.2 ? Physical Exam General Appearance: Alert, no acute distress Neurologic: AAOx3 HEENT: PERRLA Cardiac: Rate and rhythm regular. ??S1, S2 heard.? Extremities: 1+ pitting BLE edema Vascular: Palpable Right??radial faiintly palpable L unlar, pedal pulses bilaterally. ?? Respiratory: Lung sounds clear with diminished bases bilaterally. No crackles, wheezing. Respiratory effort is unlabored. On room air Gastrointestinal: Abdomen is soft, nontender, nondistended. ??+Bowel sounds in all 4 quadrants. LBM7/20 Genitourinary: voiding in urinal, urine output adequate. Integumentary: Chest dry and intact/sternum incision stable, original OR dressing CDI, Aquacell?? Musculoskeletal: ??ONEAL independently _ Home Medications Amlodipine (amLODIPine 10 mg oral tablet)?1?tab(s)?10?Milligram?By Mouth?Daily Aspirin (aspirin 81 mg oral tablet, chewable)?81?Milligram?1?tablet?By Mouth?Daily Atorvastatin (atorvastatin 80 mg oral tablet)?1?tab(s)?80?Milligram?By Mouth?Daily at bedtime Brimonidine Ophthalmic (brimonidine 0.2% ophthalmic solution)?1?Drops?Eye, Right?2 times a day?for 30?Days Chlorthalidone (chlorthalidone 50 mg oral tablet)?1?tab(s)?50?Milligram?By Mouth?Daily GlipiZIDE (glipiZIDE 5 mg oral tablet)?5?Milligram?1?tablet?By Mouth?Daily Latanoprost Ophthalmic (latanoprost 0.005% ophthalmic solution)?2?Drops?Eyes, Both?Daily at bedtime?for 30?Days Lisinopril?20?Milligram?By Mouth?Daily Minocycline (minocycline 50 mg oral capsule)?1?capsule?50?Milligram?By Mouth?Daily netarsudil ophthalmic (Rhopressa 0.02% ophthalmic solution)?1?Drops?Eye, Right?Daily atbedtime?for 30?Days Paroxetine (Paxil 10 mg oral tablet)?10?Milligram?1?tab(s)?By Mouth?Daily?as needed?as needed Timolol Ophthalmic (timolol maleate 0.5% ophthalmic solution)?2?Drops?Eyes, Both?2 times a day?for 30?Days ? Inpatient Medications Medications (37) Active SCHEDULED: (30) Acetaminophen 325 mg Tablet (Acetaminophen Tablet) ??975 mg, By Mouth, Every 6 hours Amiodarone 200 mg Tablet (amiODARONE Tablet) ??400 mg, By Mouth, Every 12 hours Amiodarone 200 mg Tablet (amiODARONE Tablet) ??200 mg, By Mouth, Daily Aspirin 81 mg EC Tablet (Aspirin Tablet) ??81 mg, By Mouth, Daily Atorvastatin 40 mg Tablet (atorvastatin 40 mg oral tablet) ??40 mg, By Mouth, Daily at bedtime Baclofen 10 mg Tablet (baclofen 10 mg oral tablet) ??5 mg, By Mouth, 3 times a day Brimonidine 0.2% Ophthalmic Solution (brimonidine 0.2% ophthalmic solution) ??0.2 % 1 drops, Eye, Right, 2 times a day Chlorthalidone 25 mg Tablet (chlorthalidone 25 mg oral tablet) ??50 mg, By Mouth, Daily Clopidogrel 75 mg Tablet (Clopidogrel Tablet) ??75 mg, By Mouth, Daily Enoxaparin 40 mg Inj (Enoxaparin Inj) ??40 mg 0.4 mL, Subcutaneous Injection, Daily Furosemide Inj (Lasix ??Inj) ??40 mg 4 mL, IV Push Slowly, 2 times a day Gabapentin 100 mg Capsule (gabapentin 100 mg oral capsule) ??100 mg, By Mouth, 3 times a day Insulin Glargine 100 units/mL Inj (Lantus Inj) ??28 units 0.28 mL, Subcutaneous Injection, Daily atbedtime Insulin Lispro 100 units/mL Inj (3mL) (Insulin LISPRO Sliding Scale) ??2-10 units, Subcutaneous Injection, 3 times a day before meals Insulin Lispro 100 units/mL Inj (3mL) (Insulin LISPRO Inj) ??5 units 0.05 mL, Subcutaneous Injection, 3 times a day before meals Lactulose 20 Gm/30mL Syrup (Lactulose Syrup) ??20 Gm 30 mL, By Mouth, Daily Latanoprost 0.005% Ophthalmic Solution (latanoprost 0.005% ophthalmic solution) ??1 drops, Eyes, Both, Daily at bedtime Lidocaine 5% Topical Patch (Lidocaine 5% Patch) ??1 each, Topically, Daily Lidocaine 5% Topical Patch (Lidocaine 5% Patch) ??2 each, Topically, Daily Metoprolol 25mg Tablet (Metoprolol IR Tablet) ??25 mg, By Mouth, 2 times a day NaCl 0.9% Flush 3ml (Flush NaCl 0.9%) ??3 mL, IV Push, Every 8 hours Pantoprazole 40 mg EC Tablet (Pantoprazole Tablet) ??40 mg, By Mouth, Daily Paroxetine 10 mg Tablet (PARoxetine 10 mg oral tablet) ??10 mg, By Mouth, Daily Polyethylene Glycol 17 Gm Powder (MiraLax Powder) ??17 Gm 1 pack/packet, By Mouth, Daily Remove Patch (Remove Lidocaine Patch) ??1 each, Topically, Daily at bedtime Remove Patch (Remove Lidocaine Patch) ??2 each, Topically, Daily at bedtime Senna 8.6 mg / Docusate 50 mg tablet (Docusate/Senna Tablet) ??2 tablet, By Mouth, Daily Simethicone 80 mg Chewable Tablet (simethicone 80 mg oral tablet, chewable) ??160 mg, Chew, 3 timesa day Timolol 0.5% Ophthalmic Solution (Timolol 0.5% Ophth) ??1 drops, Eyes, Both, 2 times a day Vashe Wound Care Emollient/Cleanser (Vashe Topical Solution) ??475 mL, Topically, Every 12 hours CONTINUOUS: (0) PRN: (7) Bisacodyl 10 mg Suppository (Bisacodyl Supp) ??10 mg 1 supp, Rectally, Daily Bisacodyl 5 mg EC Tablet (Bisacodyl Tablet) ??10 mg, By Mouth, Daily Magnesium Sulfate 2 Gm /50 mL (Magnesium Sulfate IVPB) ??2 Gm 50 mL, IVPB, Every 4 hours NaCl 0.9% Flush 3ml (Flush NaCl 0.9%) ??3 mL, IV Push, Every 8 hours Ondansetron 2mg/mL Inj (2mL Vial) (Ondansetron Inj) ??4 mg, IV Push, Every 6 hours OxyCODONE 5 mg IR Tablet (OxyCODONE IR Tablet) ??2.5 mg, By Mouth, Every 4 hours Vashe Wound Care Emollient/Cleanser (Vashe Topical Solution) ??475 mL, Topically, Every 6 hours ? Results Recent Labs BLOOD BANK Blood Type O Positive ()?? 05/05/2023 19:10 Antibody Screen Negative ()?? 05/05/2023 19:10 ?? BLOOD COUNT & DIFF WBC 13.8 k/mm3 (High)?? 05/06/2023 03:35 RBC 3.67 m/mm3 (Low)?? 05/06/2023 03:35 Hgb 11.8 Gm/dL (Low)?? 05/06/2023 03:35 Hct 34.0 % (Low)?? 05/06/2023 03:35 MCV 92.6 femtoliters ()?? 05/06/2023 03:35 MCH 32.2 pg ()?? 05/06/2023 03:35 MCHC 34.7 g/dL ()?? 05/06/2023 03:35 Platelet Count 180 k/mm3 ()?? 05/06/2023 03:35 RDW-SD 41.8 femtoliters ()?? 05/06/2023 03:35 MPV 9.9 femtoliters ()?? 05/06/2023 03:35 Nucleated RBC (Automated) 0.0 #/100 WBC'S ()?? 05/06/2023 03:35 Abs. NRBC 0.0 k/mm3 ()?? 05/06/2023 03:35 ?? CHEM GENERAL Sodium 131 mmol/L (Low)?? 05/06/2023 03:35 Potassium 3.6 mmol/L ()?? 05/06/2023 03:35 Chloride 88 mmol/L (Low)?? 05/06/2023 03:35 Bicarbonate Level 30 mmol/L (High)?? 05/06/2023 03:35 Anion Gap 13 ()?? 05/06/2023 03:35 Glucose, POC 233 mg/dL (High)?? 05/06/2023 12:08 BUN 27 mg/dL (High)?? 05/06/2023 03:35 Creatinine-Blood 0.8 mg/dL ()?? 05/06/2023 03:35 Estimated GFR Creatinine 91 ML/MIN/1.73 M2 ()?? 05/06/2023 03:35 Magnesium 2.0 mg/dL ()?? 05/06/2023 03:35 ? 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 He presented with chief complaint of fatigue to his mechanical repair worker and underwent a cardiac work up. Cardiac catheterization showed an 80% stenosis of the mid LAD, a 40% left circumflex, 80% OM1, 90% OM2, and a 80% distal RCA stenosis.Coronary angiogram showed multivessel CAD and he was referred for CABG. ? SURGEON: Dr. Sanchez ??MASTER RIGGER: Dr. Reyes ?? POD 4 ? EF 50-55 % ?? 05/02/2023-??1. CABG x 3 (BATEMAN-mid LAD, Left radial artery-OM, SVG-PDA) 2. Right Endovein and left endoradial artery [place] ? Impression and Plan ? NEUROLOGIC: ?-- Pain management PRN per protocol ?-- Restarted home Paroxetine ?-- Multimodal pain regimen initiated ---------pt is declining pain meds at this time ? CARDIOVASCULAR: ?-- Core Measures ?- ASA ?- Beta-beata ?- Statin: >75 years old 40 mg Atorvastatin at bedtime. . ?-- NSTEMI/CABG- Plavix 75 mg PO ?-- Holding home Lisinopril for controlled blood pressures, restart as appropriate ??-- AF/Aflutter rate controlled beginning??05/05 but NSR since 05/06 am ??--??Amio bolus IV given, PO increased to 400mg BID ??-- Epicardial wires removed 05/05 with patient supine in bed,??vitals signs stable??pre and post ?RESPIRATORY: ?--??Tolerating room air??well ?-- Encourage pulm hygiene ??-- Small left pleural effusion on??CXR- asymptomatic ? GI: ?--Cardiac Diet ?-- GI Prophylaxis: PPI- Protonix 40 mg Po daily- will d/c at discharge ? RENAL ?--??Cr 0.8 today ?-- Nephrocheck 0.17 ?-- Lasix 40mg IV BID ?-- Home chlorthalidone ??--??Nearing dry weight, consider reduction in diuretics 05/06 ? INFECTIOUS DISEASE: ?-- SCIP prophylactic abx ?-- Monitor for leukocytosis ? HEMATOLOGY ?-- Acute blood loss anemia secondary to cardiothoracic surgery- resolved ?-- Accept H/H > 05/05: Trend CBC ? ENDOCRINE: ?-- As per post operative cardiac surgery insulin protocol ?-- Stress hyperglycemia; DM 2 ?-- Hgb A1C 7.8 ??--Bids following- discharge recs in their note ? DVT Prophylaxis: ?-- SCD's, ?-- Lovenox 40 mg daily platelet count is > 100 K ? SKIN ?-- Graft harvest sites??HARRIS ?-- Radial graft harvest site??HARRIS ??--Left preston abrasion pt reports he had pre-op. Will put xeroform on it with dsd and reassess at discharge. ? DISPOSITION: Case management assisting with discharge. Plan for home tomorrow. He was told to have his ride available tomorrow by 12p and that they will need to be here for a few hours prior to discharge ?? Plan discussed with dr Gillette ?? Consult note * Jt HUIZAR, Antoinette Copeland: MODIFY, PERFORM, MODIFY, MODIFY Event Display: Consultation Note Authored Date: [id number] Patient: ??ALEX KATHLEEN ? Age:??77 Years?Sex:??Male?:??1945?? 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 fatigue to his mechanical repair worker andunderwent a cardiac work up.?Cardiac catheterization showed an 80% stenosis of the??mid LAD, a??4 0% left circumflex, 80% OM1, 90% OM2,??and a 80% distal RCA stenosis.??Coronary angiogram showed multivessel CAD and he was referred for CABG. Patient is s/p CABG x3 on 05/02/2023. BIDS consulted for assistance with glycemic control. ?? HbA1c Since admission 7.8%.?? Patient reports he was diagnosed with type 2 diabetes 15 to 16 years ago, managed by his primary care. ?? BG review: BGs over the last 24 hours trending between 79-1 49. ?? DM Hospital regimen: Patient is currently on insulin drip per cardiac surgery??protocol??currently running at 1 unit/h. ?? DM Home medications: Glipizide??5 mg??1 tablet every day. ?? DM family history:??Patient denies??any family history. ?? DM complications: Eyes:??Patient reports history of cataract repair on both eyes about 4 years ago. Renal:??Denies Neuropathy:??Fingers occasionally. Review of Systems ?Review of Systems: Constitutional: denies fatigue, denies fever, denies weight gain/loss Eyes: denies visual complaints Ears, Nose, Mouth, Throat: denies sore throat, denies dysphagia Cardiovascular: denies chest pain, denies palpitation, denies history of heart disease Respiratory: denies cough, denies shortness of breath Gastrointestinal: denies nausea, denies vomiting, denies diarrhea, denies constipation Genitourinary: denies frequent urination Musculoskeletal: denies myalgia, denies arthralgia Integumentary: denies rash Neurological: denies tremors In addition, a detailed review of system was done from patient intake form and was reviewed.? Physical Exam Vitals & Measurements T:??98.2?F?? TMIN:??97.5?F?? TMAX:??98.4?F?? HR:??65??(Monitored)?? RR:??21?? BP:??130/57?? BP:??117/51(Line)?? SpO2:??92%?? WT:??100.2??kg?? General appearance: No apparent distress Neuro: A&Ox3, answers questions appropriately and moving all extremities HEENT: Head normocephalic, atraumatic, mucous membranes pink and moist, nares patent, neck supple, trachea midline Cardiac: RRR Respiratory: Normal I:E GI: Abd soft Integ: [place], warm, dry and intact Vascular: Bilateral DPs 2+, ??no edema Psych: calm and cooperative Assessment/Plan BGs over the last 24 hours trending between 79-1 49. Per cardiac surgery protocol, patient to remain on the insulin drip postop 48 hours. ??As long as he remains extubated, hemodynamically stable offvasopressors and tolerating oral intake he will be??due for transition??05/04 at 1315 hrs. patient currently denies nausea vomiting diarrhea, and states that he had??2 Jell-O this morning and tolerated well. ?? Plan: Continue on insulin drip. ?? Discharge Recs: Will determine based on insulin requirements closer to time of discharge. Problem List/Past Medical History Ongoing No qualifying data Medications Inpatient Acetaminophen IVPB, 1000 mg= 100 mL, IVPB, Every 6 hours Acetaminophen Tablet, 975 mg, By Mouth, Every 6 hours amiODARONE Tablet, 200 mg, By Mouth, 2 times a day Aspirin Tablet, 81 mg, By Mouth, Daily atorvastatin 40 mg oral tablet, 40 mg, By Mouth, Daily at bedtime baclofen 10 mg oral tablet, 5 mg, By Mouth, 3 times a day Bisacodyl Supp, 10 mg= 1 supp, Rectally, Daily, PRN Bisacodyl Tablet, 10 mg, By Mouth, Daily, PRN brimonidine 0.2% ophthalmic solution, 0.2 %= 1 drops, Eye, Right, 2 times a day Calcium Gluconate 9.2mEq/100mLNaCL (2Gm), 9.2 mEq= 100 mL, IVPB, Every hour, PRN Calcium Gluconate 9.2mEq/100mLNaCL (2Gm), 9.2 mEq= 100 mL, IVPB, Every 2 hours, PRN ceFAZolin Inj, 2 Gm, IV Push, Once ceFAZolin Inj, 2 Gm, IV Push, Every 8 hours chlorthalidone 25 mg oral tablet, 50 mg, By Mouth, Daily Clopidogrel Tablet, 75 mg, By Mouth, Daily Dextrose 50% Inj Syringe (25Gm), 12.5 Gm, IV Push Slowly, Every hour, PRN Dextrose 50% Inj Syringe (25Gm), 25 Gm, IV Push Slowly, Every hour, PRN Docusate/Senna Tablet, 2 tablet, By Mouth, Daily Enoxaparin Inj, 40 mg= 0.4 mL, Subcutaneous Injection, Daily EPINEPHrine 2 mg / D5W 250 mL 2 mg, 2 mg= 250 mL, IV Infusion FENTanyl Inj, 50 mcg= 1 mL, IV Push Slowly, Every 5 minutes, PRN Flush NaCl 0.9%, 3 mL, IV Push, Every 8 hours, PRN Flush NaCl 0.9%, 3 mL, IV Push, Every 8 hours, PRN gabapentin 100 mg oral capsule, 100 mg, By Mouth, 3 times a day HYDROmorphone Inj, 0.5 mg= 0.5 mL, IV Push Slowly, Every hour, PRN Insulin R 100 units in 100 mL Premix 100 units [1 units/hr] + NaCL 0.9% Premixed IV 100 mL Insulin REGULAR Human Sliding Scale, 2-8 units, IV Push, Every hour, PRN Insulin REGULAR Inj, 10 units= 0.1 mL, IV Push Slowly, Every hour, PRN Insulin REGULAR Inj, 20 units= 0.2 mL, IV Push Slowly, Every hour, PRN Lactated Ringers 1000 mL, 1000 mL, IV Infusion Lactulose Syrup, 20 Gm= 30 mL, By Mouth, Daily Lasix Inj, 20 mg= 2 mL, IV Push Slowly, Once Levophed 4 mg / D5W 250 mL 4 mg, 4 mg= 250 mL, IV Infusion Lidocaine 5% Patch, 2 each, Topically, Daily Lidocaine 5% Patch, 1 each, Topically, Daily LR Bolus 500 mL, 500 mL, IV Infusion, Every 15 minutes LR Bolus 500 mL, 500 mL, IV Infusion, Every 15 minutes LR Bolus 500 mL, 500 mL, IV Infusion, Every 15 minutes Magnesium Sulfate IVPB, 2 Gm= 50 mL, IVPB, Every 4 hours, PRN Metoprolol IR Tablet, 25 mg, By Mouth, 2 times a day MiraLax Powder, 17 Gm= 1 pack/packet, By Mouth, Daily NaCL 0.45% 1,000 mL, 1000 mL, IV Infusion NaCL 0.45% 1,000 mL, 1000 mL, IV Infusion NaCL 0.45% 500 mL, 500 mL, IV Infusion NaCL 0.45% 500 mL, 500 mL, IV Infusion NaCL 0.9% 500 mL, 500 mL, Intra-arterial NaCL 0.9% 500 mL, 500 mL, IV Infusion NiCARDipine Cont IV 25 mg + NaCL 0.9% for Titration 250 mL Ondansetron Inj, 4 mg, IV Push, Every 6 hours, PRN OxyCODONE IR Tablet, 2.5 mg, By Mouth, Every 4 hours, PRN Pantoprazole Tablet, 40 mg, By Mouth, Daily PARoxetine 10 mg oral tablet, 10 mg, By Mouth, Daily PHENYLephrine Syringe, 100 mcg= 1.25 mL, IV Push, Once, PRN Potassium Chloride 40 mEq/100 mL IVPB, 40 mEq= 100 mL, IVPB, Every 4 hours, PRN Potassium Chloride Packet, 40 mEq, By Mouth, Every 4 hours, PRN Potassium Chloride Tablet, 40 mEq, By Mouth, Every 4 hours, PRN Precedex 400 mcg / 100 mL NaCl (Titrate) 400 mcg, 400 mcg= 100 mL, IV Infusion Remove Lidocaine Patch, 2 each, Topically, Daily at bedtime Remove Lidocaine Patch, 1 each, Topically, Daily at bedtime Sodium Bicarb 8.4% Syringe 50 mL, 50 mEq= 50 mL, IV Push, Every 15 minutes, PRN Sodium Bicarb 8.4% Syringe 50 mL, 50 mEq= 50 mL, IV Push, Every hour, PRN Sodium Polystyrene Sulfonate Powder, 30 Gm, By Mouth, Every hour, PRN Timolol 0.5% Ophth, 1 drops, Eyes, Both, 2 times a day Vashe Topical Solution, 475 mL, Topically, Every 12 hours Vashe Topical Solution, 475 mL, Topically, Every 6 hours, PRN Vasopressin 20 units / NaCL 100 mL 20 units, 20 units= 100 mL, IV Infusion Home amLODIPine 10 mg oral tablet, 10 mg= 1 tablet, By Mouth, Daily aspirin 81 mg oral tablet, chewable, 81 [...] 2 drops, Eyes, Both, Daily at bedtime Lisinopril, 20 mg, By Mouth, Daily minocycline 50 mg oral capsule, 50 mg= 1 capsule, By Mouth, Daily Paxil 10 mg oral tablet, 10 mg= 1 tablet, By Mouth, Daily, PRN Rhopressa 0.02% ophthalmic solution, 1 drops, Eye, Right, Daily at bedtime timolol maleate 0.5% ophthalmic solution, 2 drops, Eyes, Both, 2 times a day Allergies Other Environmental Allergy??( sneezing , Blocked up ) Patient Care team information Care Team Personnel Name: Maria Del Carmen Bennett RN Position: S RN Supv Member Role: Primary Care Nurse Name: Perfecto Daniels MD Position: Reference Physician Member Role: PCP Address: Address: [address] [place] [address] [address] [place] [address]- Name: Angela Torres Position: [facility] RN Member Role: Primary Care Nurse Name: Dai Proctor RN Position: S RN Member Role: Primary Care Nurse Care Team Related Persons Name: HILARIO KATHLEEN Address: [address] [place] [address]
== END 2023-09-14 12:15 | disposition home or self-care (01) ==
PROVIDERS: PCP Internal Medicine; Visit Provider Physician Assistant
DX: L03.115 Cellulitis of right lower limb (principal)
CPT/HCPCS: 99213

== ENCOUNTER 2023-09-19 08:01 | Outpatient (AMB) | payer MEDICARE, SELFPAY ==
[2023-06-28 09:56] VITALS: BP 142/54; BP 152/84; BMI 27.6
[2023-09-19 08:06] VITALS: BP 140/80; PULSE 75; TEMP 36.6; O2SAT 97; BMI 29.2
--- NOTE | 2023-09-19 08:06 | AM.OFFWIN_ITS ---
Intake Vital Signs 3 09/19/23 08:06 Height 6 ft Weight 97.522 kg BMI 29.2 BP 140/80 H Blood Pressure Location Rt brachial Position Sitting Pulse 75 Pulse Source Pulse Oximeter Temp 97.9 F Temp Source Oral Pulse Oximetry (%) 97 Oxygen Delivery Method Room Air Intake Visit Reasons: EP RT leg infection Intake Note: pt is here for right leg infection Patient Tobacco Use Status: Former Tobacco user Quit Date: 1979 Allergies atenolol Allergy (Unknown, Verified 09/19/23 08:12) Bradycardia ENVIROMENTAL Allergy (Unknown, Uncoded 09/19/23 08:12) ITCHY EYES/RUNNY NOSE Do you need a note to return to daycare/school/sports/work: Yes HPI HPI Comments 2 History of Present Illness0 Details 0842 This is a 78-year-old male history of coronary artery disease status post CABG currently anticoagulated on apixaban, hypertension, hyperlipidemia, diabetes presenting to the clinic for evaluation of 2 weeks worsening skin tear to the right anterior preston patient reports he ran into a cabinet or piece of furniture at home multiple times, it started bleeding, initially it appeared as though it was infected, he reports about a week ago he came in to be evaluated he was prescribed doxycycline for skin infection he has 2 doses left, tells me he returned today because symptoms appear to not be improving. He reports some purulence discharge from the site. Denies fevers, chills, numbness, tingling, chest pain, shortness of breath, headache, vision changes physical exam with evident skin tear large to the right anterior preston with surrounding erythem Likely cellulitis. Unlikely threat to [place], neurovascular compromise, arterial or venous occlusion. Unlikely osteomyelitis Plan antibiotics, wound care. I did speak to patient's primary care provider in explained to her I would be putting in an order for wound care if she felt it was necessary/appropriate she agrees with this plan. She will also follow-up with patient. Educated patient on diagnosis and treatment plan, answered all question, patient verbalizes understanding. At this time patient will be discharged home, advised to return with new or worsening symptoms. Educated on worrisome signs and symptoms and when to return. At this time I feel comfortable discharge home. [facility] Medical History Atherosclerotic cardiovascular disease Depression, major, recurrent Chronic nasal congestion Diabetes mellitus type II, non insulin dependent Osteoarthritis of hand, left Obesity (BMI 30.0-34.9) Vertebral artery stenosis Cervical spondylosis Hypertension, essential Lipid disorder Hearing impaired Surgical History S/P CABG x 3 Hx of cholecystectomy Family History Father HTN (hypertension) Mother No problems noted. Social History Housing: House Alcohol intake: current Alcohol intake frequency: a few times a week Patient Tobacco Use Status: Former Tobacco user Quit Date: 1979 Years Smoked: 20 +/- e-Cigarette/Vaping Use: Never Used service: No Current occupational status: retired Cognitive needs: No Hearing needs: No Vision needs: Yes Review of Systems Const Details: Constitutional : No Weight loss, No Fever, No Chills, No Fatigue, No Malaise ENT/Mouth : No sore throat, No Rhinorrhea Eyes: No Eye Pain, No Swelling, No Redness Cardiovascular : No Chest Pain, No SOB, No Dyspnea on Exertion, No Orthopnea, No Edema, No Palpitations Respiratory : No Cough, No Sputum, No Wheezing Gastrointestinal : No Nausea, No Vomiting, No Diarrhea, No Constipation, No abdominal Pain, No Hematochezia, No Melena Genitourinary : No Dysuria, No Urinary Frequency, No Hematuria, Musculoskeletal : No joint pain, No Myalgias, No Joint Swelling Skin : No Skin Lesions, No rash, + skin tear Neuro : No Weakness, No Numbness, No Dizziness, No Headache Psych : No Anxiety/Panic, No Depression All other systems reviewed and are negative All systems reviewed & are unremarkable except as noted in HPI and below Physical Exam Vital Signs: Last Vital Signs Temp 97.9 F 09/19/23 08:06 Pulse 75 09/19/23 08:06 BP 140/80 H 09/19/23 08:06 Pulse Ox 97 09/19/23 08:06 Oxygen Delivery Method Room Air 09/19/23 08:06 BMI result Body Mass Index 29.2 vss Appearance: Alert.? Oriented X3.? No acute distress.? Head: Normocephalic, atraumatic, no step-offs or deformities Eyes: Pupils equal, round and reactive to light.? Neck: Normal inspection.? Neck supple.? CVS: Normal heart rate and rhythm.? Pulses normal.? Respiratory: No respiratory distress.? Breath sounds normal.? Abdomen: Soft and nontender.? Skin: Skin warm and dry.? Normal skin color.? Normal skin turgor.?+infected skin tear Extremities: No lower extremity edema.? No calf ttp. 5/5 strength to bilateral upper and lower extremities Neuro: Oriented X 3.? No motor deficit.? No sensory deficit. CN 2-12 intact Assessment & Plan Assessment & Plan (1) Infected skin tear: Code(s): T14.8XXA - Other injury of unspecified body region, initial encounter; L08.9 - Local infection of the skin and subcutaneous tissue, unspecified Plan Take your medications as prescribed. If you were prescribed antibiotics today, it is important that you take your medication to their entirety, do not skip any doses, do not finish them early. Follow-up with your primary care provider this week. Return to the emergency department with new or worsening symptoms. In case of emergency call 911 Orders: Referrals 2 Wound Care Referral L08.9 - Local infection of the skin and subcutaneous tissue, unspecified, T14.8XXA - Other injury of unspecified body region, initial encounter Medications: New 2 cephalexin 500 mg PO QID 7 days 28 caps 0RF Coding Level of Care Code Est Pt Level 3 (77643) Diagnoses Infected skin tear T14.8XXA; L08.9
== END 2023-09-19 09:17 | disposition home or self-care (01) ==
PROVIDERS: PCP Internal Medicine; Visit Provider Physician Assistant
DX: T14.8XXA Other injury of unspecified body region, initial encounter (principal); L08.9 Local infection of the skin and subcutaneous tissue, unspecified
CPT/HCPCS: 99213

== ENCOUNTER 2023-09-22 10:14 | Outpatient (AMB) | payer MEDICARE, SELFPAY ==
[2023-06-28 09:56] VITALS: BP 142/54; BP 152/84; BMI 27.6
[2023-09-22 10:16] VITALS: BP 140/72; PULSE 71; O2SAT 96; BMI 29.3
--- NOTE | 2023-09-22 10:16 | MHC.PC.OV ---
Vital Signs 09/22/23 10:16 Height 6 ft Weight 216 lb BMI 29.3 BP 140/72 H Blood Pressure Location Rt brachial Position Sitting Pulse 71 Pulse Source Pulse Oximeter Pulse Oximetry (%) 96 Oxygen Delivery Method Room Air Intake Visit Reasons: Follow Up~ Allergies atenolol Allergy (Unknown, Verified 09/22/23 10:17) Bradycardia ENVIROMENTAL Allergy (Unknown, Uncoded 09/22/23 10:17) ITCHY EYES/RUNNY NOSE Medication List - Last Reconciled 09/22/23 by Shirin Davis MD adhesive tape Use for daily dressing change amlodipine 10 mg PO DAILY 90 days apixaban (Eliquis) 5 mg PO BID 90 days aspirin 81 mg PO DAILY atorvastatin 80 mg PO QPM blood sugar diagnostic (FreeStyle Lite Strips) test blood sugar once a day blood-glucose meter (FreeStyle Lite Meter kit) As directed brimonidine 0.2% 1 drp ophthalmic-Right BID cephalexin 500 mg PO QID 7 days chlorthalidone 50 mg PO DAILY 90 days fluticasone propionate 50 mcg/actuation (Flonase Allergy Relief) 1 spray intranasal DAILY gauze bandage Change dressing daily glipizide 5 mg PO BID lancets (FreeStyle Lancets) test blood sugar once a day latanoprost 0.005% 1 drp ophthalmic (eye) QPM lisinopril 20 mg PO DAILY loratadine 10 mg PO DAILY lorazepam 0.5 mg PO BEDTIME PRN meloxicam 7.5 mg PO DAILY 90 days metoprolol tartrate 25 mg PO BID 90 days minocycline 50 mg PO BID netarsudil 0.02% (Rhopressa) 1 drp ophthalmic-Right BEDTIME paroxetine HCl 10 mg PO DAILY sennosides-docusate sodium 8.6-50 mg (Senna with Docusate Sodium) 1 tab-cap PO BEDTIME timolol maleate 0.5% 1 drp ophthalmic (eye) BID [Xeroform gauze dressing 3 % bismuth As directed] Tobacco use date assessed: 07/26/23 HPI Follow Up~ HPI Details He had skin laceration right leg after hitting it to a door Patient was given antibiotic in walk-in clinic, this is a follow-up appointment for that Patient is doing well he has formed scab over the wound and it is healing from the edges He has another follow-up appointment on 15 of this month for his regular medications He will return then [facility] Medical History Atherosclerotic cardiovascular disease Depression, major, recurrent Chronic nasal congestion Diabetes mellitus type II, non insulin dependent Osteoarthritis of hand, left Obesity (BMI 30.0-34.9) Vertebral artery stenosis Cervical spondylosis Hypertension, essential Lipid disorder Hearing impaired Surgical History S/P CABG x 3 Hx of cholecystectomy Family History Father HTN (hypertension) Mother No problems noted. Social History Housing: House Alcohol intake: current Alcohol intake frequency: a few times a week Patient Tobacco Use Status: Former Tobacco user Quit Date: 1979 Years Smoked: 20 +/- e-Cigarette/Vaping Use: Never Used service: No Current occupational status: retired Cognitive needs: No Hearing needs: No Vision needs: Yes Review of Systems Const All systems reviewed & are unremarkable except as noted in HPI and below Physical exam (Primary Care) Vital Signs: Last Vital Signs Pulse 71 09/22/23 10:16 BP 140/72 H 09/22/23 10:16 Pulse Ox 96 09/22/23 10:16 Oxygen Delivery Method Room Air 09/22/23 10:16 BMI result Body Mass Index 29.3 Tobacco/Smoking Status: Tobacco use Status Tobacco use date assessed 07/26/23 09/22/23 10:21 Patient Tobacco Use Status Former Tobacco user 09/22/23 10:21 e-Cigarette/Vaping Use Never Used 09/22/23 10:21 Const General: no acute distress Orientation/consciousness: patient oriented x3 Eyes General: appearance normal, both eyes and all related structures Resp Effort & Inspection: normal respiratory effort and able to speak in complete sentences Auscultation: clear to auscultation bilaterally Skin Other: Neuro General: patient oriented x3 Psych Mental Status: mental status grossly normal Assessment and Plan Assessment & Plan (1) Leg wound, left: Code(s): S81.802A - Unspecified open wound, left lower leg, initial encounter Qualifiers: Encounter type: initial encounter Qualified Code(s): S81.802A - Unspecified open wound, left lower leg, initial encounter Plan He had skin laceration right leg after hitting it to a door Patient was given antibiotic in walk-in clinic, this is a follow-up appointment for that Patient is doing well he has formed scab over the wound and it is healing from the edges He has another follow-up appointment on 15th of this month for his regular medications He will return then Coding Level of Care Code Est Pt Level 3 (63480) Diagnoses Wound of left lower extremity, initial encounter S81.802A Encounter type: initial encounter
== END 2023-09-22 10:44 | disposition home or self-care (01) ==
LOC: HO.HMGC 10:14
PROVIDERS: PCP Internal Medicine; Visit Provider Internal Medicine
DX: S81.802A Unspecified open wound, left lower leg, initial encounter (principal)
CPT/HCPCS: 99213

== ENCOUNTER 2023-09-29 11:53 | Outpatient (AMB) | payer MEDICARE, SELFPAY ==
[2023-06-28 09:56] VITALS: BP 142/54; BP 152/84; BMI 27.6
--- NOTE | 2023-09-29 11:58 | A.OFFPC_ITS ---
Vital Signs 3 09/29/23 11:59 Height 6 ft Weight 218 lb 2 oz BMI 29.6 BP 138/84 Blood Pressure Location Lt brachial Position Sitting Pulse 77 Pulse Source Pulse Oximeter Pulse Oximetry (%) 97 Oxygen Delivery Method Room Air Intake Visit Reasons: walk-in follow up rt leg Allergies atenolol Allergy (Unknown, Verified 09/29/23 12:03) Bradycardia ENVIROMENTAL Allergy (Unknown, Uncoded 09/22/23 10:17) ITCHY EYES/RUNNY NOSE Medication List - Last Reconciled 09/29/23 by Shirin Davis MD adhesive tape Use for daily dressing change amlodipine 10 mg PO DAILY 90 days apixaban (Eliquis) 5 mg PO BID 90 days aspirin 81 mg PO DAILY atorvastatin 80 mg PO QPM blood sugar diagnostic (FreeStyle Lite Strips) test blood sugar once a day blood-glucose meter (FreeStyle Lite Meter kit) As directed brimonidine 0.2% 1 drp ophthalmic-Right BID cephalexin 500 mg PO QID 7 days chlorthalidone 50 mg PO DAILY 90 days fluticasone propionate 50 mcg/actuation (Flonase Allergy Relief) 1 spray intranasal DAILY gauze bandage Change dressing daily glipizide 5 mg PO BID lancets (FreeStyle Lancets) test blood sugar once a day latanoprost 0.005% 1 drp ophthalmic (eye) QPM lisinopril 20 mg PO DAILY loratadine 10 mg PO DAILY lorazepam 0.5 mg PO BEDTIME PRN meloxicam 7.5 mg PO DAILY 90 days metoprolol tartrate 25 mg PO BID 90 days minocycline 50 mg PO BID netarsudil 0.02% (Rhopressa) 1 drp ophthalmic-Right BEDTIME paroxetine HCl 10 mg PO DAILY sennosides-docusate sodium 8.6-50 mg (Senna with Docusate Sodium) 1 tab-cap PO BEDTIME timolol maleate 0.5% 1 drp ophthalmic (eye) BID [Xeroform gauze dressing 3 % bismuth As directed] Tobacco use date assessed: 09/29/23 Fall risk assessment: No Falls in past year Last assessed Fall Risk: 09/29/23 Dental Screening Dental Screen Date: 09/29/23 Did you have a dental visit in the last 12 months?: No Did you have a dental problem in the last 6 months where you did not have access to dental care?: No Was dental information given to patient?: No HPI walk-in follow up rt leg 2 HPI0 Details Patient is 78-year-old gentleman came in today to have his right leg wound evaluated On examination it is healing well no signs of infection he has a large scab over the wound which will eventually heal and follow-up He is currently having nasal congestion and nasal discharge Patient have chronic nasal problem usually he is seen by ENT Dr. Bentley. But since he is having nasal discharge I have sent antibiotic for the patient. He has appointment 25 of October for his regular follow-up [facility] Medical History Atherosclerotic cardiovascular disease Depression, major, recurrent Chronic nasal congestion Diabetes mellitus type II, non insulin dependent Osteoarthritis of hand, left Obesity (BMI 30.0-34.9) Vertebral artery stenosis Cervical spondylosis Hypertension, essential Lipid disorder Hearing impaired Surgical History S/P CABG x 3 Hx of cholecystectomy Family History Father HTN (hypertension) Mother No problems noted. Social History Housing: House Alcohol intake: current Alcohol intake frequency: a few times a week Patient Tobacco Use Status: Former Tobacco user Quit Date: 1979 Smoked: 20 +/- e-Cigarette/Vaping Use: Never Used service: No Current occupational status: retired Cognitive needs: No Hearing needs: No Vision needs: Yes Questionnaire AUDIT C Alcohol Use Questionnaire (AUDIT-C) 1. How often do you have a drink containing alcohol?: Never 3. How often do you have six or more drinks on one occasion?: Never Total Score: 0 Score Reviewed/Action Taken: Yes Review of Systems Const Denies chills and Denies fever(s) ENT Denies epistaxis Card Denies chest pain Resp Denies chest congestion, Denies cough and Denies hemoptysis GI Denies diarrhea and Denies nausea Skin/Breast Denies rash Neuro Reports no additional complaints Psych Reports no additional complaints Endo Reports no additional complaints Physical exam (Primary Care) Vital Signs: Last Vital Signs Pulse 77 09/29/23 11:59 BP 138/84 09/29/23 11:59 Pulse Ox 97 09/29/23 11:59 Oxygen Delivery Method Room Air 09/29/23 11:59 BMI result Body Mass Index 29.6 Tobacco/Smoking Status: Tobacco use Status Tobacco use date assessed 09/29/23 09/29/23 12:03 Patient Tobacco Use Status Former Tobacco user 09/29/23 12:03 e-Cigarette/Vaping Use Never Used 09/29/23 12:03 Const General: cooperative, comfortable and no acute distress Orientation/consciousness: patient oriented x3 HENMT Head: Yes normocephalic Eyes General: appearance normal, both eyes and all related structures Neck Neck: Yes supple Resp Effort & Inspection: normal respiratory effort, no cough and no stridor Skin General skin exam: turgor normal Neuro General: patient oriented x3, tone normal and moves all extremities Extrem Right lower extremity: no edema Left lower extremity: no edema Ankle/foot/toe images: 2 1. Food right leg healing well no signs of infection Assessment and Plan Assessment & Plan (1) Leg wound, left: Code(s): S81.802A - Unspecified open wound, left lower leg, initial encounter Qualifiers: Encounter type: initial encounter Qualified Code(s): S81.802A - Unspecified open wound, left lower leg, initial encounter (2) Acute rhinitis: Code(s): J00 - Acute nasopharyngitis [common cold] Plan Patient is 78-year-old gentleman came in today to have his right leg wound evaluated On examination it is healing well no signs of infection he has a large scab over the wound which will eventually heal and follow-up He is currently having nasal congestion and nasal discharge Patient have chronic nasal problem usually he is seen by ENT Dr. Bentley. But since he is having nasal discharge I have sent antibiotic for the patient. He has appointment 25 of October for his regular follow-up Medications: Refilled 2 cephalexin 500 mg PO QID 7 days 28 caps 0RF Coding Level of Care Code Est Pt Level 3 (80574) Diagnoses Wound of left lower extremity, initial encounter S81.802A Encounter type: initial encounter Acute rhinitis J00
[2023-09-29 11:59] VITALS: BP 138/84; PULSE 77; O2SAT 97; BMI 29.6
== END 2023-09-29 15:32 | disposition home or self-care (01) ==
LOC: HO.HMGC 11:53
PROVIDERS: PCP Internal Medicine; Visit Provider Internal Medicine
DX: S81.802A Unspecified open wound, left lower leg, initial encounter (principal); J00 Acute nasopharyngitis [common cold]
CPT/HCPCS: 99213

== ENCOUNTER 2023-10-23 08:06 | Outpatient (AMB) | payer MEDICARE, SELFPAY ==
[2023-06-28 09:56] VITALS: BP 142/54; BP 152/84; BMI 27.6
--- NOTE | 2023-10-23 08:13 | MHC.OFFVIS ---
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 Allergies atenolol Allergy (Unknown, Verified 10/23/23 08:16) Bradycardia ENVIROMENTAL Allergy (Unknown, Uncoded 09/22/23 10:17) ITCHY EYES/RUNNY NOSE Medication List - Last Reconciled 10/23/23 by Boogie Hunter MD adhesive tape Use for daily dressing change amlodipine 10 mg PO DAILY 90 days apixaban (Eliquis) 5 mg PO BID 90 days aspirin 81 mg PO DAILY atorvastatin 80 mg PO QPM blood sugar diagnostic (FreeStyle Lite Strips) test blood sugar once a day blood-glucose meter (FreeStyle Lite Meter kit) As directed brimonidine 0.2% 1 drp ophthalmic-Right BID cephalexin 500 mg PO QID 7 days chlorthalidone 50 mg PO DAILY 90 days fluticasone propionate 50 mcg/actuation (Flonase Allergy Relief) 1 spray intranasal DAILY gauze bandage Change dressing daily glipizide 5 mg PO BID lancets (FreeStyle Lancets) test blood sugar once a day latanoprost 0.005% 1 drp ophthalmic (eye) QPM loratadine 10 mg PO DAILY lorazepam 0.5 mg PO BEDTIME PRN meloxicam 7.5 mg PO DAILY 90 days metoprolol tartrate 25 mg PO BID 90 days minocycline 50 mg PO BID netarsudil 0.02% (Rhopressa) 1 drp ophthalmic-Right BEDTIME paroxetine HCl 10 mg PO DAILY sennosides-docusate sodium 8.6-50 mg (Senna with Docusate Sodium) 1 tab-cap PO BEDTIME timolol maleate 0.5% 1 drp ophthalmic (eye) BID [Xeroform gauze dressing 3 % bismuth As directed] HPI HPI Comments History of Present Illness Details Sergio returns for follow-up regarding coronary disease and bypass surgery. In the past, he was seen regarding an abnormal EKG showing a prior infarct and that led to further workup. He was describing some heartburn type symptoms but otherwise not much of activity at baseline. Started noninvasive workup, that led to diagnostic catheterization showing multivessel disease. Then went for bypass surgery. Otherwise, generally doing well. No clear-cut angina. His brother is about 5 years younger and he had to also have bypass surgery per history. Father had myocardial infarction tightness 40s. Sister also has some unclear cardiac issues. Hence overall strong family history. [facility] Medical History Atherosclerotic cardiovascular disease Depression, major, recurrent Chronic nasal congestion Diabetes mellitus type II, non insulin dependent Osteoarthritis of hand, left Obesity (BMI 30.0-34.9) Vertebral artery stenosis Cervical spondylosis Hypertension, essential Lipid disorder Hearing impaired Surgical History S/P CABG x 3 Hx of cholecystectomy Family History Father HTN (hypertension) Mother No problems noted. Social History Housing: House Alcohol intake: current Alcohol intake frequency: a few times a week Patient Tobacco Use Status: Former Tobacco user Quit Date: 1979 Smoked: 20 +/- e-Cigarette/Vaping Use: Never Used service: No Current occupational status: retired Cognitive needs: No Hearing needs: No Vision needs: Yes Review of Systems ENT Reports dizziness Card Denies chest pain, Denies chest pain at rest, Denies chest pain with activity, Denies rapid heart rate, Denies pedal edema, Denies edema, Denies leg edema, Denies lightheadedness, Denies palpitations, Denies dyspnea, Denies dyspnea on exertion and Denies orthopnea Resp Denies cough, Denies dyspnea and Denies dyspnea on exertion GI Denies hematochezia and Denies change in stool character Musc Denies abnormal gait, Reports limited range of motion, Reports muscle cramps, Denies muscle weakness, Denies numbness, Denies radiating pain into limb, Denies stiffness and Denies tingling Neuro Denies abnormal gait, Reports dizziness, Denies numbness and Denies tingling Endo Denies palpitations Physical Exam Vital Signs: Last Vital Signs Pulse 67 10/23/23 08:14 BP 134/72 10/23/23 08:14 BMI result Body Mass Index 29.6 Const General: comfortable and no acute distress Orientation/consciousness: patient oriented x3 HEENT Other: Unremarkable Head: Yes normal to inspection Neck Neck: Yes normal visual inspection Chest Chest palpation & inspection: normal inspection of the chest Resp Auscultation: clear to auscultation bilaterally Cardio Palpation: normal PMI Heart sounds: S1 normal heart sound present, S2 normal heart sound present, no gallops, no murmurs and no rubs GI Palpation (GI): Soft to palpation Back/Spine/Pelvis Other: unremarkable Skin General skin exam: no rashes or lesions noted Neuro General: patient oriented x3 Extrem General: Yes normal to inspection Psych Mental Status: mental status grossly normal Assessment & Plan Assessment & Plan (1) Atherosclerotic cardiovascular disease: Code(s): I25.10 - Atherosclerotic heart disease of [place] coronary artery without angina pectoris Plan: Status post bypass. Overall, doing well. No angina. Continue aspirin for the foreseeable future. Continue beta-blockers and statins. Check lipids. Request given. Cardiac rehabilitation. He wants to continue. (2) S/P CABG x 3: Comment: 04/2023. Contreras to LAD, left radial graft to OM, SVG graft to PDA Code(s): Z95.1 - Presence of aortocoronary bypass graft Plan: Mostly recovered apart from some possible sternotomy pains. (3) Paroxysmal A-fib: Code(s): I48.0 - Paroxysmal atrial fibrillation Plan: Postoperative atrial fibrillation. He does have a significant thromboembolic risk profile and hence continue Eliquis. No recurrent issues. (4) Hypertension, essential: Code(s): I10 - Essential (primary) hypertension Plan: Stable. Listed to be on amlodipine. Orders: Orders Lipid Panel Today E78.5 - Hyperlipidemia, unspecified Liver Panel Today I25.10 - Atherosclerotic heart disease of [place] coronary artery without angina pectoris Cardiac Rehab Today Z95.1 - Presence of aortocoronary bypass graft LDL Cholesterol Direct Today E78.2 - Mixed hyperlipidemia Coding Level of Care Code Est Pt Level 4 (22137) Diagnoses Atherosclerotic cardiovascular disease I25.10 S/P CABG x 3 Z95.1 Paroxysmal A-fib I48.0 Hypertension, essential I10
[2023-10-23 08:14] VITALS: BP 134/72; PULSE 67; BMI 29.6
== END 2023-10-23 08:43 | disposition home or self-care (01) ==
PROVIDERS: PCP Internal Medicine; Visit Provider Internal Medicine
DX: I25.10 Atherosclerotic heart disease of native coronary artery without angina pectoris (principal); Z95.1 Presence of aortocoronary bypass graft; I48.0 Paroxysmal atrial fibrillation; I10 Essential (primary) hypertension
CPT/HCPCS: 99214

== ENCOUNTER 2023-10-23 08:06 | Outpatient (REF) | payer MEDICARE, SELFPAY ==
[2023-06-28 09:56] VITALS: BP 142/54; BP 152/84; BMI 27.6
[2023-10-25 13:03] LABS: LDL Cholesterol Direct 85 mg/dL (<100)
== END 2023-10-23 08:07 | disposition home or self-care (01) ==
LOC: HO.LAB 08:06
PROVIDERS: PCP Internal Medicine; Visit Provider Internal Medicine
DX: E78.2 Mixed hyperlipidemia (principal); E78.5 Hyperlipidemia, unspecified; I25.10 Atherosclerotic heart disease of native coronary artery without angina pectoris; I10 Essential (primary) hypertension; I48.0 Paroxysmal atrial fibrillation; Z95.1 Presence of aortocoronary bypass graft
CPT/HCPCS: 36415; 80061; 80076; 83721; 99212

== ENCOUNTER 2023-10-25 12:58 | Outpatient (AMB) | payer MEDICARE, SELFPAY ==
[2023-06-28 09:56] VITALS: BP 142/54; BP 152/84; BMI 27.6
[2023-10-25 13:05] VITALS: BP 138/72; PULSE 81; O2SAT 95; BMI 29.9
--- NOTE | 2023-10-25 13:05 | MHC.PC.OV ---
Vital Signs 10/25/23 13:05 Height 6 ft Weight 220 lb 2 oz BMI 29.9 BP 138/72 Blood Pressure Location Lt brachial Position Sitting Pulse 81 Pulse Source Pulse Oximeter Pulse Oximetry (%) 95 Oxygen Delivery Method Room Air Intake Visit Reasons: 1 month f/u Allergies atenolol Allergy (Unknown, Verified 10/25/23 13:06) Bradycardia ENVIROMENTAL Allergy (Unknown, Uncoded 09/22/23 10:17) ITCHY EYES/RUNNY NOSE Medication List - Last Reconciled 10/25/23 by Shirin Davis MD adhesive tape Use for daily dressing change amlodipine 10 mg PO DAILY 90 days apixaban (Eliquis) 5 mg PO BID 90 days aspirin 81 mg PO DAILY atorvastatin 80 mg PO QPM blood sugar diagnostic (FreeStyle Lite Strips) test blood sugar once a day blood-glucose meter (FreeStyle Lite Meter kit) As directed brimonidine 0.2% 1 drp ophthalmic-Right BID cephalexin 500 mg PO QID 7 days chlorthalidone 50 mg PO DAILY 90 days ezetimibe (Zetia) 10 mg PO DAILY fluticasone propionate 50 mcg/actuation (Flonase Allergy Relief) 1 spray intranasal DAILY gauze bandage Change dressing daily glipizide 5 mg PO BID lancets (FreeStyle Lancets) test blood sugar once a day latanoprost 0.005% 1 drp ophthalmic (eye) QPM loratadine 10 mg PO DAILY lorazepam 0.5 mg PO BEDTIME PRN meloxicam 7.5 mg PO DAILY 90 days metoprolol tartrate 25 mg PO BID 90 days netarsudil 0.02% (Rhopressa) 1 drp ophthalmic-Right BEDTIME paroxetine HCl 10 mg PO DAILY sennosides-docusate sodium 8.6-50 mg (Senna with Docusate Sodium) 1 tab-cap PO BEDTIME timolol maleate 0.5% 1 drp ophthalmic (eye) BID [Xeroform gauze dressing 3 % bismuth As directed] Tobacco use date assessed: 10/25/23 Fall risk assessment: No Falls in past year Last assessed Fall Risk: 10/25/23 Dental Screening Dental Screen Date: 10/25/23 HPI 1 month f/u HPI Details Patient is 78-year-old male came in today for his regular follow-up appointment Patient had bypass surgery he is doing very well there is no shortness a breath no chest pain no swelling of ankles He is seeing Dr. Hunter [facility] at is on high-dose atorvastatin 10 mg His right leg want is healing well. Scab is almost fell off he has severe osteoarthritis in his hands, he has been taking meloxicam 7.5 mg however since he is on blood thinners I am stopping that He may continue with Tylenol only Diabetes mellitus: patient is on glipizide 5 mg, tolerating medication he is to continue that, hemoglobin A1c is stable Hypertension: patient is on amlodipine 10 mg chlorthalidone 50 mg and metoprolol 25 mg b.i.d., blood pressure is well controlled. His moods are stable as well patient is on paroxetine 10 mg for depression. BMI is elevated patient is trying to lose weight Allergies are stable with loratadine Follow-up 3 months PFS Medical History Atherosclerotic cardiovascular disease Depression, major, recurrent Chronic nasal congestion Diabetes mellitus type II, non insulin dependent Osteoarthritis of hand, left Obesity (BMI 30.0-34.9) Vertebral artery stenosis Cervical spondylosis Hypertension, essential Lipid disorder Hearing impaired Surgical History S/P CABG x 3 Hx of cholecystectomy Family History Father HTN (hypertension) Mother No problems noted. Social History Housing: House Alcohol intake: current Alcohol intake frequency: a few times a week Patient Tobacco Use Status: Former Tobacco user Quit Date: 1979 Smoked: 20 +/- e-Cigarette/Vaping Use: Never Used service: No Current occupational status: retired Cognitive needs: No Hearing needs: No Vision needs: Yes Review of Systems Const Denies chills and Denies fever(s) ENT Denies epistaxis and Denies nasal discharge Card Denies chest pain Resp Denies chest congestion, Denies cough and Denies hemoptysis GI Denies diarrhea and Denies nausea Skin/Breast Denies rash Neuro Reports no additional complaints Psych Reports no additional complaints Endo Reports no additional complaints Physical exam (Primary Care) Vital Signs: Last Vital Signs Pulse 81 10/25/23 13:05 BP 138/72 10/25/23 13:05 Pulse Ox 95 10/25/23 13:05 Oxygen Delivery Method Room Air 10/25/23 13:05 BMI result Body Mass Index 29.9 Tobacco/Smoking Status: Tobacco use Status Tobacco use date assessed 10/25/23 10/25/23 13:08 Patient Tobacco Use Status Former Tobacco user 10/25/23 13:08 e-Cigarette/Vaping Use Never Used 10/25/23 13:08 Const General: cooperative, comfortable and no acute distress Orientation/consciousness: patient oriented x3 HENMT Head: Yes normocephalic Eyes General: appearance normal, both eyes and all related structures Neck Neck: Yes supple Resp Effort & Inspection: normal respiratory effort, no cough and no stridor Cardio Rhythm: regular rhythm Heart sounds: S1 normal heart sound present and S2 normal heart sound present Skin General skin exam: turgor normal Neuro General: patient oriented x3, tone normal and moves all extremities Extrem Right lower extremity: no edema Left lower extremity: no edema Assessment and Plan Assessment & Plan (1) Paroxysmal A-fib: Code(s): I48.0 - Paroxysmal atrial fibrillation (2) Depression, major, recurrent: Code(s): F33.9 - Major depressive disorder, recurrent, unspecified Qualifiers: Active/Remission status: in partial remission Qualified Code(s): F33.41 - Major depressive disorder, recurrent, in partial remission (3) Diabetes mellitus type II, non insulin dependent: Code(s): E11.9 - Type 2 diabetes mellitus without complications (4) Hypertension, essential: Code(s): I10 - Essential (primary) hypertension (5) Lipid disorder: Code(s): E78.9 - Disorder of lipoprotein metabolism, unspecified (6) Rosacea: Code(s): L71.9 - Rosacea, unspecified (7) S/P CABG x 3: Comment: 04/2023. Contreras to LAD, left radial graft to OM, SVG graft to PDA Code(s): Z95.1 - Presence of aortocoronary bypass graft (8) Osteoarthritis of multiple joints: Code(s): M15.9 - Polyosteoarthritis, unspecified Qualifiers: Osteoarthritis type: primary Qualified Code(s): M15.9 - Polyosteoarthritis, unspecified (9) Hearing impaired: Code(s): H91.90 - Unspecified hearing loss, unspecified ear Qualifiers: Hearing loss type: unspecified Laterality: bilateral Qualified Code(s): H91.93 - Unspecified hearing loss, bilateral (10) Atherosclerotic cardiovascular disease: Code(s): I25.10 - Atherosclerotic heart disease of [place] coronary artery without angina pectoris Plan Patient is 78-year-old male came in today for his regular follow-up appointment Patient had bypass surgery he is doing very well there is no shortness a breath no chest pain no swelling of ankles He is seeing Dr. Hunter [facility] at is on high-dose atorvastatin 10 mg His right leg want is healing well. Scab is almost fell off he has severe osteoarthritis in his hands, he has been taking meloxicam 7.5 mg however since he is on blood thinners I am stopping that He may continue with Tylenol only Diabetes mellitus: patient is on glipizide 5 mg, tolerating medication he is to continue that, hemoglobin A1c is stable Hypertension: patient is on amlodipine 10 mg chlorthalidone 50 mg and metoprolol 25 mg b.i.d., blood pressure is well controlled. His moods are stable as well patient is on paroxetine 10 mg for depression. BMI is elevated patient is trying to lose weight Allergies are stable with loratadine Follow-up 3 months Orders: Orders Complete Blood Count Auto Diff Today E11.9 - Type 2 diabetes mellitus without complications, E78.9 - Disorder of lipoprotein metabolism, unspecified, F33.9 - Major depressive disorder, recurrent, unspecified, I10 - Essential (primary) hypertension, I48.0 - Paroxysmal atrial fibrillation, L71.9 - Rosacea, unspecified Lipid Panel 3 Months E11.9 - Type 2 diabetes mellitus without complications, E78.9 - Disorder of lipoprotein metabolism, unspecified, F33.9 - Major depressive disorder, recurrent, unspecified, I10 - Essential (primary) hypertension, I48.0 - Paroxysmal atrial fibrillation, L71.9 - Rosacea, unspecified Hemoglobin A1c Today E11.9 - Type 2 diabetes mellitus without complications, E78.9 - Disorder of lipoprotein metabolism, unspecified, F33.9 - Major depressive disorder, recurrent, unspecified, I10 - Essential (primary) hypertension, I48.0 - Paroxysmal atrial fibrillation, L71.9 - Rosacea, unspecified Comprehensive [place]. Panel Fast Today E11.9 - Type 2 diabetes mellitus without complications, E78.9 - Disorder of lipoprotein metabolism, unspecified, F33.9 - Major depressive disorder, recurrent, unspecified, I10 - Essential (primary) hypertension, I48.0 - Paroxysmal atrial fibrillation, L71.9 - Rosacea, unspecified Medications: Discontinued meloxicam Discontinued Reason: Doctor's Order 7.5 mg PO DAILY 90 tabs 0RF 90 days lorazepam Discontinued Reason: Patient Completed Course 0.5 mg PO BEDTIME PRN 7 tabs 0RF anxiety cephalexin Discontinued Reason: Patient Completed Course 500 mg PO QID 28 caps 0RF 7 days Coding Level of Care Code Est Pt Level 4 (31399) Diagnoses Paroxysmal A-fib I48.0 Recurrent major depressive disorder, in partial remission F33.41 Active/Remission status: in partial remission Diabetes mellitus type II, non insulin dependent E11.9 Hypertension, essential I10 Lipid disorder E78.9 Rosacea L71.9 S/P CABG x 3 Z95.1 Primary osteoarthritis involving multiple joints M15.9 Osteoarthritis type: primary Bilateral hearing loss, unspecified hearing loss type H91.93 Hearing loss type: unspecified Laterality: bilateral Atherosclerotic cardiovascular disease I25.10
== END 2023-10-25 13:37 | disposition home or self-care (01) ==
LOC: HO.HMGC 12:58
PROVIDERS: PCP Internal Medicine; Visit Provider Internal Medicine
DX: I48.0 Paroxysmal atrial fibrillation (principal); F33.41 Major depressive disorder, recurrent, in partial remission; E11.9 Type 2 diabetes mellitus without complications; I10 Essential (primary) hypertension; E78.9 Disorder of lipoprotein metabolism, unspecified; L71.9 Rosacea, unspecified; Z95.1 Presence of aortocoronary bypass graft; M15.9 Polyosteoarthritis, unspecified; H91.93 Unspecified hearing loss, bilateral; I25.10 Atherosclerotic heart disease of native coronary artery without angina pectoris
CPT/HCPCS: 99214

== ENCOUNTER 2023-11-06 07:00 | Outpatient (RCR) | payer MEDICARE, SELFPAY ==
[2023-06-28 09:56] VITALS: BP 142/54; BP 152/84; BMI 27.6
--- NOTE | 2023-06-28 10:59 | MHC.CR.ITI ---
[address] [phone] F: [phone] Please see additional notes from [facility] Initial Assessment/ITP Cardiac Rehab Initial Assessment/ITP Start: 06/23/23 07:45 Freq: Status: Active Protocol: Activity Type Activity Date Activity User E-sign Co-sign Detail Recorded Client Recorded Date Recorded By Document 06/28/23 09:56 RIAAnna Desktop 06/23/23 08:02 INDIANAFELA 06/28/23 09:56 Cardiac Rehab ITP Initial [Excercise] -Sand Hauler Required No -Preferred Language Spanish -Number of sessions approved 36 -Diagnosis CABG Z95.1 -Other Diagnosis HTN,HLD, DM. 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 Has bandage on RLL. States a rug hit his RLL and reopened area. He is using VASHE Solution. He will look at area again and contact PCP if he feels it is needed. RN looked at area as requested by patient Area is open without drainage, redness or swelling. Opening is approximately 1 /4 x 1 in. He has Xeroform covered by gauze. S/S to report discussed. Lungs clear, no peripheral edema. Sternal incision c/d. [Functional Assessment] -6 Min Walk (distance in ft) 1,025 -METS Achieved 2.49 -Resting HR 73 -Resting BP 142/54 -Resting SpO2 97 -Exercise HR 95 -Exercise BP 152/84 -Exercise SpO2 98 -RPE 13 -Dyspnea No -ECG Summary SR -Comments Tel. SR with occasional PVC. [Pre Rehab] -Pre Rehab Home Exercise No -Comments He is not exercising at this time. He walks short distances with a cane. He states he is deconditioned due to SOB and fatigue prior to surgery. -Risk Stratification: Low Risk Uncomplicated Participants HI; CABG; angioplasty; atherectomy,No significant left ventricular dysfunction (EF > = 30%) -Assistive Devices Cane -Comments States he feels weak. No recent falls. He uses a cane due to leg weakness(no change) [Exercise Plan] [Intervention] -Exercise Prescription NuStep, Recumbent Bike, Recumbent Elliptical, Treadmill,UBE, Upright Bike, Weights -Duration Intensity 36 Sessions -Frequency 2-3x/week -Angina with Exercise No [Exercise Education] -Exercise Education Exercise orientation, Exercise safety ,Home exercise, RPE,Self pulse checking,Signs and symptoms, Warmup/cooldown -Date Completed 06/27/23 -Initials CD -Education Summary 06/27/23- Orientation to gym; safe exercise guidelines, s/s , rpe, warm up/ cool down reviewed [Exercise Goals] -Exercise Most Days of the Week Yes -Exercise 30-45 mins/day Yes -Target HR Range +20 - +30 beats above resting -Target RPE range 11-13 -Increase METS next 30 days 0.5-1.0 METS Every two weeks -METs goal by Discharge 4 METS -Comments Library Paraprofessional will set up initial exercise program based on 6MW. Walked 1025 feet [Nutrition] [Hyperlipidemia] -Hyperlipidemia Yes -Are lab results available No [Diabetes] -Diabetes Yes -HbA1C 7.80 -Monitors Glucose No [Weight Management] -Height 6 ft -Weight 92.5 kg -BMI 27.65 -Recommended Diet Low Fat, Salt -Comments He gets MOW. States he eats bland foods . He has started to gain weight ; his appetite has now improved. [Drug/Alchohol Use] -Drug/Alcohol Use No -Type Beer/Vodka -Amount 1 -Comment He likes a beer (1) once in awhile if he goes to the [facility] [Nutritional Screen (Rate Your Plate)] -Comments He does not have glasses. He will bring Rate A Plate at next session. [Nutrition Plan] [Intervention] -Referral(s) Nutrition Brochures [Nutrition Education] -Nutrition Education Diabetes and excercise, Hydration, Nutrition, Reading food labels,Signs and symptoms of Hypo/Hyper- glycemia -Date Completed 06/27/23 -Initials CD -Education Summary 06/27/23-Above discussed [Nutrition Goals] -Goals BMI < 25, Fasting BG 80- 120 mg/dL,HDL > 40,LDL < 70, Total CHOL < 200 -Weight goal 185 -Comments States he is starting to eat again. [Psycho/Social] -Stage of Change Action -Learning Barriers None -Occupation Retired -Plan of Action/Follow-up PHQ9 will be returned at next session. He does not have glasses. -Comments Retired for 16- 17 years -Patient Self-Reports Depression Yes -Family Support Lives with spouse/others -Comments Daughter has MS . He takes Paxil for anxiety. Daughter's spouse has . Patient does not have spouse or partner at this time. He does not want assistance at home. He has Meals on Wheels . Daughter walks with cane ; states daughter can be forgetful(50 yrs. old). CM is involved for daughter. [Psycho/Social Plan] [Intervention] -Referral(s) Patient refused consults [Psycho/Social Education] -Psycho/Social Education Advanced directives, Coping techniques, Depression and CAD,Positive support system, Relaxation Techniques, Reviewed PHQ9 Score w/pt, Signs and symptoms of CAD ,Stress management -Date Completed 06/27/23 -Initials CD -Education Summary 06/27/23-CM have given him phone numbers if he needs assistance with Anxiety/ Depression. He does not want counseling at this time. He will return PHQ 9 next session ; he does not have glasses. He will get transportation for Cardiac Rehab. He watches TV and reads sports for relaxation. He will reach out to staff if he would like counseling. [Psycho/Social Goals] -Goals Manage/reduce stress [Other Core Comp] [Risk Factors] -Risk Factors Diabetes, Dyslipidemia, Hypertension, Physical Inactivity -Comments: Follows A1C every 3 months with PCP. He does not check BS. Would like to gain strength and endurance in cardiac rehab. He is unsure of Lipid Profile results. [Hypertension] -Hypertention Yes -Resting BP: 142/54 [Tobacco Use] -Patient Tobacco Use Status Former Tobacco user -Years smoked 20 +/- -Smoking Quit Date 1979 -Exposure to secondhand smoke No [Heart Failure] -Heart Failure No [Other Core Comp Plan] [Intervention] -Referral(s) Self Monitoring BP [Other Core Comp Education] -Other Core Comp Education Medication compliance,Risk factor modifications, RPD Scale/SOB management, Understanding hypertension -Date Completed 06/27/23 -Initials CD -Education Summary Takes medications as prescribed. States name and reason for medications. He will discuss BP Cuff with PCP(get order if approved). He is comfortable with BP being checked at Cardiac Rehab. [Other Core Comp Goals] -Goals Manage risk factors, Medication compliance, Resting BP < 130/80 -Comments 06/27/23-He has BP Cuff at home . He will check if it is working. Discussed having PCP order cuff if needed. Plan to increase exercise and continue modifying diet. Classes per CR education schedule. [Medication Plan] [Intervention] -Medications Acetaminophen 975MG every 6 HRS. PRN Apixiban 5MG BID ASA 81 MG Daily Atorvastatin 80MG at HS Brimonidine 0.2 % 1 drop right eye BID Chlorthalidone 50MG Daily Vashe Topical Solution every 12 HRS-Sternum Glipizide 5MG Daily Latanoprost OPTH Phylicia, .oo5% %, 2 gtts both eyes at HS Metoprolol 25MG 1 tab BID Rhopressa 0.02% 1 drop right eye at HS Paxil 10 MG Daily Timolol 0.5% OPTH Phylicia. 2 drops both eyes BID -Compliance Patient reports compliance w/ prescribed meds [Medication Education] -Education Importance of medication compliance, Medication purpose, Medication schedule, Medication side effects -Date Completed 06/27/23 -Initials CD -Education Summary Expresses he had difficulty filling medications after surgery. No issues at this time. [Medication Goals] -Goals Adherence to medication compliance -Comments No isue at this time. [Treatment Times] -Rehab Services with ECG Monitor -Time 10 -End Time 11 -Visit Duration 60
[2023-11-21 07:49] VITALS: BP 142/54; BP 152/84; BMI 27.6
--- NOTE | 2023-11-21 08:35 | MHC.CR.ITD ---
[address] [phone] F: [phone] Please see additional notes from [address] [phone] F: [phone] Please see additional notes from [address] [phone] F: [phone] Please see additional notes from [facility] Cardiac Rehab Discharge/ITP Cardiac Rehab Discharge/ITP Start: 06/23/23 07:45 Freq: Status: Active Protocol: Activity Type Activity Date Activity User E-sign Co-sign Detail Recorded Client Recorded Date Recorded By Document 11/21/23 07:49 BRANDIE [id number] 11/21/23 08:22 BRANDIE 11/21/23 07:49 Cardiac Rehab Discharge/ITP [Exercise] -[employer] Worker Required No -Preferred Language Bulgarian -Total Sessions Attended 36 -Comments Also Bilateral Venous Stasis. Has bandage on RLL. States a rug hit his RLL and reopened area. He is using VASHE Solution. He will look at area again and contact PCP if he feels it is needed. RN looked at area as requested by patient Area is open without drainage, redness or swelling. Opening is approximately 1 /4 x 1 in. He has Xeroform covered by gauze. S/S to report discussed. Lungs clear, no peripheral edema. Sternal incision c/d. Discharge- Sharon completed 36 sessions of CR. He is increased his exercise time and intensity without CV complaints. His 6MW at discharge was 950 feet vs 1025 at entrance. Sharon was having back discomfort and leg weakness at time of discharge. He takes Tylenol BID; states there is nothing else zainab can be done . He does not wish to have injections or follow up with MD further for pain management . He did not return his PHQ9 or Rate a Plate at this time. He will be joining the phase three program. He attained 3 METS, VSS. Tel. SR during CR. Sharon follows up with MD's as recommended. He does have an area on lower right leg that opens intermittently. He was encouraged to follow with MD. It was agin scabbed over at discharge. He had been treated with AB during CR. [Functional Assessment] -6 Min Walk (distance in ft) 1,025 -METS Achieved 2.49 -Resting HR 73 -Resting BP 142/54 -Resting SpO2 97 -Exercise HR 95 -Exercise BP 152/84 -RPE 13 -ECG Summary Tel. SR. Mets 2 .38 at discharge. RPE 11. O2 Sat 97%. Completed 950 feet. [Exercise Plan] [Intervention] -Exercise Prescription NuStep, Recumbent Bike, Recumbent Elliptical, Treadmill,UBE, Upright Bike, Weights -Duration Intensity 36 Sessions -Angina with Exercise No [Home Exercise] -Comments Sharon will be joining the phase 3 program . He has been atending phase 2 CR 2-3 times a week. He mainly does ADL 's, walks in stores at home. He also assists daughter at home. [Exercise Education] -Exercise Education Exercise orientation, Exercise safety ,Home exercise, RPE,Self pulse checking,Signs and symptoms, Warmup/cooldown -Date Completed 06/27/23 -Initials CD -Education Summary 06/27/23- Orientation to gym; safe exercise guidelines, s/s , rpe, warm up/ cool down reviewed Discharge- Exercise guidelines discussed at. Sharon will be joining the phase 3 program . RPE reinforced. Sharon does report when he feels he is working beyond RPE of 13. [Exercise Goals] -Exercise Most Days of the Week Yes -Exercise 30-45 mins/day Yes -Target HR Range +20 - +30 beats above resting -Target RPE range 11-13 -Increase METS next 30 days 0.5-1.0 METS Every two weeks -METs goal by Discharge 4 METS -Comments Moth Proofer will set up initial exercise program based on 6MW. Walked 1025 feet.time Discharge- Increased exercise time to 20 min. on each piece of equipment vs increasing intensity due to arthritic discomfort. 3 METS was attained. [Nutrition] [Hyperlipidemia] -Are lab results available No -Hyperlipidemia Yes [Diabetes] -Diabetes Yes -HbA1C 7.50 -Date 09/04/23 -Medication Changes No -Comments On Glipizide 5MG BID. He now has a Glucometer to check BS. It can be difficult for Sharon to express understanding of information given, or relay information. S /P CVA. He does like to cook. Heart healthy, lower carbohydrate information was given. AiC slightly decreased from 7.7 to 7.5. Average Glucose in Nov. was 169. [Weight Management] -Weight 92.5 kg -BMI 27.65 -Comments He gets MOW. States he eats bland foods . He has started to gain weight ; his appetite has now improved. Discharge - Weight 96.9 KG. BMI 28.97. Sharon likes to cook. Some of his meals would not be consideed heart healthy. [Drug/Alchohol Use] -Drug/Alcohol Use No -Change in Use No -Comment He likes a beer (1) once in awhile if he goes to the [facility] [Nutrition Plan] [Intervention] -Attended Nutrition Brochures [Nutrition Education] -Nutrition Education Diabetes and excercise, Hydration, Nutrition, Reading food labels,Signs and symptoms of Hypo/Hyper- glycemia -Date Completed 06/27/23 -Initials CD -Education Summary 06/27/23-Above discussed. Discharge- The above information was discussed. As stated above, Sharon has difficulty discussing, relaying infrmation. He did state, at discharge, the need to stay hydrated and monitor BS, A1C . Information will be reinforced while in the phase 3 program . [Nutrition Goals] -Goals BMI < 25, Fasting BG 80- 120 mg/dL,HDL > 40,LDL < 70, Total CHOL < 200 -Weight goal 185 -Comments States he is starting to eat again. D/C-Weight increased while in the program . Education to continue while in the phase 3 program. [Psycho/Social] -Stage of Change Action -Occupation Retired -Plan of Action/Follow-up PHQ9 will be returned at next session. He does not have glasses. Initial PHQ9 was rated a six . He did not return discharge PHQ9. WIll follow when he joins the maintenance program. He enjoys the socialization of the program. -Patient Self-Reports Depression Yes -Comments Retired for 16- 17 years [Psycho/Social Plan] [Intervention] -Attended Patient refused consults [Psycho/Social Education] -Psycho/Social Education Advanced directives, Coping techniques, Depression and CAD,Positive support system, Relaxation Techniques, Reviewed PHQ9 Score w/pt, Signs and symptoms of CAD ,Stress management -Date Completed 06/27/23 -Initials CD -Education Summary 06/27/23-CM have given him phone numbers if he needs assistance with Anxiety/ Depression. He does not want counseling at this time. He will return PHQ 9 next session ; he does not have glasses. He will get transportation for Cardiac Rehab. He watches TV and reads sports for relaxation. He will reach out to staff if he would like counseling. Discharge- Family is supportive. He enjoys shopping /cooking. Initial PHQ9 discussed. He attended education sessions on coping, relaxation, depression and chronic illness . He would like to increase his ability to walk vs seated exercise. [Psycho/Social Goals] -Goals Manage/reduce stress -Comments D/C- Having assistance for daughter increased as needed discussed. He enjoys the socialization of cardiac rehab and is happy that he has increased his exercise time/intensity. He finds his limited abilty to walk long distcances stressful. He will continue [facility] phase 3 and work on walking distance. He has been motivated to increase his optimal level of functioning. [Other Core Comp] [Hypertension] -Hypertention Yes -Resting BP: 142/54 -Medication Changes No -Comments Resting BP 122/ 68 at discharge . Attended education session of HTN. [Tobacco Use] -Change in Use No [Heart Failure] -Dyspnea at Rest No -Dyspnea with Exercise No [Other Core Comp Plan] [Intervention] -Attended Self Monitoring BP [Other Core Comp Education] -Other Core Comp Education Medication compliance,Risk factor modifications, RPD Scale/SOB management, Understanding hypertension -Date Completed 06/27/23 -Initials CD -Education Summary Takes medications as prescribed. States name and reason for medications. He will discuss BP Cuff with PCP(get order if approved). He is comfortable with BP being checked at Cardiac Rehab. D/C-BP will be checked at phase 3 program . Attended education session on Risk Modification. [Other Core Comp Goals] -Goals Manage risk factors, Medication compliance, Resting BP < 130/80 -Comments 06/27/23-He has BP Cuff at home . He will check if it is working. Discussed having PCP order cuff if needed. Plan to increase exercise and continue modifying diet. Classes per CR education schedule. D/C-No issues with medication compliance. VSS. [Medication Plan] [Intervention] -Medications Acetaminophen 975MG every 6 HRS. PRN Apixiban 5MG BID ASA 81 MG Daily Atorvastatin 80MG at HS Brimonidine 0.2 % 1 drop right eye BID Chlorthalidone 50MG Daily Vashe Topical Solution every 12 HRS-Sternum Glipizide 5MG Daily Latanoprost OPTH Phylicia, .oo5% %, 2 gtts both eyes at HS Metoprolol 25MG 1 tab BID Rhopressa 0.02% 1 drop right eye at HS Paxil 10 MG Daily Timolol 0.5% OPTH Phylicia. 2 drops both eyes BID [ End ] -Compliance Patient reports compliance w/ prescribed meds [Medication Education] -Education Importance of medication compliance, Medication purpose, Medication schedule, Medication side effects -Date Completed 06/27/23 -Initials CD -Education Summary Expresses he had difficulty filling medications after surgery. No issues at this time. D/C- As above [Medication Goals] -Comments No issue at this time. D/C-No issues
== END 2023-11-21 08:36 | disposition home or self-care (01) ==
LOC: HO.CR 07:00
PROVIDERS: PCP Internal Medicine; Visit Provider Thoracic Surgery (Cardiothoracic Vascular Surgery)
DX: Z95.1 Presence of aortocoronary bypass graft (principal)
CPT/HCPCS: 93798

== ENCOUNTER 2023-12-07 08:10 | Outpatient (AMB) | payer MEDICARE, SELFPAY ==
[2023-12-07 08:40] VITALS: BP 152/90; PULSE 70; TEMP 36.5; O2SAT 96; BMI 30.6
--- NOTE | 2023-12-07 08:40 | MHC.OFFWIV ---
Intake Vital Signs 12/07/23 08:40 Height 6 ft Weight 226 lb BMI 30.6 BP 152/90 H Blood Pressure Location Lt brachial Position Sitting Pulse 70 Pulse Source Pulse Oximeter Temp 97.7 F Temp Source Temporal Artery Scan Pulse Oximetry (%) 96 Oxygen Delivery Method Room Air Intake Visit Reasons: EP ?Sinus/Ear infection Intake Note: pt is here today for sinus ear infection started 2 weeks ago Patient Tobacco Use Status: Former Tobacco user Quit Date: 1979 Allergies atenolol Allergy (Unknown, Verified 12/07/23 08:41) Bradycardia ENVIROMENTAL Allergy (Unknown, Uncoded 09/22/23 10:17) ITCHY EYES/RUNNY NOSE Do you need a note to return to daycare/school/sports/work: No HPI HPI Comments History of Present Illness Details 78 y/o male patient who presents to walk in clinic with c/o sinus pressure x 2 weeks. Denies fevers, chills, nausea or vomiting. Reports bilateral ear pain and feeling blocked. [facility] Medical History Atherosclerotic cardiovascular disease Depression, major, recurrent Chronic nasal congestion Diabetes mellitus type II, non insulin dependent Osteoarthritis of hand, left Obesity (BMI 30.0-34.9) Vertebral artery stenosis Cervical spondylosis Hypertension, essential Lipid disorder Hearing impaired Surgical History S/P CABG x 3 Hx of cholecystectomy Family History Father HTN (hypertension) Mother No problems noted. Social History Housing: House Alcohol intake: current Alcohol intake frequency: a few times a week Patient Tobacco Use Status: Former Tobacco user Quit Date: 1979 Years Smoked: 20 +/- e-Cigarette/Vaping Use: Never Used service: No Current occupational status: retired Cognitive needs: No Hearing needs: No Vision needs: Yes Review of Systems Const All systems reviewed & are unremarkable except as noted in HPI and below Physical Exam Vital Signs: Last Vital Signs Temp 97.7 F 12/07/23 08:40 Pulse 70 12/07/23 08:40 BP 152/90 H 12/07/23 08:40 Pulse Ox 96 12/07/23 08:40 Oxygen Delivery Method Room Air 12/07/23 08:40 BMI result Body Mass Index 30.6 Const General: comfortable HEENT Head: Yes normocephalic Ears: external ears normal and TM abnormal obstructed by cerumen General nose exam: Normal nasal mucous membranes and turbinates present and Abnormal external nose present nasal erythema Face and sinus: Yes sinuses nontender Throat: Yes posterior oropharynx normal Resp Effort & Inspection: normal respiratory effort and able to speak in complete sentences Auscultation: clear to auscultation bilaterally Cardio Rate: regular rate Rhythm: regular rhythm Assessment & Plan Assessment & Plan (1) Cerumen impaction: Code(s): H61.20 - Impacted cerumen, unspecified ear Qualifiers: Laterality: bilateral Qualified Code(s): H61.23 - Impacted cerumen, bilateral Plan: - Debrox x 7 days - RTC for Ear lavage - Orders: Orders SARS-CoV2/FLU/RSV Today J00 - Acute nasopharyngitis [common cold] Medications: New carbamide peroxide 6.5% (Debrox) 5 drps otic (ears) BID 7 days 15 mL 0RF H61.23 - Impacted cerumen, bilateral Coding Level of Care Code Est Pt Level 3 (56042) Diagnoses Bilateral impacted cerumen H61.23 Laterality: bilateral Time Spent (min) 15
== END 2023-12-07 09:32 | disposition home or self-care (01) ==
PROVIDERS: PCP Internal Medicine; Visit Provider Nurse Practitioner Family
DX: H61.23 Impacted cerumen, bilateral (principal)
CPT/HCPCS: 99213

== ENCOUNTER 2023-12-07 09:14 | Outpatient (REF) | payer MEDICARE, SELFPAY ==
[2023-12-07 13:06] LABS: Influenza A PCR NEGATIVE (Negative); Influenza B PCR NEGATIVE (Negative); Resp Syncy Virus RNA Qual PCR NEGATIVE (Negative); SARS COV2 PCR INHOUSE NEGATIVE (Negative)
== END 2023-12-07 09:15 | disposition home or self-care (01) ==
LOC: HO.LAB 09:14
PROVIDERS: Visit Provider Nurse Practitioner Family
DX: J00 Acute nasopharyngitis [common cold] (principal); Z11.52 Encounter for screening for COVID-19; Z20.828 Contact with and (suspected) exposure to other viral communicable diseases
CPT/HCPCS: 0241U

== ENCOUNTER 2024-01-22 08:29 | Outpatient (REF) | payer MEDICARE, SELFPAY ==
[2024-01-22 11:09] LABS: Cholesterol 123 mg/dL (<200); HDL Cholesterol 44 mg/dL (>40); LDL Cholesterol Calculated 61 mg/dL (<100); Triglycerides 90 mg/dL (<150)
== END 2024-01-22 08:30 | disposition home or self-care (01) ==
LOC: HO.HMGCLDS 08:29
PROVIDERS: PCP Internal Medicine; Visit Provider Internal Medicine
DX: I48.0 Paroxysmal atrial fibrillation (principal); F33.9 Major depressive disorder, recurrent, unspecified; E11.9 Type 2 diabetes mellitus without complications; I10 Essential (primary) hypertension; E78.9 Disorder of lipoprotein metabolism, unspecified; L71.9 Rosacea, unspecified
CPT/HCPCS: 36415; 80061

== ENCOUNTER 2024-01-24 08:32 | Outpatient (AMB) | payer MEDICARE, SELFPAY ==
[2024-01-24 08:34] VITALS: BP 142/84; PULSE 69; TEMP 36.7; O2SAT 97; BMI 31.0
--- NOTE | 2024-01-24 08:34 | MHC.PC.OV ---
Vital Signs 01/24/24 08:34 Height 6 ft Weight 228 lb 4 oz BMI 31.0 BP 142/84 H Blood Pressure Location Lt brachial Position Sitting Pulse 69 Pulse Source Pulse Oximeter Temp 98.1 F Temp Source Oral Pulse Oximetry (%) 97 Oxygen Delivery Method Room Air Intake Visit Reasons: 9m follow up Allergies atenolol Allergy (Unknown, Verified 01/24/24 08:37) Bradycardia ENVIROMENTAL Allergy (Unknown, Uncoded 09/22/23 10:17) ITCHY EYES/RUNNY NOSE Medication List - Last Reconciled 01/24/24 by Shirin Davis MD adhesive tape Use for daily dressing change amlodipine 10 mg PO DAILY 90 days apixaban (Eliquis) 5 mg PO BID 90 days aspirin 81 mg PO DAILY atorvastatin 80 mg PO QPM blood sugar diagnostic (FreeStyle Lite Strips) test blood sugar once a day blood-glucose meter (FreeStyle Lite Meter kit) As directed brimonidine 0.2% 1 drp ophthalmic-Right BID carbamide peroxide 6.5% (Debrox) 5 drps otic (ears) BID 7 days chlorthalidone 50 mg PO DAILY 90 days ezetimibe 10 mg PO DAILY fluticasone propionate 50 mcg/actuation (Flonase Allergy Relief) 1 spray intranasal DAILY gauze bandage Change dressing daily glipizide 5 mg PO BID lancets (FreeStyle Lancets) test blood sugar once a day latanoprost 0.005% 1 drp ophthalmic (eye) QPM loratadine 10 mg PO DAILY metoprolol tartrate 25 mg PO BID 90 days minocycline 50 mg PO DAILY miscellaneous medical supply As directed netarsudil 0.02% (Rhopressa) 1 drp ophthalmic-Right BEDTIME paroxetine HCl 10 mg PO DAILY sennosides-docusate sodium 8.6-50 mg (Senna with Docusate Sodium) 1 tab-cap PO BEDTIME timolol maleate 0.5% 1 drp ophthalmic (eye) BID [Xeroform gauze dressing 3 % bismuth As directed] Tobacco use date assessed: 01/24/24 Fall risk assessment: No Falls in past year Last assessed Fall Risk: 01/24/24 Dental Screening Dental Screen Date: 01/24/24 Did you have a dental visit in the last 12 months?: No Did you have a dental problem in the last 6 months where you did not have access to dental care?: No Was dental information given to patient?: No HPI 9m follow up HPI Details Patient is 78-year-old male came in today for his regular follow-up appointment Patient is in his usual state of health he has severe osteoarthritis in his hands, currently taking Tylenol only which is not controlling his pain, however he does not want to take anything stronger Diabetes mellitus: patient is on glipizide 5 mg, tolerating medication he is to continue that, hemoglobin A1c is stable Hypertension: patient is on amlodipine 10 mg chlorthalidone 50 mg and metoprolol 25 mg b.i.d., blood pressure is slightly elevated today we will continue to monitor His moods are stable as well patient is on paroxetine 10 mg for depression. BMI is elevated patient is trying to lose weight Allergies are stable with loratadine Patient had bypass surgery he is doing very well there is no shortness a breath no chest pain no swelling of ankles He is seeing Dr. Hunter [facility] at is on high-dose atorvastatin 10 mg Obesity with elevated BMI need to lose weight Follow-up 3 months [facility] Medical History Atherosclerotic cardiovascular disease Depression, major, recurrent Chronic nasal congestion Diabetes mellitus type II, non insulin dependent Osteoarthritis of hand, left Obesity (BMI 30.0-34.9) Vertebral artery stenosis Cervical spondylosis Hypertension, essential Lipid disorder Hearing impaired Surgical History S/P CABG x 3 Hx of cholecystectomy Family History Father HTN (hypertension) Mother No problems noted. Social History Housing: House Alcohol intake: current Alcohol intake frequency: a few times a week Patient Tobacco Use Status: Former Tobacco user Quit Date: 1979 Years Smoked: 20 +/- e-Cigarette/Vaping Use: Never Used service: No Current occupational status: retired Cognitive needs: No Hearing needs: No Vision needs: Yes Questionnaire PHQ-9 Over the last 2 weeks, how often have you been bothered by any of the following problems? 1. Little interest or pleasure in doing things: not at all 2. Feeling down, depressed, or hopeless: not at all 3. Trouble falling or staying asleep, or sleeping too much: not at all 4. Feeling tired or having little energy: not at all 5. Poor appetite or overeating: not at all 6. Feeling bad about yourself - or that you are a failure or have let yourself or your family down: not at all 7. Trouble concentrating on things, such as reading the newspaper or watching television: not at all 8. Moving or speaking so slowly that other people could have noticed. Or the opposite - being so fidgety or restless that you have been moving around a lot more than usual: not at all 9. Thoughts that you would be better off or of hurting yourself in some way: not at all Total score: 0 Depression Screening Interpretation: Negative Depression Screening Done: Yes 45940 - PHQ-9 Billing: Yes Source: Developed by Drs. Manolo Ma, Angle Chen, Loco Estrella and colleagues, with an educational donovan from [employer]. Thrive Questionnaire Date Thrive assessed: 01/24/24 I am a: Patient What is your living situation today?: I have a steady place to live Within the past 12 months, did the food you bought not last and you didn't have the money to get more?: Sometimes True Within the past 12 months, did you worry whether your food would run out before you got money to buy more?: Sometimes True Do you have trouble paying for medicines?: Yes Do you have trouble getting transportation to medical appointments?: Yes Do you have trouble paying your heating and electricity bill?: Yes Do you have trouble taking care of your child, family member or friend?: Yes Do you have trouble with day-to-day activities such as bathing, preparing meals, shopping, managing finances, etc.?: Yes Are you currently unemployed and looking for a job?: No Are you interested in more education?: No Please select the resources that you would like help with: Food, Paying for medicine and Transportation Currently or been in a relationship where the following occur: no concerns reported THRIVE Score: 4 AUDIT C Alcohol Use Questionnaire (AUDIT-C) 1. How often do you have a drink containing alcohol?: Never 3. How often do you have six or more drinks on one occasion?: Never Total Score: 0 Score Reviewed/Action Taken: Yes ELIO-7 AMB Questionnaire ELIO-7 Date ELIO - 7 assessed: 01/24/24 Feeling nervous, anxious, or on edge: 0 = Not at all Not being able to stop or control worryin = Not at all Worrying too much about different things: 0 = Not at all Trouble relaxin = Not at all Being so restless that it is hard to sit still: 0 = Not at all Becoming easily annoyed or irritable: 0 = Not at all Feeling afraid as if something awful might happen: 0 = Not at all Total ELIO-7 score (0-4 normal; 5-9 mild; 10-14 moderate; 15-21 severe): 0 Source: Developed by Drs. Manolo Ma, Angle Chen, Loco Estrella and colleagues, with an educational donovan from [employer]. ELIO-7 Assessment Billing ELIO-7 Assessment Tool: ELIO-7 Assessment 50010 Review of Systems Const Denies chills and Denies fever(s) ENT Denies epistaxis and Denies nasal discharge Card Denies chest pain Resp Denies chest congestion, Denies cough and Denies hemoptysis GI Denies diarrhea and Denies nausea Skin/Breast Denies rash Neuro Reports no additional complaints Psych Reports no additional complaints Endo Reports no additional complaints Physical exam (Primary Care) Vital Signs: Last Vital Signs Temp 98.1 F 01/24/24 08:34 Pulse 69 01/24/24 08:34 BP 142/84 H 01/24/24 08:34 Pulse Ox 97 01/24/24 08:34 Oxygen Delivery Method Room Air 01/24/24 08:34 BMI result Body Mass Index 31.0 Tobacco/Smoking Status: Tobacco use Status Tobacco use date assessed 01/24/24 01/24/24 08:41 Patient Tobacco Use Status Former Tobacco user 01/24/24 08:41 e-Cigarette/Vaping Use Never Used 01/24/24 08:41 PHQ-9: PHQ-9 Score PHQ-9: Total score 0 01/24/24 08:59 Depression Screening Interpretation: Negative Thrive Assessment: Date of Thrive Assessment Date Thrive assessed 01/24/24 01/24/24 08:59 Currently or been in a relationship where the following occur: no concerns reported Const General: cooperative, comfortable and no acute distress Orientation/consciousness: patient oriented x3 HENMT Head: Yes normocephalic Eyes General: appearance normal, both eyes and all related structures Neck Neck: Yes supple Resp Effort & Inspection: normal respiratory effort, no cough and no stridor Cardio Rhythm: regular rhythm Heart sounds: S1 normal heart sound present and S2 normal heart sound present Skin General skin exam: turgor normal Neuro General: patient oriented x3, tone normal and moves all extremities Extrem Right lower extremity: no edema Left lower extremity: no edema Results AMB Hemoglobin A1c AMB Hemoglobin A1c 8.7 % Last Edit by Eligio Aguirre MA on 01/24/24 08:57 Results Reviewed Results Reviewed: Laboratory Last Values Hgb A1c (Clinic) 8.7 % (4.0-6.0) H 01/24/24 08:56 Assessment and Plan Assessment & Plan (1) Diabetes mellitus type II, non insulin dependent: Code(s): E11.9 - Type 2 diabetes mellitus without complications (2) Paroxysmal A-fib: Code(s): I48.0 - Paroxysmal atrial fibrillation (3) Depression, major, recurrent: Code(s): F33.9 - Major depressive disorder, recurrent, unspecified Qualifiers: Active/Remission status: in partial remission Qualified Code(s): F33.41 - Major depressive disorder, recurrent, in partial remission (4) Hypertension, essential: Code(s): I10 - Essential (primary) hypertension (5) Lipid disorder: Code(s): E78.9 - Disorder of lipoprotein metabolism, unspecified (6) Rosacea: Code(s): L71.9 - Rosacea, unspecified (7) S/P CABG x 3: Comment: 04/2023. Contreras to LAD, left radial graft to OM, SVG graft to PDA Code(s): Z95.1 - Presence of aortocoronary bypass graft (8) Osteoarthritis of multiple joints: Code(s): M15.9 - Polyosteoarthritis, unspecified Qualifiers: Osteoarthritis type: primary Qualified Code(s): M15.9 - Polyosteoarthritis, unspecified (9) Hearing impaired: Code(s): H91.90 - Unspecified hearing loss, unspecified ear Qualifiers: Hearing loss type: unspecified Laterality: bilateral Qualified Code(s): H91.93 - Unspecified hearing loss, bilateral (10) Atherosclerotic cardiovascular disease: Code(s): I25.10 - Atherosclerotic heart disease of [place] coronary artery without angina pectoris (11) Arthrosis: Code(s): M19.90 - Unspecified osteoarthritis, unspecified site Plan Patient is 78-year-old male came in today for his regular follow-up appointment Patient is in his usual state of health he has severe osteoarthritis in his hands, currently taking Tylenol only which is not controlling his pain, however he does not want to take anything stronger Diabetes mellitus: patient is on glipizide 5 mg, tolerating medication he is to continue that, hemoglobin A1c is stable Hypertension: patient is on amlodipine 10 mg chlorthalidone 50 mg and metoprolol 25 mg b.i.d., blood pressure is slightly elevated today we will continue to monitor His moods are stable as well patient is on paroxetine 10 mg for depression. BMI is elevated patient is trying to lose weight Allergies are stable with loratadine Patient had bypass surgery he is doing very well there is no shortness a breath no chest pain no swelling of ankles He is seeing [facility] at is on high-dose atorvastatin 10 mg Obesity with elevated BMI need to lose weight Follow-up 3 months Medications: New [heating pad] As directed 1 ea 0RF M19.90 - Unspecified osteoarthritis, unspecified site Changed From glipizide 5 mg PO BID 180 tabs 0RF E11.9 - Type 2 diabetes mellitus without complications To glipizide 10 mg PO BID 180 tabs 0RF 90 days E11.9 - Type 2 diabetes mellitus without complications Coding Level of Care Code Est Pt Level 4 (36065) Diagnoses Diabetes mellitus type II, non insulin dependent E11.9 Paroxysmal A-fib I48.0 Recurrent major depressive disorder, in partial remission F33.41 Active/Remission status: in partial remission Hypertension, essential I10 Lipid disorder E78.9 Rosacea L71.9 S/P CABG x 3 Z95.1 Primary osteoarthritis involving multiple joints M15.9 Osteoarthritis type: primary Bilateral hearing loss, unspecified hearing loss type H91.93 Hearing loss type: unspecified Laterality: bilateral Atherosclerotic cardiovascular disease I25.10 Arthrosis M19.90 Additional Codes ELIO-7 Assessment Billing - ELIO-7 Assessment Tool: ELIO-7 Assessment 94471 ([id number])
== END 2024-01-24 10:30 | disposition home or self-care (01) ==
LOC: HO.HMGC 08:32
PROVIDERS: PCP Internal Medicine; Visit Provider Internal Medicine
DX: E11.9 Type 2 diabetes mellitus without complications (principal); I48.0 Paroxysmal atrial fibrillation; F33.41 Major depressive disorder, recurrent, in partial remission; I10 Essential (primary) hypertension; E78.9 Disorder of lipoprotein metabolism, unspecified; L71.9 Rosacea, unspecified; Z95.1 Presence of aortocoronary bypass graft; M15.9 Polyosteoarthritis, unspecified; H91.93 Unspecified hearing loss, bilateral; I25.10 Atherosclerotic heart disease of native coronary artery without angina pectoris; M19.90 Unspecified osteoarthritis, unspecified site
CPT/HCPCS: 83036; 99214

== ENCOUNTER 2024-02-14 15:09 | Outpatient (AMB) | payer MEDICARE, SELFPAY ==
[2024-02-14 15:10] VITALS: BP 136/80; PULSE 76; O2SAT 96; BMI 30.1
--- NOTE | 2024-02-14 15:10 | AM.OFFWIN_ITS ---
Intake Vital Signs 3 02/14/24 15:10 Height 6 ft Weight 222 lb BMI 30.1 BP 136/80 Blood Pressure Location Lt brachial Position Sitting Pulse 76 Pulse Source Pulse Oximeter Pulse Oximetry (%) 96 Oxygen Delivery Method Room Air Intake Visit Reasons: EP both leg infection Intake Note: Pt is here today for a walk in visit. Pt c/o wound on his R lower leg. Patient Tobacco Use Status: Former Tobacco user Quit Date: 1980 Allergies atenolol Allergy (Unknown, Verified 02/14/24 15:14) Bradycardia ENVIROMENTAL Allergy (Unknown, Uncoded 02/14/24 15:14) ITCHY EYES/RUNNY NOSE Medication List - Last Reconciled 02/14/24 by Shirin Davis MD adhesive tape Use for daily dressing change amlodipine 10 mg PO DAILY 90 days apixaban (Eliquis) 5 mg PO BID 90 days aspirin 81 mg PO DAILY atorvastatin 80 mg PO QPM blood sugar diagnostic (FreeStyle Lite Strips) test blood sugar once a day blood-glucose meter (FreeStyle Lite Meter kit) As directed brimonidine 0.2% 1 drp ophthalmic-Right BID carbamide peroxide 6.5% (Debrox) 5 drps otic (ears) BID 7 days chlorthalidone 50 mg PO DAILY 90 days ezetimibe 10 mg PO DAILY fluticasone propionate 50 mcg/actuation (Flonase Allergy Relief) 1 spray intranasal DAILY gauze bandage Change dressing daily glipizide 10 mg PO BID 90 days [heating pad As directed] lancets (FreeStyle Lancets) test blood sugar once a day latanoprost 0.005% 1 drp ophthalmic (eye) QPM loratadine 10 mg PO DAILY metoprolol tartrate 25 mg PO BID 90 days minocycline 50 mg PO DAILY miscellaneous medical supply As directed netarsudil 0.02% (Rhopressa) 1 drp ophthalmic-Right BEDTIME paroxetine HCl 10 mg PO DAILY sennosides-docusate sodium 8.6-50 mg (Senna with Docusate Sodium) 1 tab-cap PO BEDTIME timolol maleate 0.5% 1 drp ophthalmic (eye) BID [Xeroform gauze dressing 3 % bismuth As directed] HPI EP both leg infection 2 HPI0 Details Patient is a 38-year-old gentleman who bumped into something few days ago and had superficial wound right lower leg Patient says that he was taking care of the wound himself until recently when noticed redness developing around it On examination bone is infected We changed the dressing with the patient Antibiotic was started Patient will return for follow-up next week [facility] Medical History Atherosclerotic cardiovascular disease Depression, major, recurrent Chronic nasal congestion Diabetes mellitus type II, non insulin dependent Osteoarthritis of hand, left Obesity (BMI 30.0-34.9) Vertebral artery stenosis Cervical spondylosis Hypertension, essential Lipid disorder Hearing impaired Surgical History S/P CABG x 3 Hx of cholecystectomy Family History Father HTN (hypertension) Mother No problems noted. Social History Housing: House Alcohol intake: current Alcohol intake frequency: a few times a week Patient Tobacco Use Status: Former Tobacco user Quit Date: 1979 Smoked: 20 +/- e-Cigarette/Vaping Use: Never Used service: No Current occupational status: retired Cognitive needs: No Hearing needs: No Vision needs: Yes Review of Systems Const All systems reviewed & are unremarkable except as noted in HPI and below Physical Exam Vital Signs: Last Vital Signs Pulse 76 02/14/24 15:10 BP 136/80 02/14/24 15:10 Pulse Ox 96 02/14/24 15:10 Oxygen Delivery Method Room Air 02/14/24 15:10 BMI result Body Mass Index 30.1 Const General: no acute distress Orientation/consciousness: patient oriented x3 Eyes General: appearance normal, both eyes and all related structures Resp Effort & Inspection: normal respiratory effort and able to speak in complete sentences Neuro General: patient oriented x3 Extrem Upper/lower leg/hip images: 2 1. Superficial wound 2. Superficial wound with erythema surrounding Psych Mental Status: mental status grossly normal Assessment & Plan Assessment & Plan (1) Traumatic open wound of lower leg with infection: Code(s): S81.809A - Unspecified open wound, unspecified lower leg, initial encounter; L08.9 - Local infection of the skin and subcutaneous tissue, unspecified Qualifiers: Encounter type: initial encounter Laterality: right Qualified Code(s): S81.801A - Unspecified open wound, right lower leg, initial encounter; L08.9 - Local infection of the skin and subcutaneous tissue, unspecified Plan Patient is a 38-year-old gentleman who bumped into something few days ago and had superficial wound right lower leg Patient says that he was taking care of the wound himself until recently when noticed redness developing around it On examination bone is infected We changed the dressing with the patient Antibiotic was started Patient will return for follow-up next week Orders: Orders 2 TDaP Immunization 02/14/24 Z23 - Encounter for immunization Medications: New 2 amoxicillin-pot clavulanate 875-125 mg 1 tab PO BID 14 tabs 0RF 7 days Coding Level of Care Code Est Pt Level 3 (31576) Diagnoses Traumatic open wound of right lower leg with infection, initial encounter S81.801A; L08.9 Encounter type: initial encounter Laterality: right
== END 2024-02-14 15:49 | disposition home or self-care (01) ==
PROVIDERS: PCP Internal Medicine; Visit Provider Internal Medicine
DX: S81.801A Unspecified open wound, right lower leg, initial encounter (principal); L08.9 Local infection of the skin and subcutaneous tissue, unspecified
CPT/HCPCS: 90471; 90715; 99213

== ENCOUNTER 2024-02-23 12:03 | Outpatient (AMB) | payer MEDICARE, SELFPAY ==
[2024-02-23 12:07] VITALS: BP 120/82; PULSE 78; O2SAT 97; BMI 30.6
--- NOTE | 2024-02-23 12:07 | A.OFFPC_ITS ---
Vital Signs 3 02/23/24 12:07 Height 6 ft Weight 226 lb BMI 30.6 BP 120/82 Blood Pressure Location Rt brachial Position Sitting Pulse 78 Pulse Source Pulse Oximeter Pulse Oximetry (%) 97 Oxygen Delivery Method Room Air Intake Visit Reasons: 1 week follow up Allergies atenolol Allergy (Unknown, Verified 02/23/24 12:35) Bradycardia ENVIROMENTAL Allergy (Unknown, Uncoded 02/23/24 12:35) ITCHY EYES/RUNNY NOSE Medication List - Last Reconciled 02/23/24 by Shirin Davis MD adhesive tape Use for daily dressing change amlodipine 10 mg PO DAILY 90 days apixaban (Eliquis) 5 mg PO BID 90 days aspirin 81 mg PO DAILY atorvastatin 80 mg PO QPM blood sugar diagnostic (FreeStyle Lite Strips) test blood sugar once a day blood-glucose meter (FreeStyle Lite Meter kit) As directed brimonidine 0.2% 1 drp ophthalmic-Right BID carbamide peroxide 6.5% (Debrox) 5 drps otic (ears) BID 7 days chlorthalidone 50 mg PO DAILY 90 days ezetimibe 10 mg PO DAILY fluticasone propionate 50 mcg/actuation (Flonase Allergy Relief) 1 spray intranasal DAILY gauze bandage Change dressing daily glipizide 10 mg PO BID 90 days [heating pad As directed] lancets (FreeStyle Lancets) test blood sugar once a day latanoprost 0.005% 1 drp ophthalmic (eye) QPM loratadine 10 mg PO DAILY metoprolol tartrate 25 mg PO BID 90 days minocycline 50 mg PO DAILY miscellaneous medical supply As directed netarsudil 0.02% (Rhopressa) 1 drp ophthalmic-Right BEDTIME paroxetine HCl 10 mg PO DAILY sennosides-docusate sodium 8.6-50 mg (Senna with Docusate Sodium) 1 tab-cap PO BEDTIME timolol maleate 0.5% 1 drp ophthalmic (eye) BID [Xeroform gauze dressing 3 % bismuth As directed] Tobacco use date assessed: 02/23/24 Last assessed Fall Risk: 02/23/24 Dental Screening Dental Screen Date: 02/23/24 Did you have a dental visit in the last 12 months?: No Did you have a dental problem in the last 6 months where you did not have access to dental care?: No Was dental information given to patient?: No HPI 1 week follow up 2 HPI0 Details Sergio came back today for dressing change and follow-up on low leg wound He was prescribed Augmentin for a week Patient has finished antibiotic His legs look much better than before Most of his open abrasions have scabbing now Dressing changed He still have some erythema and tenderness Another week of Augmentin prescribed Patient is to return in 1 week for follow-up [facility] Medical History Atherosclerotic cardiovascular disease Depression, major, recurrent Chronic nasal congestion Diabetes mellitus type II, non insulin dependent Osteoarthritis of hand, left Obesity (BMI 30.0-34.9) Vertebral artery stenosis Cervical spondylosis Hypertension, essential Lipid disorder Hearing impaired Surgical History S/P CABG x 3 Hx of cholecystectomy Family History Father HTN (hypertension) Mother No problems noted. Social History Housing: House Alcohol intake: current Alcohol intake frequency: a few times a week Patient Tobacco Use Status: Former Tobacco user Quit Date: 1979 Smoked: 20 +/- e-Cigarette/Vaping Use: Never Used service: No Current occupational status: retired Cognitive needs: No Hearing needs: No Vision needs: Yes Questionnaire Thrive Questionnaire Date Thrive assessed: 01/24/24 AUDIT C Alcohol Use Questionnaire (AUDIT-C) 1. How often do you have a drink containing alcohol?: Never 3. How often do you have six or more drinks on one occasion?: Never Total Score: 0 Score Reviewed/Action Taken: Yes ELIO-7 AMB Questionnaire ELIO-7 Date ELIO - 7 assessed: 01/24/24 Source: Developed by Drs. Manolo Ma, Angle Chen, Loco Estrella and colleagues, with an educational donovan from [employer]. Review of Systems Const Denies chills and Denies fever(s) ENT Denies epistaxis and Denies nasal discharge Card Denies chest pain Resp Denies chest congestion, Denies cough and Denies hemoptysis GI Denies diarrhea and Denies nausea Skin/Breast Denies rash Neuro Reports no additional complaints Psych Reports no additional complaints Endo Reports no additional complaints Physical exam (Primary Care) Vital Signs: Last Vital Signs Pulse 78 02/23/24 12:07 BP 120/82 02/23/24 12:07 Pulse Ox 97 02/23/24 12:07 Oxygen Delivery Method Room Air 02/23/24 12:07 BMI result Body Mass Index 30.6 Tobacco/Smoking Status: Tobacco use Status Tobacco use date assessed 02/23/24 02/23/24 12:08 Patient Tobacco Use Status Former Tobacco user 02/23/24 12:08 e-Cigarette/Vaping Use Never Used 02/23/24 12:08 Thrive Assessment: Date of Thrive Assessment Date Thrive assessed 01/24/24 02/23/24 12:08 Const General: cooperative, comfortable and no acute distress Orientation/consciousness: patient oriented x3 HENMT Head: Yes normocephalic Eyes General: appearance normal, both eyes and all related structures Neck Neck: Yes supple Resp Effort & Inspection: normal respiratory effort, no cough and no stridor Cardio Rhythm: regular rhythm Heart sounds: S1 normal heart sound present and S2 normal heart sound present Skin General skin exam: turgor normal Neuro General: patient oriented x3, tone normal and moves all extremities Extrem Right lower extremity: no edema Left lower extremity: no edema Upper/lower leg/hip images: 2 1. Open abrasion, most of his superficial wounds are scabbed now with mild erythema and discomfort on right side 2. 3. 4. Assessment and Plan Assessment & Plan (1) Traumatic open wound of lower leg with infection: Code(s): S81.809A - Unspecified open wound, unspecified lower leg, initial encounter; L08.9 - Local infection of the skin and subcutaneous tissue, unspecified Qualifiers: Encounter type: initial encounter Laterality: right Qualified Code(s): S81.801A - Unspecified open wound, right lower leg, initial encounter; L08.9 - Local infection of the skin and subcutaneous tissue, unspecified Plan Sergio came back today for dressing change and follow-up on low leg wound He was prescribed Augmentin for a week Patient has finished antibiotic His legs look much better than before Most of his open abrasions have scabbing now Dressing changed He still have some erythema and tenderness Another week of Augmentin prescribed Patient is to return in 1 week for follow-up Medications: Refilled 2 amoxicillin-pot clavulanate 875-125 mg 1 tab PO BID 7 days 14 tabs 0RF Coding Level of Care Code Est Pt Level 3 (19903) Diagnoses Traumatic open wound of right lower leg with infection, initial encounter S81.801A; L08.9 Encounter type: initial encounter Laterality: right
== END 2024-02-23 13:04 | disposition home or self-care (01) ==
LOC: HO.HMGC 12:03
PROVIDERS: PCP Internal Medicine; Visit Provider Internal Medicine
DX: S81.801A Unspecified open wound, right lower leg, initial encounter (principal); L08.9 Local infection of the skin and subcutaneous tissue, unspecified
CPT/HCPCS: 99213

== ENCOUNTER 2024-02-26 08:01 | Outpatient (AMB) | payer MEDICARE, SELFPAY ==
[2023-06-28 09:56] VITALS: BP 142/54; BP 152/84; BMI 27.6
--- NOTE | 2024-02-26 08:28 | MHC.OFFVIS ---
Vital Signs 02/26/24 08:29 Height 6 ft Weight 222 lb 10.67 oz BMI 30.2 BP 130/70 Blood Pressure Location Lt brachial Position Sitting Pulse 73 Pulse Source Pulse Oximeter Pulse Oximetry (%) 99 Oxygen Delivery Method Room Air Intake Visit Reasons: f/up May per HS Allergies atenolol Allergy (Unknown, Verified 02/23/24 12:35) Bradycardia ENVIROMENTAL Allergy (Unknown, Uncoded 02/23/24 12:35) ITCHY EYES/RUNNY NOSE Medication List - Last Reconciled 02/26/24 by Boogie Hunter MD adhesive tape Use for daily dressing change amlodipine 10 mg PO DAILY 90 days amoxicillin-pot clavulanate 875-125 mg 1 tab PO BID 7 days apixaban (Eliquis) 5 mg PO BID 90 days aspirin 81 mg PO DAILY atorvastatin 80 mg PO QPM blood sugar diagnostic (FreeStyle Lite Strips) test blood sugar once a day blood-glucose meter (FreeStyle Lite Meter kit) As directed brimonidine 0.2% 1 drp ophthalmic-Right BID carbamide peroxide 6.5% (Debrox) 5 drps otic (ears) BID 7 days chlorthalidone 50 mg PO DAILY 90 days ezetimibe 10 mg PO DAILY fluticasone propionate 50 mcg/actuation (Flonase Allergy Relief) 1 spray intranasal DAILY gauze bandage Change dressing daily glipizide 10 mg PO BID 90 days [heating pad As directed] lancets (FreeStyle Lancets) test blood sugar once a day latanoprost 0.005% 1 drp ophthalmic (eye) QPM loratadine 10 mg PO DAILY metoprolol tartrate 25 mg PO BID 90 days minocycline 50 mg PO DAILY miscellaneous medical supply As directed netarsudil 0.02% (Rhopressa) 1 drp ophthalmic-Right BEDTIME paroxetine HCl 10 mg PO DAILY sennosides-docusate sodium 8.6-50 mg (Senna with Docusate Sodium) 1 tab-cap PO BEDTIME timolol maleate 0.5% 1 drp ophthalmic (eye) BID [Xeroform gauze dressing 3 % bismuth As directed] HPI Comments Details: Sergio returns for follow-up regarding coronary disease and bypass surgery. In the past, he was seen regarding an abnormal EKG showing a prior infarct and that led to further workup. He was describing some heartburn type symptoms but otherwise not much of activity at baseline. Started noninvasive workup, that led to diagnostic catheterization showing multivessel disease. Then went for bypass surgery. Overall, generalized weakness from possibly some deconditioning but no other concerns. No cardiac symptoms. [facility] Medical History Atherosclerotic cardiovascular disease Depression, major, recurrent Chronic nasal congestion Diabetes mellitus type II, non insulin dependent Osteoarthritis of hand, left Obesity (BMI 30.0-34.9) Vertebral artery stenosis Cervical spondylosis Hypertension, essential Lipid disorder Hearing impaired Surgical History S/P CABG x 3 Hx of cholecystectomy Family History Father HTN (hypertension) Mother No problems noted. Social History Housing: House Alcohol intake: current Alcohol intake frequency: a few times a week Patient Tobacco Use Status: Former Tobacco user Quit Date: 1979 Smoked: 20 +/- e-Cigarette/Vaping Use: Never Used service: No Current occupational status: retired Cognitive needs: No Hearing needs: No Vision needs: Yes Review of Systems Const Denies weakness ENT Denies dizziness Card Denies chest pain, Denies chest pain with activity, Denies syncope, Denies rapid heart rate, Denies pedal edema, Denies edema, Denies leg edema, Denies lightheadedness, Denies palpitations, Denies dyspnea, Denies dyspnea on exertion and Denies orthopnea Resp Denies cough, Denies dyspnea and Denies dyspnea on exertion GI Denies hematochezia and Denies change in stool character Musc Denies abnormal gait, Denies muscle cramps, Denies muscle weakness, Denies numbness, Denies radiating pain into limb and Denies tingling Neuro Denies abnormal gait, Denies dizziness, Denies syncope, Denies numbness, Denies tingling and Denies weakness Endo Denies palpitations Physical Exam Vital Signs: Last Vital Signs Pulse 73 02/26/24 08:29 BP 130/70 02/26/24 08:29 Pulse Ox 99 02/26/24 08:29 Oxygen Delivery Method Room Air 02/26/24 08:29 BMI result Body Mass Index 30.2 Const General: comfortable and no acute distress Orientation/consciousness: patient oriented x3 HEENT Other: Unremarkable Head: Yes normal to inspection Neck Neck: Yes normal visual inspection Chest Chest palpation & inspection: normal inspection of the chest Resp Auscultation: clear to auscultation bilaterally Cardio Palpation: normal PMI Heart sounds: S1 normal heart sound present, S2 normal heart sound present, no gallops, no murmurs and no rubs GI Palpation (GI): Soft to palpation Back/Spine/Pelvis Other: unremarkable Skin General skin exam: no rashes or lesions noted Neuro General: patient oriented x3 Extrem General: Yes normal to inspection Psych Mental Status: mental status grossly normal Assessment & Plan Assessment & Plan (1) Atherosclerotic cardiovascular disease: Code(s): I25.10 - Atherosclerotic heart disease of [place] coronary artery without angina pectoris Category: Medical Plan: Status post bypass. Stable. Remains on beta-blockers, statins. Continue cardiac rehabilitation. Due to easy bruising/bleeding, stop aspirin. (2) S/P CABG x 3: Comment: 04/2023. Contreras to LAD, left radial graft to OM, SVG graft to PDA Code(s): Z95.1 - Presence of aortocoronary bypass graft Category: Surgical Plan: Recovered well. (3) Paroxysmal A-fib: Code(s): I48.0 - Paroxysmal atrial fibrillation Category: Medical Plan: Postoperative atrial fibrillation. He does have a significant thromboembolic risk profile and hence continue Eliquis. No recurrent issues. (4) Hypertension, essential: Code(s): I10 - Essential (primary) hypertension Category: Medical Plan: Stable. Medications: Discontinued aspirin Discontinued Reason: Doctor's Order 81 mg PO DAILY 90 tabs 3RF Coding Level of Care Code Est Pt Level 4 (22243) Diagnoses Atherosclerotic cardiovascular disease I25.10 S/P CABG x 3 Z95.1 Paroxysmal A-fib I48.0 Hypertension, essential I10
[2024-02-26 08:29] VITALS: BP 130/70; PULSE 73; O2SAT 99; BMI 30.2
== END 2024-02-26 08:49 | disposition home or self-care (01) ==
PROVIDERS: PCP Internal Medicine; Visit Provider Internal Medicine
DX: I25.10 Atherosclerotic heart disease of native coronary artery without angina pectoris (principal); Z95.1 Presence of aortocoronary bypass graft; I48.0 Paroxysmal atrial fibrillation; I10 Essential (primary) hypertension
CPT/HCPCS: 99214

== ENCOUNTER → 2024-02-26 08:01 | Outpatient (BNVA) | payer MEDICARE, SELFPAY | PROVIDERS: PCP Internal Medicine; Visit Provider Internal Medicine | DX: I25.10 Atherosclerotic heart disease of native coronary artery without angina pectoris (principal); I10 Essential (primary) hypertension; I48.0 Paroxysmal atrial fibrillation; Z95.1 Presence of aortocoronary bypass graft | CPT/HCPCS: 99212 ==

== ENCOUNTER 2024-03-01 10:40 | Outpatient (AMB) | payer MEDICARE, SELFPAY ==
[2024-03-01 10:44] VITALS: BP 144/72; PULSE 84; O2SAT 95; BMI 30.4
--- NOTE | 2024-03-01 10:44 | MHC.PC.OV ---
Vital Signs 03/01/24 10:44 Height 6 ft Weight 224 lb 8 oz BMI 30.4 BP 144/72 H Blood Pressure Location Lt brachial Position Sitting Pulse 84 Pulse Source Pulse Oximeter Pulse Oximetry (%) 95 Oxygen Delivery Method Room Air Intake Visit Reasons: 1 Wk F/u~ Allergies atenolol Allergy (Unknown, Verified 03/01/24 10:45) Bradycardia ENVIROMENTAL Allergy (Unknown, Uncoded 02/23/24 12:35) ITCHY EYES/RUNNY NOSE Medication List - Last Reconciled 03/01/24 by Shirin Davis MD adhesive tape Use for daily dressing change amlodipine 10 mg PO DAILY 90 days apixaban (Eliquis) 5 mg PO BID 90 days atorvastatin 80 mg PO QPM blood sugar diagnostic (FreeStyle Lite Strips) test blood sugar once a day blood-glucose meter (FreeStyle Lite Meter kit) As directed brimonidine 0.2% 1 drp ophthalmic-Right BID carbamide peroxide 6.5% (Debrox) 5 drps otic (ears) BID 7 days chlorthalidone 50 mg PO DAILY 90 days ezetimibe 10 mg PO DAILY fluticasone propionate 50 mcg/actuation (Flonase Allergy Relief) 1 spray intranasal DAILY gauze bandage Change dressing daily glipizide 10 mg PO BID 90 days [heating pad As directed] lancets (FreeStyle Lancets) test blood sugar once a day latanoprost 0.005% 1 drp ophthalmic (eye) QPM loratadine 10 mg PO DAILY metoprolol tartrate 25 mg PO BID 90 days minocycline 50 mg PO DAILY miscellaneous medical supply As directed netarsudil 0.02% (Rhopressa) 1 drp ophthalmic-Right BEDTIME paroxetine HCl 10 mg PO DAILY sennosides-docusate sodium 8.6-50 mg (Senna with Docusate Sodium) 1 tab-cap PO BEDTIME timolol maleate 0.5% 1 drp ophthalmic (eye) BID [Xeroform gauze dressing 3 % bismuth As directed] Tobacco use date assessed: 03/01/24 Fall risk assessment: No Falls in past year Last assessed Fall Risk: 03/01/24 Dental Screening Dental Screen Date: 03/01/24 Did you have a dental visit in the last 12 months?: No Did you have a dental problem in the last 6 months where you did not have access to dental care?: No Was dental information given to patient?: No HPI 1 Wk F/u~ HPI Details Patient came in today to be evaluated for lower leg wounds Which are healing well, he still have scabs which will follow-up eventually once the wounds are fully healed. Patient was instructed to keep it covered with lose spent Do not pull the scabs off. There is no sign of infection [facility] Medical History Atherosclerotic cardiovascular disease Depression, major, recurrent Chronic nasal congestion Diabetes mellitus type II, non insulin dependent Osteoarthritis of hand, left Obesity (BMI 30.0-34.9) Vertebral artery stenosis Cervical spondylosis Hypertension, essential Lipid disorder Hearing impaired Surgical History S/P CABG x 3 Hx of cholecystectomy Family History Father HTN (hypertension) Mother No problems noted. Social History Housing: House Alcohol intake: current Alcohol intake frequency: a few times a week Patient Tobacco Use Status: Former Tobacco user Quit Date: 1979 Years Smoked: 20 +/- e-Cigarette/Vaping Use: Never Used service: No Current occupational status: retired Cognitive needs: No Hearing needs: No Vision needs: Yes Questionnaire Thrive Questionnaire Date Thrive assessed: 01/24/24 AUDIT C Alcohol Use Questionnaire (AUDIT-C) 1. How often do you have a drink containing alcohol?: Never 3. How often do you have six or more drinks on one occasion?: Never Total Score: 0 Score Reviewed/Action Taken: Yes ELIO-7 AMB Questionnaire ELIO-7 Date ELIO - 7 assessed: 01/24/24 Source: Developed by Drs. Manolo Ma, Angle Chen, Loco Estrella and colleagues, with an educational donovan from [employer]. Review of Systems Const All systems reviewed & are unremarkable except as noted in HPI and below Physical exam (Primary Care) Vital Signs: Last Vital Signs Pulse 84 03/01/24 10:44 BP 144/72 H 03/01/24 10:44 Pulse Ox 95 03/01/24 10:44 Oxygen Delivery Method Room Air 03/01/24 10:44 BMI result Body Mass Index 30.4 Tobacco/Smoking Status: Tobacco use Status Tobacco use date assessed 03/01/24 03/01/24 10:48 Patient Tobacco Use Status Former Tobacco user 03/01/24 10:48 e-Cigarette/Vaping Use Never Used 03/01/24 10:48 Thrive Assessment: Date of Thrive Assessment Date Thrive assessed 01/24/24 03/01/24 10:48 Const General: no acute distress Orientation/consciousness: patient oriented x3 Eyes General: appearance normal, both eyes and all related structures Resp Effort & Inspection: normal respiratory effort and able to speak in complete sentences Neuro General: patient oriented x3 Extrem Other: Leg wounds healing well, still have scabs, gradually healing Psych Mental Status: mental status grossly normal Assessment and Plan Assessment & Plan (1) Traumatic open wound of lower leg with infection: Code(s): S81.809A - Unspecified open wound, unspecified lower leg, initial encounter; L08.9 - Local infection of the skin and subcutaneous tissue, unspecified Qualifiers: Encounter type: initial encounter Laterality: right Qualified Code(s): S81.801A - Unspecified open wound, right lower leg, initial encounter; L08.9 - Local infection of the skin and subcutaneous tissue, unspecified Plan Patient came in today to be evaluated for lower leg wounds Which are healing well, he still have scabs which will follow-up eventually once the wounds are fully healed. Patient was instructed to keep it covered with lose spent Do not pull the scabs off. Coding Level of Care Code Est Pt Level 3 (25895) Diagnoses Traumatic open wound of right lower leg with infection, initial encounter S81.801A; L08.9 Encounter type: initial encounter Laterality: right
== END 2024-03-01 13:35 | disposition home or self-care (01) ==
PROVIDERS: PCP Internal Medicine; Visit Provider Internal Medicine
DX: S81.801A Unspecified open wound, right lower leg, initial encounter (principal); L08.9 Local infection of the skin and subcutaneous tissue, unspecified
CPT/HCPCS: 99213

== ENCOUNTER 2024-03-28 08:01 | Outpatient (AMB) | payer MEDICARE, SELFPAY ==
[2024-03-28 07:59] VITALS: BP 142/54; BP 152/84; BMI 27.6
--- NOTE | 2024-03-28 08:01 | MHC.OFFWIV ---
Intake Vital Signs 03/28/24 08:02 Height 6 ft Weight 220 lb BMI 29.8 BP 122/82 Blood Pressure Location Rt brachial Position Sitting Pulse 74 Pulse Source Pulse Oximeter Temp 97.7 F Temp Source Oral Pulse Oximetry (%) 98 Oxygen Delivery Method Room Air Intake Visit Reasons: EP rash/Poison Tayla Intake Note: pt here c/o rash. ? Poison Tayla Patient Tobacco Use Status: Former Tobacco user Allergies atenolol Allergy (Unknown, Verified 03/28/24 08:02) Bradycardia ENVIROMENTAL Allergy (Unknown, Uncoded 03/28/24 08:02) ITCHY EYES/RUNNY NOSE Do you need a note to return to daycare/school/sports/work: No HPI HPI Comments History of Present Illness Details Patient is a 78-year-old male complaining of 3 weeks of an itchy rash across his abdomen and on his head. He states he was mowing the lawn 3 weeks ago and he may have come in contact with poison tayla because 3 days later he was extremely itchy. He states Dr. Simon gave him a short burst of methylprednisone which seemed to help but then it came back. He has tried applying calamine lotion which does help, but only temporarily. [facility] Medical History Atherosclerotic cardiovascular disease Depression, major, recurrent Chronic nasal congestion Diabetes mellitus type II, non insulin dependent Osteoarthritis of hand, left Obesity (BMI 30.0-34.9) Vertebral artery stenosis Cervical spondylosis Hypertension, essential Lipid disorder Hearing impaired Surgical History S/P CABG x 3 Hx of cholecystectomy Family History Father HTN (hypertension) Mother No problems noted. Social History Housing: House Alcohol intake: current Alcohol intake frequency: a few times a week Patient Tobacco Use Status: Former Tobacco user Years Smoked: 20 +/- e-Cigarette/Vaping Use: Never Used service: No Current occupational status: retired Cognitive needs: No Hearing needs: No Vision needs: Yes Review of Systems Const All systems reviewed & are unremarkable except as noted in HPI and below Physical Exam Vital Signs: Last Vital Signs Temp 97.7 F 03/28/24 08:02 Pulse 74 03/28/24 08:02 BP 122/82 03/28/24 08:02 Pulse Ox 98 03/28/24 08:02 Oxygen Delivery Method Room Air 03/28/24 08:02 BMI result Body Mass Index 29.8 Const General: cooperative, healthy appearing, comfortable, no acute distress and well developed Orientation/consciousness: patient oriented x3 Limitations: no limitations Eyes General: appearance normal, both eyes and all related structures Resp Effort & Inspection: normal respiratory effort and able to speak in complete sentences Skin Other: streaky crusted rash across abdomen, 7 3cm linear across mid abdomen. No signs of infection noted General skin exam: no ecchymosis and no erythema Neuro General: patient oriented x3 Assessment & Plan Assessment & Plan (1) Contact dermatitis: Code(s): L25.9 - Unspecified contact dermatitis, unspecified cause Qualifiers: Contact dermatitis trigger: other trigger Contact dermatitis type: allergic Qualified Code(s): L23.89 - Allergic contact dermatitis due to other agents Plan: Sent prednisone taper to pharmacy for poison tayla. Advised to use calamine lotion or hydrocortisone cream as well for additional relief. If rash does not subside, please follow-up with your PCP [facility] called and stated that they do not carry a prednisone taper pack and required me to change the prescription to handwritten the instructions of the taper using 10 mg tablets. changes have been sent. Plan see above Medications: New prednisone day 1 take 2 tablets with breakfast, 2 with lunch and 2 tablets with dinner. Day 2 take 2 tablets with breakfast, 2 tablets with lunch and 1 tablet with dinner. Day 3 take 2 tablets with breakfast, 1 tablet with lunch and 1 tablet with dinner. Day 4 take 1 tablet with breakfast, 1 tablet with lunch and 1 tablet with dinner. Day 5 take 1 tablet with breakfast and 1 tablet with lunch. Day 6 take 1 tablet with breakfast. 10 mg PO DIRECTED 21 tabs 0RF Coding Level of Care Code Est Pt Level 3 (48934) Diagnoses Allergic contact dermatitis due to other agents L23.89 Contact dermatitis trigger: other trigger Contact dermatitis type: allergic
[2024-03-28 08:02] VITALS: BP 122/82; PULSE 74; TEMP 36.5; O2SAT 98; BMI 29.8
== END 2024-03-28 09:20 | disposition home or self-care (01) ==
PROVIDERS: PCP Internal Medicine; Visit Provider Physician Assistant
DX: L23.89 Allergic contact dermatitis due to other agents (principal)
CPT/HCPCS: 99213

== ENCOUNTER 2024-04-26 08:19 | Outpatient (AMB) | payer MEDICARE, SELFPAY ==
--- NOTE | 2024-04-26 08:20 | A.OFFVIS_ITS ---
Intake Vital Signs 04/26/24 08:22 Height 6 ft Weight 218 lb BMI 29.6 BP 148/78 H Blood Pressure Location Lt brachial Position Sitting Pulse 71 Pulse Source Pulse Oximeter Pulse Oximetry (%) 95 Oxygen Delivery Method Room Air Intake Visit Reasons: SWV [id number] Allergies atenolol Allergy (Unknown, Verified 04/26/24 08:21) Bradycardia ENVIROMENTAL Allergy (Unknown, Uncoded 03/28/24 08:02) ITCHY EYES/RUNNY NOSE Medication List - Last Reconciled 04/26/24 by Shirin Davis MD adhesive tape Use for daily dressing change amlodipine 10 mg PO DAILY 90 days apixaban (Eliquis) 5 mg PO BID 90 days atorvastatin 80 mg PO QPM blood sugar diagnostic (FreeStyle Lite Strips) test blood sugar once a day blood-glucose meter (FreeStyle Lite Meter kit) As directed brimonidine 0.2% 1 drp ophthalmic-Right BID carbamide peroxide 6.5% (Debrox) 5 drps otic (ears) BID 7 days chlorthalidone 50 mg PO DAILY 90 days ezetimibe 10 mg PO DAILY fluticasone propionate 50 mcg/actuation (Flonase Allergy Relief) 1 spray intranasal DAILY gauze bandage Change dressing daily glipizide 10 mg PO BID 90 days [heating pad As directed] lancets (FreeStyle Lancets) test blood sugar once a day latanoprost 0.005% 1 drp ophthalmic (eye) QPM loratadine 10 mg PO DAILY metoprolol tartrate 25 mg PO BID 90 days minocycline 50 mg PO DAILY miscellaneous medical supply As directed netarsudil 0.02% (Rhopressa) 1 drp ophthalmic-Right BEDTIME paroxetine HCl 10 mg PO DAILY prednisone 10 mg PO DIRECTED sennosides-docusate sodium 8.6-50 mg (Senna with Docusate Sodium) 1 tab-cap PO BEDTIME timolol maleate 0.5% 1 drp ophthalmic (eye) BID [Xeroform gauze dressing 3 % bismuth As directed] HPI [facility] G0439 HPI Details Patient is 78-year-old gentleman came in today for his regular follow-up appointment and Medicare wellness visit Due for labs Patient has developed heat rash which is pruritic Explained to him that he need to stay indoors so the rash can resolve Patient had bypass surgery he is doing very well there is no shortness a breath no chest pain no swelling of ankles He is seeing [facility]. [facility] at is on high-dose atorvastatin 80 mg he has severe osteoarthritis in his hands, he has been taking Tylenol only now Diabetes mellitus: patient is on glipizide 5 mg, tolerating medication he is to continue that, hemoglobin A1c is stable Hypertension: patient is on amlodipine 10 mg chlorthalidone 50 mg and metoprolol 25 mg b.i.d., blood pressure is well controlled. His moods are stable as well patient is on paroxetine 10 mg for depression. BMI is elevated patient is trying to lose weight Allergies are stable with loratadine Follow-up 3 months HPI Comments History of Present Illness Details AWV Medical/social history reviewed Past medical history reviewed [place] of care / care team list updated Surgical/ hospitalization history reviewed Current medications including OTC and supplements reviewed Family history reviewed Tobacco controlled form updated Alcohol use form updated Illicit drug use in social history reviewed Current diagnosis of depression ?screening updated Appropriate PHQ 2/PHQ-9 completed . Vital signs reviewed Alcohol tobacco drug use reviewed and discussed . MMSE completed . ? Fall risk: ?Assessed Fall history: ?None Have you had any falls with injury in the past year?? No Have you had 2 or more falls in the past year?? No Fall risk assessment completed Home safety discussed with the patient Functional ability assessed and discussed and documented Activities of daily living reviewed and appropriate actions taken . HRA filled out by the patient reviewed by provider and scanned . Appropriate written screening schedule established . Any health advise needed provided . Advance care planning discussed with the patient . Examination IPPE/AWE: Balance failed Romberg failed Tandem walk failed walk-in turn failed rise from sit to stand intact . ?Hearing ?whisper test Failed . Medication list reviewed, patient is stable on medications All other providers patient is seeing discussed and noted . [facility] Medical History Atherosclerotic cardiovascular disease Depression, major, recurrent Chronic nasal congestion Diabetes mellitus type II, non insulin dependent Osteoarthritis of hand, left Obesity (BMI 30.0-34.9) Vertebral artery stenosis Cervical spondylosis Hypertension, essential Lipid disorder Hearing impaired Surgical History S/P CABG x 3 Hx of cholecystectomy Family History Father HTN (hypertension) Mother No problems noted. Social History Housing: House Alcohol intake: current Alcohol intake frequency: a few times a week Patient Tobacco Use Status: Former Tobacco user Years Smoked: 20 +/- e-Cigarette/Vaping Use: Never Used service: No Current occupational status: retired Cognitive needs: No Hearing needs: No Vision needs: Yes Questionnaire Medicare Wellness Checkup [age] What gender do you identify with?: male During the past 4 weeks, how much have you been bothered by emotional problems such as feeling anxious, depressed, irritable, sad or downhearted, and blue?: not at all During the past 4 weeks, has your physical & emotional health limited your social activities with family, friends, neighbors, or groups?: not at all During the past 4 weeks, how much bodily pain have you generally had?: moderate pain During the past 4 weeks, was someone available to help you if you needed & wanted help?: no, not at all During the past 4 weeks, what was the hardest physical activity you could do for at least 2 minutes?: moderate Can you get to places out of walking distance without help? (For eg., can you travel alone on buses, taxis or drive your car?): Yes Can you go shopping for groceries or clothes without someone's help?: Yes Can you prepare your own meals?: Yes Can you do your housework without help?: Yes Because of any health problems, do you need the help of another person with your personal care needs such as eating, bathing, dressing or getting around the house?: No Can you handle your own money without help?: Yes During the past 4 weeks, how would you rate your health in general?: good During the past 4 weeks how have things been going for you?: pretty well Are you having difficulties driving your car?: no Do you always fasten your seat belt when you are in a car?: yes, usually Have you fallen 2 or more times in the past year?: No Are you afraid of falling?: Yes Are you a smoker?: no During the past 4 weeks, how many drinks of wine, beer, or other alcoholic beverages did you have?: no alcohol at all Do you exercise for about 20 minutes 3 or more times a week?: yes, some of the time Have you been given information to help with the following?: yes: Keeping track of your medications? and no: Hazards in your house that might hurt you? How often do you have trouble taking medicines the way you have been told to take them?: I always take medicine as prescribed How confident are you that you can control & manage most of your health problems?: very confident What is your race?: White Mini Mental State Exam (MMSE) Orientation What is the (year) (season) (date) (day) (month)?: year, season, date, day and month Where are we (state) (county) (town or city) (hospital) (floor)?: state, county, town or city, hospital/clinic and floor Score Score: 10 Activity of Daily Living Bathing - sponge bath, tub bath or shower: receives no assistance (gets in/out by self, if usual bathing means Dressing - getting clothes from closets & drawers, including inner/outer garments & fasteners.: gets clothes & gets completely dressed without help Toileting - going to the 'toilet room' for urine/bowel elimination & cleaning self/arranging clothes: goes to toilet room, cleans self, arranges clothes without help Transfer: moves in & out of bed and chair without help (may use support object) Continence: controls urination/bowel movements completely by self Feeding: feeds self without help Total Score: 0 Information obtained from: patient Using telephone: independent Traveling: independent Shopping: independent Preparing meals: independent Housework: independent Taking medicine: independent Managing money: independent PHQ-9 Over the last 2 weeks, how often have you been bothered by any of the following problems? 1. Little interest or pleasure in doing things: not at all 2. Feeling down, depressed, or hopeless: not at all 3. Trouble falling or staying asleep, or sleeping too much: not at all 4. Feeling tired or having little energy: not at all 5. Poor appetite or overeating: not at all 6. Feeling bad about yourself - or that you are a failure or have let yourself or your family down: not at all 7. Trouble concentrating on things, such as reading the newspaper or watching television: not at all 8. Moving or speaking so slowly that other people could have noticed. Or the opposite - being so fidgety or restless that you have been moving around a lot more than usual: not at all 9. Thoughts that you would be better off or of hurting yourself in some way: not at all Total score: 0 Depression Screening Interpretation: Negative Depression Screening Done: Yes 54439 - PHQ-9 Billing: Yes Source: Developed by Drs. Manolo Ma, Angle Chen, Loco Estrella and colleagues, with an educational donovan from [employer]. Review of Systems Const Denies chills and Denies fever(s) ENT Denies epistaxis and Denies nasal discharge Card Denies chest pain Resp Denies chest congestion, Denies cough and Denies hemoptysis GI Denies diarrhea and Denies nausea Skin/Breast Denies rash Neuro Reports no additional complaints Psych Reports no additional complaints Endo Reports no additional complaints Physical Exam Vital Signs: Last Vital Signs Pulse 71 04/26/24 08:22 BP 148/78 H 04/26/24 08:22 Pulse Ox 95 04/26/24 08:22 Oxygen Delivery Method Room Air 04/26/24 08:22 BMI result Body Mass Index 29.6 Const General: cooperative, comfortable and no acute distress Orientation/consciousness: patient oriented x3 HEENT Head: Yes normocephalic Eyes General: appearance normal, both eyes and all related structures Neck Other: Supple Neck: Yes supple Resp Effort & Inspection: normal respiratory effort, no cough and no stridor Cardio Rhythm: regular rhythm Heart sounds: S1 normal heart sound present and S2 normal heart sound present Skin General skin exam: turgor normal Neuro Other: Motor sensory intact General: patient oriented x3, tone normal and moves all extremities Extrem Other: No lower extremity swelling. Right lower extremity: no edema Left lower extremity: no edema Psych Other: Normal effect, speech clear Assessment & Plan Assessment & Plan (1) Medicare annual wellness visit, subsequent: Code(s): Z00.00 - Encounter for general adult medical examination without abnormal findings (2) Diabetes mellitus type II, non insulin dependent: Code(s): E11.9 - Type 2 diabetes mellitus without complications (3) Chronic nasal congestion: Code(s): R09.81 - Nasal congestion (4) Depression, major, recurrent: Code(s): F33.9 - Major depressive disorder, recurrent, unspecified Qualifiers: Active/Remission status: in partial remission Qualified Code(s): F33.41 - Major depressive disorder, recurrent, in partial remission (5) Osteoarthritis of multiple joints: Code(s): M15.9 - Polyosteoarthritis, unspecified Qualifiers: Osteoarthritis type: primary Qualified Code(s): M15.9 - Polyosteoarthritis, unspecified (6) Hearing impaired: Code(s): H91.90 - Unspecified hearing loss, unspecified ear Qualifiers: Hearing loss type: unspecified Laterality: bilateral Qualified Code(s) : H91.93 - Unspecified hearing loss, bilateral (7) Rosacea: Code(s): L71.9 - Rosacea, unspecified (8) Lipid disorder: Code(s): E78.9 - Disorder of lipoprotein metabolism, unspecified (9) Hypertension, essential: Code(s): I10 - Essential (primary) hypertension (10) Atherosclerotic cardiovascular disease: Code(s): I25.10 - Atherosclerotic heart disease of [place] coronary artery without angina pectoris (11) Paroxysmal A-fib: Code(s): I48.0 - Paroxysmal atrial fibrillation (12) Heat rash: Code(s): L74.0 - Miliaria rubra Plan Patient is 78-year-old gentleman came in today for his regular follow-up appointment and Medicare wellness visit Due for labs Patient has developed heat rash which is pruritic Explained to him that he need to stay indoors so the rash can resolve Patient had bypass surgery he is doing very well there is no shortness a breath no chest pain no swelling of ankles He is seeing Dr. [facility] at is on high-dose atorvastatin 80 mg he has severe osteoarthritis in his hands, he has been taking Tylenol only now Diabetes mellitus: patient is on glipizide 5 mg, tolerating medication he is to continue that, hemoglobin A1c is stable Hypertension: patient is on amlodipine 10 mg chlorthalidone 50 mg and metoprolol 25 mg b.i.d., blood pressure is well controlled. His moods are stable as well patient is on paroxetine 10 mg for depression. BMI is elevated patient is trying to lose weight Allergies are stable with loratadine Follow-up 3 months Orders: Orders Hemoglobin A1c Today E11.9 - Type 2 diabetes mellitus without complications, E78.9 - Disorder of lipoprotein metabolism, unspecified, F33.41 - Major depressive disorder, recurrent, in partial remission, H91.93 - Unspecified hearing loss, bilateral, I10 - Essential (primary) hypertension, I25.10 - Atherosclerotic heart disease of [place] coronary artery without angina pectoris, I48.0 - Paroxysmal atrial fibrillation, L71.9 - Rosacea, unspecified, M15.9 - Polyosteoarthritis, unspecified, R09.81 - Nasal congestion Complete Blood Count Auto Diff Today E11.9 - Type 2 diabetes mellitus without complications, E78.9 - Disorder of lipoprotein metabolism, unspecified, F33.41 - Major depressive disorder, recurrent, in partial remission, H91.93 - Unspecified hearing loss, bilateral, I10 - Essential (primary) hypertension, I25.10 - Atherosclerotic heart disease of [place] coronary artery without angina pectoris, I48.0 - Paroxysmal atrial fibrillation, L71.9 - Rosacea, unspecified, M15.9 - Polyosteoarthritis, unspecified, R09.81 - Nasal congestion Comprehensive Met. Panel Today E11.9 - Type 2 diabetes mellitus without complications, E78.9 - Disorder of lipoprotein metabolism, unspecified, F33.41 - Major depressive disorder, recurrent, in partial remission, H91.93 - Unspecified hearing loss, bilateral, I10 - Essential (primary) hypertension, I25.10 - Atherosclerotic heart disease of [place] coronary artery without angina pectoris, I48.0 - Paroxysmal atrial fibrillation, L71.9 - Rosacea, unspecified, M15.9 - Polyosteoarthritis, unspecified, R09.81 - Nasal congestion LDL Cholesterol Direct Today E11.9 - Type 2 diabetes mellitus without complications, E78.9 - Disorder of lipoprotein metabolism, unspecified, F33.41 - Major depressive disorder, recurrent, in partial remission, H91.93 - Unspecified hearing loss, bilateral, I10 - Essential (primary) hypertension, I25.10 - Atherosclerotic heart disease of [place] coronary artery without angina pectoris, I48.0 - Paroxysmal atrial fibrillation, L71.9 - Rosacea, unspecified, M15.9 - Polyosteoarthritis, unspecified, R09.81 - Nasal congestion Quality Reporting (2019) Depression/Bipolar (159/160/161/177) PHQ-9: Total score: 0 Coding Level of Care Code Medicare Subsequent (G0439) Est Pt Level 4 (91968) Diagnoses Medicare annual wellness visit, subsequent Z00.00 Diabetes mellitus type II, non insulin dependent E11.9 Chronic nasal congestion R09.81 Recurrent major depressive disorder, in partial remission F33.41 Active/Remission status: in partial remission Primary osteoarthritis involving multiple joints M15.9 Osteoarthritis type: primary Bilateral hearing loss, unspecified hearing loss type H91.93 Hearing loss type: unspecified Laterality: bilateral Rosacea L71.9 Lipid disorder E78.9 Hypertension, essential I10 Atherosclerotic cardiovascular disease I25.10 Paroxysmal A-fib I48.0 Heat rash L74.0 CPT Codes Advance Care Planning - Time spent: 1-15 minutes, not on file ([id number]) Advance Care Planning Advance Care Planning discussion: Completed/Scanned Forms completed: MOLST Time spent: 1-15 minutes, not on file
[2024-04-26 08:22] VITALS: BP 148/78; PULSE 71; O2SAT 95; BMI 29.6
== END 2024-04-26 08:44 | disposition home or self-care (01) ==
PROVIDERS: Visit Provider Internal Medicine
DX: Z00.00 Encounter for general adult medical examination without abnormal findings (principal); E11.9 Type 2 diabetes mellitus without complications; F33.41 Major depressive disorder, recurrent, in partial remission; I48.0 Paroxysmal atrial fibrillation; R09.81 Nasal congestion; M15.9 Polyosteoarthritis, unspecified; H91.93 Unspecified hearing loss, bilateral; L71.9 Rosacea, unspecified; E78.9 Disorder of lipoprotein metabolism, unspecified; I10 Essential (primary) hypertension; I25.10 Atherosclerotic heart disease of native coronary artery without angina pectoris; L74.0 Miliaria rubra
CPT/HCPCS: 1124F; 99214; G0439

== ENCOUNTER 2024-04-26 08:45 | Outpatient (REF) | payer MEDICARE, SELFPAY ==
[2024-04-26 10:23] LABS: MANUAL DIFF FLAG NO
[2024-04-26 10:36] LABS: Basophils Percent Auto 0.5 % (0-2); Eosinophils Absolute Auto 0.2 X10*3/uL (0.0-0.4); Eosinophils Percent Auto 2.9 % (0-4); Hemoglobin 16.4 g/dl (14.0-18.0); Imm Gran Abs Auto 0.06 X10*3/uL (0.00-0.03); Imm Gran Pct Auto 0.8 % (0.0-0.4); Lymphocytes Absolute Auto 1.9 X10*3/uL (1.2-4.9); Lymphocytes Percent Auto 23.4 % (20-40); Mean Corpuscular HGB Conc 33.5 g/dl (31.0-36.0); Mean Corpuscular Hemoglobin 31.9 pg (27.0-33.0); Mean Corpuscular Volume 95.3 fL (80.0-98.0); Mean Platelet Volume 9.9 fL (9.4-12.4); Monocytes Absolute Auto 0.9 X10*3/uL (0.1-1.2); Monocytes Percent Auto 10.7 % (2-11); Neutrophils Absolute Auto 4.9 x10*3/uL (2.0-8.3); Neutrophils Percent Auto 61.7 % (45-73); Platelet Count 181 X10*3/uL (160-400); Red Blood Count 5.14 X10*6/uL (4.60-5.80); Red Cell Distribution Width 12.7 % (11.0-16.0); White Blood Count 7.9 X10*3/uL (4.8-10.8)
[2024-04-26 10:59] LABS: Estimated Average Glucose 197 mg/dL; Hemoglobin A1c % 8.5 % (<6.0)
[2024-04-26 11:37] LABS: Alanine Aminotransferase 37 U/L (0-40); Albumin Level 4.1 g/dL (3.5-5.0); Alkaline Phosphatase 110 U/L (39-117); Anion Gap 11 (12-20); Aspartate Amino Transferase 25 U/L (5-37); Bilirubin Total 0.7 mg/dL (0.0-1.0); Blood Urea Nitrogen 26 mg/dL (9-16); Calcium 9.8 mg/dL (8.4-10.2); Carbon Dioxide 31 mmol/L (22-29); Chloride 103 mmol/L (96-108); Estimated Glomerular Filt Rate > 60; Glucose Fasting 182 mg/dL (60-99); Glucose Random 180 mg/dL (60-115); Potassium 4.8 mmol/L (3.3-5.1); Sodium 140 mmol/L (135-145); Total Protein 7.4 g/dL (6.5-8.0)
[2024-04-30 00:33] LABS: LDL Cholesterol Direct 66 mg/dL (<100)
== END 2024-04-26 08:46 | disposition home or self-care (01) ==
LOC: HO.HMGCLDS 08:45
PROVIDERS: PCP Internal Medicine; Visit Provider Internal Medicine
DX: F33.9 Major depressive disorder, recurrent, unspecified (principal); E11.9 Type 2 diabetes mellitus without complications; I10 Essential (primary) hypertension; E78.9 Disorder of lipoprotein metabolism, unspecified; L71.9 Rosacea, unspecified; R09.81 Nasal congestion; F33.41 Major depressive disorder, recurrent, in partial remission; M15.9 Polyosteoarthritis, unspecified; H91.93 Unspecified hearing loss, bilateral; I25.10 Atherosclerotic heart disease of native coronary artery without angina pectoris; I48.0 Paroxysmal atrial fibrillation
CPT/HCPCS: 36415; 80053; 83036; 83721; 85025

== ENCOUNTER 2024-05-28 08:23 | Outpatient (AMB) | payer MEDICARE, SELFPAY ==
[2024-05-28 08:25] VITALS: BP 138/78; PULSE 67; O2SAT 94; BMI 28.8
--- NOTE | 2024-05-28 08:25 | MHC.PC.OV ---
Vital Signs 05/28/24 08:25 Height 6 ft Weight 212 lb 4 oz BMI 28.8 BP 138/78 Blood Pressure Location Lt brachial Position Sitting Pulse 67 Pulse Source Pulse Oximeter Pulse Oximetry (%) 94 Oxygen Delivery Method Room Air Intake Visit Reasons: Medication Question Allergies atenolol Allergy (Unknown, Verified 05/28/24 08:26) Bradycardia ENVIROMENTAL Allergy (Unknown, Uncoded 03/28/24 08:02) ITCHY EYES/RUNNY NOSE Medication List - Last Reconciled 05/28/24 by Shirin Davis MD adhesive tape Use for daily dressing change amlodipine 10 mg PO DAILY 90 days apixaban (Eliquis) 5 mg PO BID 90 days atorvastatin 80 mg PO QPM blood sugar diagnostic (FreeStyle Lite Strips) test blood sugar once a day blood-glucose meter (FreeStyle Lite Meter kit) As directed brimonidine 0.2% 1 drp ophthalmic-Right BID carbamide peroxide 6.5% (Debrox) 5 drps otic (ears) BID 7 days chlorthalidone 50 mg PO DAILY 90 days ezetimibe 10 mg PO DAILY fluticasone propionate 50 mcg/actuation (Flonase Allergy Relief) 1 spray intranasal DAILY gauze bandage Change dressing daily glipizide 10 mg PO BID 90 days [heating pad As directed] lancets (FreeStyle Lancets) test blood sugar once a day latanoprost 0.005% 1 drp ophthalmic (eye) QPM loratadine 10 mg PO DAILY metoprolol tartrate 25 mg PO BID 90 days minocycline 50 mg PO DAILY miscellaneous medical supply As directed netarsudil 0.02% (Rhopressa) 1 drp ophthalmic-Right BEDTIME paroxetine HCl 10 mg PO DAILY pioglitazone 15 mg PO DAILY sennosides-docusate sodium 8.6-50 mg (Senna with Docusate Sodium) 1 tab-cap PO BEDTIME timolol maleate 0.5% 1 drp ophthalmic (eye) BID [Xeroform gauze dressing 3 % bismuth As directed] Tobacco use date assessed: 05/28/24 Fall risk assessment: No Falls in past year Last assessed Fall Risk: 05/28/24 Dental Screening Dental Screen Date: 05/28/24 Did you have a dental visit in the last 12 months?: No Did you have a dental problem in the last 6 months where you did not have access to dental care?: No Was dental information given to patient?: No HPI Medication Question HPI Details Patient has diabetes Currently he is taking glipizide 10 mg b.i.d. His hemoglobin A1c came back at 8.5 in April I added pioglitazone, which is working for the patient, tells me has more energy, but he is concerned about side effects He came in today to talk about that he would like to be switched I am changing pioglitazone to Farxiga 10 mg I have encouraged patient to go over side effect profile provided by the pharmacy. He has a follow-up appointment next month for his regular visit. [facility] Medical History Atherosclerotic cardiovascular disease Depression, major, recurrent Chronic nasal congestion Diabetes mellitus type II, non insulin dependent Osteoarthritis of hand, left Obesity (BMI 30.0-34.9) Vertebral artery stenosis Cervical spondylosis Hypertension, essential Lipid disorder Hearing impaired Surgical History S/P CABG x 3 Hx of cholecystectomy Family History Father HTN (hypertension) Mother No problems noted. Social History Housing: House Alcohol intake: current Alcohol intake frequency: a few times a week Patient Tobacco Use Status: Former Tobacco user Years Smoked: 20 +/- e-Cigarette/Vaping Use: Never Used service: No Current occupational status: retired Cognitive needs: No Hearing needs: No Vision needs: Yes Questionnaire PHQ-9 Over the last 2 weeks, how often have you been bothered by any of the following problems? 1. Little interest or pleasure in doing things: not at all 2. Feeling down, depressed, or hopeless: not at all 3. Trouble falling or staying asleep, or sleeping too much: several days 4. Feeling tired or having little energy: not at all 5. Poor appetite or overeating: not at all 6. Feeling bad about yourself - or that you are a failure or have let yourself or your family down: not at all 7. Trouble concentrating on things, such as reading the newspaper or watching television: not at all 8. Moving or speaking so slowly that other people could have noticed. Or the opposite - being so fidgety or restless that you have been moving around a lot more than usual: several days 9. Thoughts that you would be better off or of hurting yourself in some way: not at all Total score: 2 Depression Screening Interpretation: Negative Depression Screening Done: Yes 15890 - PHQ-9 Billing: Yes Source: Developed by Drs. Manolo Ma, Angle Chen, Loco Estrella and colleagues, with an educational donovan from [employer]. Thrive Questionnaire Date Thrive assessed: 05/28/24 I am a: Patient What is your living situation today?: I have a steady place to live Within the past 12 months, did the food you bought not last and you didn't have the money to get more?: Never true Within the past 12 months, did you worry whether your food would run out before you got money to buy more?: Never true Do you have trouble paying for medicines?: No Do you have trouble getting transportation to medical appointments?: No Do you have trouble paying your heating and electricity bill?: No Do you have trouble taking care of your child, family member or friend?: No Do you have trouble with day-to-day activities such as bathing, preparing meals, shopping, managing finances, etc.?: No Are you currently unemployed and looking for a job?: No Are you interested in more education?: No Please select the resources that you would like help with: Housing/Snf Currently or been in a relationship where the following occur: No concerns reported THRIVE Score: 0 AUDIT C Alcohol Use Questionnaire (AUDIT-C) 1. How often do you have a drink containing alcohol?: Monthly or less 2. How many drinks containing alcohol do you have on a typical day when you are drinking?: 1 or 2 3. How often do you have six or more drinks on one occasion?: Never Total Score: 1 Score Reviewed/Action Taken: Yes ELIO-7 AMB Questionnaire ELIO-7 Date ELIO - 7 assessed: 05/28/24 Feeling nervous, anxious, or on edge: 1 = Several days Not being able to stop or control worryin = Not at all Worrying too much about different things: 1 = Several days Trouble relaxin = Several days Being so restless that it is hard to sit still: 1 = Several days Becoming easily annoyed or irritable: 0 = Not at all Feeling afraid as if something awful might happen: 0 = Not at all Total ELIO-7 score (0-4 normal; 5-9 mild; 10-14 moderate; 15-21 severe): 4 Source: Developed by Drs. Manolo Ma, Angle Chen, Loco Estrella and colleagues, with an educational donovan from [employer]. ELIO-7 Assessment Billing ELIO-7 Assessment Tool: ELIO-7 Assessment 93834 Review of Systems Const Denies chills and Denies fever(s) ENT Denies epistaxis and Denies nasal discharge Card Denies chest pain Resp Denies chest congestion, Denies cough and Denies hemoptysis GI Denies diarrhea and Denies nausea Skin/Breast Denies rash Neuro Reports no additional complaints Psych Reports no additional complaints Endo Reports no additional complaints Physical exam (Primary Care) Vital Signs: Last Vital Signs Pulse 67 05/28/24 08:25 BP 138/78 05/28/24 08:25 Pulse Ox 94 05/28/24 08:25 Oxygen Delivery Method Room Air 05/28/24 08:25 BMI result Body Mass Index 28.8 Tobacco/Smoking Status: Tobacco use Status Tobacco use date assessed 05/28/24 05/28/24 08:29 Patient Tobacco Use Status Former Tobacco user 05/28/24 08:29 e-Cigarette/Vaping Use Never Used 05/28/24 08:29 PHQ-9: PHQ-9 Score PHQ-9: Total score 2 05/28/24 09:13 Depression Screening Interpretation: Negative Thrive Assessment: Date of Thrive Assessment Date Thrive assessed 05/28/24 05/28/24 08:29 Currently or been in a relationship where the following occur: No concerns reported Const General: cooperative, comfortable and no acute distress Orientation/consciousness: patient oriented x3 HENMT Head: Yes normocephalic Eyes General: appearance normal, both eyes and all related structures Neck Neck: Yes supple Resp Effort & Inspection: normal respiratory effort, no cough and no stridor Cardio Rhythm: regular rhythm Heart sounds: S1 normal heart sound present and S2 normal heart sound present Skin General skin exam: turgor normal Neuro General: patient oriented x3, tone normal and moves all extremities Extrem Right lower extremity: no edema Left lower extremity: no edema Assessment and Plan Assessment & Plan (1) Diabetes mellitus type II, non insulin dependent: Code(s): E11.9 - Type 2 diabetes mellitus without complications Plan Patient has diabetes Currently he is taking glipizide 10 mg b.i.d. His hemoglobin A1c came back at 8.5 in April I added pioglitazone, which is working for the patient, tells me has more energy, but he is concerned about side effects He came in today to talk about that he would like to be switched I am changing pioglitazone to Farxiga 10 mg I have encouraged patient to go over side effect profile provided by the pharmacy. He has a follow-up appointment next month for his regular visit. Medications: New dapagliflozin propanediol (Farxiga) 10 mg PO QAM 30 tabs 0RF Discontinued pioglitazone Discontinued Reason: Doctor's Order 15 mg PO DAILY 90 tabs 0RF Coding Level of Care Code Est Pt Level 3 (51423) Diagnoses Diabetes mellitus type II, non insulin dependent E11.9 Additional Codes ELIO-7 Assessment Billing - ELIO-7 Assessment Tool: ELIO-7 Assessment 21808 ([id number])
== END 2024-05-28 08:48 | disposition home or self-care (01) ==
PROVIDERS: PCP Internal Medicine; Visit Provider Internal Medicine
DX: E11.9 Type 2 diabetes mellitus without complications (principal)
CPT/HCPCS: 99213

== ENCOUNTER 2024-05-30 08:09 | Outpatient (AMB) | payer MEDICARE, SELFPAY ==
--- NOTE | 2024-05-30 08:33 | A.OFFPC_ITS ---
Intake Visit Reasons: Med Review Allergies atenolol Allergy (Unknown, Verified 05/30/24 08:34) Bradycardia ENVIROMENTAL Allergy (Unknown, Uncoded 03/28/24 08:02) ITCHY EYES/RUNNY NOSE Medication List - Last Reconciled 05/30/24 by Shirin Davis MD adhesive tape Use for daily dressing change amlodipine 10 mg PO DAILY 90 days apixaban (Eliquis) 5 mg PO BID 90 days atorvastatin 80 mg PO QPM blood sugar diagnostic (FreeStyle Lite Strips) test blood sugar once a day blood-glucose meter (FreeStyle Lite Meter kit) As directed brimonidine 0.2% 1 drp ophthalmic-Right BID carbamide peroxide 6.5% (Debrox) 5 drps otic (ears) BID 7 days chlorthalidone 50 mg PO DAILY 90 days ezetimibe 10 mg PO DAILY fluticasone propionate 50 mcg/actuation (Flonase Allergy Relief) 1 spray intranasal DAILY gauze bandage Change dressing daily glipizide 10 mg PO BID 90 days [heating pad As directed] lancets (FreeStyle Lancets) test blood sugar once a day latanoprost 0.005% 1 drp ophthalmic (eye) QPM loratadine 10 mg PO DAILY metoprolol tartrate 25 mg PO BID 90 days minocycline 50 mg PO DAILY miscellaneous medical supply As directed netarsudil 0.02% (Rhopressa) 1 drp ophthalmic-Right BEDTIME paroxetine HCl 10 mg PO DAILY pioglitazone 15 mg PO DAILY sennosides-docusate sodium 8.6-50 mg (Senna with Docusate Sodium) 1 tab-cap PO BEDTIME sitagliptin phosphate (Januvia) 25 mg PO DAILY timolol maleate 0.5% 1 drp ophthalmic (eye) BID [Xeroform gauze dressing 3 % bismuth As directed] Tobacco use date assessed: 05/30/24 Fall risk assessment: No Falls in past year Last assessed Fall Risk: 05/30/24 Dental Screening Dental Screen Date: 05/30/24 Did you have a dental visit in the last 12 months?: No Did you have a dental problem in the last 6 months where you did not have access to dental care?: No Was dental information given to patient?: No HPI Med Review HPI Details Telemedicine apt to talk about diabetes medication Currently he is taking glipizide 10 mg b.i.d. His hemoglobin A1c came back at 8.5 in April I added pioglitazone, which is working for the patient, tells me has more energy, but he is concerned about side effects He came in today to talk about that he would like to be switched he wanted to be switched, so I sent Farxiga 10 mg for the patient he return back to clinic yesterday stating that he cant afford it I changed med to Junivia , but patient couldnt afford that as well he has apt with cardio in Aug , he will discuss Actos with them further mean while he agree to continue it [facility] Medical History Atherosclerotic cardiovascular disease Depression, major, recurrent Chronic nasal congestion Diabetes mellitus type II, non insulin dependent Osteoarthritis of hand, left Obesity (BMI 30.0-34.9) Vertebral artery stenosis Cervical spondylosis Hypertension, essential Lipid disorder Hearing impaired Surgical History S/P CABG x 3 Hx of cholecystectomy Family History Father HTN (hypertension) Mother No problems noted. Social History Housing: House Alcohol intake: current Alcohol intake frequency: a few times a week Patient Tobacco Use Status: Former Tobacco user Years Smoked: 20 +/- e-Cigarette/Vaping Use: Never Used service: No Current occupational status: retired Cognitive needs: No Hearing needs: No Vision needs: Yes Questionnaire Thrive Questionnaire Date Thrive assessed: 05/28/24 AUDIT C Alcohol Use Questionnaire (AUDIT-C) 1. How often do you have a drink containing alcohol?: Monthly or less 2. How many drinks containing alcohol do you have on a typical day when you are drinking?: 1 or 2 3. How often do you have six or more drinks on one occasion?: Never Total Score: 1 Score Reviewed/Action Taken: Yes ELIO-7 AMB Questionnaire ELIO-7 Date ELIO - 7 assessed: 05/28/24 Source: Developed by Drs. Manolo Ma, Angle Chen, Loco Estrella and colleagues, with an educational donovan from [employer]. Review of Systems Const Denies chills and Denies fever(s) ENT Denies epistaxis and Denies nasal discharge Card Denies chest pain Resp Denies chest congestion, Denies cough and Denies hemoptysis GI Denies diarrhea and Denies nausea Skin/Breast Denies rash Neuro Reports no additional complaints Psych Reports no additional complaints Endo Reports no additional complaints Physical exam (Primary Care) Tobacco/Smoking Status: Tobacco use Status Tobacco use date assessed 05/30/24 05/30/24 08:36 Patient Tobacco Use Status Former Tobacco user 05/30/24 08:36 e-Cigarette/Vaping Use Never Used 05/30/24 08:36 Thrive Assessment: Date of Thrive Assessment Date Thrive assessed 05/28/24 05/30/24 08:36 Telehealth Telehealth Telehealth Platform: [employer] Location of provider rendering services: practice address Location of patient: address on file Patient Identification confirmed using: Name, : Yes Telehealth method: voice only Patient verbally consented to treatment: Yes Patient verbally consented to billing insurance company: Yes Patient informed of any privacy concerns related to visit: Yes Minutes spent on Phone/Video with Pt.: 13 Assessment and Plan Assessment & Plan (1) Diabetes mellitus type II, non insulin dependent: Code(s): E11.9 - Type 2 diabetes mellitus without complications Plan Telemedicine apt to talk about diabetes medication Currently he is taking glipizide 10 mg b.i.d. His hemoglobin A1c came back at 8.5 in April I added pioglitazone, which is working for the patient, tells me has more energy, but he is concerned about side effects He came in today to talk about that he would like to be switched he wanted to be switched, so I sent Farxiga 10 mg for the patient he return back to clinic yesterday stating that he cant afford it I changed med to Junivia , but patient couldnt afford that as well he has apt with cardio in Nov , he will discuss Actos with them further mean while he agree to continue it Medications: Refilled pioglitazone 15 mg PO DAILY 90 tabs 0RF Discontinued sitagliptin phosphate (Januvia) Discontinued Reason: Patient Refused 25 mg PO DAILY 90 tabs 0RF Coding Level of Care Code Tele Est Pt Level 3 (43961) Diagnoses Diabetes mellitus type II, non insulin dependent E11.9
== END 2024-05-30 08:51 | disposition home or self-care (01) ==
LOC: HO.HMGC 08:09
PROVIDERS: PCP Internal Medicine; Visit Provider Internal Medicine
DX: E11.9 Type 2 diabetes mellitus without complications (principal)
CPT/HCPCS: 99442

== ENCOUNTER 2024-06-14 14:49 | Outpatient (AMB) | payer MEDICARE, SELFPAY ==
[2024-06-14 15:02] VITALS: BP 110/66; PULSE 76; O2SAT 95; BMI 29.1
--- NOTE | 2024-06-14 15:02 | MHC.OFFWIV ---
Intake Vital Signs 06/14/24 15:02 Height 6 ft Weight 214 lb 6 oz BMI 29.1 BP 110/66 Blood Pressure Location Lt brachial Position Sitting Pulse 76 Pulse Source Pulse Oximeter Pulse Oximetry (%) 95 Oxygen Delivery Method Room Air Intake Visit Reasons: EP-redness rt leg Intake Note: Pt presents to the office today for c/o redness in his lower right leg x5 days. Pt states he was in his garden and was cleaning and scratched his leg. Pt states his leg has been leaking clear fluid. Patient Tobacco Use Status: Former Tobacco user Allergies atenolol Allergy (Unknown, Verified 06/14/24 15:04) Bradycardia ENVIROMENTAL Allergy (Unknown, Uncoded 06/14/24 15:04) ITCHY EYES/RUNNY NOSE HPI HPI Comments History of Present Illness Details 78 y/o male patient who presents to the walk in clinic with c/o right lower extremity infection. Pt reports that he was working in his Garden, a small brunch cut his skin and caused the infection. C/o redness, swelling and edema. Pt currently taking Eliquis for A-Fib and has poor uncontrolled T2DM. COUNT INCLUDES [facility] Medical History Atherosclerotic cardiovascular disease Depression, major, recurrent Chronic nasal congestion Diabetes mellitus type II, non insulin dependent Osteoarthritis of hand, left Obesity (BMI 30.0-34.9) Vertebral artery stenosis Cervical spondylosis Hypertension, essential Lipid disorder Hearing impaired Surgical History S/P CABG x 3 Hx of cholecystectomy Family History Father HTN (hypertension) Mother No problems noted. Social History Housing: House Alcohol intake: current Alcohol intake frequency: a few times a week Patient Tobacco Use Status: Former Tobacco user Years Smoked: 20 +/- e-Cigarette/Vaping Use: Never Used service: No Current occupational status: retired Cognitive needs: No Hearing needs: No Vision needs: Yes Review of Systems Const All systems reviewed & are unremarkable except as noted in HPI and below Physical Exam Vital Signs: Last Vital Signs Pulse 76 06/14/24 15:02 BP 110/66 06/14/24 15:02 Pulse Ox 95 06/14/24 15:02 Oxygen Delivery Method Room Air 06/14/24 15:02 BMI result Body Mass Index 29.1 Const General: cooperative and no acute distress Nutritional Appearance: obese Orientation/consciousness: patient oriented x3 Skin Full body images: 1. Dark purple skin on both legs. Some redness, pitting Edema. Small skin lacerations oozing clear fluid on both lower legs. Neuro General: patient oriented x3, gait normal and moves all extremities Extrem Right lower extremity: lower leg Details: erythema, pitting edema Details: 3+ and ecchymosis; no crepitus Left lower extremity: lower leg (reddish to purplish skin color both lower legs) Details: erythema and pitting edema; no tenderness Psych Speech and movement: Normal speech and movement present Assessment & Plan Assessment & Plan (1) Cellulitis of skin: Code(s): L03.90 - Cellulitis, unspecified Plan: Ordered Keflex F/U with PCP Medications: New cephalexin 500 mg PO BID 7 days 14 caps 0RF L03.90 - Cellulitis, unspecified Coding Level of Care Code Est Pt Level 3 (16133) Diagnoses Cellulitis of skin L03.90 Time Spent (min) 15
== END 2024-06-14 15:27 | disposition home or self-care (01) ==
PROVIDERS: PCP Internal Medicine; Visit Provider Nurse Practitioner Family
DX: L03.90 Cellulitis, unspecified (principal)
CPT/HCPCS: 99213

== ENCOUNTER → 2024-07-03 08:10 | Outpatient (BNVA) | payer MEDICARE, SELFPAY | PROVIDERS: PCP Internal Medicine; Visit Provider Dietitian, Registered ==

== ENCOUNTER 2024-07-04 08:00 | Outpatient (AMB) | payer MEDICARE, SELFPAY ==
[2024-07-04 08:06] VITALS: BP 110/62; PULSE 62; O2SAT 97; BMI 28.7
--- NOTE | 2024-07-04 08:06 | MHC.OFFWIV ---
Intake Vital Signs 07/04/24 08:06 Height 6 ft Weight 212 lb BMI 28.7 BP 110/62 Blood Pressure Location Rt brachial Position Sitting Pulse 62 Pulse Source Pulse Oximeter Pulse Oximetry (%) 97 Oxygen Delivery Method Room Air Intake Visit Reasons: EP infection in LT leg? Intake Note: Patient here for wound on left leg. he states he had a previous wound on the leg and took tape off and ripped the skin off. Patient Tobacco Use Status: Former Tobacco user Allergies atenolol Allergy (Unknown, Verified 07/04/24 08:11) Bradycardia ENVIROMENTAL Allergy (Unknown, Uncoded 07/04/24 08:11) ITCHY EYES/RUNNY NOSE Do you need a note to return to daycare/school/sports/work: No HPI HPI Comments History of Present Illness Details Patient is a 78-year-old male presenting with a wound on his right lower leg. He states he has several wounds in different stages of healing and he is worried they are infected. He tells me he was recently given Keflex 500 mg to take twice a day and it right heal quickly. He tells me he had some dressing on the larger wound on his left leg and when he went to go take it off, he ripped the skin off with the tape. He tells me he is diabetic, he is also on a blood thinner. [facility] Medical History Atherosclerotic cardiovascular disease Depression, major, recurrent Chronic nasal congestion Diabetes mellitus type II, non insulin dependent Osteoarthritis of hand, left Obesity (BMI 30.0-34.9) Vertebral artery stenosis Cervical spondylosis Hypertension, essential Lipid disorder Hearing impaired Surgical History S/P CABG x 3 Hx of cholecystectomy Family History Father HTN (hypertension) Mother No problems noted. Social History Housing: House Alcohol intake: current Alcohol intake frequency: a few times a week Patient Tobacco Use Status: Former Tobacco user Years Smoked: 20 +/- e-Cigarette/Vaping Use: Never Used service: No Current occupational status: retired Cognitive needs: No Hearing needs: No Vision needs: Yes Review of Systems Const All systems reviewed & are unremarkable except as noted in HPI and below Physical Exam Vital Signs: Last Vital Signs Pulse 62 07/04/24 08:06 BP 110/62 07/04/24 08:06 Pulse Ox 97 07/04/24 08:06 Oxygen Delivery Method Room Air 07/04/24 08:06 BMI result Body Mass Index 28.7 Const General: cooperative, healthy appearing, comfortable and no acute distress Orientation/consciousness: patient oriented x3 Limitations: no limitations HEENT Head: Yes normal to inspection Resp Effort & Inspection: normal respiratory effort and able to speak in complete sentences Skin Full body images: 1. 3cm oval erythematous area with granulation tissue on the edges, no warmth, not malodorous, no weeping or purulence noted, no other signs of infection noted. 2. 1cm wound with dark scab in center, not malodorous, no warmth, no erythema, no purulence or weeping or other signs of infection noted. Neuro General: patient oriented x3 Assessment & Plan Assessment & Plan (1) Non-healing non-surgical wound: Code(s): T14.8XXA - Other injury of unspecified body region, initial encounter Plan: Dressed wound with Xeroform, nonadherent dressing and gauze and then secured into place with Coban. Recommended he keep his blood sugars in a normal range to help with wound healing. Recommended he keep everything in place as is an for 48 hours and come back Monday morning so that we can check on his wound verify it still is noninfected and change the dressing for him. At that point, if he is comfortable changing the dressing himself and it seems to be healing well, he can probably continue if we give him the supplies however he may need wound care. We will have to reach out to his PCP at that point. There is a wound care referral from September of 2023 but it does not look like it ever got processed Plan See above Coding Level of Care Code Est Pt Level 4 (43915) Diagnoses Non-healing non-surgical wound T14.8XXA
== END 2024-07-04 08:42 | disposition home or self-care (01) ==
PROVIDERS: PCP Internal Medicine; Visit Provider Physician Assistant
DX: T14.8XXA Other injury of unspecified body region, initial encounter (principal)

== ENCOUNTER → 2024-07-04 08:00 | Outpatient (BNVA) | payer MEDICARE, SELFPAY | PROVIDERS: PCP Internal Medicine | DX: S89.91XD Unspecified injury of right lower leg, subsequent encounter (principal) | CPT/HCPCS: 99212 ==

== ENCOUNTER 2024-07-05 09:52 | Outpatient (AMB) | payer MEDICARE, SELFPAY ==
[2024-07-05 09:54] VITALS: BP 120/70; PULSE 66; TEMP 36.6; O2SAT 97; BMI 28.3
--- NOTE | 2024-07-05 09:54 | AM.OFFWIN_ITS ---
Intake Vital Signs 3 07/05/24 09:54 Height 6 ft Weight 209 lb BMI 28.3 BP 120/70 Blood Pressure Location Rt brachial Position Sitting Pulse 66 Pulse Source Pulse Oximeter Temp 97.9 F Temp Source Oral Pulse Oximetry (%) 97 Intake Visit Reasons: EP recheck wound Intake Note: pt is here for recheck wound on right lower leg Patient Tobacco Use Status: Former Tobacco user Allergies atenolol Allergy (Unknown, Verified 07/05/24 09:55) Bradycardia ENVIROMENTAL Allergy (Unknown, Uncoded 07/04/24 08:11) ITCHY EYES/RUNNY NOSE Do you need a note to return to daycare/school/sports/work: No HPI HPI Comments 2 History of Present Illness0 Details Patient is a 78-year-old male who has chronic wounds on his bilateral lower extremities complaining needing a wound check on his left lower extremity. He states he was here a few days ago and we applied Xeroform, noted here and dressing and wrapped it up for him and told him to come back for a wound changed on Monday but this morning he was getting his hair cut and he felt weird so he pulled down the dressing and now he can not get it back into place. [facility], [facility] Medical History Atherosclerotic cardiovascular disease Depression, major, recurrent Chronic nasal congestion Diabetes mellitus type II, non insulin dependent Osteoarthritis of hand, left Obesity (BMI 30.0-34.9) Vertebral artery stenosis Cervical spondylosis Hypertension, essential Lipid disorder Hearing impaired Surgical History S/P CABG x 3 Hx of cholecystectomy Family History Father HTN (hypertension) Mother No problems noted. Social History Housing: House Alcohol intake: current Alcohol intake frequency: a few times a week Patient Tobacco Use Status: Former Tobacco user Years Smoked: 20 +/- e-Cigarette/Vaping Use: Never Used service: No Current occupational status: retired Cognitive needs: No Hearing needs: No Vision needs: Yes Review of Systems Const All systems reviewed & are unremarkable except as noted in HPI and below Physical Exam Vital Signs: Last Vital Signs Temp 97.9 F 07/05/24 09:54 Pulse 66 07/05/24 09:54 BP 120/70 07/05/24 09:54 Pulse Ox 97 07/05/24 09:54 BMI result Body Mass Index 28.3 Const General: cooperative, healthy appearing, comfortable, no acute distress and well developed Orientation/consciousness: patient oriented x3 Limitations: no limitations HEENT Head: Yes normal to inspection Neck Neck: Yes normal visual inspection and Yes supple Neuro General: patient oriented x3 Extrem Other: Left lower extremity: lower leg (see photo above) Details: tenderness (on wounds, slight ttp) and non-pitting edema (slight around the medial anterior ankle); no unusual warmth Assessment & Plan Assessment & Plan (1) Non-healing non-surgical wound: Code(s): T14.8XXA - Other injury of unspecified body region, initial encounter Plan: Removed old dressing and applied new Xeroform with nonadherent pads over it and then wrapped with gauze, secured with tape and applied a loose Coban to keep it in place. Recommended he change this dressing and 48-72 hours or if he feels the wound is hurting more, starts to become malodorous or he has any other concerns. He should come in once a week for a wound check but plan on changing the dressing himself every 2-3 days. Gave him red flag warning signs and when to come in sooner. Also gave him supplies and he states he understands how to use them and has dressed his own wounds in the past. Plan See above Coding Level of Care Code Est Pt Level 3 (32846) Diagnoses Non-healing non-surgical wound T14.8XXA
== END 2024-07-05 10:27 | disposition home or self-care (01) ==
PROVIDERS: PCP Internal Medicine; Visit Provider Physician Assistant
DX: T14.8XXA Other injury of unspecified body region, initial encounter (principal)

== ENCOUNTER → 2024-07-05 09:52 | Outpatient (BNVA) | payer MEDICARE, SELFPAY | PROVIDERS: PCP Internal Medicine | DX: S89.92XA Unspecified injury of left lower leg, initial encounter (principal); S89.91XA Unspecified injury of right lower leg, initial encounter | CPT/HCPCS: 99212 ==

== ENCOUNTER → 2024-07-10 10:45 | Outpatient (BNVA) | payer MEDICARE, SELFPAY | PROVIDERS: PCP Internal Medicine; Visit Provider Dietitian, Registered ==

== ENCOUNTER 2024-07-11 08:08 | Outpatient (AMB) | payer MEDICARE, SELFPAY ==
[2024-07-11 08:30] VITALS: BP 122/74; PULSE 65; O2SAT 97; BMI 28.5
--- NOTE | 2024-07-11 08:31 | MHC.OFFWIV ---
Intake Vital Signs 07/11/24 08:30 Height 6 ft Weight 210 lb BMI 28.5 BP 122/74 Blood Pressure Location Rt brachial Position Sitting Pulse 65 Pulse Source Pulse Oximeter Pulse Oximetry (%) 97 Oxygen Delivery Method Room Air Intake Visit Reasons: EP Re check wound Intake Note: Pt is here today for wound check, pt will like to have wound rewrapped. Patient Tobacco Use Status: Former Tobacco user Allergies atenolol Allergy (Unknown, Verified 07/11/24 08:31) Bradycardia ENVIROMENTAL Allergy (Unknown, Uncoded 07/04/24 08:11) ITCHY EYES/RUNNY NOSE Do you need a note to return to daycare/school/sports/work: No HPI EP Re check wound HPI Details Patient is a 78-year-old male who has chronic wounds on his bilateral lower extremities complaining needing a wound check on his left lower extremity. He has been to the [facility] clinic previously for wound checks/dressing change and advised to change dressing every 2-3 days and to come to the [facility] clinic weekly. [facility] Medical History Atherosclerotic cardiovascular disease Depression, major, recurrent Chronic nasal congestion Diabetes mellitus type II, non insulin dependent Osteoarthritis of hand, left Obesity (BMI 30.0-34.9) Vertebral artery stenosis Cervical spondylosis Hypertension, essential Lipid disorder Hearing impaired Surgical History S/P CABG x 3 Hx of cholecystectomy Family History Father HTN (hypertension) Mother No problems noted. Social History Housing: House Alcohol intake: current Alcohol intake frequency: a few times a week Patient Tobacco Use Status: Former Tobacco user Years Smoked: 20 +/- e-Cigarette/Vaping Use: Never Used service: No Current occupational status: retired Cognitive needs: No Hearing needs: No Vision needs: Yes Review of Systems Const All systems reviewed & are unremarkable except as noted in HPI and below Physical Exam Vital Signs: Last Vital Signs Pulse 65 07/11/24 08:30 BP 122/74 07/11/24 08:30 Pulse Ox 97 07/11/24 08:30 Oxygen Delivery Method Room Air 07/11/24 08:30 BMI result Body Mass Index 28.5 Const General: cooperative, healthy appearing, comfortable, no acute distress and well developed Orientation/consciousness: patient oriented x3 Limitations: no limitations HEENT Head: Yes normal to inspection Neck Neck: Yes normal visual inspection and Yes supple Resp Effort & Inspection: normal respiratory effort Auscultation: clear to auscultation bilaterally Cardio Rate: regular rate Rhythm: regular rhythm Neuro General: patient oriented x3 Extrem Other: Left lower extremity: lower leg, mild wound tenderness. Proximal wound round, 2x2cm, distal wound oval, 4x2cm, non-pitting edema, no unusual warmth. General: Yes capillary refill normal Psych Appearance: grossly normal Mental Status: mental status grossly normal Speech and movement: Normal speech and movement present Assessment & Plan Assessment & Plan (1) Non-healing non-surgical wound: Code(s): T14.8XXA - Other injury of unspecified body region, initial encounter Plan: Removed old dressing and cleansed area with sterile saline. I applied new Xeroform with nonadherent pads over it and then wrapped with gauze, secured with tape and applied a loose Coban to keep it in place. Recommended he change this dressing and 48-72 hours or if he feels the wound is hurting more, starts to become malodorous or he has any other concerns. I discussed wound care referral with him. He would like to hold off on this and come in again next week for another wound check, at which point he will make a decision on wound consult. Gave him red flag warning signs and when to come in sooner. Also gave him supplies and he states he understands how to use them and has dressed his own wounds in the past. Coding Level of Care Code Est Pt Level 4 (14143) Diagnoses Non-healing non-surgical wound T14.8XXA
== END 2024-07-11 09:31 | disposition home or self-care (01) ==
PROVIDERS: PCP Internal Medicine; Visit Provider Nurse Practitioner Family
DX: T14.8XXA Other injury of unspecified body region, initial encounter (principal)

== ENCOUNTER → 2024-07-11 08:08 | Outpatient (BNVA) | payer MEDICARE, SELFPAY | PROVIDERS: PCP Internal Medicine | DX: T14.8XXA Other injury of unspecified body region, initial encounter (principal) | CPT/HCPCS: 99212 ==

== ENCOUNTER → 2024-07-17 08:13 | Outpatient (BNVA) | payer MEDICARE, SELFPAY | PROVIDERS: PCP Internal Medicine ==

== ENCOUNTER 2024-07-18 08:31 | Outpatient (AMB) | payer MEDICARE, SELFPAY ==
--- NOTE | 2024-07-18 09:01 | AM.OFFWIN_ITS ---
Intake Vital Signs 07/18/24 09:02 Height 6 ft Weight 208 lb BMI 28.2 BP 124/80 Blood Pressure Location Lt brachial Position Sitting Pulse 62 Pulse Source Pulse Oximeter Pulse Oximetry (%) 97 Oxygen Delivery Method Room Air Intake Visit Reasons: EP rebandage leg Intake Note: Patient here to have leg rebandaged on left leg Patient Tobacco Use Status: Former Tobacco user Allergies atenolol Allergy (Unknown, Verified 07/18/24 09:03) Bradycardia ENVIROMENTAL Allergy (Unknown, Uncoded 07/18/24 09:03) ITCHY EYES/RUNNY NOSE Do you need a note to return to daycare/school/sports/work: No HPI EP rebandage leg HPI Details This note is constructed using voice recognition software. While every effort has been made to ensure accuracy, accelerator operator errors may have been included. The patient is a 78 year old male who presents to the clinic today with wound check. He reports that he has a history of diabetes in his a result has had poorly healing wounds. He has been following here in the walk-in clinic every week for evaluation while he has been changing his dressing every 2 days. He denies fever, chills, erythema, warmth, discharge. He has been offered referral to the Wound Clinic, however has declined as he finds it much more convenient to come to the walk-in clinic for his wound care due to him leaving just up the street. He reports that overall this wound has been slowly improving since onset. [facility] Medical History Atherosclerotic cardiovascular disease Depression, major, recurrent Chronic nasal congestion Diabetes mellitus type II, non insulin dependent Osteoarthritis of hand, left Obesity (BMI 30.0-34.9) Vertebral artery stenosis Cervical spondylosis Hypertension, essential Lipid disorder Hearing impaired Surgical History S/P CABG x 3 Hx of cholecystectomy Family History Father HTN (hypertension) Mother No problems noted. Social History Housing: House Alcohol intake: current Alcohol intake frequency: a few times a week Patient Tobacco Use Status: Former Tobacco user Years Smoked: 20 +/- e-Cigarette/Vaping Use: Never Used service: No Current occupational status: retired Cognitive needs: No Hearing needs: No Vision needs: Yes Review of Systems Const All systems reviewed & are unremarkable except as noted in HPI and below Physical Exam Vital Signs: Last Vital Signs Pulse 62 07/18/24 09:02 BP 124/80 07/18/24 09:02 Pulse Ox 97 07/18/24 09:02 Oxygen Delivery Method Room Air 07/18/24 09:02 BMI result Body Mass Index 28.2 Const General: cooperative, healthy appearing, comfortable, no acute distress and well developed Orientation/consciousness: patient oriented x3 Limitations: no limitations HEENT Head: Yes normal to inspection Neck Neck: Yes normal visual inspection and Yes supple Resp Effort & Inspection: normal respiratory effort Auscultation: clear to auscultation bilaterally Cardio Rate: regular rate Rhythm: regular rhythm Skin Other: Left lower anterior extremity, 1.5 x 1.5 cm round wound with beefy red wound base at mid [place]. There is a secondary wound 0.5 x 0.2 cm anterior lower leg inferior to the 1st, with beefy red wound base. no wound tenderness. No edema, warmth, or discharge. Neuro General: patient oriented x3 Extrem General: Yes capillary refill normal Psych Appearance: grossly normal Mental Status: mental status grossly normal Speech and movement: Normal speech and movement present Assessment & Plan Assessment & Plan (1) Non-healing non-surgical wound: Code(s): T14.8XXA - Other injury of unspecified body region, initial encounter Plan: Wound cleansed with normal saline, Xeroform applied followed by nonadherent dressing, followed by gauze wrap, and Coban wrapped lightly. Patient tolerated procedure well. Advised ongoing at home monitoring and keeping the area clean and dry. Patient to continue with dressing changes every other day, or with any concerns of warmth, pain, discharge, supplies provided. Advised patient to consider wound clinic, however he prefers to continue to follow here at the walk-in clinic and will return in an additional week for monitoring of the resolution of his wound. Plan See above for full details and plan. Coding Level of Care Code Est Pt Level 4 (82311) Diagnoses Non-healing non-surgical wound T14.8XXA Time Spent (min) 25
[2024-07-18 09:02] VITALS: BP 124/80; PULSE 62; O2SAT 97; BMI 28.2
== END 2024-07-18 09:50 | disposition home or self-care (01) ==
PROVIDERS: PCP Internal Medicine; Visit Provider Registered Nurse
DX: T14.8XXA Other injury of unspecified body region, initial encounter (principal)

== ENCOUNTER → 2024-07-18 08:31 | Outpatient (BNVA) | payer MEDICARE, SELFPAY | PROVIDERS: PCP Internal Medicine | DX: Z48.00 Encounter for change or removal of nonsurgical wound dressing (principal); S81.802D Unspecified open wound, left lower leg, subsequent encounter; E11.9 Type 2 diabetes mellitus without complications | CPT/HCPCS: 99212 ==

== ENCOUNTER 2024-08-02 07:49 | Outpatient (AMB) | payer MEDICARE, SELFPAY ==
[2024-08-02 08:03] VITALS: BP 122/80; PULSE 63; O2SAT 97; BMI 29.2
--- NOTE | 2024-08-02 08:03 | A.OFFPC_ITS ---
Vital Signs 08/02/24 08:03 Height 6 ft Weight 215 lb BMI 29.2 BP 122/80 Blood Pressure Location Lt brachial Position Sitting Pulse 63 Pulse Source Pulse Oximeter Pulse Oximetry (%) 97 Oxygen Delivery Method Room Air Intake Visit Reasons: 3 Month F/U Allergies atenolol Allergy (Unknown, Verified 08/02/24 08:04) Bradycardia ENVIROMENTAL Allergy (Unknown, Uncoded 08/02/24 08:04) ITCHY EYES/RUNNY NOSE Medication List - Last Reconciled 08/02/24 by Shirin Davis MD adhesive tape Use for daily dressing change amlodipine 10 mg PO DAILY 90 days apixaban (Eliquis) 5 mg PO BID 90 days atorvastatin 80 mg PO QPM blood sugar diagnostic (FreeStyle Lite Strips) test blood sugar once a day blood-glucose meter (FreeStyle Lite Meter kit) As directed brimonidine 0.2% 1 drp ophthalmic-Right BID chlorthalidone 50 mg PO DAILY 90 days ezetimibe 10 mg PO DAILY fluticasone propionate 50 mcg/actuation (Flonase Allergy Relief) 1 spray intranasal DAILY gauze bandage Change dressing daily glipizide 10 mg PO BID 90 days [heating pad As directed] lancets (FreeStyle Lancets) test blood sugar once a day latanoprost 0.005% 1 drp ophthalmic (eye) QPM loratadine 10 mg PO DAILY metoprolol tartrate 25 mg PO BID 90 days minocycline 50 mg PO DAILY miscellaneous medical supply As directed netarsudil 0.02% (Rhopressa) 1 drp ophthalmic-Right BEDTIME paroxetine HCl 10 mg PO DAILY pioglitazone 15 mg PO DAILY sennosides-docusate sodium 8.6-50 mg (Senna with Docusate Sodium) 1 tab-cap PO BEDTIME timolol maleate 0.5% 1 drp ophthalmic (eye) BID [Xeroform gauze dressing 3 % bismuth As directed] Tobacco use date assessed: 08/02/24 Fall risk assessment: No Falls in past year Last assessed Fall Risk: 08/02/24 Dental Screening Dental Screen Date: 08/02/24 Did you have a dental visit in the last 12 months?: No Did you have a dental problem in the last 6 months where you did not have access to dental care?: No Was dental information given to patient?: Patient declined HPI 3 Month F/U HPI Details Patient is 78-year-old gentleman came in today for his regular follow- up appointment Due for labs end of next month Patient had bypass surgery , he is doing very well there is no shortness a breath no chest pain no swelling of ankles He is seeing Dr. Hunter [facility] [place] at is on high-dose atorvastatin 80 mg he has severe osteoarthritis in his hands, he has been taking Tylenol only which does help He is also going for exercises [facility] [place] gym Diabetes mellitus: patient is on glipizide 5 mg, tolerating medication he is to continue that, is in 8 range We will re-evaluate end of next month when he will have labs Hypertension: patient is on amlodipine 10 mg chlorthalidone 50 mg and metoprolol 25 mg b.i.d., blood pressure is well controlled. His moods are stable as well patient is on paroxetine 10 mg for depression. BMI is elevated patient is trying to lose weight Allergies are stable with loratadine Follow-up 3 months [facility] Medical History Atherosclerotic cardiovascular disease Depression, major, recurrent Chronic nasal congestion Diabetes mellitus type II, non insulin dependent Osteoarthritis of hand, left Obesity (BMI 30.0-34.9) Vertebral artery stenosis Cervical spondylosis Hypertension, essential Lipid disorder Hearing impaired Surgical History S/P CABG x 3 Hx of cholecystectomy Family History Father HTN (hypertension) Mother No problems noted. Social History Housing: House Alcohol intake: current Alcohol intake frequency: a few times a week Patient Tobacco Use Status: Former Tobacco user Years Smoked: 20 +/- e-Cigarette/Vaping Use: Never Used service: No Current occupational status: retired Cognitive needs: No Hearing needs: No Vision needs: Yes Questionnaire Thrive Questionnaire Date Thrive assessed: 05/28/24 I am a: Patient What is your living situation today?: I have a steady place to live Within the past 12 months, did the food you bought not last and you didn't have the money to get more?: Never true Within the past 12 months, did you worry whether your food would run out before you got money to buy more?: Never true Do you have trouble paying for medicines?: No Do you have trouble getting transportation to medical appointments?: No Do you have trouble paying your heating and electricity bill?: No Do you have trouble taking care of your child, family member or friend?: No Do you have trouble with day-to-day activities such as bathing, preparing meals, shopping, managing finances, etc.?: No Are you currently unemployed and looking for a job?: No Are you interested in more education?: No Please select the resources that you would like help with: None Currently or been in a relationship where the following occur: No concerns reported THRIVE Score: 0 ELIO-7 AMB Questionnaire ELIO-7 Date EILO - 7 assessed: 05/28/24 Source: Developed by Drs. Manolo Ma, Angle Chen, Loco Estrella and colleagues, with an educational donovan from [employer]. Review of Systems Const Denies chills and Denies fever(s) ENT Denies epistaxis and Denies nasal discharge Card Denies chest pain Resp Denies chest congestion, Denies cough and Denies hemoptysis GI Denies diarrhea and Denies nausea Skin/Breast Denies rash Neuro Reports no additional complaints Psych Reports no additional complaints Endo Reports no additional complaints Physical exam (Primary Care) Vital Signs: Last Vital Signs Pulse 63 08/02/24 08:03 BP 122/80 08/02/24 08:03 Pulse Ox 97 08/02/24 08:03 Oxygen Delivery Method Room Air 08/02/24 08:03 BMI result Body Mass Index 29.2 Tobacco/Smoking Status: Tobacco use Status Tobacco use date assessed 08/02/24 08/02/24 08:06 Patient Tobacco Use Status Former Tobacco user 08/02/24 08:06 e-Cigarette/Vaping Use Never Used 08/02/24 08:06 Thrive Assessment: Date of Thrive Assessment Date Thrive assessed 05/28/24 08/02/24 08:06 Currently or been in a relationship where the following occur: No concerns reported Const General: cooperative, comfortable and no acute distress Orientation/consciousness: patient oriented x3 HENMT Head: Yes normocephalic Eyes General: appearance normal, both eyes and all related structures Neck Neck: Yes supple Resp Effort & Inspection: normal respiratory effort, no cough and no stridor Cardio Rhythm: regular rhythm Heart sounds: S1 normal heart sound present and S2 normal heart sound present Skin General skin exam: turgor normal Neuro General: patient oriented x3, tone normal and moves all extremities Extrem Right lower extremity: no edema Left lower extremity: no edema Coding Level of Care Code Est Pt Level 4 (40259) Complex EM visit Add On G2211 Diagnoses Diabetes mellitus type II, non insulin dependent E11.9 Recurrent major depressive disorder, in partial remission F33.41 Active/Remission status: in partial remission Hypertension, essential I10 Lipid disorder E78.9 Chronic left shoulder pain M25.512; G89.29 Chronicity: chronic Osteoarthritis involving multiple joints on both sides of body M15.9 Assessment & Plan Assessment & Plan (1) Diabetes mellitus type II, non insulin dependent: Code(s): E11.9 - Type 2 diabetes mellitus without complications Category: Medical (2) Depression, major, recurrent: Code(s): F33.9 - Major depressive disorder, recurrent, unspecified Category: Medical Qualifiers: Active/Remission status: in partial remission Qualified Code(s): F33.41 - Major depressive disorder, recurrent, in partial remission (3) Hypertension, essential: Code(s): I10 - Essential (primary) hypertension Category: Medical (4) Lipid disorder: Code(s): E78.9 - Disorder of lipoprotein metabolism, unspecified Category: Medical (5) Shoulder pain, left: Code(s): M25.512 - Pain in left shoulder Category: Medical Qualifiers: Chronicity: chronic Qualified Code(s): M25.512 - Pain in left shoulder; G89.29 - Other chronic pain (6) Osteoarthritis involving multiple joints on both sides of body: Code(s): M15.9 - Polyosteoarthritis, unspecified Category: Medical Plan Patient is 78-year-old gentleman came in today for his regular follow-up appointment Due for labs end of next month Patient had bypass surgery , he is doing very well there is no shortness a breath no chest pain no swelling of ankles He is seeing Dr. Hunter [facility] [place] at is on high-dose atorvastatin 80 mg he has severe osteoarthritis in his hands, he has been taking Tylenol only which does help He is also going for exercises [facility] [place] gym Diabetes mellitus: patient is on glipizide 5 mg, tolerating medication he is to continue that, is in 8 range We will re-evaluate end of next month when he will have labs Hypertension: patient is on amlodipine 10 mg chlorthalidone 50 mg and metoprolol 25 mg b.i.d., blood pressure is well controlled. His moods are stable as well patient is on paroxetine 10 mg for depression. BMI is elevated patient is trying to lose weight Allergies are stable with loratadine Follow-up 3 months Orders: Orders Hemoglobin A1c Today E11.9 - Type 2 diabetes mellitus without complications, E78.9 - Disorder of lipoprotein metabolism, unspecified, F33.41 - Major depressive disorder, recurrent, in partial remission, I10 - Essential (primary) hypertension, M19.042 - Primary osteoarthritis, left hand, M25.512 - Pain in left shoulder Complete Blood Count Auto Diff Today E11.9 - Type 2 diabetes mellitus without complications, E78.9 - Disorder of lipoprotein metabolism, unspecified, F33.41 - Major depressive disorder, recurrent, in partial remission, I10 - Essential (primary) hypertension, M19.042 - Primary osteoarthritis, left hand, M25.512 - Pain in left shoulder LDL Cholesterol Direct Today E11.9 - Type 2 diabetes mellitus without complications, E78.9 - Disorder of lipoprotein metabolism, unspecified, F33.41 - Major depressive disorder, recurrent, in partial remission, I10 - Essential (primary) hypertension, M19.042 - Primary osteoarthritis, left hand, M25.512 - Pain in left shoulder Comprehensive Met. Panel Today E11.9 - Type 2 diabetes mellitus without complications, E78.9 - Disorder of lipoprotein metabolism, unspecified, F33.41 - Major depressive disorder, recurrent, in partial remission, I10 - Essential (primary) hypertension, M19.042 - Primary osteoarthritis, left hand, M25.512 - Pain in left shoulder
== END 2024-08-02 08:21 | disposition home or self-care (01) ==
PROVIDERS: PCP Internal Medicine; Visit Provider Internal Medicine
DX: E11.9 Type 2 diabetes mellitus without complications (principal); F33.41 Major depressive disorder, recurrent, in partial remission; I10 Essential (primary) hypertension; E78.9 Disorder of lipoprotein metabolism, unspecified; M25.512 Pain in left shoulder; G89.29 Other chronic pain; M15.9 Polyosteoarthritis, unspecified

== ENCOUNTER → 2024-08-02 07:49 | Outpatient (BNVA) | payer MEDICARE, SELFPAY | PROVIDERS: PCP Internal Medicine; Visit Provider Internal Medicine | DX: E11.9 Type 2 diabetes mellitus without complications (principal); F33.41 Major depressive disorder, recurrent, in partial remission; I10 Essential (primary) hypertension; E78.9 Disorder of lipoprotein metabolism, unspecified; G89.29 Other chronic pain; M25.512 Pain in left shoulder; M15.9 Polyosteoarthritis, unspecified; Z79.899 Other long term (current) drug therapy | CPT/HCPCS: 99212 ==

== ENCOUNTER 2024-09-05 07:40 | Outpatient (AMB) | payer MEDICARE, SELFPAY ==
[2024-09-05 08:29] VITALS: BP 140/72; PULSE 69; BMI 28.9
--- NOTE | 2024-09-05 08:29 | MHC.OFFVIS ---
Vital Signs 09/05/24 08:29 Height 6 ft Weight 212 lb 15.465 oz BMI 28.9 BP 140/72 H Blood Pressure Location Lt brachial Position Sitting Pulse 69 Pulse Source Monitor Intake Visit Reasons: 6m follow up Practice Office Associate Required: No Accompanied by: Self / Same As Patient Allergies atenolol Allergy (Unknown, Verified 08/02/24 08:04) Bradycardia ENVIROMENTAL Allergy (Unknown, Uncoded 08/02/24 08:04) ITCHY EYES/RUNNY NOSE Medication List - Last Reconciled 09/05/24 by Boogie Hunter MD adhesive tape Use for daily dressing change apixaban (Eliquis) 5 mg PO BID 90 days atorvastatin 80 mg PO QPM blood sugar diagnostic (FreeStyle Lite Strips) test blood sugar once a day blood-glucose meter (FreeStyle Lite Meter kit) As directed brimonidine 0.2% 1 drp ophthalmic-Right BID chlorthalidone 50 mg PO DAILY 90 days ezetimibe 10 mg PO DAILY fluticasone propionate 50 mcg/actuation (Flonase Allergy Relief) 1 spray intranasal DAILY gauze bandage Change dressing daily glipizide 10 mg PO BID 90 days [heating pad As directed] lancets (FreeStyle Lancets) test blood sugar once a day latanoprost 0.005% 1 drp ophthalmic (eye) QPM loratadine 10 mg PO DAILY metoprolol tartrate 25 mg PO BID 90 days minocycline 50 mg PO DAILY miscellaneous medical supply As directed netarsudil 0.02% (Rhopressa) 1 drp ophthalmic-Right BEDTIME paroxetine HCl 10 mg PO DAILY pioglitazone 15 mg PO DAILY sennosides-docusate sodium 8.6-50 mg (Senna with Docusate Sodium) 1 tab-cap PO BEDTIME timolol maleate 0.5% 1 drp ophthalmic (eye) BID [Xeroform gauze dressing 3 % bismuth As directed] HPI Comments Details: Sergio returns for follow-up regarding coronary disease and bypass surgery. In the past, he was seen regarding an abnormal EKG showing a prior infarct and that led to further workup. Started noninvasive testing, that led to diagnostic catheterization showing multivessel disease. Then went for bypass surgery. Since last seen, he states he feels good. No cardiac symptoms whatsoever. PFSH Medical History Atherosclerotic cardiovascular disease Depression, major, recurrent Chronic nasal congestion Diabetes mellitus type II, non insulin dependent Osteoarthritis of hand, left Obesity (BMI 30.0-34.9) Vertebral artery stenosis Cervical spondylosis Hypertension, essential Lipid disorder Hearing impaired Surgical History S/P CABG x 3 Hx of cholecystectomy Family History Father HTN (hypertension) Mother No problems noted. Social History Housing: House Alcohol intake: current Alcohol intake frequency: a few times a week Patient Tobacco Use Status: Former Tobacco user Years Smoked: 20 +/- e-Cigarette/Vaping Use: Never Used service: No Current occupational status: retired Cognitive needs: No Hearing needs: No Vision needs: Yes Review of Systems Const Denies chills, Denies fatigue, Denies fever(s), Denies frequent falls, Denies weakness, Denies weight gain and Denies weight loss ENT Denies dizziness Card Denies chest pain, Denies leg edema, Denies lightheadedness, Denies palpitations, Denies dyspnea and Denies dyspnea on exertion Resp Denies cough, Denies dyspnea and Denies dyspnea on exertion GI Denies hematochezia Musc Denies abnormal gait, Denies muscle weakness, Denies numbness, Denies radiating pain into limb and Denies tingling Neuro Denies abnormal gait, Denies dizziness, Denies frequent falls, Denies numbness, Denies tingling and Denies weakness Endo Denies fatigue and Denies palpitations Physical Exam Vital Signs: Last Vital Signs Pulse 69 09/05/24 08:29 BP 140/72 H 09/05/24 08:29 BMI result Body Mass Index 28.9 Const General: comfortable and no acute distress Orientation/consciousness: patient oriented x3 HEENT Other: Unremarkable Head: Yes normal to inspection Neck Neck: Yes normal visual inspection Chest Chest palpation & inspection: normal inspection of the chest Resp Auscultation: clear to auscultation bilaterally Cardio Palpation: normal PMI Heart sounds: S1 normal heart sound present, S2 normal heart sound present, no gallops, Murmur heart sound present systolic II/ and at the right sternal border and no rubs GI Palpation (GI): Soft to palpation Back/Spine/Pelvis Other: unremarkable Skin General skin exam: no rashes or lesions noted Neuro General: patient oriented x3 Extrem General: Yes normal to inspection Psych Mental Status: mental status grossly normal Office Procedures EKG Details: EKG with underlying sinus rhythm at 69/Min; can not exclude old anteroseptal infarct; MN prolongation to 258 millisecond; normal corrected QT; premature atrial contraction. [id number], Complete Assessment & Plan Assessment & Plan (1) Atherosclerotic cardiovascular disease: Code(s): I25.10 - Atherosclerotic heart disease of [place] coronary artery without angina pectoris Category: Medical Plan: Status post bypass. Stable. Remains on beta-blockers, statins. (2) S/P CABG x 3: Comment: 04/2023. Contreras to LAD, left radial graft to OM, SVG graft to PDA Code(s): Z95.1 - Presence of aortocoronary bypass graft Category: Surgical Plan: Recovered well. (3) Paroxysmal A-fib: Code(s): I48.0 - Paroxysmal atrial fibrillation Category: Medical Plan: Postoperative atrial fibrillation. He does have a significant thromboembolic risk profile and hence continue Eliquis. No recurrent issues. (4) Hypertension, essential: Code(s): I10 - Essential (primary) hypertension Category: Medical Plan: Amlodipine was listed previously but not anymore. He is not sure either. No changes made. Coding Level of Care Code Est Pt Level 4 (45596) Diagnoses Atherosclerotic cardiovascular disease I25.10 S/P CABG x 3 Z95.1 Paroxysmal A-fib I48.0 Hypertension, essential I10 CPT Codes EKG - CPT: 05705-[id number], Complete ([id number])
== END 2024-09-05 08:50 | disposition home or self-care (01) ==
PROVIDERS: PCP Internal Medicine; Visit Provider Internal Medicine
DX: I25.10 Atherosclerotic heart disease of native coronary artery without angina pectoris (principal); Z95.1 Presence of aortocoronary bypass graft; I48.0 Paroxysmal atrial fibrillation; I10 Essential (primary) hypertension
CPT/HCPCS: 93010; 99214

== ENCOUNTER → 2024-09-05 07:40 | Outpatient (BNVA) | payer MEDICARE, SELFPAY | PROVIDERS: PCP Internal Medicine; Visit Provider Internal Medicine | DX: I25.10 Atherosclerotic heart disease of native coronary artery without angina pectoris (principal); I48.0 Paroxysmal atrial fibrillation; I10 Essential (primary) hypertension; Z95.1 Presence of aortocoronary bypass graft | CPT/HCPCS: 93005; 99212 ==

== ENCOUNTER 2024-09-14 07:39 | Outpatient (REF) | payer MEDICARE, SELFPAY ==
[2024-09-14 11:13] LABS: MANUAL DIFF FLAG NO
[2024-09-14 11:22] LABS: Basophils Percent Auto 0.5 % (0-2); Eosinophils Absolute Auto 0.1 X10*3/uL (0.0-0.4); Eosinophils Percent Auto 1.8 % (0-4); Hematocrit 49.4 % (42.0-52.0); Hemoglobin 16.2 g/dl (14.0-18.0); Imm Gran Abs Auto 0.04 X10*3/uL (0.00-0.03); Imm Gran Pct Auto 0.5 % (0.0-0.4); Lymphocytes Absolute Auto 2.1 X10*3/uL (1.2-4.9); Lymphocytes Percent Auto 26.5 % (20-40); Mean Corpuscular HGB Conc 32.8 g/dl (31.0-36.0); Mean Corpuscular Hemoglobin 32.1 pg (27.0-33.0); Mean Corpuscular Volume 97.8 fL (80.0-98.0); Mean Platelet Volume 9.8 fL (9.4-12.4); Monocytes Absolute Auto 0.8 X10*3/uL (0.1-1.2); Monocytes Percent Auto 9.4 % (2-11); Neutrophils Absolute Auto 4.9 x10*3/uL (2.0-8.3); Neutrophils Percent Auto 61.3 % (45-73); Platelet Count 160 X10*3/uL (160-400); Red Blood Count 5.05 X10*6/uL (4.60-5.80); Red Cell Distribution Width 13.2 % (11.0-16.0)
[2024-09-14 11:23] LABS: Estimated Average Glucose 157 mg/dL; Hemoglobin A1C 222.3356 umol/L; Hemoglobin A1c % 7.1 % (<6.0); Total Hemoglobin (HGBA1C) 4123.1038 umol/L
[2024-09-14 11:37] LABS: Alanine Aminotransferase 50 U/L (0-40); Albumin Level 4.3 g/dL (3.5-5.0); Alkaline Phosphatase 104 U/L (39-117); Anion Gap 11 (12-20); Aspartate Amino Transferase 40 U/L (5-37); Bilirubin Total 0.6 mg/dL (0.0-1.0); Blood Urea Nitrogen 31 mg/dL (9-16); Calcium 9.1 mg/dL (8.4-10.2); Carbon Dioxide 29 mmol/L (22-29); Chloride 104 mmol/L (96-108); Estimated Glomerular Filt Rate > 60; Glucose Random 146 mg/dL (60-115); Potassium 4.9 mmol/L (3.3-5.1); Sodium 139 mmol/L (135-145); Total Protein 7.6 g/dL (6.5-8.0)
[2024-09-16 19:29] LABS: LDL Cholesterol Direct 66 mg/dL (<100)
== END 2024-09-14 07:40 | disposition home or self-care (01) ==
LOC: HO.HMGCLDS 07:39
PROVIDERS: PCP Internal Medicine; Visit Provider Internal Medicine
DX: E11.9 Type 2 diabetes mellitus without complications (principal); F33.41 Major depressive disorder, recurrent, in partial remission; I10 Essential (primary) hypertension; E78.9 Disorder of lipoprotein metabolism, unspecified; M19.042 Primary osteoarthritis, left hand; M25.512 Pain in left shoulder
CPT/HCPCS: 36415; 80053; 83036; 83721; 85025

== ENCOUNTER 2024-10-04 08:00 | Outpatient (AMB) | payer MEDICARE, SELFPAY ==
--- NOTE | 2024-10-04 08:04 | AM.OFFWIN_ITS ---
Intake Vital Signs 10/04/24 08:05 Weight 214 lb BP 130/80 Blood Pressure Location Rt brachial Position Sitting Pulse 69 Pulse Source Pulse Oximeter Temp 98.0 F Temp Source Oral Pulse Oximetry (%) 98 Oxygen Delivery Method Room Air Intake Visit Reasons: EP-sinurs infection, ears block Intake Note: Patient here for sinus pressure that has been present for 2-3 weeks. Patient Tobacco Use Status: Former Tobacco user Allergies atenolol Allergy (Unknown, Verified 08/02/24 08:04) Bradycardia ENVIROMENTAL Allergy (Unknown, Uncoded 08/02/24 08:04) ITCHY EYES/RUNNY NOSE HPI HPI Comments History of Present Illness Details Patient is an 79yo M who presents with congestion He presents with sinus issues He sees his PCP in [place] and unable to see them + sinus pressure and sore throat Ongoing x 3-4 weeks + blocked ears and getting cleaned in 2 weeks (gets it every 3 months) No ear pain No cough or SOB PFSH Medical History Atherosclerotic cardiovascular disease Depression, major, recurrent Chronic nasal congestion Diabetes mellitus type II, non insulin dependent Osteoarthritis of hand, left Obesity (BMI 30.0-34.9) Vertebral artery stenosis Cervical spondylosis Hypertension, essential Lipid disorder Hearing impaired Surgical History S/P CABG x 3 Hx of cholecystectomy Family History Father HTN (hypertension) Mother No problems noted. Social History Housing: House Alcohol intake: current Alcohol intake frequency: a few times a week Patient Tobacco Use Status: Former Tobacco user Years Smoked: 20 +/- e-Cigarette/Vaping Use: Never Used service: No Current occupational status: retired Cognitive needs: No Hearing needs: No Vision needs: Yes Review of Systems Const Denies chills and Denies fever(s) Eyes Denies change in vision and Reports other (eyes feel heavy) ENT Denies otalgia (crackling in ears/wax problem), Reports sinus pain, Reports sinus pressure and Reports sore throat Card Denies chest pain Resp Denies cough Musc Denies myalgias Physical Exam Vital Signs: Last Vital Signs Temp 98.0 F 10/04/24 08:05 Pulse 69 10/04/24 08:05 BP 130/80 10/04/24 08:05 Pulse Ox 98 10/04/24 08:05 Oxygen Delivery Method Room Air 10/04/24 08:05 General: Non-toxic, NAD. Speaking full sentences. Skin: Warm dry throughout Eye: EOMI HENT: Airway patent. Uvula midline. Minimal pharyngeal erythema or edema. 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 + maxillary and frontal sinus tenderness to palpation. Bilateral canals clear, minimal cerumen to R canal. TM non-erythematous, non- bulging. No TM perforation or hemotympanum noted. Respiratory: CTA bilaterally. No wheezes, rales or rhonchi Cardiac: RRR. No murmur MSK: Full ROM extremities. Neurology: Alert. No aphasia or facial droop. Gait without abnormality with cane Psych: Good mood and affect Assessment & Plan Assessment & Plan (1) Sinusitis: Code(s): J32.9 - Chronic sinusitis, unspecified Qualifiers: Sinusitis location: maxillary Chronicity: acute Recurrence: non- recurrent Qualified Code(s): J01.00 - Acute maxillary sinusitis, unspecified Plan: Patient seen and evaluated. Augmentin Lungs CTA F/U with PCP Patient gave verbal understanding and had no additional questions or concerns at time of discharge All questions answered Medications: New amoxicillin-pot clavulanate 875-125 mg 1 tab PO BID 14 tabs 0RF Coding Level of Care Code Est Pt Level 3 (80959) Diagnoses Acute non-recurrent maxillary sinusitis J01.00 Sinusitis location: maxillary Chronicity: acute Recurrence: non-recurrent
[2024-10-04 08:05] VITALS: BP 130/80; PULSE 69; TEMP 36.7; O2SAT 98
== END 2024-10-04 08:20 | disposition home or self-care (01) ==
PROVIDERS: PCP Internal Medicine; Visit Provider Physician Assistant
DX: J01.00 Acute maxillary sinusitis, unspecified (principal)

== ENCOUNTER → 2024-10-04 08:00 | Outpatient (BNVA) | payer MEDICARE, SELFPAY | PROVIDERS: PCP Internal Medicine; Visit Provider Physician Assistant | DX: J01.00 Acute maxillary sinusitis, unspecified (principal) | CPT/HCPCS: 99212 ==

== ENCOUNTER 2024-11-01 07:57 | Outpatient (AMB) | payer MEDICARE, SELFPAY ==
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
[2024-11-01 08:02] VITALS: BP 140/80; PULSE 81; O2SAT 98; BMI 28.8
== END 2024-11-01 08:30 | disposition home or self-care (01) ==
PROVIDERS: PCP Internal Medicine; Visit Provider Internal Medicine
DX: S81.801A Unspecified open wound, right lower leg, initial encounter (principal); E11.9 Type 2 diabetes mellitus without complications; F33.41 Major depressive disorder, recurrent, in partial remission; I10 Essential (primary) hypertension; E78.9 Disorder of lipoprotein metabolism, unspecified; M15.9 Polyosteoarthritis, unspecified; I25.10 Atherosclerotic heart disease of native coronary artery without angina pectoris; I48.0 Paroxysmal atrial fibrillation

== ENCOUNTER → 2024-11-01 07:57 | Outpatient (BNVA) | payer MEDICARE, SELFPAY | PROVIDERS: PCP Internal Medicine; Visit Provider Internal Medicine | DX: S81.801D Unspecified open wound, right lower leg, subsequent encounter (principal); E11.9 Type 2 diabetes mellitus without complications; F33.41 Major depressive disorder, recurrent, in partial remission; I10 Essential (primary) hypertension; E78.9 Disorder of lipoprotein metabolism, unspecified; M15.9 Polyosteoarthritis, unspecified; I25.10 Atherosclerotic heart disease of native coronary artery without angina pectoris; I48.0 Paroxysmal atrial fibrillation | CPT/HCPCS: 96127; 99212 ==

== ENCOUNTER 2025-01-14 08:06 | Outpatient (REF) | payer MEDICARE, SELFPAY ==
[2025-01-14 10:34] LABS: MANUAL DIFF FLAG NO
[2025-01-14 10:47] LABS: Basophils Percent Auto 0.3 % (0-2); Eosinophils Absolute Auto 0.2 X10*3/uL (0.0-0.4); Eosinophils Percent Auto 2.4 % (0-4); Hematocrit 46.8 % (42.0-52.0); Hemoglobin 15.8 g/dl (14.0-18.0); Imm Gran Abs Auto 0.03 X10*3/uL (0.00-0.03); Imm Gran Pct Auto 0.4 % (0.0-0.4); Lymphocytes Absolute Auto 2.1 X10*3/uL (1.2-4.9); Lymphocytes Percent Auto 28.1 % (20-40); Mean Corpuscular HGB Conc 33.8 g/dl (31.0-36.0); Mean Corpuscular Hemoglobin 32.4 pg (27.0-33.0); Mean Corpuscular Volume 95.9 fL (80.0-98.0); Monocytes Absolute Auto 0.8 X10*3/uL (0.1-1.2); Monocytes Percent Auto 10.8 % (2-11); Neutrophils Absolute Auto 4.3 x10*3/uL (2.0-8.3); Platelet Count 158 X10*3/uL (160-400); Red Blood Count 4.88 X10*6/uL (4.60-5.80); Red Cell Distribution Width 13.3 % (11.0-16.0); White Blood Count 7.4 X10*3/uL (4.8-10.8)
[2025-01-14 11:07] LABS: Alanine Aminotransferase 46 U/L (0-40); Albumin Level 3.9 g/dL (3.5-5.0); Alkaline Phosphatase 93 U/L (39-117); Anion Gap 7 (12-20); Aspartate Amino Transferase 40 U/L (5-37); Bilirubin Total 0.6 mg/dL (0.0-1.0); Blood Urea Nitrogen 23 mg/dL (9-16); Calcium 9.3 mg/dL (8.4-10.2); Carbon Dioxide 29 mmol/L (22-29); Chloride 107 mmol/L (96-108); Cholesterol 120 mg/dL (<200); Estimated Glomerular Filt Rate > 60; Glucose Fasting 139 mg/dL (60-99); HDL Cholesterol 44 mg/dL (>40); LDL Cholesterol Calculated 57 mg/dL (<100); Potassium 4.8 mmol/L (3.3-5.1); Sodium 138 mmol/L (135-145); Total Protein 6.9 g/dL (6.5-8.0); Triglycerides 97 mg/dL (<150)
[2025-01-14 11:21] LABS: Estimated Average Glucose 171 mg/dL; Hemoglobin A1C 244.5808 umol/L; Hemoglobin A1c % 7.6 % (<6.0); Total Hemoglobin (HGBA1C) 4107.6879 umol/L
[2025-01-14 11:25] LABS: Creatinine Urine 27.59 mg/dL; Microalbum/Creatinine Ratio Ur 65.2 ug/mg cr (<30)
== END 2025-01-14 08:07 | disposition home or self-care (01) ==
LOC: HO.HMGCLDS 08:06
PROVIDERS: PCP Internal Medicine; Visit Provider Internal Medicine
DX: E78.9 Disorder of lipoprotein metabolism, unspecified (principal); I10 Essential (primary) hypertension; E11.9 Type 2 diabetes mellitus without complications; F33.41 Major depressive disorder, recurrent, in partial remission; I48.0 Paroxysmal atrial fibrillation; I25.10 Atherosclerotic heart disease of native coronary artery without angina pectoris; S81.801A Unspecified open wound, right lower leg, initial encounter
CPT/HCPCS: 36415; 80053; 80061; 82043; 82570; 83036; 85025

== ENCOUNTER 2025-01-24 08:06 | Outpatient (AMB) | payer MEDICARE, SELFPAY ==
[2025-01-24 08:10] VITALS: BP 120/80; PULSE 68; O2SAT 98; BMI 30.2
--- NOTE | 2025-01-24 08:10 | A.OFFPC_ITS ---
Vital Signs 01/24/25 08:10 Height 6 ft Weight 222 lb 8 oz BMI 30.2 BP 120/80 Blood Pressure Location Lt brachial Position Sitting Pulse 68 Pulse Source Pulse Oximeter Pulse Oximetry (%) 98 Oxygen Delivery Method Room Air Intake Visit Reasons: 3m follow up Allergies atenolol Allergy (Unknown, Verified 01/24/25 08:10) Bradycardia ENVIROMENTAL Allergy (Unknown, Uncoded 01/24/25 08:10) ITCHY EYES/RUNNY NOSE Medication List - Last Reconciled 01/24/25 by Shirin Davis MD adhesive tape Use for daily dressing change apixaban (Eliquis) 5 mg PO BID 90 days atorvastatin 80 mg PO QPM blood sugar diagnostic (FreeStyle Lite Strips) test blood sugar once a day blood-glucose meter (FreeStyle Lite Meter kit) As directed brimonidine 0.2% 1 drp ophthalmic-Right BID chlorthalidone 50 mg PO DAILY 90 days ezetimibe 10 mg PO DAILY fluticasone propionate 50 mcg/actuation (Flonase Allergy Relief) 1 spray intranasal DAILY gauze bandage Change dressing daily glipizide 10 mg PO BID 90 days [heating pad As directed] lancets (FreeStyle Lancets) test blood sugar once a day latanoprost 0.005% 1 drp ophthalmic (eye) QPM loratadine 10 mg PO DAILY metoprolol tartrate 25 mg PO BID 90 days minocycline 50 mg PO DAILY miscellaneous medical supply As directed netarsudil 0.02% (Rhopressa) 1 drp ophthalmic-Right BEDTIME paroxetine HCl 10 mg PO DAILY pioglitazone 15 mg PO DAILY sennosides-docusate sodium 8.6-50 mg (Senna with Docusate Sodium) 1 tab-cap PO BEDTIME timolol maleate 0.5% 1 drp ophthalmic (eye) BID [Xeroform gauze dressing 3 % bismuth As directed] Tobacco use date assessed: 01/24/25 Fall risk assessment: No Falls in past year Last assessed Fall Risk: 01/24/25 Dental Screening Dental Screen Date: 01/24/25 Did you have a dental visit in the last 12 months?: No Did you have a dental problem in the last 6 months where you did not have access to dental care?: No Was dental information given to patient?: Patient declined HPI 3m follow up HPI Details History - The patient is an 79-year-old male pre senting for regular f/u And have chronic allergic sinusitis He was seeing ENT specialist and having his ear cleaned as well Provider is retiring We will take over his ear irrigation His sinusitis is stable Continued to have arthritis pain. - Suffers from osteoarthritis, prominent ly affecting his bones and hands, with symptoms exacerbated by cold and wet weather. - Describes stiff joints in the morning, easing slightly as the day progresses. - Previously diagnosed with scoliosis, l eading to chronic spinal pain, especially aggravated during walking. - The patient manages his arthritis pain with Tylenol only, due to contraindications with his blood thinner, Eliquis. - Diabetes Mellitus Type 2: Hemoglobin A1c came back at 7.6 it was 7.1 in August - Hypertension: Currently managed with nany dielh Chlorothilodone - Dyslipidemia: Managed with atorvastati n and Zetia. - Anxiety: History of anxiety managed Paroxetine 10 mg. Problem List - Diabetes Mellitus Type 2 - Hypertension - Dyslipidemia - Anxiety - Hearing Loss - chronic allergic Sinusitis - Allergic Rhinitis - Osteoarthritis multiple joints - obesity - uses cane - risk for fall Patient Instructions - Continue taking Tylenol as needed for pain management, but avoid NSAIDs due to Eliquis use. - Take warm showers in the morning for e ase of movement and avoid baths due to mobility concerns. - Use a shower stool for safety and conv enience during bathing. - Monitor blood sugar levels closely, an d maintain diet and exercise as recommended to manage Type 2 Diabetes Mellitus. - Follow up with a healthcare provider e very three months, or sooner if symptoms worsen. - continue other medications - follow-up 3 months Review of Systems - General: No fever no chills - Neurological: No headaches no dizziness - Ear nose throat: No sore throat no hearing difficulty no ear pain - Cardiovascular: No syncope, no chest pain, no palpitations - Gastrointestinal: No nausea vomiting or diarrhea - Endocrine: No polyuria polydipsia no heat intolerance - Genitourinary: No dysuria , no blood in urine Physical Exam General: No acute distress HEENT: Ears are clean Neck: Supple Respiratory system: Able to talk in full sentences, no audible wheeze Cardiovascular: S1-S2 regular in rate and rhythm Gastrointestinal: No pain Extremities: Arthritis noted, patient uses a cane for ambulation TESTING ANALYST: Alert awake oriented x3 motor sensory intact Skin: Normal turgor [facility] Medical History Atherosclerotic cardiovascular disease Depression, major, recurrent Chronic nasal congestion Diabetes mellitus type II, non insulin dependent Osteoarthritis of hand, left Obesity (BMI 30.0-34.9) Vertebral artery stenosis Cervical spondylosis Hypertension, essential Lipid disorder Hearing impaired Surgical History S/P CABG x 3 Hx of cholecystectomy Family History Father HTN (hypertension) Mother No problems noted. Social History Housing: House Alcohol intake: current Alcohol intake frequency: a few times a week Patient Tobacco Use Status: Former Tobacco user Years Smoked: 20 +/- e-Cigarette/Vaping Use: Never Used service: No Current occupational status: retired Cognitive needs: No Hearing needs: No Vision needs: Yes Questionnaire PHQ-9 Over the last 2 weeks, how often have you been bothered by any of the following problems? 42591 - PHQ-9 Billing: Patient declined-do not bill Source: Developed by Drs. Manolo Ma, Angle Chen, Loco Estrella and colleagues, with an educational donovan from [employer]. Thrive Questionnaire Date Thrive assessed: 01/24/25 I am a: Patient What is your living situation today?: I have a steady place to live Within the past 12 months, did the food you bought not last and you didn't have the money to get more?: Never true Within the past 12 months, did you worry whether your food would run out before you got money to buy more?: Never true Do you have trouble paying for medicines?: No Do you have trouble getting transportation to medical appointments?: No Do you have trouble paying your heating and electricity bill?: No Do you have trouble taking care of your child, family member or friend?: No Do you have trouble with day-to-day activities such as bathing, preparing meals, shopping, managing finances, etc.?: No Are you currently unemployed and looking for a job?: No Are you interested in more education?: No Please select the resources that you would like help with: None Currently or been in a relationship where the following occur: No concerns reported THRIVE Score: 0 AUDIT C Alcohol Use Questionnaire (AUDIT-C) 1. How often do you have a drink containing alcohol?: Monthly or less 2. How many drinks containing alcohol do you have on a typical day when you are drinking?: 1 or 2 3. How often do you have six or more drinks on one occasion?: Never Total Score: 1 Score Reviewed/Action Taken: Yes ELIO-7 AMB Questionnaire ELIO-7 Date ELIO - 7 assessed: 11/01/24 Source: Developed by Drs. Manolo Ma, Angle Chen, Loco Estrella and colleagues, with an educational donovan from [employer]. Physical exam (Primary Care) Vital Signs: Last Vital Signs Pulse 68 01/24/25 08:10 BP 120/80 01/24/25 08:10 Pulse Ox 98 01/24/25 08:10 Oxygen Delivery Method Room Air 01/24/25 08:10 BMI result Body Mass Index 30.2 Tobacco/Smoking Status: Tobacco use Status Tobacco use date assessed 01/24/25 01/24/25 08:22 Patient Tobacco Use Status Former Tobacco user 01/24/25 08:22 e-Cigarette/Vaping Use Never Used 01/24/25 08:22 Thrive Assessment: Date of Thrive Assessment Date Thrive assessed 01/24/25 01/24/25 08:22 Currently or been in a relationship where the following occur: No concerns reported Coding Level of Care Code Est Pt Level 4 (01337) Complex EM visit Add On G2211 Diagnoses Diabetes mellitus type II, non insulin dependent E11.9 Recurrent major depressive disorder, in partial remission F33.41 Active/Remission status: in partial remission Hypertension, essential I10 Lipid disorder E78.9 Osteoarthritis involving multiple joints on both sides of body M15.9 Atherosclerotic cardiovascular disease I25.10 Paroxysmal A-fib I48.0 Bilateral hearing loss, unspecified hearing loss type H91.93 Hearing loss type: unspecified Laterality: bilateral Chronic nasal congestion R09.81 Class 1 obesity due to excess calories with serious comorbidity and body mass index (BMI) of 30.0 to 30.9 in adult E66.811; E66.09; Z68.30 Obesity classification: adult class 1 (BMI 30 - 34.9) Serious obesity comorbidity presence: with serious comorbidity Body mass index: BMI 30.0-30.9 Use of cane as ambulatory aid Z99.89 Risk for falls Z91.81 Assessment & Plan Assessment & Plan (1) Diabetes mellitus type II, non insulin dependent: Code(s): E11.9 - Type 2 diabetes mellitus without complications Category: Medical (2) Depression, major, recurrent: Code(s): F33.9 - Major depressive disorder, recurrent, unspecified Category: Medical Qualifiers: Active/Remission status: in partial remission Qualified Code(s): F33.41 - Major depressive disorder, recurrent, in partial remission (3) Hypertension, essential: Code(s): I10 - Essential (primary) hypertension Category: Medical (4) Lipid disorder: Code(s): E78.9 - Disorder of lipoprotein metabolism, unspecified Category: Medical (5) Osteoarthritis involving multiple joints on both sides of body: Code(s): M15.9 - Polyosteoarthritis, unspecified Category: Medical (6) Atherosclerotic cardiovascular disease: Code(s): I25.10 - Atherosclerotic heart disease of [place] coronary artery without angina pectoris Category: Medical (7) Paroxysmal A-fib: Code(s): I48.0 - Paroxysmal atrial fibrillation Category: Medical (8) Hearing impaired: Code(s): H91.90 - Unspecified hearing loss, unspecified ear Category: Medical Qualifiers: Hearing loss type: unspecified Laterality: bilateral Qualified Code(s): H91.93 - Unspecified hearing loss, bilateral (9) Chronic nasal congestion: Code(s): R09.81 - Nasal congestion Category: Medical (10) Obesity due to excess calories: Code(s): E66.09 - Other obesity due to excess calories Category: Medical Qualifiers: Obesity classification: adult class 1 (BMI 30 - 34.9) Serious obesity comorbidity presence: with serious comorbidity Body mass index: BMI 30.0-30.9 Qualified Code(s): E66.811 - Obesity, class 1; E66.09 - Other obesity due to excess calories; Z68.30 - Body mass index [BMI] 30.0-30.9, adult (11) Use of cane as ambulatory aid: Code(s): Z99.89 - Dependence on other enabling machines and devices Category: Medical (12) Risk for falls: Code(s): Z91.81 - History of falling Category: Medical Plan History - The patient is an 79-year-old male presenting for regular f/u And have chronic allergic sinusitis He was seeing ENT specialist and having his ear cleaned as well Provider is retiring We will take over his ear irrigation His sinusitis is stable Continued to have arthritis pain. - Suffers from osteoarthritis, prominently affecting his bones and hands, with symptoms exacerbated by cold and wet weather. - Describes stiff joints in the morning, easing slightly as the day progresses. - Previously diagnosed with scoliosis, leading to chronic spinal pain, especially aggravated during walking. - The patient manages his arthritis pain with Tylenol only, due to contraindications with his blood thinner, Eliquis. - Diabetes Mellitus Type 2: Hemoglobin A1c came back at 7.6 it was 7.1 in August - Hypertension: Currently managed with daily Chlorothilodone - Dyslipidemia: Managed with atorvastatin and Zetia. - Anxiety: History of anxiety managed with Paroxetine 10 mg. Problem List - Diabetes Mellitus Type 2 - Hypertension - Dyslipidemia - Anxiety - Hearing Loss - chronic allergic Sinusitis - Allergic Rhinitis - Osteoarthritis multiple joints - obesity - uses cane - risk for fall Patient Instructions - Continue taking Tylenol as needed for pain management, but avoid NSAIDs due to Eliquis use. - Take warm showers in the morning for ease of movement and avoid baths due to mobility concerns. - Use a shower stool for safety and convenience during bathing. - Monitor blood sugar levels closely, and maintain diet and exercise as recommended to manage Type 2 Diabetes Mellitus. - Follow up with a healthcare provider every three months, or sooner if symptoms worsen. - continue other medications - follow-up 3 months
== END 2025-01-24 08:39 | disposition home or self-care (01) ==
LOC: HO.HMCC 08:06
PROVIDERS: PCP Internal Medicine; Visit Provider Internal Medicine
DX: E11.9 Type 2 diabetes mellitus without complications (principal); F33.41 Major depressive disorder, recurrent, in partial remission; I48.0 Paroxysmal atrial fibrillation; I10 Essential (primary) hypertension; E78.9 Disorder of lipoprotein metabolism, unspecified; M15.9 Polyosteoarthritis, unspecified; I25.10 Atherosclerotic heart disease of native coronary artery without angina pectoris; H91.93 Unspecified hearing loss, bilateral; R09.81 Nasal congestion; E66.811 Obesity, class 1; Z68.30 Body mass index [BMI] 30.0-30.9, adult

== ENCOUNTER → 2025-01-24 08:06 | Outpatient (BNVA) | payer MEDICARE, SELFPAY | PROVIDERS: PCP Internal Medicine; Visit Provider Internal Medicine | DX: S81.802A Unspecified open wound, left lower leg, initial encounter (principal); S81.801A Unspecified open wound, right lower leg, initial encounter; E78.9 Disorder of lipoprotein metabolism, unspecified; I10 Essential (primary) hypertension; E11.9 Type 2 diabetes mellitus without complications; F33.41 Major depressive disorder, recurrent, in partial remission; I48.0 Paroxysmal atrial fibrillation; I25.10 Atherosclerotic heart disease of native coronary artery without angina pectoris; M15.9 Polyosteoarthritis, unspecified; H91.93 Unspecified hearing loss, bilateral; R09.81 Nasal congestion; E66.811 Obesity, class 1; E66.09 Other obesity due to excess calories; X58.XXXA Exposure to other specified factors, initial encounter; Y93.9 Activity, unspecified; Y92.9 Unspecified place or not applicable; Y99.9 Unspecified external cause status; Z68.30 Body mass index [BMI] 30.0-30.9, adult; Z99.89 Dependence on other enabling machines and devices; Z91.81 History of falling | CPT/HCPCS: 99212 ==

== ENCOUNTER 2025-05-02 07:34 | Outpatient (AMB) | payer MEDICARE, SELFPAY ==
--- NOTE | 2025-05-02 08:01 | A.OFFVIS_ITS ---
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 Required: No Accompanied by: Self / Same As Patient Allergies atenolol Allergy (Unknown, Verified 05/02/25 08:10) Bradycardia ENVIROMENTAL Allergy (Unknown, Uncoded 01/24/25 08:10) ITCHY EYES/RUNNY NOSE Medication List - Last Reconciled 05/02/25 by Shirin Davis MD adhesive tape Use for daily dressing change apixaban (Eliquis) 5 mg PO BID 90 days atorvastatin 80 mg PO QPM blood sugar diagnostic (FreeStyle Lite Strips) test blood sugar once a day blood-glucose meter (FreeStyle Lite Meter kit) As directed chlorthalidone 50 mg PO DAILY 90 days ezetimibe 10 mg PO DAILY gauze bandage Change dressing daily glipizide 10 mg PO BID 90 days [heating pad As directed] lancets (FreeStyle Lancets) test blood sugar once a day latanoprost 0.005% 1 drp ophthalmic (eye) QPM metoprolol tartrate 25 mg PO BID miscellaneous medical supply As directed netarsudil 0.02% (Rhopressa) 1 drp ophthalmic-Right BEDTIME paroxetine HCl 10 mg PO DAILY pioglitazone 15 mg PO DAILY timolol maleate 0.5% 1 drp ophthalmic (eye) BID [Xeroform gauze dressing 3 % bismuth As directed] Do you need a note to return to daycare/school/sports/work: No HPI [facility] G0439 HPI Details - The patient is an 79-year-old male pre senting for regular f/u and Medicare wellness visit He has chronic allergic sinusitis He was seeing ENT specialist and having his ear cleaned as well Provider is retiring patient would like to have a new referral to ENT which I placed for him Continued to have arthritis pain. - Suffers from osteoarthritis, prominent ly affecting his bones and hands, with symptoms exacerbated by cold and wet weather. - Describes stiff joints in the morning, easing slightly as the day progresses. - Previously diagnosed with scoliosis, l eading to chronic spinal pain, especially aggravated during walking. - The patient manages his arthritis pain with Tylenol only, due to contraindications with his blood thinner, Eliquis. - Diabetes Mellitus Type 2: Hemoglobin A1c is due next month, it ranges in 7 for the patient - Hypertension: Currently managed with nany diehl Chlorothilodone - Dyslipidemia: Managed with atorvastati n and Zetia. - Anxiety: History of anxiety managed Paroxetine 10 mg. Problem List - Diabetes Mellitus Type 2 - Hypertension - Dyslipidemia - Anxiety - Hearing Loss - chronic allergic Sinusitis - Allergic Rhinitis - Osteoarthritis multiple joints - obesity - uses cane - risk for fall Patient Instructions - Continue taking Tylenol as needed for pain management, but avoid NSAIDs due to Eliquis use. - Take warm showers in the morning for e ase of movement and avoid baths due to mobility concerns. - Use a shower stool for safety and conv enience during bathing. - Monitor blood sugar levels closely, an nany maintain diet and exercise as recommended to manage Type 2 Diabetes Mellitus. - Follow up with a healthcare provider e very three months, or sooner if symptoms worsen. - continue other medications - follow-up 3 months Review of Systems - General: No fever no chills - Neurological: No headaches no dizziness - Ear nose throat: No sore throat no hearing difficulty no ear pain - Cardiovascular: No syncope, no chest pain, no palpitations - Gastrointestinal: No nausea vomiting or diarrhea - Endocrine: No polyuria polydipsia no heat intolerance - Genitourinary: No dysuria , no blood in urine Physical Exam General: No acute distress HEENT: Ears are clean Neck: Supple Respiratory system: Able to talk in full sentences, no audible wheeze Cardiovascular: S1-S2 regular in rate and rhythm Gastrointestinal: No pain Extremities: Arthritis noted, patient uses a cane for ambulation 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 Vital signs reviewed Alcohol tobacco drug use reviewed and discussed . MMSE completed . ? Fall risk: ?Assessed Fall history: ?None Have you had any falls with injury in the past year?? No Have you had 2 or more falls in the past year?? No Fall risk assessment completed Home safety discussed with the patient Functional ability assessed and discussed and documented Activities of daily living reviewed and appropriate actions taken . HRA filled out by the patient reviewed by provider and scanned . Appropriate written screening schedule established . Any health advise needed provided . Advance care planning discussed with the patient . Examination IPPE/AWE: Balance intact Romberg intact Tandem walk failed walk-in turn intact rise from sit to stand intact . ?Hearing ?whisper test Failed . Medication list reviewed, patient is stable on medications All other providers patient is seeing discussed and noted . [facility] Medical History Atherosclerotic cardiovascular disease Depression, major, recurrent Chronic nasal congestion Diabetes mellitus type II, non insulin dependent Osteoarthritis of hand, left Obesity (BMI 30.0-34.9) Vertebral artery stenosis Cervical spondylosis Hypertension, essential Lipid disorder Hearing impaired Surgical History S/P CABG x 3 Hx of cholecystectomy Family History Father HTN (hypertension) Mother No problems noted. Social History Housing: House Alcohol intake: current Alcohol intake frequency: a few times a week Patient Tobacco Use Status: Former Tobacco user Years Smoked: 20 +/- e-Cigarette/Vaping Use: Never Used service: No Current occupational status: retired Cognitive needs: No Hearing needs: No Vision needs: Yes Questionnaire Medicare Wellness Checkup What is your age?: 79 or older What gender do you identify with?: male During the past 4 weeks, how much have you been bothered by emotional problems such as feeling anxious, depressed, irritable, sad or downhearted, and blue?: not at all During the past 4 weeks, has your physical & emotional health limited your social activities with family, friends, neighbors, or groups?: not at all During the past 4 weeks, how much bodily pain have you generally had?: moderate pain During the past 4 weeks, was someone available to help you if you needed & wanted help?: yes, as much as I wanted During the past 4 weeks, what was the hardest physical activity you could do for at least 2 minutes?: very heavy Can you get to places out of walking distance without help? (For eg., can you t ravel alone on buses, taxis or drive your car?): Yes Can you go shopping for groceries or clothes without someone's help?: Yes Can you prepare your own meals?: Yes Can you do your housework without help?: Yes Because of any health problems, do you need the help of another person with your personal care needs such as eating, bathing, dressing or getting around the house?: No Can you handle your own money without help?: Yes During the past 4 weeks, how would you rate your health in general?: good During the past 4 weeks how have things been going for you?: pretty well Are you having difficulties driving your car?: no Do you always fasten your seat belt when you are in a car?: yes, usually During past 4 weeks, have you been bothered by the following: never: Falling or dizzy when standing up, Sexual problems?, Trouble eating well?, Teeth or denture problems?, Problems using the telephone? and Tiredness or fatigue? Have you fallen 2 or more times in the past year?: No Are you afraid of falling?: Yes Are you a smoker?: no During the past 4 weeks, how many drinks of wine, beer, or other alcoholic beverages did you have?: no alcohol at all Do you exercise for about 20 minutes 3 or more times a week?: yes, some of the time Have you been given information to help with the following?: yes: Keeping track of your medications? and no: Hazards in your house that might hurt you? How often do you have trouble taking medicines the way you have been told to take them?: I always take medicine as prescribed How confident are you that you can control & manage most of your health problems?: very confident What is your race?: White Mini Mental State Exam (MMSE) Orientation What is the (year) (season) (date) (day) (month)?: year, season, date, day and month Where are we (state) (county) (town or city) (hospital) (floor)?: state, county, town or city, hospital/clinic and floor Score Score: 10 Activity of Daily Living Bathing - sponge bath, tub bath or shower: receives no assistance (gets in/out by self, if usual bathing means Dressing - getting clothes from closets & drawers, including inner/outer garments & fasteners.: gets clothes & gets completely dressed without help Toileting - going to the 'toilet room' for urine/bowel elimination & cleaning self/arranging clothes: goes to toilet room, cleans self, arranges clothes without help Transfer: moves in & out of bed and chair without help (may use support object) Continence: controls urination/bowel movements completely by self Feeding: feeds self without help Total Score: 0 Information obtained from: patient Using telephone: independent Traveling: independent Shopping: independent Preparing meals: independent Housework: independent Taking medicine: independent Managing money: independent PHQ-9 Over the last 2 weeks, how often have you been bothered by any of the following problems? 1. Little interest or pleasure in doing things: not at all 2. Feeling down, depressed, or hopeless: not at all 3. Trouble falling or staying asleep, or sleeping too much: several days 4. Feeling tired or having little energy: several days 5. Poor appetite or overeating: several days 6. Feeling bad about yourself - or that you are a failure or have let yourself or your family down: not at all 7. Trouble concentrating on things, such as reading the newspaper or watching television: several days 8. Moving or speaking so slowly that other people could have noticed. Or the opposite - being so fidgety or restless that you have been moving around a lot more than usual: not at all 9. Thoughts that you would be better off or of hurting yourself in some way: not at all Total score: 4 Depression Screening Interpretation: Negative Depression Screening Done: Yes 13134 - PHQ-9 Billing: Yes Source: Developed by Drs. Manolo Ma, Angle Chen, Loco Estrella and colleagues, with an educational donovan from [employer]. Physical Exam Vital Signs: Last Vital Signs Temp 98.1 F 05/02/25 08:03 Pulse 63 05/02/25 08:03 Resp 16 05/02/25 08:03 BP 124/72 05/02/25 08:03 Pulse Ox 94 05/02/25 08:03 Oxygen Delivery Method Room Air 05/02/25 08:03 BMI result Body Mass Index 29.3 Assessment & Plan Assessment & Plan (1) Medicare annual wellness visit, subsequent: Code(s): Z00.00 - Encounter for general adult medical examination without abnormal findings (2) Hypertension, essential: Code(s): I10 - Essential (primary) hypertension (3) Paroxysmal A-fib: Code(s): I48.0 - Paroxysmal atrial fibrillation (4) Lipid disorder: Code(s): E78.9 - Disorder of lipoprotein metabolism, unspecified (5) Diabetes mellitus type II, non insulin dependent: Code(s): E11.9 - Type 2 diabetes mellitus without complications (6) Hearing impaired: Code(s): H91.90 - Unspecified hearing loss, unspecified ear Qualifiers: Hearing loss type: unspecified Laterality: bilateral Qualified Code(s): H91.93 - Unspecified hearing loss, bilateral (7) Chronic nasal congestion: Code(s): R09.81 - Nasal congestion (8) Osteoarthritis of multiple joints: Code(s): M15.9 - Polyosteoarthritis, unspecified Qualifiers: Osteoarthritis type: primary Qualified Code(s): M15.9 - Polyosteoarthritis, unspecified Plan - The patient is an 79-year-old male presenting for regular f/u and Medicare wellness visit He has chronic allergic sinusitis He was seeing ENT specialist and having his ear cleaned as well Provider is retiring patient would like to have a new referral to ENT which I placed for him Continued to have arthritis pain. - Suffers from osteoarthritis, prominently affecting his bones and hands, with symptoms exacerbated by cold and wet weather. - Describes stiff joints in the morning, easing slightly as the day progresses. - Previously diagnosed with scoliosis, leading to chronic spinal pain, especially aggravated during walking. - The patient manages his arthritis pain with Tylenol only, due to contraindications with his blood thinner, Eliquis. - Diabetes Mellitus Type 2: Hemoglobin A1c is due next month, it ranges in 7 for the patient - Hypertension: Currently managed with daily Chlorothilodone - Dyslipidemia: Managed with atorvastatin and Zetia. - Anxiety: History of anxiety managed with Paroxetine 10 mg. Problem List - Diabetes Mellitus Type 2 - Hypertension - Dyslipidemia - Anxiety - Hearing Loss - chronic allergic Sinusitis - Allergic Rhinitis - Osteoarthritis multiple joints - obesity - uses cane - risk for fall Patient Instructions - Continue taking Tylenol as needed for pain management, but avoid NSAIDs due to Eliquis use. - Take warm showers in the morning for ease of movement and avoid baths due to mobility concerns. - Use a shower stool for safety and convenience during bathing. - Monitor blood sugar levels closely, and maintain diet and exercise as recommended to manage Type 2 Diabetes Mellitus. - Follow up with a healthcare provider every three months, or sooner if symptoms worsen. - continue other medications - follow-up 3 months Orders: Orders Hemoglobin A1c Today E11.9 - Type 2 diabetes mellitus without complications, E78.9 - Disorder of lipoprotein metabolism, unspecified, I10 - Essential (primary) hypertension, I48.0 - Paroxysmal atrial fibrillation Comprehensive Met. Panel Today E11.9 - Type 2 diabetes mellitus without complications, E78.9 - Disorder of lipoprotein metabolism, unspecified, I10 - Essential (primary) hypertension, I48.0 - Paroxysmal atrial fibrillation Referrals Ear/Nose/Throat Referral H91.93 - Unspecified hearing loss, bilateral, R09.81 - Nasal congestion Quality Reporting (2019) Depression/Bipolar (159/160/161/177) PHQ-9: Total score: 4 Coding Level of Care Code Medicare Subsequent (G0439) Est Pt Level 3 (74717) Diagnoses Medicare annual wellness visit, subsequent Z00.00 Hypertension, essential I10 Paroxysmal A-fib I48.0 Lipid disorder E78.9 Diabetes mellitus type II, non insulin dependent E11.9 Bilateral hearing loss, unspecified hearing loss type H91.93 Hearing loss type: unspecified Laterality: bilateral Chronic nasal congestion R09.81 Primary osteoarthritis involving multiple joints M15.9 Osteoarthritis type: primary CPT Codes Advance Care Planning - Advance Care Planning discussion: On file, no changes ([id number]) Advance Care Planning - Time spent: 1-15 minutes, on File ([id number]) Additional Codes PHQ-9 - 26414 - PHQ-9 Billing: Yes ([id number]) Advance Care Planning Advance Care Planning discussion: On file, no changes Forms completed: MOLST Time spent: 1-15 minutes, on File
[2025-05-02 08:03] VITALS: BP 124/72; PULSE 63; RESP 16; TEMP 36.7; O2SAT 94; BMI 29.3
== END 2025-05-02 08:37 | disposition home or self-care (01) ==
LOC: HO.HMCC 07:35
PROVIDERS: PCP Internal Medicine; Visit Provider Internal Medicine
DX: Z00.00 Encounter for general adult medical examination without abnormal findings (principal); I48.0 Paroxysmal atrial fibrillation; E11.9 Type 2 diabetes mellitus without complications; I10 Essential (primary) hypertension; E78.9 Disorder of lipoprotein metabolism, unspecified; H91.93 Unspecified hearing loss, bilateral; R09.81 Nasal congestion; M15.9 Polyosteoarthritis, unspecified

== ENCOUNTER → 2025-05-02 07:34 | Outpatient (BNVA) | payer MEDICARE, SELFPAY | PROVIDERS: PCP Internal Medicine; Visit Provider Internal Medicine | DX: Z00.00 Encounter for general adult medical examination without abnormal findings (principal); I10 Essential (primary) hypertension; I48.0 Paroxysmal atrial fibrillation; E78.9 Disorder of lipoprotein metabolism, unspecified; E11.9 Type 2 diabetes mellitus without complications; H91.93 Unspecified hearing loss, bilateral; R09.81 Nasal congestion; M15.9 Polyosteoarthritis, unspecified | CPT/HCPCS: 96127; 99212 ==

== ENCOUNTER 2025-05-15 10:43 | Outpatient (AMB) | payer MEDICARE, SELFPAY ==
[2025-05-15 10:49] VITALS: BP 126/70; PULSE 82; TEMP 37.1; O2SAT 97; BMI 29.3
--- NOTE | 2025-05-15 10:49 | AM.OFFWIN_ITS ---
Intake Vital Signs 05/15/25 10:49 Height 6 ft Weight 216 lb BMI 29.3 BP 126/70 Blood Pressure Location Lt brachial Position Sitting Pulse 82 Pulse Source Pulse Oximeter Temp 98.7 F Temp Source Oral Pulse Oximetry (%) 97 Oxygen Delivery Method Room Air Intake Visit Reasons: EP Log fell on leg, infected? Intake Note: pt presents with wound on left lower [place] after a log fell on his leg 2 days ago while grocery shopping, also c/o recurrent painful blister behind left lower leg Patient Tobacco Use Status: Former Tobacco user Allergies environmental allergies Allergy (Mild, Verified 05/15/25 10:54) Itchy Eyes atenolol Allergy (Unknown, Verified 05/02/25 08:10) Bradycardia Medication List - Last Reconciled 05/15/25 by Beth Cotter PA-C adhesive tape Use for daily dressing change apixaban (Eliquis) 5 mg PO BID 90 days atorvastatin 80 mg PO QPM blood sugar diagnostic (FreeStyle Lite Strips) test blood sugar once a day blood-glucose meter (FreeStyle Lite Meter kit) As directed chlorthalidone 50 mg PO DAILY 90 days doxycycline hyclate 100 mg PO BID 10 days ezetimibe 10 mg PO DAILY gauze bandage Change dressing daily glipizide 10 mg PO BID 90 days [heating pad As directed] lancets (FreeStyle Lancets) test blood sugar once a day metoprolol tartrate 25 mg PO BID miscellaneous medical supply As directed netarsudil-latanoprost 0.02-0.005 % (Rocklatan) drps ophthalmic (eye) ONCE paroxetine HCl 10 mg PO DAILY pioglitazone 15 mg PO DAILY timolol maleate 0.5% 1 drp ophthalmic (eye) BID [Xeroform gauze dressing 3 % bismuth As directed] Do you need a note to return to daycare/school/sports/work: No HPI HPI Comments History of Present Illness Details History of Present Illness - The patient is an 79-year-old male pre senting with concerns of swelling and cellulitis in the lower extremities. - Reports recurrent leg swelling with fl uid leakage over the past year, previously managed with antibiotics. - Recent trauma from a log exacerbated t he condition, causing bruising and increased swelling. - Has redness to the left lower leg and his wounds are not healing. - History of cellulitis with current sym ptoms of blisters, warmth, and redness. - He has blisters on the back of his leg s and some have fluid leaking from them. - On anticoagulant therapy with Eliquis, contributing to bruising and bleeding tendencies. - He denies pain, numbness, tingling, fe marce, chills, CP or SOB. Physical Exam General: Cooperative, healthy appearing, comfortable, no acute distress and well developed Respiratory: Normal respiratory effort and able to speak in complete sentences. Clear to auscultation bilaterally Cardiovascular: Regular rate and rhythm. Normal S1 and S2 Skin: open wounds on the left lower anterior leg, with skin tears noted. Scabbed wound on the left anterior ankle. No induration noted. No bleeding noted. No discharge noted. Neuro: Sensation intact Extremities: Swelling noted on the lower legs bilaterally with erythematous and purple skin noted. Patient was informed and verbally consented to the use of an ambient scribe for clinic note documentation during this visit. [facility] Medical History Atherosclerotic cardiovascular disease Depression, major, recurrent Chronic nasal congestion Diabetes mellitus type II, non insulin dependent Osteoarthritis of hand, left Obesity (BMI 30.0-34.9) Vertebral artery stenosis Cervical spondylosis Hypertension, essential Lipid disorder Hearing impaired Surgical History S/P CABG x 3 Hx of cholecystectomy Family History Father HTN (hypertension) Mother No problems noted. Social History Housing: House Alcohol intake: current Alcohol intake frequency: a few times a week Patient Tobacco Use Status: Former Tobacco user Years Smoked: 20 +/- e-Cigarette/Vaping Use: Never Used service: No Current occupational status: retired Cognitive needs: No Hearing needs: No Vision needs: Yes Review of Systems Const All systems reviewed & are unremarkable except as noted in HPI and below Physical Exam Vital Signs: Last Vital Signs Temp 98.7 F 05/15/25 10:49 Pulse 82 05/15/25 10:49 BP 126/70 05/15/25 10:49 Pulse Ox 97 05/15/25 10:49 Oxygen Delivery Method Room Air 05/15/25 10:49 BMI result Body Mass Index 29.3 Assessment & Plan Assessment & Plan (1) Leg wound, left: Code(s): S81.802A - Unspecified open wound, left lower leg, initial encounter Qualifiers: Encounter type: initial encounter Qualified Code(s): S81.802A - Unspecified open wound, left lower leg, initial encounter (2) Cellulitis of leg: Code(s): L03.119 - Cellulitis of unspecified part of limb Qualifiers: Laterality: left Qualified Code(s): L03.116 - Cellulitis of left lower limb Plan Most likely open wound, non- healing with a cellulitis plan - Dressed the wound with Xeroform, nonadherent pads, and gauze and then secured into place with an Doni warp. Recommended he keep his blood sugars in a normal range to help with wound healing. Recommended he keep wound covered as is and then return in 48 hours for a wound check and change the dressing for him. - Doxycycline 100 mg BID for 10 days - keep leg elevated - tylenol as needed for pain - follow up in 48 hours for wound check - follow up with PCP Medications: New doxycycline hyclate 100 mg PO BID 20 tabs 0RF 10 days Coding Level of Care Code Est Pt Level 4 (42413) Diagnoses Wound of left lower extremity, initial encounter S81.802A Encounter type: initial encounter Cellulitis of left lower extremity L03.116 Laterality: left
== END 2025-05-15 11:52 | disposition home or self-care (01) ==
PROVIDERS: PCP Internal Medicine; Visit Provider Physician Assistant Medical
DX: S81.802A Unspecified open wound, left lower leg, initial encounter (principal); L03.116 Cellulitis of left lower limb

== ENCOUNTER → 2025-05-15 10:43 | Outpatient (BNVA) | payer MEDICARE, SELFPAY | PROVIDERS: PCP Internal Medicine; Visit Provider Physician Assistant Medical | DX: S81.802A Unspecified open wound, left lower leg, initial encounter (principal); L03.116 Cellulitis of left lower limb | CPT/HCPCS: 99212 ==

== ENCOUNTER 2025-05-17 08:54 | Outpatient (AMB) | payer MEDICARE, SELFPAY ==
[2025-05-17 09:03] VITALS: BP 142/70; PULSE 65; RESP 16; TEMP 36.4; O2SAT 93; BMI 29.0
--- NOTE | 2025-05-17 09:03 | MHC.OFFWIV ---
Intake Vital Signs 05/17/25 09:03 Height 6 ft Weight 214 lb BMI 29.0 BP 142/70 H Blood Pressure Location Rt brachial Position Sitting Respiration 16 Pulse 65 Temp 97.6 F Temp Source Oral Pulse Oximetry (%) 93 Oxygen Delivery Method Room Air Intake Visit Reasons: EP Wound re check Intake Note: Pt is here today to recheck Lt leg wound Patient Tobacco Use Status: Former Tobacco user Allergies environmental allergies Allergy (Mild, Verified 05/17/25 09:05) Itchy Eyes atenolol Allergy (Unknown, Verified 05/17/25 09:05) Bradycardia HPI HPI Comments History of Present Illness Details This is an 79-year-old male who presented to the walk-in clinic for a wound check. He was seen and evaluated at the walk-in clinic on 05/15/2025. He was diagnosed with cellulitis of the left lower extremity due to nonhealing wounds following an injury and he was placed on PO doxycycline 100 mg twice daily x 10 days. His wound was dressed with Xeroform, nonadherent pads, gauze, and an Doni bandage and he was instructed to follow-up with the walk-in clinic in 48 hours for a wound check. Patient states he has been taking his doxycycline as prescribed. He believes that the erythema and swelling have significantly improved since starting the antibiotic. He states he is still having some serous drainage from the wounds but denies any purulent drainage. He denies any fevers or chills. [facility] Medical History Atherosclerotic cardiovascular disease Depression, major, recurrent Chronic nasal congestion Diabetes mellitus type II, non insulin dependent Osteoarthritis of hand, left Obesity (BMI 30.0-34.9) Vertebral artery stenosis Cervical spondylosis Hypertension, essential Lipid disorder Hearing impaired Surgical History S/P CABG x 3 Hx of cholecystectomy Family History Father HTN (hypertension) Mother No problems noted. Social History Housing: House Alcohol intake: current Alcohol intake frequency: a few times a week Patient Tobacco Use Status: Former Tobacco user Years Smoked: 20 +/- e-Cigarette/Vaping Use: Never Used service: No Current occupational status: retired Cognitive needs: No Hearing needs: No Vision needs: Yes Review of Systems Const All systems reviewed & are unremarkable except as noted in HPI and below Reports no additional complaints Eyes Reports no additional complaints ENT Reports no additional complaints Card Reports no additional complaints Resp Reports no additional complaints GI Reports no additional complaints Reports no additional complaints Musc Reports no additional complaints Skin/Breast Reports system reviewed and no additional complaints, except as documented Neuro Reports no additional complaints Psych Reports no additional complaints Endo Reports no additional complaints Edwin/Lymph Reports no additional complaints Aller/Immun Reports no additional complaints Physical Exam Vital Signs: BMI result Body Mass Index 29.0 Const Other: Vital signs reviewed. Constitutional: Non-toxic appearing. No acute distress. Well-developed and well-nourished. HEENT: Normocephalic and atraumatic. Skin: There is 1 wound to the left anterior lower measuring approximately 2-1/2 x 2 cm with a minimal amount of serous drainage with a small underlying hematoma without fluctuance/induration as well as a wound to the left roll anterior lower leg measuring 1.5 x 1 cm wih overlying granulation tissue and a minimal amount of serous drainage. There is mild surrounding erythema without any appreciated purulent drainage. Neck: Full and painless range of motion. Cardio: Regular rate. No JVD. 1+ pitting edema of the left lower extremity, no calf swelling or tenderness to palpation. Pulmonary: No respiratory distress. No accessory muscle usage. Musculoskeletal: Normal range of motion in joints throughout the body. No deformity or other signs of injury. Neuro: Alert and oriented x4. Cranial nerves 2-12 grossly intact. No focal deficits appreciated. Psych: Normal mood and affect. Assessment & Plan Assessment & Plan (1) Visit for wound check: Code(s): Z51.89 - Encounter for other specified aftercare (2) Cellulitis of left lower extremity: Code(s): L03.116 - Cellulitis of left lower limb Plan 79-year-old male who presented to the walk-in clinic for a wound check. The wound beds appear clean with overlying granulation tissue and no purulent drainage. Per patient, the swelling and erythema have improved. Patient's wounds were dressed with Xeroform, nonadherent pads, gauze, and an Doni bandage. Patient was instructed to continue antibiotic as prescribed as this appears to be helping. Patient was educated on the importance of blood sugar control as well as proper nutrition to aid in wound healing. He was instructed to follow-up here in 72 hours for a wound check and dressing as indicated. He was instructed to proceed directly to the emergency room sooner if he were to develop any fevers/chills, worsening erythema, worsening swelling, or purulent drainage. Patient verbalizes understanding and he is in agreement with the plan. Coding Level of Care Code Est Pt Level 3 (14102) Diagnoses Visit for wound check Z51.89 Cellulitis of left lower extremity L03.116
== END 2025-05-17 09:47 | disposition home or self-care (01) ==
PROVIDERS: PCP Internal Medicine; Visit Provider Physician Assistant Medical
DX: Z51.89 Encounter for other specified aftercare (principal); L03.116 Cellulitis of left lower limb

== ENCOUNTER → 2025-05-17 08:54 | Outpatient (BNVA) | payer MEDICARE, SELFPAY | PROVIDERS: PCP Internal Medicine; Visit Provider Physician Assistant Medical | DX: Z51.89 Encounter for other specified aftercare (principal); L03.116 Cellulitis of left lower limb | CPT/HCPCS: 99212 ==

== ENCOUNTER 2025-05-19 07:04 | Outpatient (AMB) | payer MEDICARE, SELFPAY ==
[2025-05-19 07:19] VITALS: BP 128/64; PULSE 61; TEMP 36.7; O2SAT 94; BMI 29.0
--- NOTE | 2025-05-19 07:19 | AM.OFFWIN_ITS ---
Intake Vital Signs 05/19/25 07:19 Height 6 ft Weight 214 lb BMI 29.0 BP 128/64 Blood Pressure Location Lt brachial Position Sitting Pulse 61 Pulse Source Pulse Oximeter Temp 98.1 F Temp Source Oral Pulse Oximetry (%) 94 Oxygen Delivery Method Room Air Intake Visit Reasons: EP-lt leg infected Intake Note: presents for wound check on LT leg Patient Tobacco Use Status: Former Tobacco user Allergies environmental allergies Allergy (Mild, Verified 05/19/25 07:19) Itchy Eyes atenolol Allergy (Unknown, Verified 05/19/25 07:19) Bradycardia Do you need a note to return to daycare/school/sports/work: No HPI HPI Comments History of Present Illness Details History of Present Illness - The patient is an 79-year-old male pre senting with concerns of swelling and cellulitis in the lower extremities. - He was seen here last week for the [facility] e and had a wound check on Sat. - Recent trauma from a log exacerbated t he condition, causing bruising and increased swelling. - Has redness to the left lower leg and his wounds are not healing. - He has two areas that burn and one are a that is bleeding. - He has redness and the blisters are he aling. - He has been wrapping the wound at home . - He denies pain, numbness, tingling, fe marce, chills, CP or SOB. Physical Exam General: Cooperative, healthy appearing, comfortable, no acute distress and well developed Respiratory: Normal respiratory effort and able to speak in complete sentences. Clear to auscultation bilaterally Cardiovascular: Regular rate and rhythm. Normal S1 and S2 Skin: open wounds on the left lower anterior leg, with skin tears noted. Scabbed wound on the left anterior ankle. No induration noted. No bleeding noted. No discharge noted. Open area anteriorly with active bleeding noted. Neuro: Sensation intact Extremities: Swelling noted on the lower legs bilaterally with erythematous and purple skin noted. Open blisters noted. Patient was informed and verbally consented to the use of an ambient scribe for clinic note documentation during this visit. [facility] Medical History Atherosclerotic cardiovascular disease Depression, major, recurrent Chronic nasal congestion Diabetes mellitus type II, non insulin dependent Osteoarthritis of hand, left Obesity (BMI 30.0-34.9) Vertebral artery stenosis Cervical spondylosis Hypertension, essential Lipid disorder Hearing impaired Surgical History S/P CABG x 3 Hx of cholecystectomy Family History Father HTN (hypertension) Mother No problems noted. Social History Housing: House Alcohol intake: current Alcohol intake frequency: a few times a week Patient Tobacco Use Status: Former Tobacco user Years Smoked: 20 +/- e-Cigarette/Vaping Use: Never Used service: No Current occupational status: retired Cognitive needs: No Hearing needs: No Vision needs: Yes Review of Systems Const All systems reviewed & are unremarkable except as noted in HPI and below Physical Exam Vital Signs: BMI result Body Mass Index 29.0 Assessment & Plan Assessment & Plan (1) Encounter for wound re-check: Code(s): Z51.89 - Encounter for other specified aftercare (2) Cellulitis of lower extremity: Code(s): L03.119 - Cellulitis of unspecified part of limb Qualifiers: Laterality: left Qualified Code(s): L03.116 - Cellulitis of left lower limb Plan plan - Dressed the wound with Xeroform, nonadherent pads, and gauze and then secured into place with an Doni warp. Recommended he keep his blood sugars in a normal range to help with wound healing. Recommended he keep wound covered as is and then return in 48 hours for a wound check and change the dressing for him. - Finish Doxycycline - will add augmentin BID for 10 days - keep leg elevated - will refer him the the wound center - tylenol as needed for pain - follow up in 48 hours for wound check - follow up with PCP Orders: Referrals Wound Care Referral S81.387B - Unspecified open wound, left lower leg, initial encounter Medications: New amoxicillin-pot clavulanate 875-125 mg 1 tab PO Q12H 20 tabs 0RF 10 days Coding Level of Care Code Est Pt Level 3 (26914) Diagnoses Encounter for wound re-check Z51.89 Cellulitis of left lower extremity L03.116 Laterality: left
== END 2025-05-19 08:13 | disposition home or self-care (01) ==
PROVIDERS: PCP Internal Medicine; Visit Provider Physician Assistant Medical
DX: Z51.89 Encounter for other specified aftercare (principal); L03.116 Cellulitis of left lower limb

== ENCOUNTER → 2025-05-19 07:04 | Outpatient (BNVA) | payer MEDICARE, SELFPAY | PROVIDERS: PCP Internal Medicine; Visit Provider Physician Assistant Medical | DX: L03.116 Cellulitis of left lower limb (principal); Z51.89 Encounter for other specified aftercare | CPT/HCPCS: 99212 ==

== ENCOUNTER 2025-05-21 07:01 | Outpatient (AMB) | payer MEDICARE, SELFPAY ==
[2025-05-21 07:03] VITALS: BP 124/60; PULSE 75; TEMP 37; O2SAT 96; BMI 29.2
--- NOTE | 2025-05-21 07:03 | AM.OFFWIN_ITS ---
Intake Vital Signs 3 05/21/25 07:03 Height 6 ft Weight 215 lb BMI 29.2 BP 124/60 Blood Pressure Location Rt brachial Position Sitting Pulse 75 Pulse Source Pulse Oximeter Temp 98.6 F Temp Source Oral Pulse Oximetry (%) 96 Oxygen Delivery Method Room Air Intake Visit Reasons: EP-lt leg infected Patient Tobacco Use Status: Former Tobacco user Amusement Or Recreation Card Checker Required: No Allergies environmental allergies Allergy (Mild, Verified 05/21/25 07:10) Itchy Eyes atenolol Allergy (Unknown, Verified 05/21/25 07:10) Bradycardia Do you need a note to return to daycare/school/sports/work: No HPI HPI Comments 2 History of Present Illness0 Details History of Present Illness - The patient is an 79-year-old male pre senting with a chronic leg wound of the left leg. - He has been here multiple times for th is leg wound. - He has been coming to the clinic for w ound care. - The patient reports a history of delay ed wound healing, possibly related to underlying conditions such as diabetes. - The wound is currently infected, and t he patient is on Augmentin for treatment. - The patient has been advised to visit the wound center for further management. - He denies fever, chills, discharge, bl eeding, or calf pain. Physical Exam General: Cooperative, healthy appearing, comfortable, no acute distress and well developed Orientation: Patient oriented x3 Respiratory: Normal respiratory effort and able to speak in complete sentences. Clear to auscultation bilaterally Cardiovascular: Regular rate and rhythm. Normal S1 and S2 Skin: Wound present, still leaking slightly, but no fevers noted. Swelling has reduced, and the foot looks better. Infection still present. Extremities: Swelling noted on the lower legs bilaterally with erythematous and purple skin noted. Open wounds noted with tissue noted. No discharge noted. No bleeding noted. See picture attached. [facility] Medical History Atherosclerotic cardiovascular disease Depression, major, recurrent Chronic nasal congestion Diabetes mellitus type II, non insulin dependent Osteoarthritis of hand, left Obesity (BMI 30.0-34.9) Vertebral artery stenosis Cervical spondylosis Hypertension, essential Lipid disorder Hearing impaired Surgical History S/P CABG x 3 Hx of cholecystectomy Family History Father HTN (hypertension) Mother No problems noted. Social History Housing: House Alcohol intake: current Alcohol intake frequency: a few times a week Patient Tobacco Use Status: Former Tobacco user Years Smoked: 20 +/- e-Cigarette/Vaping Use: Never Used service: No Current occupational status: retired Cognitive needs: No Hearing needs: No Vision needs: Yes Review of Systems Const All systems reviewed & are unremarkable except as noted in HPI and below Physical Exam Vital Signs: Last Vital Signs Temp 98.6 F 05/21/25 07:03 Pulse 75 05/21/25 07:03 BP 124/60 05/21/25 07:03 Pulse Ox 96 05/21/25 07:03 Oxygen Delivery Method Room Air 05/21/25 07:03 BMI result Body Mass Index 29.2 Assessment & Plan Assessment & Plan (1) Leg wound, left: Code(s): S81.802A - Unspecified open wound, left lower leg, initial encounter Qualifiers: Encounter type: initial encounter Qualified Code(s): S81.802A - Unspecified open wound, left lower leg, initial encounter (2) Cellulitis of leg, left: Code(s): L03.116 - Cellulitis of left lower limb Plan Most likely wound healing delay with cellulitis Plan - keep area clean, dry, and covered - Continue current antibiotic therapy with Augmentin to address the infection. - Referral to the wound center for specialized wound care and management. - Follow-up visit scheduled for Monday to reassess the wound's progress. - Has a wound care appointment on Monday. Coding Level of Care Code Est Pt Level 3 (29319) Diagnoses Wound of left lower extremity, initial encounter S81.802A Encounter type: initial encounter Cellulitis of leg, left L03.116
== END 2025-05-21 08:12 | disposition home or self-care (01) ==
PROVIDERS: PCP Internal Medicine; Visit Provider Physician Assistant Medical
DX: S81.802A Unspecified open wound, left lower leg, initial encounter (principal); L03.116 Cellulitis of left lower limb

== ENCOUNTER → 2025-05-21 07:01 | Outpatient (BNVA) | payer MEDICARE, SELFPAY | PROVIDERS: PCP Internal Medicine; Visit Provider Physician Assistant Medical | DX: S81.802A Unspecified open wound, left lower leg, initial encounter (principal); L03.116 Cellulitis of left lower limb | CPT/HCPCS: 99212 ==

== ENCOUNTER 2025-05-23 07:06 | Outpatient (AMB) | payer MEDICARE, SELFPAY ==
[2025-05-23 07:12] VITALS: BP 118/54; PULSE 70; TEMP 36.7; O2SAT 97; BMI 28.6
--- NOTE | 2025-05-23 07:12 | MHC.OFFWIV ---
Intake Vital Signs 05/23/25 07:12 Height 6 ft Weight 211 lb 4 oz BMI 28.6 BP 118/54 L Blood Pressure Location Rt brachial Position Sitting Pulse 70 Pulse Source Pulse Oximeter Temp 98.0 F Temp Source Oral Pulse Oximetry (%) 97 Oxygen Delivery Method Room Air Intake Visit Reasons: EP-lt leg infected Patient Tobacco Use Status: Former Tobacco user Pan Helper Required: No Allergies environmental allergies Allergy (Mild, Verified 05/23/25 07:17) Itchy Eyes atenolol Allergy (Unknown, Verified 05/23/25 07:17) Bradycardia Do you need a note to return to daycare/school/sports/work: No HPI HPI Comments History of Present Illness Details This is an 79-year-old male who comes for a re-evaluation of a cellulitis of his left leg. Patient continues to take doxycycline and Augmentin as previously prescribed and feels that the infection has significantly improved. Patient denies having any fevers or chills and states his highest blood glucose over the past 1 week was 169 mg/dL. Patient states he has an intake with wound care at 8:00 a.m. on [place] [facility] [place] [facility]S AT [facility] Medical History Atherosclerotic cardiovascular disease Depression, major, recurrent Chronic nasal congestion Diabetes mellitus type II, non insulin dependent Osteoarthritis of hand, left Obesity (BMI 30.0-34.9) Vertebral artery stenosis Cervical spondylosis Hypertension, essential Lipid disorder Hearing impaired Surgical History S/P CABG x 3 Hx of cholecystectomy Family History Father HTN (hypertension) Mother No problems noted. Social History Housing: House Alcohol intake: current Alcohol intake frequency: a few times a week Patient Tobacco Use Status: Former Tobacco user Years Smoked: 20 +/- e-Cigarette/Vaping Use: Never Used service: No Current occupational status: retired Cognitive needs: No Hearing needs: No Vision needs: Yes Review of Systems Const All systems reviewed & are unremarkable except as noted in HPI and below Denies body aches, Denies chills, Denies fatigue and Denies fever(s) Musc Reports no additional complaints Skin/Breast Reports system reviewed and no additional complaints, except as documented, Reports changing lesions, Denies new lesions and Reports non-healing lesions Neuro Reports no additional complaints Psych Reports no additional complaints Endo Reports no additional complaints and Denies fatigue Edwin/Lymph Reports no additional complaints Aller/Immun Reports no additional complaints Physical Exam Vital Signs: Last Vital Signs Temp 98.0 F 05/23/25 07:12 Pulse 70 05/23/25 07:12 BP 118/54 L 05/23/25 07:12 Pulse Ox 97 05/23/25 07:12 Oxygen Delivery Method Room Air 05/23/25 07:12 BMI result Body Mass Index 28.6 Patient is afebrile. Const General: cooperative, healthy appearing, comfortable, no acute distress, well developed, alert, awake and Physically active; No acute distress Nutritional Appearance: well nourished Orientation/consciousness: patient oriented x3 Limitations: no limitations Skin Other: There are 2 shallow open areas approximately 1 cm in circumference each that remain on the anterior distal left lower extremity, however there is no discernible erythema at this time. No acute lesions, distal left lower extremity is nontender to examination. Neuro General: patient oriented x3 Extrem Other: Patient ambulates independently with the aid of a cane. Psych Appearance: grossly normal Mental Status: mental status grossly normal Insight: Good insight present (Psych) Judgement: Good judgement present (Psych) Assessment & Plan Assessment & Plan (1) Cellulitis of left lower extremity: Comment: Patient returns for wound check and there is no worsening of symptoms or acute cellulitis noted. Patient is well-appearing, afebrile and denies any episodes of hyperglycemia. Patient has intake with wound care as scheduled on Monday. Wounds cleansed with Betadine and dressed with nonstick gauze pads and a new Doni bandage. Code(s): L03.116 - Cellulitis of left lower limb Plan: Continue antibiotic therapy as prescribed and follow up Monday with wound care as previously scheduled. Coding Level of Care Code Est Pt Level 3 (06091) Diagnoses Cellulitis of left lower extremity L03.116 Time Spent (min) 20
== END 2025-05-23 07:51 | disposition home or self-care (01) ==
PROVIDERS: PCP Internal Medicine; Visit Provider Physician Assistant
DX: L03.116 Cellulitis of left lower limb (principal)

== ENCOUNTER → 2025-05-23 07:06 | Outpatient (BNVA) | payer MEDICARE, SELFPAY | PROVIDERS: PCP Internal Medicine; Visit Provider Physician Assistant | DX: L03.116 Cellulitis of left lower limb (principal) | CPT/HCPCS: 99212 ==

== ENCOUNTER 2025-06-11 07:46 | Outpatient (AMB) | payer MEDICARE, SELFPAY ==
[2025-06-11 07:47] VITALS: BP 148/88; PULSE 84; RESP 16; TEMP 36.7; O2SAT 98; BMI 28.9
--- NOTE | 2025-06-11 07:47 | MHC.OFFWIV ---
Intake Vital Signs 06/11/25 07:47 Height 6 ft Weight 213 lb BMI 28.9 BP 148/88 H Blood Pressure Location Rt brachial Position Sitting Respiration 16 Pulse 84 Pulse Source Pulse Oximeter Temp 98.1 F Temp Source Oral Pulse Oximetry (%) 98 Oxygen Delivery Method Room Air Intake Visit Reasons: EP High BP 168/? Patient Tobacco Use Status: Former Tobacco user Allergies environmental allergies Allergy (Mild, Verified 06/11/25 07:48) Itchy Eyes atenolol Allergy (Unknown, Verified 06/11/25 07:48) Bradycardia Medication List - Last Reconciled 06/11/25 by Gabriella Rodriguez PA-C adhesive tape Use for daily dressing change apixaban (Eliquis) 5 mg PO BID atorvastatin 80 mg PO QPM blood sugar diagnostic (FreeStyle Lite Strips) test blood sugar once a day blood-glucose meter (FreeStyle Lite Meter kit) As directed chlorthalidone 50 mg PO DAILY 90 days ezetimibe 10 mg PO DAILY gauze bandage Change dressing daily glipizide 10 mg PO BID 90 days [heating pad As directed] lancets (FreeStyle Lancets) test blood sugar once a day metoprolol tartrate 25 mg PO BID miscellaneous medical supply As directed netarsudil-latanoprost 0.02-0.005 % (Rocklatan) drps ophthalmic (eye) ONCE paroxetine HCl 10 mg PO DAILY pioglitazone 15 mg PO DAILY timolol maleate 0.5% 1 drp ophthalmic (eye) BID [Xeroform gauze dressing 3 % bismuth As directed] HPI HPI Comments History of Present Illness Details History of Present Illness - The patient is an 79-year-old male presenting with elevated blood pressure and leg pain. - The patient reports elevated blood pressure readings, with a recent measurement of 160's systolic while at the [facility]. - The patient experiences pain during wound care, and states he is generally always in pain because of the wound. - The patient has a history of glaucoma with a recent intraocular pressure of 28 mmHg. - The patient underwent laser treatment to address increased intraocular pressure. - He denies headaches, dizzyness or chest pain now at when his BP is high. - He does not have a BP cuff at home, he used to have one but he lost it. Physical Exam General: Cooperative, healthy appearing, comfortable, no acute distress and well developed Orientation: Patient oriented x3 Limitations: No limitations Head: Normal to inspection Ears: Hearing grossly normal bilaterally Nose: Normal External nose present Face and sinus: Normal facial exam Eyes: Appearance normal, both eyes and all related structures Neck: Normal visual inspection Respiratory: Normal respiratory effort and able to speak in complete sentences. Skin: No rashes or lesions noted Neuro: Patient oriented x3 Extremities: Normal to inspection, wearing compression stocking on [facility] Medical History Atherosclerotic cardiovascular disease Depression, major, recurrent Chronic nasal congestion Diabetes mellitus type II, non insulin dependent Osteoarthritis of hand, left Obesity (BMI 30.0-34.9) Vertebral artery stenosis Cervical spondylosis Hypertension, essential Lipid disorder Hearing impaired Surgical History S/P CABG x 3 Hx of cholecystectomy Family History Father HTN (hypertension) Mother No problems noted. Social History Housing: House Alcohol intake: current Alcohol intake frequency: a few times a week Patient Tobacco Use Status: Former Tobacco user Years Smoked: 20 +/- e-Cigarette/Vaping Use: Never Used service: No Current occupational status: retired Cognitive needs: No Hearing needs: No Vision needs: Yes Review of Systems Const All systems reviewed & are unremarkable except as noted in HPI and below Physical Exam Vital Signs: Last Vital Signs Temp 98.1 F 06/11/25 07:47 Pulse 84 06/11/25 07:47 Resp 16 06/11/25 07:47 BP 148/88 H 06/11/25 07:47 Pulse Ox 98 06/11/25 07:47 Oxygen Delivery Method Room Air 06/11/25 07:47 BMI result Body Mass Index 28.9 Assessment & Plan Assessment & Plan (1) Elevated blood pressure reading with diagnosis of hypertension: Code(s): I10 - Essential (primary) hypertension Plan: Patient was informed and verbally consented to the use of an ambient scribe for clinic note documentation during this visit. Essential Hypertension - Plan to monitor blood pressure at home twice daily, at 9:00 AM and 9:00 PM as he takes his chlorthalidone at 6am daily - A wrist blood pressure cuff will be provided for home monitoring. Message sent to nursing to order one for him. - Follow-up with Dr. Davis on 06/27 to assess blood pressure management and potential medication adjustments. - Scheduled follow-up for an eye injection on June 26. Coding Level of Care Code Est Pt Level 3 (76950) Diagnoses Elevated blood pressure reading with diagnosis of hypertension I10
== END 2025-06-11 08:39 | disposition home or self-care (01) ==
PROVIDERS: PCP Internal Medicine; Visit Provider Physician Assistant
DX: I10 Essential (primary) hypertension (principal)

== ENCOUNTER → 2025-06-11 07:46 | Outpatient (BNVA) | payer MEDICARE, SELFPAY | PROVIDERS: PCP Internal Medicine; Visit Provider Physician Assistant | DX: I10 Essential (primary) hypertension (principal) | CPT/HCPCS: 99212 ==

== ENCOUNTER 2025-06-23 07:25 | Outpatient (REF) | payer MEDICARE, SELFPAY ==
[2025-06-23 14:22] LABS: Hemoglobin A1C 234.1986 umol/L; Total Hemoglobin (HGBA1C) 4059.1498 umol/L
[2025-06-23 14:30] LABS: Alanine Aminotransferase 49 U/L (0-40); Albumin Level 4.2 g/dL (3.5-5.0); Alkaline Phosphatase 102 U/L (39-117); Anion Gap 12 (12-20); Aspartate Amino Transferase 40 U/L (5-37); Blood Urea Nitrogen 29 mg/dL (9-16); Calcium 9.2 mg/dL (8.4-10.2); Carbon Dioxide 28 mmol/L (22-29); Chloride 104 mmol/L (96-108); Estimated Glomerular Filt Rate > 60; Potassium 4.9 mmol/L (3.3-5.1); Sodium 139 mmol/L (135-145); Total Protein 7.1 g/dL (6.5-8.0)
== END 2025-06-23 07:26 | disposition home or self-care (01) ==
LOC: HO.HMGCLDS 07:25
PROVIDERS: PCP Internal Medicine; Visit Provider Internal Medicine
DX: I10 Essential (primary) hypertension (principal); I48.0 Paroxysmal atrial fibrillation; E78.9 Disorder of lipoprotein metabolism, unspecified; E11.9 Type 2 diabetes mellitus without complications
CPT/HCPCS: 36415; 80053; 83036

== ENCOUNTER 2025-06-27 12:30 | Outpatient (AMB) | payer MEDICARE, SELFPAY ==
[2025-06-27 12:36] VITALS: BP 160/88; PULSE 74; RESP 16; O2SAT 95; BMI 29.0
--- NOTE | 2025-06-27 12:36 | A.OFFPC_ITS ---
Vital Signs 06/27/25 12:36 Height 6 ft Weight 214 lb BMI 29.0 BP 160/88 H Blood Pressure Location Lt brachial Respiration 16 Pulse 74 Pulse Source Pulse Oximeter Pulse Oximetry (%) 95 Oxygen Delivery Method Room Air Intake Visit Reasons: BP follow up per walk in Solution Maker Required: No Accompanied by: Self / Same As Patient Allergies environmental allergies Allergy (Mild, Verified 06/27/25 12:42) Itchy Eyes atenolol Allergy (Unknown, Verified 06/27/25 12:42) Bradycardia Medication List - Last Reconciled 06/27/25 by Shirin Davis MD adhesive tape Use for daily dressing change apixaban (Eliquis) 5 mg PO BID atorvastatin 80 mg PO QPM blood pressure test kit-wrist As directed blood sugar diagnostic (FreeStyle Lite Strips) test blood sugar once a day blood-glucose meter (FreeStyle Lite Meter kit) As directed chlorthalidone 50 mg PO DAILY 90 days ezetimibe 10 mg PO DAILY gauze bandage Change dressing daily glipizide 10 mg PO BID 90 days [heating pad As directed] lancets (Glamorous TravelStyle Lancets) test blood sugar once a day metoprolol tartrate 25 mg PO BID miscellaneous medical supply As directed netarsudil-latanoprost 0.02-0.005 % (Rocklatan) drps ophthalmic (eye) ONCE paroxetine HCl 10 mg PO DAILY pioglitazone 15 mg PO DAILY timolol maleate 0.5% 1 drp ophthalmic (eye) BID [Xeroform gauze dressing 3 % bismuth As directed] Tobacco use date assessed: 06/27/25 Fall risk assessment: No Falls in past year Last assessed Fall Risk: 06/27/25 Dental Screening Dental Screen Date: 06/27/25 Did you have a dental visit in the last 12 months?: No Did you have a dental problem in the last 6 months where you did not have access to dental care?: No Was dental information given to patient?: Patient has dentist HPI BP follow up per walk in HPI Details History of Present Illness The patient is an 79-year-old male presenting with elevated blood pressure and a leg wound. Elevated Blood Pressure: - Began noticing elevated blood pressure readings after sustaining a leg injury. - Previously maintained normal blood pre ssure levels before the leg injury occurred. - Recent blood pressure reading was 160/ 88. - Current medications include chlorthali done and metoprolol. - Patient expressed concerns about his i nability to walk as much, potentially contributing to increased blood pressure. Leg Wound: - Patient sustained a leg wound caused b y a log falling on it, approximately a month and a half ago. - Has been attending wound clinic treatm ents for two months. - Noted almost complete healing of the w ound. - Receives weekly treatments involving s ulfur application, bandaging, and wearing of a compression sock to manage swelling. - Swelling in the leg has subsided with the use of the compression sock. Medical History: - History of elevated blood pressure. Surgical History: - Patient underwent a recent laser proce dure for the eyes. Social History: - Reduced physical activity due to back pain and leg wound. Problem List - Elevated Blood Pressure - Leg Wound due to trauma - Recent Post-Laser Eye Procedure Patient Instructions - Continue taking current medications as previously prescribed. - Start taking lisinopril 5 mg once duyen y in the morning. - Attend wound clinic weekly as schedule d. - Follow up in three weeks to reassess b lood pressure. - Attend a scheduled appointment with walter chicas to learn how to use the home blood pressure monitoring device. 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 Social History Housing: House Alcohol intake: current Alcohol intake frequency: a few times a week Patient Tobacco Use Status: Former Tobacco user Years Smoked: 20 +/- e-Cigarette/Vaping Use: Never Used service: No Current occupational status: retired Cognitive needs: No Hearing needs: No Vision needs: Yes Questionnaire PHQ-9 Over the last 2 weeks, how often have you been bothered by any of the following problems? 1. Little interest or pleasure in doing things: not at all 2. Feeling down, depressed, or hopeless: not at all 3. Trouble falling or staying asleep, or sleeping too much: not at all 4. Feeling tired or having little energy: not at all 5. Poor appetite or overeating: not at all 6. Feeling bad about yourself - or that you are a failure or have let yourself or your family down: not at all 7. Trouble concentrating on things, such as reading the newspaper or watching television: not at all 8. Moving or speaking so slowly that other people could have noticed. Or the opposite - being so fidgety or restless that you have been moving around a lot more than usual: not at all 9. Thoughts that you would be better off or of hurting yourself in some way: not at all Total score: 0 Depression Screening Interpretation: Negative Depression Screening Done: Yes 22801 - PHQ-9 Billing: Yes Source: Developed by Drs. Manolo Ma, Angle Chen, Loco Estrella and colleagues, with an educational donovan from [employer] Thrive Questionnaire Date Thrive assessed: 05/28/24 I am a: Patient What is your living situation today?: I have a steady place to live Within the past 12 months, did the food you bought not last and you didn't have the money to get more?: Never true Within the past 12 months, did you worry whether your food would run out before you got money to buy more?: Never true Do you have trouble paying for medicines?: No Do you have trouble getting transportation to medical appointments?: No Do you have trouble paying your heating and electricity bill?: No Do you have trouble taking care of your child, family member or friend?: No Do you have trouble with day-to-day activities such as bathing, preparing meals, shopping, managing finances, etc.?: No Are you currently unemployed and looking for a job?: No Are you interested in more education?: No Please select the resources that you would like help with: None Currently or been in a relationship where the following occur: No concerns reported THRIVE Score: 0 ELIO-7 AMB Questionnaire ELIO-7 Date ELIO - 7 assessed: 11/01/24 Source: Developed by Drs. Manolo Ma, Angle Chen, Loco Estrella and colleagues, with an educational donovan from [employer] Physical exam (Primary Care) Vital Signs: Last Vital Signs Pulse 74 06/27/25 12:36 Resp 16 06/27/25 12:36 BP 160/88 H 06/27/25 12:36 Pulse Ox 95 06/27/25 12:36 Oxygen Delivery Method Room Air 06/27/25 12:36 BMI result Body Mass Index 29.0 Tobacco/Smoking Status: Tobacco use Status Tobacco use date assessed 06/27/25 06/27/25 12:43 Patient Tobacco Use Status Former Tobacco user 06/27/25 12:41 e-Cigarette/Vaping Use Never Used 06/27/25 12:41 PHQ-9: PHQ-9 Score PHQ-9: Total score 0 06/27/25 12:52 Depression Screening Interpretation: Negative Thrive Assessment: Date of Thrive Assessment Date Thrive assessed 05/28/24 06/27/25 12:41 Currently or been in a relationship where the following occur: No concerns reported Coding Level of Care Code Est Pt Level 4 (18250) Diagnoses Wound of left lower extremity, initial encounter S81.802A Encounter type: initial encounter Diabetes mellitus type II, non insulin dependent E11.9 Lipid disorder E78.9 Paroxysmal A-fib I48.0 Hypertension, essential I10 Risk for falls Z91.81 Additional Codes PHQ-9 - 68178 - PHQ-9 Billing: Yes ([id number]) Assessment & Plan Assessment & Plan (1) Leg wound, left: Code(s): S81.802A - Unspecified open wound, left lower leg, initial encounter Category: Medical Qualifiers: Encounter type: initial encounter Qualified Code(s): S81.802A - Unspecified open wound, left lower leg, initial encounter (2) Diabetes mellitus type II, non insulin dependent: Code(s): E11.9 - Type 2 diabetes mellitus without complications Category: Medical (3) Lipid disorder: Code(s): E78.9 - Disorder of lipoprotein metabolism, unspecified Category: Medical (4) Paroxysmal A-fib: Code(s): I48.0 - Paroxysmal atrial fibrillation Category: Medical (5) Hypertension, essential: Code(s): I10 - Essential (primary) hypertension Category: Medical (6) Risk for falls: Code(s): Z91.81 - History of falling Category: Medical Plan History of Present Illness The patient is an 79-year-old male presenting with elevated blood pressure and a leg wound. hx of afib, DM, lipid disorder, multiple joint OA, risk for fall , use cane Elevated Blood Pressure: - Began noticing elevated blood pressure readings after sustaining a leg injury. - Previously maintained normal blood pressure levels before the leg injury occurred. - Recent blood pressure reading was 160/88. - Current medications include chlorthalidone and metoprolol. - Patient expressed concerns about his inability to walk as much, potentially contributing to increased blood pressure. Leg Wound: - Patient sustained a leg wound caused by a log falling on it, approximately a month and a half ago. - Has been attending wound clinic treatments for two months. - Noted almost complete healing of the wound. - Receives weekly treatments involving sulfur application, bandaging, and wearing of a compression sock to manage swelling. - Swelling in the leg has subsided with the use of the compression sock. Medical History: - History of elevated blood pressure. Surgical History: - Patient underwent a recent laser procedure for the eyes. Social History: - Reduced physical activity due to back pain and leg wound. Problem List - Elevated Blood Pressure - Leg Wound due to trauma - Recent Post-Laser Eye Procedure Patient Instructions - Continue taking current medications as previously prescribed. - Start taking lisinopril 5 mg once daily in the morning. - Attend wound clinic weekly as scheduled. - Follow up in three weeks to reassess blood pressure. - Attend a scheduled appointment with nurse to learn how to use the home blood pressure monitoring device. Medications: New lisinopril 5 mg PO DAILY 30 tabs 0RF
== END 2025-06-27 14:35 | disposition home or self-care (01) ==
LOC: HO.HMCC 12:31
PROVIDERS: PCP Internal Medicine; Visit Provider Internal Medicine
DX: S81.802A Unspecified open wound, left lower leg, initial encounter (principal); E11.9 Type 2 diabetes mellitus without complications; E78.9 Disorder of lipoprotein metabolism, unspecified; I48.0 Paroxysmal atrial fibrillation; I10 Essential (primary) hypertension; Z91.81 History of falling

== ENCOUNTER → 2025-06-27 12:30 | Outpatient (BNVA) | payer MEDICARE, SELFPAY | PROVIDERS: PCP Internal Medicine; Visit Provider Internal Medicine | DX: I10 Essential (primary) hypertension (principal); E11.9 Type 2 diabetes mellitus without complications; E78.9 Disorder of lipoprotein metabolism, unspecified; I48.0 Paroxysmal atrial fibrillation; S81.802A Unspecified open wound, left lower leg, initial encounter; W19.XXXA Unspecified fall, initial encounter; Z91.81 History of falling | CPT/HCPCS: 96127; 99211; 99212 ==

== ENCOUNTER 2025-08-05 08:33 | Outpatient (AMB) | payer MEDICARE, SELFPAY ==
[2025-08-05 08:35] VITALS: BP 136/68; PULSE 71; O2SAT 97; BMI 29.4
--- NOTE | 2025-08-05 08:35 | A.OFFPC_ITS ---
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 Allergies environmental allergies Allergy (Mild, Verified 08/05/25 08:36) Itchy Eyes atenolol Allergy (Unknown, Verified 08/05/25 08:36) Bradycardia Medication List - Last Reconciled 08/05/25 by Shirin Davis MD adhesive tape Use for daily dressing change apixaban (Eliquis) 5 mg PO BID atorvastatin 80 mg PO QPM blood pressure test kit-wrist As directed blood sugar diagnostic (FreeStyle Lite Strips) test blood sugar once a day blood-glucose meter (FreeStyle Lite Meter kit) As directed chlorthalidone 50 mg PO DAILY 90 days ezetimibe 10 mg PO DAILY gauze bandage Change dressing daily glipizide 10 mg PO BID 90 days [heating pad As directed] lancets ([employer]ur[employer]Style Lancets) test blood sugar once a day lisinopril 5 mg PO DAILY metoprolol tartrate 25 mg PO BID miscellaneous medical supply As directed netarsudil-latanoprost 0.02-0.005 % (Rocklatan) drps ophthalmic (eye) ONCE paroxetine HCl 10 mg PO DAILY pioglitazone 15 mg PO DAILY timolol maleate 0.5% 1 drp ophthalmic (eye) BID [Xeroform gauze dressing 3 % bismuth As directed] Tobacco use date assessed: 06/27/25 Fall risk assessment: No Falls in past year Last assessed Fall Risk: 08/05/25 Dental Screening Dental Screen Date: 06/27/25 HPI 3 months f/up HPI Details History The patient is an 79-year-old male presenting with elevated blood pressure and recurrent lower leg wound. Elevated blood pressure: - The patient reports consistently high blood pressure readings during clinic visits. - Highest noted reading in the past was 160 mmHg. - The patient reports home readings vary ing, with one instance being as high as 169 mmHg. - Blood pressure was elevated at a recen t wound clinic visit with a reading of 136/68 mmHg. - The patient inquires about factors inf luencing blood pressure, such as emotional state and consumption of caffeinated beverages. - Trialed abstaining from coffee, but co ntinues to consume green tea. - Attempts weight management; current we ight is 217 pounds with a BMI of 29.4. Recurrent lower leg wound: - Patient follows up regularly at the wo und clinic for management of leg wounds. - On-going use of compression socks as p art of treatment has been instructed. - The patient expresses satisfaction wit h previous care and states wounds have healed well in the past. - The next visit to the wound clinic is planned for the following week. Medical History: - Paroxysmal atrial fibrillation - Coronary artery disease - Depression - Type 2 diabetes mellitus - Rosacea, currently stable - Osteoarthritis, severe and in multiple joints Surgical History: - Coronary artery bypass graft surgery ( CABG) performed three times Medications: - Atorvastatin 80 mg for hyperlipidemia - Eliquis for anticoagulation via cardio logy - Chlorthalidone 50 mg for hypertension - Zetia for cholesterol management - Glipizide 10 mg twice daily for diabet es management - Lisinopril 5 mg, increased to 10 mg, f or blood pressure control - Metoprolol 25 mg prescribed by cardiol raulito - Paroxetine for depression - Pioglitazone 15 mg for diabetes manage ment Social History: - Regular usage of a cane due to osteoar thritis - Currently facing challenges with walki ng exercises - Consumes green tea regularly; reports monitoring diet - Resides in the same location with emi garcia ties, including a daughter who visits from [place] Family History: - Granddaughter is a nurse, residing in [place], [place] Problem List - Elevated blood pressure - Recurrent lower leg wound - Paroxysmal atrial fibrillation - Coronary artery disease - Depression - Type 2 diabetes mellitus - Osteoarthritis - Rosacea Diagnostic results - Labs: Hemoglobin A1c at 7.4 indicating glucose control over the last three months [place] [facility] The patient is being followed by a cardiology office for anticoagulation manage ment and blood pressure control. Plan - Discussed increasing lisinopril to 10 mg to better manage blood pressure. - Advised continuation of all medication prescribed by cardiology including neelima rvastatin and Eliquis. - Emphasized the importance of regular m onitoring of blood pressure readings at home and bringing the home blood pressure monitor to the next appointment for calibration. - Recommending continued use of compress ion socks for leg wound management. - Plan for follow-up with the wound clin ic in one week to assess healing progress. - Advised maintaining current glucose ma nagement strategy with regular monitoring of blood sugar levels considering good control as reflected by an HbA1c of 7.4. - Discussed weight management strategies with a goal of reaching a weight closer to 214 pounds. - Continue depression management with pa roxetine, with regular appointments evaluating mental health status. Follow-up 3 weeks for blood pressure, lisinopril increased to 10 mg from 5 Review of Systems General: No fever no chills neurological: No headaches no dizziness ear nose throat: No sore throat no hearing difficulty no ear pain cardiovascular: No syncope, no chest pain, no palpitations gastrointestinal: No nausea vomiting or diarrhea endocrine: No polyuria polydipsia no heat intolerance genitourinary: No dysuria skin: No new complaints Physical Exam general: No acute distress HEENT: No acute findings neck: Supple respiratory system: Able to talk in full sentences, no audible wheeze no stridor cardiovascular: S1-S2 RRR gastrointestinal: No pain extremities: Compression stockings on, no more new wounds DISPLAY COORDINATOR: Alert awake oriented x3 motor intact skin: Normal turgor, rosacea which is stable [facility] Medical History Atherosclerotic cardiovascular disease Depression, major, recurrent Chronic nasal congestion Diabetes mellitus type II, non insulin dependent Osteoarthritis of hand, left Obesity (BMI 30.0-34.9) Vertebral artery stenosis Cervical spondylosis Hypertension, essential Lipid disorder Hearing impaired Surgical History S/P CABG x 3 Hx of cholecystectomy Family History Father HTN (hypertension) Mother No problems noted. Social History Housing: House Alcohol intake: current Alcohol intake frequency: a few times a week Patient Tobacco Use Status: Former Tobacco user Years Smoked: 20 +/- e-Cigarette/Vaping Use: Never Used service: No Current occupational status: retired Cognitive needs: No Hearing needs: No Vision needs: Yes Questionnaire Thrive Questionnaire Date Thrive assessed: 05/28/24 I am a: Patient What is your living situation today?: I have a steady place to live Within the past 12 months, did the food you bought not last and you didn't have the money to get more?: Never true Within the past 12 months, did you worry whether your food would run out before you got money to buy more?: Never true Do you have trouble paying for medicines?: No Do you have trouble getting transportation to medical appointments?: No Do you have trouble paying your heating and electricity bill?: No Do you have trouble taking care of your child, family member or friend?: No Do you have trouble with day-to-day activities such as bathing, preparing meals, shopping, managing finances, etc.?: No Are you currently unemployed and looking for a job?: No Are you interested in more education?: No Please select the resources that you would like help with: None Currently or been in a relationship where the following occur: No concerns reported THRIVE Score: 0 ELIO-7 AMB Questionnaire ELIO-7 Date ELIO - 7 assessed: 11/01/24 Source: Developed by Drs. Manolo Ma, Angle Chen, Loco Estrella and colleagues, with an educational donovan from [employer]. Physical exam (Primary Care) Vital Signs: Last Vital Signs Pulse 71 08/05/25 08:35 BP 136/68 08/05/25 08:35 Pulse Ox 97 08/05/25 08:35 BMI result Body Mass Index 29.4 Tobacco/Smoking Status: Tobacco use Status Tobacco use date assessed 06/27/25 08/05/25 08:35 Patient Tobacco Use Status Former Tobacco user 08/05/25 08:35 e-Cigarette/Vaping Use Never Used 08/05/25 08:35 Thrive Assessment: Date of Thrive Assessment Date Thrive assessed 05/28/24 08/05/25 08:35 Currently or been in a relationship where the following occur: No concerns reported Coding Level of Care Code Est Pt Level 4 (95875) Diagnoses Diabetes mellitus type II, non insulin dependent E11.9 Lipid disorder E78.9 Paroxysmal A-fib I48.0 Hypertension, essential I10 Risk for falls Z91.81 Recurrent major depressive disorder, in partial remission F33.41 Active/Remission status: in partial remission Bilateral hearing loss, unspecified hearing loss type H91.93 Hearing loss type: unspecified Laterality: bilateral Primary osteoarthritis involving multiple joints M15.9 Osteoarthritis type: primary Rosacea L71.9 Use of cane as ambulatory aid Z99.89 Assessment & Plan Assessment & Plan (1) Diabetes mellitus type II, non insulin dependent: Code(s): E11.9 - Type 2 diabetes mellitus without complications Category: Medical (2) Lipid disorder: Code(s): E78.9 - Disorder of lipoprotein metabolism, unspecified Category: Medical (3) Paroxysmal A-fib: Code(s): I48.0 - Paroxysmal atrial fibrillation Category: Medical (4) Hypertension, essential: Code(s): I10 - Essential (primary) hypertension Category: Medical (5) Risk for falls: Code(s): Z91.81 - History of falling Category: Medical (6) Depression, major, recurrent: Code(s): F33.9 - Major depressive disorder, recurrent, unspecified Category: Medical Qualifiers: Active/Remission status: in partial remission Qualified Code(s): F33.41 - Major depressive disorder, recurrent, in partial remission (7) Hearing impaired: Code(s): H91.90 - Unspecified hearing loss, unspecified ear Category: Medical Qualifiers: Hearing loss type: unspecified Laterality: bilateral Qualified Code(s): H91.93 - Unspecified hearing loss, bilateral (8) Osteoarthritis of multiple joints: Code(s): M15.9 - Polyosteoarthritis, unspecified Category: Medical Qualifiers: Osteoarthritis type: primary Qualified Code(s): M15.9 - Polyosteoarthritis, unspecified (9) Rosacea: Code(s): L71.9 - Rosacea, unspecified Category: Medical (10) Use of cane as ambulatory aid: Code(s): Z99.89 - Dependence on other enabling machines and devices Category: Medical Plan Elevated blood pressure: - The patient reports consistently high blood pressure readings during clinic visits. - Highest noted reading in the past was 160 mmHg. - The patient reports home readings varying, with one instance being as high as 169 mmHg. - Blood pressure was elevated at a recent wound clinic visit with a reading of 136/68 mmHg. - The patient inquires about factors influencing blood pressure, such as emotional state and consumption of caffeinated beverages. - Trialed abstaining from coffee, but continues to consume green tea. - Attempts weight management; current weight is 217 pounds with a BMI of 29.4. Recurrent lower leg wound: - Patient follows up regularly at the wound clinic for management of leg wounds. - On-going use of compression socks as part of treatment has been instructed. - The patient expresses satisfaction with previous care and states wounds have healed well in the past. - The next visit to the wound clinic is planned for the following week. Medical History: - Paroxysmal atrial fibrillation - Coronary artery disease - Depression - Type 2 diabetes mellitus - Rosacea, currently stable - Osteoarthritis, severe and in multiple joints Surgical History: - Coronary artery bypass graft surgery (CABG) performed three times Medications: - Atorvastatin 80 mg for hyperlipidemia - Eliquis for anticoagulation via cardiology - Chlorthalidone 50 mg for hypertension - Zetia for cholesterol management - Glipizide 10 mg twice daily for diabetes management - Lisinopril 5 mg, increased to 10 mg, for blood pressure control - Metoprolol 25 mg prescribed by cardiology - Paroxetine for depression - Pioglitazone 15 mg for diabetes management Social History: - Regular usage of a cane due to osteoarthritis - Currently facing challenges with walking exercises - Consumes green tea regularly; reports monitoring diet - Resides in the same location with family ties, including a daughter who visits from [place] Family History: - Granddaughter is a nurse, residing in [place], [place] Problem List - Elevated blood pressure - Recurrent lower leg wound - Paroxysmal atrial fibrillation - Coronary artery disease - Depression - Type 2 diabetes mellitus - Osteoarthritis - Rosacea Diagnostic results - Labs: Hemoglobin A1c at 7.4 indicating glucose control over the last three months [place] [facility] The patient is being followed by a cardiology office for anticoagulation management and blood pressure control. Plan - Discussed increasing lisinopril to 10 mg to better manage blood pressure. - Advised continuation of all medication prescribed by cardiology including atorvastatin and Eliquis. - Emphasized the importance of regular monitoring of blood pressure readings at home and bringing the home blood pressure monitor to the next appointment for calibration. - Recommending continued use of compression socks for leg wound management. - Plan for follow-up with the wound clinic in one week to assess healing progress. - Advised maintaining current glucose management strategy with regular monitoring of blood sugar levels considering good control as reflected by an HbA1c of 7.4. - Discussed weight management strategies with a goal of reaching a weight closer to 214 pounds. - Continue depression management with paroxetine, with regular appointments evaluating mental health status. Follow-up 3 weeks for blood pressure, lisinopril increased to 10 mg from 5 Medications: Changed From lisinopril 5 mg PO DAILY 30 tabs 0RF To lisinopril 10 mg PO DAILY 90 tabs 0RF
== END 2025-08-05 09:48 | disposition home or self-care (01) ==
LOC: HO.HMCC 08:34
PROVIDERS: PCP Internal Medicine; Visit Provider Internal Medicine
DX: E11.9 Type 2 diabetes mellitus without complications (principal); E78.9 Disorder of lipoprotein metabolism, unspecified; I48.0 Paroxysmal atrial fibrillation; I10 Essential (primary) hypertension; Z91.81 History of falling; F33.41 Major depressive disorder, recurrent, in partial remission; H91.93 Unspecified hearing loss, bilateral; M15.9 Polyosteoarthritis, unspecified; L71.9 Rosacea, unspecified; Z99.89 Dependence on other enabling machines and devices

== ENCOUNTER → 2025-08-05 08:33 | Outpatient (BNVA) | payer MEDICARE, SELFPAY | PROVIDERS: PCP Internal Medicine; Visit Provider Internal Medicine | DX: I10 Essential (primary) hypertension (principal); E11.9 Type 2 diabetes mellitus without complications; I48.0 Paroxysmal atrial fibrillation; F33.41 Major depressive disorder, recurrent, in partial remission; H91.93 Unspecified hearing loss, bilateral; M15.9 Polyosteoarthritis, unspecified; L71.9 Rosacea, unspecified; Z99.89 Dependence on other enabling machines and devices; Z91.81 History of falling | CPT/HCPCS: 99212 ==

== ENCOUNTER 2025-08-15 08:00 | Outpatient (RCR) | payer MEDICARE, SELFPAY | END 2025-08-15 16:44 | disposition home or self-care (01) | LOC: HO.WCC 08:00 | PROVIDERS: PCP Internal Medicine; Visit Provider Surgery Vascular Surgery | DX: E11.622 Type 2 diabetes mellitus with other skin ulcer (principal); E11.51 Type 2 diabetes mellitus with diabetic peripheral angiopathy without gangrene; I87.312 Chronic venous hypertension (idiopathic) with ulcer of left lower extremity; L97.221 Non-pressure chronic ulcer of left calf limited to breakdown of skin; L97.211 Non-pressure chronic ulcer of right calf limited to breakdown of skin; E11.40 Type 2 diabetes mellitus with diabetic neuropathy, unspecified; Z87.891 Personal history of nicotine dependence | CPT/HCPCS: 11042; 29581; 97597; 99212; 99213; 99214 ==

== ENCOUNTER 2025-08-27 08:38 | Outpatient (AMB) | payer MEDICARE, SELFPAY ==
--- NOTE | 2025-08-27 08:40 | A.OFFPC_ITS ---
Vital Signs 08/27/25 08:41 Height 6 ft Weight 216 lb BMI 29.3 BP 134/70 Blood Pressure Location Lt brachial Position Sitting Respiration 16 Pulse 67 Pulse Source Pulse Oximeter Temp 98.4 F Temp Source Oral Pulse Oximetry (%) 98 Oxygen Delivery Method Room Air Intake Visit Reasons: 3 week follow up bp Allergies environmental allergies Allergy (Mild, Verified 08/27/25 08:42) Itchy Eyes atenolol Allergy (Unknown, Verified 08/27/25 08:42) Bradycardia Medication List - Last Reconciled 08/27/25 by Shirin Davis MD adhesive tape Use for daily dressing change apixaban (Eliquis) 5 mg PO BID atorvastatin 80 mg PO QPM blood pressure test kit-wrist As directed blood sugar diagnostic (FreeStyle Lite Strips) test blood sugar once a day blood-glucose meter (FreeStyle Lite Meter kit) As directed chlorthalidone 50 mg PO DAILY 90 days ezetimibe 10 mg PO DAILY gauze bandage Change dressing daily glipizide 10 mg PO BID 90 days [heating pad As directed] lancets ([employer]Style Lancets) test blood sugar once a day lisinopril 10 mg PO DAILY metoprolol tartrate 25 mg PO BID miscellaneous medical supply As directed netarsudil-latanoprost 0.02-0.005 % (Rocklatan) drps ophthalmic (eye) ONCE paroxetine HCl 10 mg PO DAILY pioglitazone 15 mg PO DAILY timolol maleate 0.5% 1 drp ophthalmic (eye) BID [Xeroform gauze dressing 3 % bismuth As directed] Tobacco use date assessed: 08/27/25 Fall risk assessment: No Falls in past year Last assessed Fall Risk: 08/27/25 Dental Screening Dental Screen Date: 06/27/25 HPI 3 week follow up bp HPI Details History of Present Illness The patient is an 80-year-old male presenting for follow-up on his blood pressure Hypertension: - The patient's blood pressure is contro lled with chlorthalidone 50 mg, lisinopril 10 mg, and metoprolol 25 mg twice daily, with a reading of 134/70 mmHg today. - He reports that his home blood pressur e monitor provides inaccurate readings, which causes him to become nervous. Chronic Lower Back Pain: - The patient has chronic lower back terri n that occurs with walking or prolonged standing, which forces him to sit down after about 20 minutes of activity. - He was diagnosed with scoliosis years ago and was told his back condition would worsen over time. - He manages the pain with Tylenol as ne eded and wears a supportive belt. - He previously used ibuprofen 800 mg bu t can no longer take it. Atrial Fibrillation: - The patient has atrial fibrillation an d is on Eliquis. Carpal Tunnel Syndrome: - He reports that his hands become numb at night after sleeping for a few hours, which is attributed to carpal tunnel syndrome. - The patient may have splints at home a nd has declined surgery for this condition. Medical History: - Atrial fibrillation, on Eliquis - Hypertension - Scoliosis - Carpal tunnel syndrome Problem List - Hypertension - Atrial fibrillation - Chronic lower back pain - Scoliosis - Carpal tunnel syndrome - Preventative care: ENT follow-up appoi ntment coming up for ear cleaning in [place] Plan - Hypertension: The patient will continu e his current regimen of chlorthalidone 50 mg, lisinopril 10 mg, and metoprolol 25 mg twice daily. - He was advised to stop checking his bl ood pressure at home due to inaccurate readings from his machine causing anxiety. - Chronic Lower Back Pain: He will elpidio nue to use Tylenol for pain management. - Tramadol was discussed as an alternati ve but was not prescribed due to the risk of dizziness and falls. - Carpal Tunnel Syndrome: Advised to wea r hand splints at night to prevent numbness. - Surgery for carpal tunnel was discusse d, but the patient declined. - Cold Sensitivity: Recommended that the patient wear warm gloves to keep his hands warm. Review of Systems - General: No fever no chills - Neurological: No headaches no dizziness - Ear nose throat: No sore throat no hearing difficulty no ear pain - Cardiovascular: No syncope, no chest pain, no palpitations - Gastrointestinal: No nausea vomiting or diarrhea Physical Exam General: No acute distress HEENT: No acute findings Neck: Supple Respiratory system: Able to talk in full sentences, no audible wheeze Cardiovascular: S1-S2 regular in rate and rhythm Gastrointestinal: Reports back pain, worsens with prolonged standing Extremities: No new findings, severe arthritis in small joints both hands 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 Social History Housing: House Alcohol intake: current Alcohol intake frequency: a few times a week Patient Tobacco Use Status: Former Tobacco user Years Smoked: 20 +/- e-Cigarette/Vaping Use: Never Used service: No Current occupational status: retired Cognitive needs: No Hearing needs: No Vision needs: Yes Questionnaire Thrive Questionnaire Date Thrive assessed: 05/28/24 I am a: Patient What is your living situation today?: I have a steady place to live Within the past 12 months, did the food you bought not last and you didn't have the money to get more?: Never true Within the past 12 months, did you worry whether your food would run out before you got money to buy more?: Never true Do you have trouble paying for medicines?: No Do you have trouble getting transportation to medical appointments?: No Do you have trouble paying your heating and electricity bill?: No Do you have trouble taking care of your child, family member or friend?: No Do you have trouble with day-to-day activities such as bathing, preparing meals, shopping, managing finances, etc.?: No Are you currently unemployed and looking for a job?: No Are you interested in more education?: No Please select the resources that you would like help with: None Currently or been in a relationship where the following occur: No concerns reported THRIVE Score: 0 ELIO-7 AMB Questionnaire ELIO-7 Date ELIO - 7 assessed: 11/01/24 Source: Developed by Drs. Manolo Ma, Angle Chen, Loco Estrella and colleagues, with an educational donovan from [employer]. Physical exam (Primary Care) Vital Signs: Last Vital Signs Temp 98.4 F 08/27/25 08:41 Pulse 67 08/27/25 08:41 Resp 16 08/27/25 08:41 BP 134/70 08/27/25 08:41 Pulse Ox 98 08/27/25 08:41 Oxygen Delivery Method Room Air 08/27/25 08:41 BMI result Body Mass Index 29.3 Tobacco/Smoking Status: Tobacco use Status Tobacco use date assessed 08/27/25 08/27/25 08:42 Patient Tobacco Use Status Former Tobacco user 08/27/25 08:41 e-Cigarette/Vaping Use Never Used 08/27/25 08:41 Thrive Assessment: Date of Thrive Assessment Date Thrive assessed 05/28/24 08/27/25 08:41 Currently or been in a relationship where the following occur: No concerns reported Coding Level of Care Code Est Pt Level 4 (93558) Diagnoses Paresthesia of both hands R20.2 Hypertension, essential I10 Paroxysmal A-fib I48.0 Primary osteoarthritis involving multiple joints M15.9 Osteoarthritis type: primary Assessment & Plan Assessment & Plan (1) Paresthesia of both hands: Code(s): R20.2 - Paresthesia of skin Category: Medical (2) Hypertension, essential: Code(s): I10 - Essential (primary) hypertension Category: Medical (3) Paroxysmal A-fib: Code(s): I48.0 - Paroxysmal atrial fibrillation Category: Medical (4) Osteoarthritis of multiple joints: Code(s): M15.9 - Polyosteoarthritis, unspecified Category: Medical Qualifiers: Osteoarthritis type: primary Qualified Code(s): M15.9 - Polyosteoarthritis, unspecified Plan Hypertension: - The patient's blood pressure is controlled with chlorthalidone 50 mg, lisinopril 10 mg, and metoprolol 25 mg twice daily, with a reading of 134/70 mmHg today. - He reports that his home blood pressure monitor provides inaccurate readings, which causes him to become nervous. Chronic Lower Back Pain: - The patient has chronic lower back pain that occurs with walking or prolonged standing, which forces him to sit down after about 20 minutes of activity. - He was diagnosed with scoliosis years ago and was told his back condition would worsen over time. - He manages the pain with Tylenol as needed and wears a supportive belt. - He previously used ibuprofen 800 mg but can no longer take it. Atrial Fibrillation: - The patient has atrial fibrillation and is on Eliquis. Carpal Tunnel Syndrome: - He reports that his hands become numb at night after sleeping for a few hours, which is attributed to carpal tunnel syndrome. - The patient may have splints at home and has declined surgery for this condition. Medical History: - Atrial fibrillation, on Eliquis - Hypertension - Scoliosis - Carpal tunnel syndrome Problem List - Hypertension - Atrial fibrillation - Chronic lower back pain - Scoliosis - Carpal tunnel syndrome - Preventative care: ENT follow-up appointment coming up for ear cleaning in [place] Plan - Hypertension: The patient will continue his current regimen of chlorthalidone 50 mg, lisinopril 10 mg, and metoprolol 25 mg twice daily. - He was advised to stop checking his blood pressure at home due to inaccurate readings from his machine causing anxiety. - Chronic Lower Back Pain: He will continue to use Tylenol for pain management. - Tramadol was discussed as an alternative but was not prescribed due to the risk of dizziness and falls. - Carpal Tunnel Syndrome: Advised to wear hand splints at night to prevent numbness. - Surgery for carpal tunnel was discussed, but the patient declined. - Cold Sensitivity: Recommended that the patient wear warm gloves to keep his hands warm.
[2025-08-27 08:41] VITALS: BP 134/70; PULSE 67; RESP 16; TEMP 36.9; O2SAT 98; BMI 29.3
== END 2025-08-27 09:01 | disposition home or self-care (01) ==
LOC: HO.HMCC 08:39
PROVIDERS: PCP Internal Medicine; Visit Provider Internal Medicine
DX: R20.2 Paresthesia of skin (principal); I10 Essential (primary) hypertension; I48.0 Paroxysmal atrial fibrillation; M15.9 Polyosteoarthritis, unspecified

== ENCOUNTER → 2025-08-27 08:38 | Outpatient (BNVA) | payer MEDICARE, SELFPAY | PROVIDERS: PCP Internal Medicine; Visit Provider Internal Medicine | DX: R20.2 Paresthesia of skin (principal); I10 Essential (primary) hypertension; I48.0 Paroxysmal atrial fibrillation; M15.9 Polyosteoarthritis, unspecified | CPT/HCPCS: 99212 ==

== ENCOUNTER 2025-09-10 07:26 | Outpatient (AMB) | payer MEDICARE, SELFPAY ==
[2025-09-10 08:16] VITALS: BP 124/66; PULSE 63; BMI 28.7
--- NOTE | 2025-09-10 08:16 | MHC.OFFVIS ---
Vital Signs 09/10/25 08:16 Height 6 ft Weight 211 lb 10.3 oz BMI 28.7 BP 124/66 Blood Pressure Location Lt brachial Position Sitting Pulse 63 Pulse Source Monitor Intake Visit Reasons: 1 yr follow up [employer] Required: No Accompanied by: Self / Same As Patient Allergies environmental allergies Allergy (Mild, Verified 08/27/25 08:42) Itchy Eyes atenolol Allergy (Unknown, Verified 08/27/25 08:42) Bradycardia Medication List - Last Reconciled 09/10/25 by Boogie Hunter MD adhesive tape Use for daily dressing change apixaban (Eliquis) 5 mg PO BID atorvastatin 80 mg PO QPM blood pressure test kit-wrist As directed blood sugar diagnostic (FreeStyle Lite Strips) test blood sugar once a day blood-glucose meter (FreeStyle Lite Meter kit) As directed chlorthalidone 50 mg PO DAILY 90 days ezetimibe 10 mg PO DAILY gauze bandage Change dressing daily glipizide 10 mg PO BID 90 days [heating pad As directed] lancets (FreeStyle Lancets) test blood sugar once a day lisinopril 10 mg PO DAILY metoprolol tartrate 25 mg PO BID miscellaneous medical supply As directed netarsudil-latanoprost 0.02-0.005 % (Rocklatan) drps ophthalmic (eye) ONCE paroxetine HCl 10 mg PO DAILY pioglitazone 15 mg PO DAILY timolol maleate 0.5% 1 drp ophthalmic (eye) BID [Xeroform gauze dressing 3 % bismuth As directed] HPI Comments Details: Sergio returns for follow-up regarding coronary disease and bypass surgery. In the past, he was seen regarding an abnormal EKG showing a prior infarct and that led to further workup. Started noninvasive testing, that led to diagnostic catheterization showing multivessel disease. Then went for bypass surgery. He denies any cardiac symptoms. No concerns otherwise. [facility] Medical History Atherosclerotic cardiovascular disease Depression, major, recurrent Chronic nasal congestion Diabetes mellitus type II, non insulin dependent Osteoarthritis of hand, left Obesity (BMI 30.0-34.9) Vertebral artery stenosis Cervical spondylosis Hypertension, essential Lipid disorder Hearing impaired Surgical History S/P CABG x 3 Hx of cholecystectomy Family History Father HTN (hypertension) Mother No problems noted. Social History Housing: House Alcohol intake: current Alcohol intake frequency: a few times a week Patient Tobacco Use Status: Former Tobacco user Years Smoked: 20 +/- e-Cigarette/Vaping Use: Never Used service: No Current occupational status: retired Cognitive needs: No Hearing needs: No Vision needs: Yes Review of Systems Const Denies chills, Denies fatigue, Denies fever(s), Denies frequent falls, Denies weakness, Denies weight gain and Denies weight loss ENT Denies dizziness Card Denies chest pain, Denies leg edema, Denies lightheadedness, Denies palpitations, Denies dyspnea and Denies dyspnea on exertion Resp Denies cough, Denies dyspnea and Denies dyspnea on exertion GI Denies hematochezia Musc Denies abnormal gait, Denies muscle weakness, Denies numbness, Denies radiating pain into limb and Denies tingling Neuro Denies abnormal gait, Denies dizziness, Denies frequent falls, Denies numbness, Denies tingling and Denies weakness Endo Denies fatigue and Denies palpitations Physical Exam Vital Signs: Last Vital Signs Pulse 63 09/10/25 08:16 BP 124/66 09/10/25 08:16 BMI result Body Mass Index 28.7 Const General: comfortable and no acute distress Orientation/consciousness: patient oriented x3 HEENT Other: Unremarkable Head: Yes normal to inspection Neck Neck: Yes normal visual inspection Chest Chest palpation & inspection: normal inspection of the chest Resp Auscultation: clear to auscultation bilaterally Cardio Palpation: normal PMI Heart sounds: S1 normal heart sound present, S2 normal heart sound present, no gallops, Murmur heart sound present systolic II/ and at the right sternal border and no rubs GI Palpation (GI): Soft to palpation Back/Spine/Pelvis Other: unremarkable Skin General skin exam: no rashes or lesions noted Neuro General: patient oriented x3 Extrem General: Yes normal to inspection Psych Mental Status: mental status grossly normal Office Procedures EKG Details: EKG with underlying sinus rhythm at 63/Min; sinus arrhythmias; prolonged ND at 276 milliseconds; inferior T inversions; [place] [id number], Complete Assessment & Plan Assessment & Plan (1) Atherosclerotic cardiovascular disease: Code(s): I25.10 - Atherosclerotic heart disease of [place] coronary artery without angina pectoris Category: Medical Plan: Status post bypass. Stable. Remains on beta-blockers, statins, zetia. (2) S/P CABG x 3: Comment: 04/2023. Contreras to LAD, left radial graft to OM, SVG graft to PDA Code(s): Z95.1 - Presence of aortocoronary bypass graft Category: Surgical Plan: Recovered well. (3) Paroxysmal A-fib: Code(s): I48.0 - Paroxysmal atrial fibrillation Category: Medical Plan: Postoperative atrial fibrillation. Remains on Eliquis. (4) Hypertension, essential: Code(s): I10 - Essential (primary) hypertension Category: Medical Plan: Stable blood pressure. Plan Discussion Notes I discussed with the patient that everything looks stable from a cardiovascular perspective and that I will not be making any changes to the patient's current medications. I recommended a follow-up appointment in one year. I informed the patient that I will order an echocardiogram to be completed before the next visit. I advised the patient to call if any new symptoms such as chest pain or breathing problems develop. Patient was informed and verbally consented to the use of an ambient scribe for clinic note documentation during this visit. Orders: Orders CA echo transthoracic complete 1 Year I35.0 - Nonrheumatic aortic (valve) stenosis Patient Instructions: - Continue taking all your medications as they are prescribed. - We are not making any changes to your medicines today. - Try to be very careful to avoid bumping or injuring your legs, as the wounds heal very slowly. - You will need to get a heart ultrasound (an echocardiogram) before your next visit. - Your next follow-up appointment will be in one year. - Call the office if you have any new chest pain, breathing problems, or other concerns. Coding Level of Care Code Est Pt Level 4 (39469) Complex visit Add On G2211 Diagnoses Atherosclerotic cardiovascular disease I25.10 S/P CABG x 3 Z95.1 Paroxysmal A-fib I48.0 Hypertension, essential I10 CPT Codes EKG - CPT: 81151-[id number], Complete ([id number])
== END 2025-09-10 08:37 | disposition home or self-care (01) ==
LOC: HO.HCS 07:27
PROVIDERS: PCP Internal Medicine; Visit Provider Internal Medicine
DX: I25.10 Atherosclerotic heart disease of native coronary artery without angina pectoris (principal); Z95.1 Presence of aortocoronary bypass graft; I48.0 Paroxysmal atrial fibrillation; I10 Essential (primary) hypertension
CPT/HCPCS: 93010; 99214; G2211

== ENCOUNTER → 2025-09-10 07:26 | Outpatient (BNVA) | payer MEDICARE, SELFPAY | PROVIDERS: PCP Internal Medicine; Visit Provider Internal Medicine | DX: I25.10 Atherosclerotic heart disease of native coronary artery without angina pectoris (principal); I10 Essential (primary) hypertension; I48.0 Paroxysmal atrial fibrillation; I35.0 Nonrheumatic aortic (valve) stenosis; I44.0 Atrioventricular block, first degree; I49.8 Other specified cardiac arrhythmias; Z95.1 Presence of aortocoronary bypass graft | CPT/HCPCS: 93005; 99212 ==